=== PATIENT | male | born 1950 | race Caucasian/White ===

== ENCOUNTER → 2018-01-06 08:44 | Outpatient (CLI) | payer OTHER, SELFPAY ==
--- NOTE | 2018-01-10 07:43 | PM.PFT.1 ---
Pulmonary Function Test Referral & Results Date Patient Seen: 01/06/18 Requesting provider: Ally Grossman Indication: COPD Results: The spirometry demonstrates an FVC of 3.77 L which is 83% of predicted. The FEV1 was measured at 2.34 L which is 69% of predicted. The FEV1/FVC ratio was 62 which is 83% of predicted. Following the administration of bronchodilator there was no appreciable change. Lung volumes show an SVC of 3.99 L which is 86% of predicted. The diffusing capacity was measured at 14.39 which is 44% of predicted. No hemoglobin value was provided, so no correction for potential anemia could be made, if appropriate. The maximum voluntary ventilation was reduced Interpretation: This study demonstrates moderately severe obstructive lung disease without evidence of benefit following bronchodilator. There is also mild restrictive lung disease present There is much more significant disease at the capillary alveolar level based on significant reduction in diffusing capacity (unless patient is anemic). Clinical correlation suggested.
== END ==
PROVIDERS: PCP Registered Nurse; Visit Provider Registered Nurse
DX: J44.9 Chronic obstructive pulmonary disease, unspecified (principal)
CPT/HCPCS: 94010; 94060; 94726; 94729

== ENCOUNTER → 2018-01-18 08:53 | Outpatient (CLI) | payer OTHER, SELFPAY ==
[2018-01-18 09:58] LABS: Add Manual Diff / Slide Review NO; Basophils Percent Auto 1.8 % (0-2); Eosinophils Percent Auto 5.9 % (2-4); Hematocrit 29.7 % (41-53); Hemoglobin 9.3 g/dL (13.5-17.5); Lymphocytes Percent Auto 30.2 % (25-40); Mean Corpuscular HGB Conc 31.2 % (30-36); Mean Corpuscular Hemoglobin 18.8 PG (26-34); Mean Corpuscular Volume 60.3 fL (80-100); Monocytes Percent Auto 13.8 % (3-14); Neutrophils Absolute Auto 2800 /uL (3000-5900); Neutrophils Percent Auto 48.3 % (50-75); Platelet Count 494 X10^3/uL (150-400); Red Blood Cell Count 4.93 X10^6/uL (4.5-5.9); Red Cell Distribution Width 18.3 % (11.6-14.8); White Blood Cell Count 5.7 X10^3/uL (4.5-11.0)
[2018-01-18 10:00] LABS: Alanine Aminotransferase 30 IU/L (21-72); Albumin 3.4 g/dL (3.5-5.0); Albumin Globulin Ratio 1.2 (1.0-2.8); Alkaline Phosphatase 52 U/L (38-126); Aspartate Aminotransferase 34 IU/L (17-59); BUN Creatinine Ratio 15.6 (6-22); Bilirubin Total 0.3 mg/dL (0.2-1.3); Blood Urea Nitrogen 14 mg/dL (9-20); Calcium 8.6 mg/dL (8.4-10.2); Carbon Dioxide 26 mmol/L (22-32); Chloride 100 mmol/L (98-107); Cholesterol 172 mg/dL (140-199); Estimated Glomerular Filt Rate > 60.0 mL/min (>60); Globulin 2.8 g/dL (1.7-4.1); Glucose 97 mg/dL (80-110); HDL Cholesterol 48 mg/dL (40-60); HEMOLYSIS < 15 (0-50); LDL Cholesterol Calculated 105 mg/dL (<100); Potassium 4.4 mmol/L (3.4-5.1); Sodium 135 mmol/L (137-145); Total Protein 6.2 g/dL (6.3-8.2); Triglycerides 97 mg/dL (35-150)
[2018-01-18 10:29] LABS: Hypochromasia 2+; Microcytosis 1+; Polychromasia 1+
[2018-01-18 10:32] LABS: Thyroid Stimulating Hormone 0.04 uIU/mL (0.47-4.68)
== END ==
PROVIDERS: PCP Registered Nurse; Visit Provider Registered Nurse
DX: E03.2 Hypothyroidism due to medicaments and other exogenous substances (principal); J44.9 Chronic obstructive pulmonary disease, unspecified; K50.90 Crohn's disease, unspecified, without complications; I71.4 Abdominal aortic aneurysm, without rupture; I25.10 Atherosclerotic heart disease of native coronary artery without angina pectoris
CPT/HCPCS: 36415; 80053; 80061; 84443; 85025

== ENCOUNTER → 2018-01-21 08:56 | Outpatient (CLI) | payer OTHER, SELFPAY ==
[2018-01-21 11:23] LABS: HEMOLYSIS < 15 (0-50); Iron 11 ug/dL (49-181)
[2018-01-21 11:35] LABS: Percent Iron Saturation 4 % (20-50); Total Iron Binding Capacity 307 ug/dL (261-462); Transferrin 246 mg/dL (206-381)
== END ==
PROVIDERS: PCP Registered Nurse; Visit Provider Registered Nurse
DX: D64.9 Anemia, unspecified (principal)
CPT/HCPCS: 36415; 83540; 83550

== ENCOUNTER → 2018-01-30 09:10 | Outpatient (CLI) | payer OTHER, SELFPAY ==
--- NOTE | 2018-01-30 09:14 | DI.CT.S_ITS ---
PROCEDURE: CT CHEST WO CON INDICATIONS: Monitoring of pulmonary nodules, AAA TECHNIQUE: Noncontrast 2.0-2.5 mm thick sections acquired from the pulmonary apices to the posterior costophrenic angles. 7 mm thick coronal and sagittal MIP reformats were then acquired. A low radiation dose technique was utilized. COMPARISON: Outside Facility, RG, CT THORAX W/O CONTRAST, 02/20/2017, 8:40. Outside Facility, RG, CT SOFT TISSUE NECK WITH CONTRAST, 03/01/2015, 15:42. Outside Facility, RG, CT THORAX W/O CONTRAST, 03/01/2015, 15:42. FINDINGS: Image quality: Diagnostic, given the low radiation dose technique. Lungs and pleura: Previously identified 5 mm nodule within the right upper lobe on series 2 image 29 is unchanged compared to initial visualization on 03/01/15. A 3 mm left upper lobe nodule is unchanged, compared to initial visualization on 02/20/17. Calcified nodule in the right base is also unchanged compared to 03/01/15 and likely granuloma. Mediastinum: Heart size is normal. No pericardial effusion. No mediastinal adenopathy by size criteria. Scattered mediastinal calcified nodes are present. The ascending thoracic aorta is unchanged measuring approximately 43 mm. Esophagus is normal in caliber. No hiatal hernia. Bones and chest wall: No suspicious bony lesions. No vertebral body compression fractures. No axillary or supraclavicular adenopathy by size criteria. Thyroid gland is not well visualized. Abdomen: Calcifications are present within the spleen and liver. There is an exophytic hyperdense focus along the posterior lateral aspect of the right kidney, unchanged. Otherwise, visualized upper abdomen solid organs and bowel loops appear normal in the absence of contrast. IMPRESSION: 1. Unchanged 5 mm right upper lobe nodule, stable compared to 03/01/15. Recommendations no further followup as it has demonstrated stability over greater than 2 year suggestive of benign etiology. 2. Unchanged 3 mm nodule since initial visualization of 02/20/17. Based on criteria below, no additional followup is recommended. 3. Unchanged aneurysmal dilation of the ascending thoracic aorta. Fleischner Society criteria for SOLID lung nodule followup. Nodule size (mm)Low-risk patientHigh-risk patient<6 (single or multiple)No routine followup.Optional CT at 12 months. 6-8 (single or multiple)CT at 6-12 months, then optional CT at 18-24 mo.CT at 6-12 months, then CT at 18-24 months. >8 (single)CT at 3 months, PET-CT, or biopsy. Same as for low-risk pts. >8 (multiple)CT at 3-6 months, then optional CT at 18-24 mo.CT at 3-6 months, then CT at 18-24 months. Recommendations do not apply to lung cancer screening, patients with immunosuppression, or patients with known primary cancer. Dictated by: Jadyn Ballard M.D. on 01/30/2018 at 12:23 Approved by: Jadyn Ballard M.D. on 01/30/2018 at 13:24
== END ==
PROVIDERS: PCP Registered Nurse; Visit Provider Registered Nurse
DX: I71.4 Abdominal aortic aneurysm, without rupture (principal); R91.8 Other nonspecific abnormal finding of lung field
CPT/HCPCS: 71250; Q9967

== ENCOUNTER 2018-02-26 12:51 | Inpatient (IN) | payer OTHER, SELFPAY ==
[2018-02-26 13:06] VITALS: BP 162/99; PULSE 77; RESP 18; TEMP 36.7; O2SAT 100
[2018-02-26 13:37] LABS: Add Manual Diff / Slide Review NO; Basophils Percent Auto 0.6 % (0-2); Eosinophils Percent Auto 2.2 % (2-4); Hematocrit 41.6 % (41-53); Lymphocytes Percent Auto 10.1 % (25-40); Mean Corpuscular HGB Conc 31.3 % (30-36); Mean Corpuscular Hemoglobin 22.1 PG (26-34); Mean Corpuscular Volume 70.5 fL (80-100); Monocytes Percent Auto 6.9 % (3-14); Neutrophils Absolute Auto 9800 /uL (3000-5900); Neutrophils Percent Auto 80.2 % (50-75); Platelet Count 380 X10^3/uL (150-400); Red Cell Distribution Width 32.3 % (11.6-14.8); White Blood Cell Count 12.2 X10^3/uL (4.5-11.0)
[2018-02-26 13:38] LABS: Alanine Aminotransferase 41 IU/L (21-72); Albumin 3.5 g/dL (3.5-5.0); Albumin Globulin Ratio 1.3 (1.0-2.8); Alkaline Phosphatase 54 U/L (38-126); Aspartate Aminotransferase 32 IU/L (17-59); BUN Creatinine Ratio 18.9 (6-22); Bilirubin Total 0.5 mg/dL (0.2-1.3); Blood Urea Nitrogen 17 mg/dL (9-20); Calcium 8.9 mg/dL (8.4-10.2); Carbon Dioxide 23 mmol/L (22-32); Chloride 103 mmol/L (98-107); Estimated Glomerular Filt Rate > 60.0 mL/min (>60); Globulin 2.6 g/dL (1.7-4.1); Glucose 104 mg/dL (80-110); HEMOLYSIS 28 (0-50); Lipase 10 U/L (23-300); Potassium 4.4 mmol/L (3.4-5.1); Sodium 139 mmol/L (137-145); Total Protein 6.1 g/dL (6.3-8.2)
[2018-02-26] MEDS: KETOROLAC 60 MG/2 ML VIAL 30 MG IV (13:44)
[2018-02-26] MEDS: ONDANSETRON 4 MG/2 ML INJ IV (13:44)
[2018-02-26] MEDS: SODIUM CHLORIDE 0.9% 1,000 ML 150 ML IV ×2 (13:44→20:31)
[2018-02-26 14:00] VITALS: BP 119/66; PULSE 86; O2SAT 96
[2018-02-26 14:02] LABS: Anisocytosis 3+
[2018-02-26 14:03] LABS: Hypochromasia 1+
[2018-02-26 14:04] LABS: Ovalocytes 2+
[2018-02-26 14:05] LABS: Poikilocytosis 1+
--- NOTE | 2018-02-26 14:09 | DI.CT.S_ITS ---
PROCEDURE: CT ABDOMEN PELVIS W CON INDICATIONS: right abd pain. hx of Crohn TECHNIQUE: After the administration of intravenous contrast, 5 mm thick sections acquired from the diaphragm to the symphysis. 5 mm coronal and sagittal reformats were acquired. For radiation dose reduction, the following was used: automated exposure control, adjustment of mA and/or kV according to patient size. COMPARISON: Outside Facility, RG, CT SOFT TISSUE NECK WITH CONTRAST, 03/01/2015, 15:42. Outside Facility, RG, CT THORAX W/O CONTRAST, 02/20/2017, 8:40. Outside Facility, RG, CT THORAX W/O CONTRAST, 03/01/2015, 15:42. [facility], CT, CT CHEST WO CON, 01/30/2018, 9:23. FINDINGS: Image quality: Excellent. ABDOMEN: Lung bases: Chronic last infiltrate are present in the right middle lobe, and lower lobes bilaterally. Heart size is normal. Solid organs: Liver is normal in size and enhancement. Gallbladder is normal. Biliary system is non dilated. Pancreas enhances normally. Spleen is mildly enlarged and demonstrates multiple calcified granulomas. No adrenal nodules. Kidneys demonstrate normal size and enhancement, without hydronephrosis. There is a 1.3 cm cyst in the left kidney. A 1.2 cm exophytic nodule is noted in the mid right kidney. There is a 1.6 cm exophytic hyperdense nodule in the superior pole right kidney, which has slightly increased in size since 02/2015. Peritoneum and bowel: Terminal ileum appears mildly thickened. Proximal to the terminal ileum, small intestine is distended measuring up to 4.5 cm in diameter suggesting small bowel obstruction. There is increased mucosal enhancement in small intestine and cecum and ascending colon, which are filled with fluid. There is mild concentric wall thickening involving the splenic flexure, descending and sigmoid colon. A small amount of free fluid is present. No free air. Nodes and vessels: No retroperitoneal or mesenteric adenopathy by size criteria. Aorta and inferior vena cava are normal in size. There is moderate aortic atherosclerosis. Miscellaneous: No ventral hernias. There is a 1.7 x 5.1 cm lipoma in the anterior left flank. PELVIS: Genitourinary: Bladder wall thickness is normal. Miscellaneous: No inguinal hernias or adenopathy. Bones: No suspicious bony lesions. No vertebral body compression fractures. IMPRESSION: 1. There is concentric thickening in the terminal ileum as well as the left colon consistent with Crohn's disease. 2. Fluid-filled, mildly distended small intestine consistent with small bowel obstruction. The transitional point is in the terminal ileum. 3. A small amount of free fluid is present. No free air. 4. Mild splenomegaly and old calcified splenic granulomas. 5. Right middle lobe and bilateral lower lobe infiltrates suspicious for pneumonia or pneumonitis. 6. Several small nodules are seen in kidneys bilaterally, most likely renal cysts. One nodule in the superior pole the right kidney has slightly enlarged since 2015 and appears hyperdense. Renal ultrasound is suggested for followup to confirm cystic nature. 7. A lipoma in the anterior left flank. Dictated by: Max Couch M.D. on 02/26/2018 at 14:57 Approved by: Max Couch M.D. on 02/26/2018 at 15:24
--- NOTE | 2018-02-26 14:50 | ED.ABDPAIN ---
HPI - Abdominal Pain General Chief Complaint: Abdominal Pain Stated Complaint: states bad stomach pain Time Seen by Provider: 02/26/18 13:20 Source: patient Mode of arrival: ambulatory Limitations: no limitations History of Present Illness HPI narrative: Patient is a 67-year-old male who presents with mid abdominal pain. He says he is having some cramping sensations last evening however he was able to eat dinner. Today it is constant pain nonradiating no migration of pain. He denies nausea or vomiting. He is passing gas. He does have a history of Crohn's disease which he has had since the 1960s. He was recently started on Humira this summer to help manage it. He states very adamantly this is not a Crohn's flare. He notes exactly with does feel like and this does not seem to be 1 of them. Previously his GI doctor is in [place]. Due to [place] as he has been unable to see a GI doctor up in this area he is scheduled see Dr. valdez But has not yet seen him MD complaint: abdominal pain Onset (ago): day(s) Pain Consistency: constant Location: periumbilical Severity: moderate Related Data Home Medications Medication Instructions Recorded Confirmed adalimumab 40 mg/0.8 mL 40 mg SUBCUT Q2W 12/02/17 02/26/18 subcutaneous syringe kit fluticasone 50 mcg/actuation nasal 1 spray NASAL DAILY 12/02/17 02/26/18 spray,suspension levothyroxine 125 mcg capsule 125 mcg PO DAILY 12/02/17 02/26/18 omeprazole 20 mg tablet,delayed 20 mg PO BID tab 12/02/17 02/26/18 release ferrous sulfate 325 mg (65 mg 325 mg PO BID tab 01/31/18 02/26/18 iron) tablet salmeterol [Serevent Diskus] 1 inhalation INHALATION DAILY 02/26/18 02/26/18 Previous Rx's Medication Instructions Recorded beclomethasone diprop 40 2 puff INHALATION BID #10.6 gram 01/09/18 mcg/actuation HFA breath activated aerosol albuterol sulfate HFA 90 1 puff INHALATION Q4-6H PRN #8 gram 01/31/18 mcg/actuation aerosol inhaler Allergies Allergy/AdvReac Type Severity Reaction Status Date / Time No Known Drug Allergies Allergy Unverified 02/25/18 13:48 Review of Systems Review of Systems All systems reviewed & are unremarkable except as noted in HPI and below Constitutional Denies chills, Denies fever(s), Denies lethargy and Denies weakness Cardiovascular Denies chest pain, Denies irregular heart rhythm, Denies lightheadedness, Denies palpitations, Denies dyspnea, Denies dyspnea on exertion and Denies orthopnea Respiratory Denies cough, Denies dyspnea, Denies dyspnea on exertion and Denies wheezing Gastrointestinal Gastrointestinal: Reports as per HPI Genitourinary Denies hematuria, Denies flank pain, Denies urinary incontinence and Denies urinary urgency Musculoskeletal Denies back pain, Denies muscle weakness, Denies numbness and Denies tingling Integumentary/Breasts Denies pruritus, Denies erythema, Denies rash and Denies wounds Neurologic Denies numbness, Denies tingling and Denies weakness Endocrine Denies palpitations Allergic/Immunologic Denies wheezing [facility] Medical History Pulmonary nodules (Chronic) Abdominal aortic aneurysm (AAA) (Chronic) Iatrogenic hypothyroidism (Chronic) COPD (chronic obstructive pulmonary disease) (Chronic) Crohns disease (Chronic ~1968) Surgical History Thyroid cancer (Resolved ~06/2010) Tongue malignant neoplasm (Resolved ~2015) History of mandibular surgery (Resolved ~1987) History of testicular surgery (Resolved ~1956) Family History Father No problems noted. Mother No problems noted. Social History household members: spouse Smoking Status: Former smoker alcohol intake: current substance use type: marijuana (on occasion) Exam Initial Vital Signs Initial Vital Signs: Vital Signs Temperature 98.1 F 02/26/18 13:06 Pulse Rate 77 02/26/18 13:06 Respiratory Rate 18 02/26/18 13:06 Blood Pressure 162/99 H 02/26/18 13:06 Pulse Oximetry 100 02/26/18 13:06 GENERAL: Comfortable well-appearing male no acute distress HEENT: Head atraumatic,EOMI, pupils reactive CARDIOVASCULAR: Regular rate and rhythm without murmurs, rubs or gallops. RESPIRATORY: Breath sounds equal bilaterally, no wheezes rales or rhonchi. ABDOMEN: Soft, mid abdomen is tender, no guarding or rebound : No CVA tenderness EXTREMITIES: Normal range of motion, no clubbing or edema. Neurovascularly intact NEUROLOGICAL: Alert and oriented x4.Normal gait and speech. Cranial nerves II through XII grossly intact. SKIN: Warm, dry, no laceration, no petechiae, no rashes or lesions. Course Orders Ordered: ED Orders 02/26/18 13:20 Complete Blood Count AUTO DIFF Stat Comprehensive Metabolic Panel Stat Lipase Stat 02/26/18 14:09 CT abdomen pelvis w con Stat 02/26/18 16:41 Lactate (Lactic Acid) Stat 02/26/18 17:12 Consult to General Surgery Stat 02/26/18 17:22 Education, smoking cessation ONGOING 02/26/18 17:24 Consult to Discharge Planning Routine Consult to Occupational Therapy Evaluate & Treat Consult to Physical Therapy Evaluate & Treat Bisacodyl (Dulcolax) 10 mg NE DAILY PRN PRN Reason: Constipation Heparin Sodium (Porcine) (Heparin) 5,000 unit SUBCUT BID SUSY Sodium Chloride (Normal Saline 0.9%) 1,000 mls @ 100 mls/hr IV CONT SUSY Last Admin: 02/26/18 13:44 Dose: 150 mls/hr Morphine Sulfate (Morphine) 2 mg IV Q4HR PRN PRN Reason: Pain, Moderate (4-6) Ondansetron HCl (Zofran) 4 mg IV Q8HR PRN PRN Reason: Nausea And Vomiting Discontinued Medications Ketorolac Tromethamine (Toradol) 30 mg IV NOW ONE Stop: 02/26/18 13:29 Last Admin: 02/26/18 13:44 Dose: 30 mg Methylprednisolone (Solu-Medrol 125 Mg Vial) 125 mg IV NOW ONE Stop: 02/26/18 16:23 Ondansetron HCl (Zofran) 4 mg IV NOW ONE Stop: 02/26/18 13:29 Last Admin: 02/26/18 13:44 Dose: 4 mg Vital Signs - 8 hr 02/26/18 13:06 02/26/18 14:00 02/26/18 16:29 Temperature 98.1 F Pulse Rate 77 86 75 Respiratory Rate 18 17 Blood Pressure 162/99 H Blood Pressure [Left Arm] 119/66 126/82 Pulse Oximetry 100 96 98 02/26/18 17:02 Temperature Pulse Rate 73 Respiratory Rate 17 Blood Pressure 121/89 Blood Pressure [Left Arm] Pulse Oximetry 97 MDM - Abdominal Pain Medical Records Attestation: I reviewed the patient's medical records. Lab Data Attestation: I reviewed the patient's lab results. Result diagrams: 02/26/18 13:20 02/26/18 13:20 Lab Results 02/26/18 02/26/18 02/26/18 Range/Units 13:20 13:20 16:41 WBC 12.2 H (4.5-11.0) X10^3/uL RBC 5.90 (4.5-5.9) X10^6/uL Hgb 13.0 L (13.5-17.5) g/dL Hct 41.6 (41-53) % MCV 70.5 L (80-100) fL MCH 22.1 L (26-34) PG MCHC 31.3 (30-36) % RDW 32.3 H (11.6-14.8) % Plt Count 380 (150-400) X10^3/uL Neut % (Auto) 80.2 H (50-75) % Lymph % (Auto) 10.1 L (25-40) % [place] % (Auto) 6.9 (3-14) % Eos % (Auto) 2.2 (2-4) % Baso % (Auto) 0.6 (0-2) % Neut # (Auto) 9800 H (0515-1999) /uL RBC Morphology See below Hypochromasia 1+ H Poikilocytosis 1+ H Anisocytosis 3+ H Ovalocytes 2+ H Sodium 139 (137-145) mmol/L Potassium 4.4 (3.4-5.1) mmol/L Chloride 103 (98-107) mmol/L Carbon Dioxide 23 (22-32) mmol/L BUN 17 (9-20) mg/dL Creatinine 0.90 (0.66-1.25) mg/dL Estimated GFR > 60.0 (>60) mL/min BUN/Creatinine Ratio 18.9 (6-22) Glucose 104 (80-110) mg/dL Lactate 0.6 L (0.7-2.1) mmol/L Calcium 8.9 (8.4-10.2) mg/dL Total Bilirubin 0.5 (0.2-1.3) mg/dL AST 32 (17-59) IU/L ALT 41 (21-72) IU/L Alkaline Phosphatase 54 (38-126) U/L Total Protein 6.1 L (6.3-8.2) g/dL Albumin 3.5 (3.5-5.0) g/dL Globulin 2.6 (1.7-4.1) g/dL Albumin/Globulin Ratio 1.3 (1.0-2.8) Lipase 10 L (23-300) U/L Imaging Data CT scan - abdomen: Radiologist's impression: PROCEDURE: CT ABDOMEN PELVIS W CON INDICATIONS: right abd pain. hx of Crohn TECHNIQUE: After the administration of intravenous contrast, 5 mm thick sections acquired from the diaphragm to the symphysis. 5 mm coronal and sagittal reformats were acquired. For radiation dose reduction, the following was used: automated exposure control, adjustment of mA and/or kV according to patient size. COMPARISON: Outside Facility, RG, CT SOFT TISSUE NECK WITH CONTRAST, 03/01/2015, 15:42. Outside Facility, RG, CT THORAX W/O CONTRAST, 02/20/2017, 8:40. Outside Facility, RG, CT THORAX W/O CONTRAST, 03/01/2015, 15:42. [facility], CT, CT CHEST WO CON, 01/30/2018, 9:23. FINDINGS: Image quality: Excellent. ABDOMEN: Lung bases: Chronic last infiltrate are present in the right middle lobe, and lower lobes bilaterally. Heart size is normal. Solid organs: Liver is normal in size and enhancement. Gallbladder is normal. Biliary system is non dilated. Pancreas enhances normally. Spleen is mildly enlarged and demonstrates multiple calcified granulomas. No adrenal nodules. Kidneys demonstrate normal size and enhancement, without hydronephrosis. There is a 1.3 cm cyst in the left kidney. A 1.2 cm exophytic nodule is noted in the mid right kidney. There is a 1.6 cm exophytic hyperdense nodule in the superior pole right kidney, which has slightly increased in size since 02/2015. Peritoneum and bowel: Terminal ileum appears mildly thickened. Proximal to the terminal ileum, small intestine is distended measuring up to 4.5 cm in diameter suggesting small bowel obstruction. There is increased mucosal enhancement in small intestine and cecum and ascending colon, which are filled with fluid. There is mild concentric wall thickening involving the splenic flexure, descending and sigmoid colon. A small amount of free fluid is present. No free air. Nodes and vessels: No retroperitoneal or mesenteric adenopathy by size criteria. Aorta and inferior vena cava are normal in size. There is moderate aortic atherosclerosis. Miscellaneous: No ventral hernias. There is a 1.7 x 5.1 cm lipoma in the anterior left flank. PELVIS: Genitourinary: Bladder wall thickness is normal. Miscellaneous: No inguinal hernias or adenopathy. Bones: No suspicious bony lesions. No vertebral body compression fractures. IMPRESSION: 1. There is concentric thickening in the terminal ileum as well as the left colon consistent with Crohn's disease. 2. Fluid-filled, mildly distended small intestine consistent with small bowel obstruction. The transitional point is in the terminal ileum. 3. A small amount of free fluid is present. No free air. 4. Mild splenomegaly and old calcified splenic granulomas. 5. Right middle lobe and bilateral lower lobe infiltrates suspicious for pneumonia or pneumonitis. 6. Several small nodules are seen in kidneys bilaterally, most likely renal cysts. One nodule in the superior pole the right kidney has slightly enlarged since 2015 and appears hyperdense. Renal ultrasound is suggested for followup to confirm cystic nature. 7. A lipoma in the anterior left flank. Dictated by: Max Couch M.D. on 02/26/2018 at 14:57 MDM Narrative Medical decision making narrative: I have called Dr. Hurtado who has reviewed his CT recommend strong aggressive medical management surgery as a last resort. Dr. Saez, hospitalist updated patient's symptoms test results. Is comfortable managing Crohn's disease with surgery as strategy consultant Dr. Hurtado agrees to consult Dr. Croft has been notified. According to records patient is air in at [facility] patient. Is comfortable with internal medicine at managing Discharge Plan Departure Patient Disposition: Admitted As Inpatient Clinical Impression: Crohns disease Discharge Date/Time: 02/26/18 17:17 Interventions: ED Discharge Assessment Last Done: 02/26/18 17:02 Admit Date/Time: 02/26/18 17:14 Admit Provider: Maria R Combs
[2018-02-26 16:29] VITALS: BP 126/82; PULSE 75; RESP 17; O2SAT 98
[2018-02-26 17:02] VITALS: BP 121/89; PULSE 73; RESP 17; O2SAT 97
[2018-02-26 17:03] LABS: Lactate (Lactic Acid) 0.6 mmol/L (0.7-2.1)
[2018-02-26 17:18] VITALS: BP 137/95; PULSE 71; RESP 18; TEMP 37.1; O2SAT 96
[2018-02-26 17:28] VITALS: BMI 20.1
[2018-02-26] MEDS: MORPHINE 2 MG/ML INJ IV (17:52)
--- NOTE | 2018-02-26 18:15 | PM.HP.1 ---
History of Present Illness Date Patient Seen: 02/26/18 Time Patient Seen: 18:16 Chief complaint: states bad stomach pain Narrative: - VERY PLEASANT 67 YO MALE WITH PAST MEDICAL HISTORY SIGNIFICANT FOR CHROM S DISEASE; IRON DEF ANEMIA AND ANDERSON - PRESENTED TO THE ED WITH ABD PAIN WHICH HAS BEEN ONGOING FOR LAST FEW DAYS - STARTED ON SATURDAY ; SHARP IN NATURE AND WORSENING LAST NIGHT AND ALL DAY TODAY - HE DOES NOT HAVE A HX OF ABD SURGERY AND HIS IBD IS UNDER CONTROL ON HUMIRA - HE DENIED ANY FEVER OR CHILLS; NO RECENT TRAVEL; NO EXOTIC FOOD PRODUCTS; NO INJURIES - PAIN WAS ON AND OFF AND IMPROVED SINCE IN THE ED IN THE ED, HE WAS FOUND TO HAVE SBO PER CT AND RECOMMENDED FOR INPATIENT ADMISSION Patient History Medical History Pulmonary nodules (Chronic) Abdominal aortic aneurysm (AAA) (Chronic) Iatrogenic hypothyroidism (Chronic) COPD (chronic obstructive pulmonary disease) (Chronic) Crohns disease (Chronic ~1968) Surgical History Thyroid cancer (Resolved ~06/2010) Tongue malignant neoplasm (Resolved ~2015) History of mandibular surgery (Resolved ~1987) History of testicular surgery (Resolved ~1956) Family & Social History Family History: Reviewed 02/26/18 by Maria R Combs DO Social History: household members spouse Prior Living Arrangements House Safety & Behavioral: Feels Safe in Current Yes Environment Been Physically Hurt or No Threatened By a Person Suicidal Ideation Description None Suicide Plan Description No Plan Tobacco & Substance use: Smoking Status Former smoker alcohol intake current alcohol intake frequency a few times a week Substance Use Type marijuana Meds Home Medications Medication Instructions Recorded Confirmed Type adalimumab 40 mg/0.8 mL 40 mg SUBCUT Q2W 12/02/17 02/26/18 History subcutaneous syringe kit fluticasone 50 mcg/actuation nasal 1 spray NASAL DAILY 12/02/17 02/26/18 History spray,suspension levothyroxine 125 mcg capsule 125 mcg PO DAILY 12/02/17 02/26/18 History omeprazole 20 mg tablet,delayed 20 mg PO BID tab 12/02/17 02/26/18 History release beclomethasone diprop 40 2 puff INHALATION BID #10.6 gram 10/18/18 12/05/18 Rx mcg/actuation HFA breath activated aerosol albuterol sulfate HFA 90 1 puff INHALATION Q4-6H PRN #8 gram 01/31/18 02/26/18 Rx mcg/actuation aerosol inhaler ferrous sulfate 325 mg (65 mg 325 mg PO BID tab 01/31/18 02/26/18 History iron) tablet salmeterol [Serevent Diskus] 1 inhalation INHALATION DAILY 02/26/18 02/26/18 History Allergies Allergy/AdvReac Type Severity Reaction Status Date / Time No Known Drug Allergies Allergy Unverified 02/25/18 13:48 Review of Systems Review of Systems All systems reviewed & are unremarkable except as noted in HPI and below Exam Vital Signs (past 8 hours): - 02/26/18 13:06 02/26/18 14:00 02/26/18 16:29 Temperature 98.1 F Pulse Rate 77 86 75 Respiratory Rate 18 17 Blood Pressure 162/99 H Blood Pressure [Left Arm] 119/66 126/82 Pulse Oximetry 100 96 98 02/26/18 17:02 02/26/18 17:18 Temperature 98.8 F Pulse Rate 73 71 Respiratory Rate 17 18 Blood Pressure 121/89 137/95 H Blood Pressure [Left Arm] Pulse Oximetry 97 96 Oxygen Delivery Method Room Air Narrative Exam Narrative: NO ACUTE DISTRESS. PATIENT IS ALERT ORIENTED X3. VITAL SIGNS STABLE HEAD ATRAUMATIC NORMOCEPHALIC NECK : SUPPLE WITHOUT ADENOPATHY NO CAROTID BRUITS EYE: EOMI, PERRLA, NORMAL CONJUNCTIVA; NO JAUNDICE CHEST: REGULAR RATE. NO RUBS. PMI IS NON DISPLACED. NO MURMURS; NORMAL S1-S2 PULMONARY: DECREASED BS OVER THE BASES. MILD BIBASILAR CRACKLES NOTED; NO INCREASED DULLNESS TO PERCUSSION ABDOMEN: SOFT. TENDERNESS TO MILD PALPATION. NONDISTENDED. BOWEL SOUNDS ARE PRESENT IN ALL 4 QUADRANTS BUT HYPOACTIVE NO MASS. EXTREMITIES: NO EDEMA.. NO CYANOSIS CLUBBING NOTED. NEURO: CRANIAL NERVES 2-12 GROSSLY INTACT. NO FOCAL NEUROLOGICAL DEFICIT NOTED. MSK: NORMAL RANGE OF MOTION FOR AGE. NO JOINT EFFUSION. SKIN: NORMAL FOR ETHNICITY; NO ECCHYMOSIS. NO LESION. GOOD TURGOR.; NO RASHES : NORMAL EXTERNAL GENITALIA. PSYCH : APPROPRIATE MOOD AND AFFECT. ALERT AWAKE ORIENTED X3 Objective Labs Result Diagrams: 02/26/18 13:20 02/26/18 13:20 Labs: Laboratory Results - last 24 hr 02/26/18 02/26/18 02/26/18 13:20 13:20 16:41 WBC 12.2 H RBC 5.90 Hgb 13.0 L Hct 41.6 MCV 70.5 L MCH 22.1 L MCHC 31.3 RDW 32.3 H Plt Count 380 Neut % (Auto) 80.2 H Lymph % (Auto) 10.1 L [place] % (Auto) 6.9 Eos % (Auto) 2.2 Baso % (Auto) 0.6 Neut # (Auto) 9800 H RBC Morphology See below Hypochromasia 1+ H Poikilocytosis 1+ H Anisocytosis 3+ H Ovalocytes 2+ H Sodium 139 Potassium 4.4 Chloride 103 Carbon Dioxide 23 BUN 17 Creatinine 0.90 Estimated GFR > 60.0 BUN/Creatinine Ratio 18.9 Glucose 104 Lactate 0.6 L Calcium 8.9 Total Bilirubin 0.5 AST 32 ALT 41 Alkaline Phosphatase 54 Total Protein 6.1 L Albumin 3.5 Globulin 2.6 Albumin/Globulin Ratio 1.3 Lipase 10 L Assessment & Plan Plan: Assessment/Plan Narrative: IMPRESSION AND PLAN ABD PAIN DUE TO SBO; KEEP NPO FOR NOW; NGT INDICATED FOR INTRACTABLE NAUSEA; SURG CONSULT INDICATED; IVF TO PREVENT DEHYDRATION; FOLLOW LACTATE TO RULE OUT ISCHEMIA LEUKOCYTOSIS; POSS CRHON S DISEASE EXACERBATION; WILL CONSIDER STEROID THERAPY; START ON ABX; DAILY CBC; BLOOD CX IRON DEF ANEMIA; GET IRON PANEL DURATION OF STAY: 2-3 DAYS TIME SPENT 50 MINS
[2018-02-26] MEDS: metroNIDAZOLE 500 MG/100 ML PIGGYBACK 100 MG IV (19:10)
[2018-02-26 19:11] VITALS: BP 155/92; PULSE 77; RESP 19; TEMP 36.9; O2SAT 97
[2018-02-26] MEDS: methylPREDNISolone 125 MG/2 ML VIAL IV (19:13)
--- NOTE | 2018-02-26 19:49 | P.HP_ITS ---
History of Present Illness Date Patient Seen: 02/26/18 Time Patient Seen: 19:39 Chief complaint: states bad stomach pain Narrative: 67-year-old male with history of Crohn's disease since 1968 generally controlled with long-term oral steroids recently started on Humira 4 months ago per his cytotechnologist/cytology supervisor in [place] with cessation of steroids in November 2017 who presented the emergency department today with 24 hr history of progressive severe abdominal pain. States that the pain is generalized mostly but slightly more severe in the right lower quadrant region. No fever or chills. Mild nausea earlier this morning but that has resolved. No vomiting at any time. He had a normal bowel movement this morning but none since. He is passing a small amount of flatus. Does have some subjective abdominal distention. Denies any fever or chills. He has not had any similar symptoms in the past. His last Crohn's exacerbation was approximately June 2017 manifesting as diarrhea. He has never required surgery for his Crohn's disease. He responded to high-dose steroids at that time. Of note, he has not seen his cytotechnologist/cytology supervisor's since October 2017 at the time of his medication change. Unfortunately, insurance coverage is no longer allow him to maintain care with that physician. He is currently transitioning to another cytotechnologist/cytology supervisor in [place], [place] with initial consultation scheduled for April 2018. Patient History Medical History Pulmonary nodules (Chronic) Abdominal aortic aneurysm (AAA) (Chronic) Iatrogenic hypothyroidism (Chronic) COPD (chronic obstructive pulmonary disease) (Chronic) Crohns disease (Chronic ~1968) Personal history of colonic polyps (Acute) Surgical History Thyroid cancer (Resolved ~06/2010) Tongue malignant neoplasm (Resolved ~2015) History of colonoscopy (Acute) History of mandibular surgery (Resolved ~1987) History of testicular surgery (Resolved ~1956) Family & Social History Family History: Reviewed 02/26/18 by Frederick Hurtado MD Social History: household members spouse Prior Living Arrangements House Safety & Behavioral: Feels Safe in Current Yes Environment Been Physically Hurt or No Threatened By a Person Suicidal Ideation Description None Suicide Plan Description No Plan Tobacco & Substance use: Smoking Status Former smoker alcohol intake current alcohol intake frequency a few times a week Substance Use Type marijuana Meds Home Medications Medication Instructions Recorded Confirmed Type adalimumab 40 mg/0.8 mL 40 mg SUBCUT Q2W 12/02/17 02/26/18 History subcutaneous syringe kit fluticasone 50 mcg/actuation nasal 1 spray NASAL DAILY 12/02/17 02/26/18 History spray,suspension levothyroxine 125 mcg capsule 125 mcg PO DAILY 12/02/17 02/26/18 History omeprazole 20 mg tablet,delayed 20 mg PO BID tab 12/02/17 02/26/18 History release beclomethasone diprop 40 2 puff INHALATION BID #10.6 gram 01/09/18 02/26/18 Rx mcg/actuation HFA breath activated aerosol albuterol sulfate HFA 90 1 puff INHALATION Q4-6H PRN #8 gram 01/31/18 02/26/18 Rx mcg/actuation aerosol inhaler ferrous sulfate 325 mg (65 mg 325 mg PO BID tab 01/31/18 02/26/18 History iron) tablet salmeterol [Serevent Diskus] 1 inhalation INHALATION DAILY 02/26/18 02/26/18 History Allergies Allergy/AdvReac Type Severity Reaction Status Date / Time No Known Drug Allergies Allergy Unverified 02/25/18 13:48 Review of Systems Review of Systems All systems reviewed & are unremarkable except as noted in HPI and below Exam Vital Signs (past 8 hours): - 02/26/18 13:06 02/26/18 14:00 02/26/18 16:29 Temperature 98.1 F Pulse Rate 77 86 75 Respiratory Rate 18 17 Blood Pressure 162/99 H Blood Pressure [Left Arm] 119/66 126/82 Pulse Oximetry 100 96 98 02/26/18 17:02 02/26/18 17:18 02/26/18 19:11 Temperature 98.8 F 98.4 F Pulse Rate 73 71 77 Respiratory Rate 17 18 19 Blood Pressure 121/89 137/95 H 155/92 H Blood Pressure [Left Arm] Pulse Oximetry 97 96 97 Oxygen Delivery Method Room Air Narrative Exam Narrative: Well-nourished well-developed male sitting comfortably in bed in no acute distress. Alert oriented x3. His family is at the bedside during my entire visit. Temperature 98.1?. Heart rate is normal with no tachycardia. Blood pressure is also normal. Sclera nonicteric Neck is supple although he has postsurgical changes on the right side consistent with neck dissection Chest clear auscultation bilaterally with regular rate and rhythm. No murmurs, gallops, rubs. No crackles or wheezes. Abdomen is soft but distended and tympanitic. He is mildly tender throughout the abdomen but more pronounced in the right lower quadrant. However, he certainly does not have guarding or rebound. No Rovsing sign. I am able palpate loops of small bowel throughout the abdomen due to his thin body habitus. No surgical scars. No obvious hernias. Extremities show no clubbing, cyanosis, or edema Objective Labs Result Diagrams: 02/26/18 13:20 02/26/18 13:20 Labs: Laboratory Results - last 24 hr 02/26/18 02/26/18 02/26/18 13:20 13:20 16:41 WBC 12.2 H RBC 5.90 Hgb 13.0 L Hct 41.6 MCV 70.5 L MCH 22.1 L MCHC 31.3 RDW 32.3 H Plt Count 380 Neut % (Auto) 80.2 H Lymph % (Auto) 10.1 L Jack % (Auto) 6.9 Eos % (Auto) 2.2 Baso % (Auto) 0.6 Neut # (Auto) 9800 H RBC Morphology See below Hypochromasia 1+ H Poikilocytosis 1+ H Anisocytosis 3+ H Ovalocytes 2+ H Sodium 139 Potassium 4.4 Chloride 103 Carbon Dioxide 23 BUN 17 Creatinine 0.90 Estimated GFR > 60.0 BUN/Creatinine Ratio 18.9 Glucose 104 Lactate 0.6 L Calcium 8.9 Total Bilirubin 0.5 AST 32 ALT 41 Alkaline Phosphatase 54 Total Protein 6.1 L Albumin 3.5 Globulin 2.6 Albumin/Globulin Ratio 1.3 Lipase 10 L I have personally reviewed his CT scan of the abdomen and pelvis done this evening in the emergency department. He has multiple dilated loops of small bowel with air-fluid levels and minimal thickening of the bowel wall although the obvious transition point appears to be an area of thickening in the terminal ileum. This would be most consistent with Crohn's disease. No free air. No significant free fluid. He does have atherosclerosis of the aortoiliac system but no aneurysm. Assessment & Plan Plan: Assessment/Plan Narrative: 67-year-old male with longstanding history of Crohn's disease recently transition from steroids to monoclonal antibody therapy now presenting with partial small-bowel obstruction most consistent with Crohn's exacerbation in the terminal ileum. Small possibility of chronic stricture although he has had no issues with such in the past. I discussed my impression findings with the patient and his family at length. At this point I am hopeful that he will respond to aggressive medical management of his Crohn's disease with resolution of the inflammation and potential resolution of the small-bowel obstruction. He understands, however, that this may not occur and he would need surgery. I explained that surgery would be a last resort in the event he does not respond to medical management. I explained the reasoning behind avoiding surgery and patients with Crohn's disease if at all possible, especially if he would require resection of his ileocecal valve. Unfortunately we do not have gastroenterology services available for acute inpatient consultations, but I did explain to the emergency room physicians that I believe that would be in the patient's best interest. He has been admitted per Internal Medicine service with medical management including intravenous steroids at this time. Again, I anticipate that he will respond to medical management and hopefully resolve the acute issue. At this point surgery service will simply follow the patient for any acute clinical changes or clear size that he is not responding to medical management. All questions were answered to his satisfaction, and he voiced understanding. He was agreeable to the plan.
[2018-02-26] MEDS: CIPROFLOXACIN 400 MG/200 ML PIGGYBACK 200 MG IV (20:22)
[2018-02-26] MEDS: HYDROMORPHONE 1 MG INJ IV (20:39)
[2018-02-26 21:18] LABS: Lactate (Lactic Acid) 0.6 mmol/L (0.7-2.1)
--- NOTE | 2018-02-26 22:55 | PC.NURSE ---
171-Patient arrived on the floor via stretcher and accompanied by . Patient a&Ox4, ROGERS, denies numbness/tingling. Patient on room air clear lung sounds, hypoactive BTs w/ some distention and tender to touch in all 4 quadrants, denies nausea. 1751-PRN Morphine 2mg for 6/10 abd pain. 2029-Patient c/o pain 7/10 w/grimacing; PRN 1mg dilaudid administered. 2099-good pain relief; patient resting. 2300-VSS, afebrile, no nausea. no falls or injuries as of this note. pending UA; missed void earlier, waiting for patient to void; will pass on to next shift.
[2018-02-27] VITALS (8 sets, daily range): BP systolic 128–145; BP diastolic 73–91; PULSE 58–73; RESP 16–20; TEMP 36.4–37.1; O2SAT 95–99
[2018-02-27] MEDS: HEPARIN 5,000 UNIT/ML VIAL 5000 UNIT SUBCUT ×3 (00:05→21:09)
[2018-02-27] MEDS: HYDROMORPHONE 1 MG INJ IV ×4 (00:48→14:12)
[2018-02-27] MEDS: metroNIDAZOLE 500 MG/100 ML PIGGYBACK 100 MG IV ×2 (02:28→10:37)
[2018-02-27 03:35] LABS: Bacteria Urine None Seen; WBC Urine None Seen (0-5/HPF)
[2018-02-27 03:36] LABS: Appearance Urine UA CLEAR; Bilirubin Urine UA 1+ (NEGATIVE); Glucose Urine UA NEGATIVE (Normal); Ketones Urine UA 1+ (NEGATIVE); Leukocyte Esterase Urine UA NEGATIVE (NEGATIVE); Nitrite Urine UA NEGATIVE (Negative); Occult Blood Urine UA NEGATIVE (Negative); Protein Urine UA TRACE (Negative); Specific Gravity Urine UA 1.025 (1.000-1.035); Urobilinogen Urine UA 0.2 E.U./dL (0.2)
[2018-02-27 03:37] LABS: Color Urine UA Dark Yellow
[2018-02-27 03:38] LABS: Ictotest Urine Negative (Negative)
[2018-02-27 03:39] LABS: RBC Urine 0-1/HPF (0-5/HPF)
[2018-02-27 03:40] LABS: Mucus Urine 1+ (Negative)
[2018-02-27 03:41] LABS: Culture Indicated Urine Cult Not Indicated
[2018-02-27] MEDS: SODIUM CHLORIDE 0.9% 1,000 ML 150 ML IV ×3 (05:11→21:29)
[2018-02-27 05:56] LABS: Add Manual Diff / Slide Review NO; Basophils Percent Auto 0.2 % (0-2); Hematocrit 36.6 % (41-53); Hemoglobin 11.5 g/dL (13.5-17.5); Lymphocytes Percent Auto 11.6 % (25-40); Mean Corpuscular HGB Conc 31.3 % (30-36); Mean Corpuscular Volume 70.3 fL (80-100); Monocytes Percent Auto 1.4 % (3-14); Neutrophils Absolute Auto 6100 /uL (3000-5900); Neutrophils Percent Auto 86.8 % (50-75); Platelet Count 347 X10^3/uL (150-400)
[2018-02-27 06:05] LABS: Lactate (Lactic Acid) 0.9 mmol/L (0.7-2.1)
[2018-02-27 06:08] LABS: Alanine Aminotransferase 36 IU/L (21-72); Albumin 2.8 g/dL (3.5-5.0); Albumin Globulin Ratio 1.1 (1.0-2.8); Alkaline Phosphatase 56 U/L (38-126); Aspartate Aminotransferase 25 IU/L (17-59); Bilirubin Total 0.2 mg/dL (0.2-1.3); Blood Urea Nitrogen 20 mg/dL (9-20); Calcium 7.8 mg/dL (8.4-10.2); Carbon Dioxide 24 mmol/L (22-32); Chloride 106 mmol/L (98-107); Estimated Glomerular Filt Rate > 60.0 mL/min (>60); Globulin 2.5 g/dL (1.7-4.1); Glucose 137 mg/dL (80-110); HEMOLYSIS < 15 (0-50); Magnesium 1.9 mg/dL (1.6-2.3); Phosphorous 4.5 mg/dL (2.3-3.7); Potassium 4.6 mmol/L (3.4-5.1); Sodium 139 mmol/L (137-145); Total Protein 5.3 g/dL (6.3-8.2)
[2018-02-27 06:09] LABS: HEMOLYSIS < 15 (0-50); Iron 23 ug/dL (49-181)
[2018-02-27 06:14] LABS: Polychromasia 1+
[2018-02-27 06:16] LABS: Anisocytosis 2+; Hypochromasia 1+
[2018-02-27 06:17] LABS: Ovalocytes 1+; Poikilocytosis 1+
[2018-02-27 06:19] LABS: Percent Iron Saturation 9 % (20-50); Total Iron Binding Capacity 258 ug/dL (261-462); Transferrin 188 mg/dL (206-381)
--- NOTE | 2018-02-27 07:00 | DI.RAD.S_ITS ---
PROCEDURE: XR ABDOMEN MIN 2V INDICATIONS: small bowel obstruction TECHNIQUE: 2 views of the abdomen were acquired. COMPARISON: [facility], CT, CT ABDOMEN PELVIS W CON, 02/26/2018, 14:08. FINDINGS: Surgical changes and devices: None. Bowel: No pneumoperitoneum. Dilated small bowel loops are seen in upper and mid abdomen measuring up to 3.6 cm in diameter. There is paucity of distal small bowel gas and colonic gas, consistent with small bowel obstruction. Soft tissues: No masses; visualized solid organ contours appear normal in size. No suspicious abdominal calcifications. Bones: No suspicious bony abnormalities. IMPRESSION: Small bowel obstruction pattern. Dictated by: Max Couch M.D. on 02/27/2018 at 8:14 Approved by: Max Couch M.D. on 02/27/2018 at 8:16
[2018-02-27] MEDS: CIPROFLOXACIN 400 MG/200 ML PIGGYBACK 200 MG IV (07:38)
--- NOTE | 2018-02-27 07:48 | PC.NURSE ---
pt A&Ox3. passing some gas. btx4 hypoactive. no n/v. pain controlled with IV dilaudid 1mg. rates his pain 5/10. pt ambulated in hallways x 2 this phlebotomist prn. pt independent in room. call light in reach.
--- NOTE | 2018-02-27 10:01 | PM.PN.1 ---
Subjective Date Patient Seen: 02/27/18 Time Patient Seen: 10:01 Interval history: Patient denies nausea vomiting. Past a small amount of flatus this morning. Feeling better overall. Pain has markedly diminished. No bowel movement as yet. Exam Vital Signs (past 8 hours): - 02/27/18 05:00 02/27/18 07:52 Temperature 97.5 F L Pulse Rate 69 Respiratory Rate 16 Blood Pressure 145/73 H Pulse Oximetry 96 95 Oxygen Delivery Method Room Air Oxygen Flow Rate 0 Narrative Exam Narrative: Well-nourished well-developed male in no acute distress sitting comfortably in bed. Alert oriented x3. is at bedside for my entire visit. No fevers or tachycardia Chest clear to auscultation bilaterally with regular rate rhythm Abdomen soft, nondistended, no masses. Remains tender in the right lower quadrant mostly but no guarding or rebound. Extremities show no clubbing, cyanosis, or edema Objective Labs Result Diagrams: 02/27/18 05:15 02/27/18 05:15 Labs: Laboratory Results - last 24 hr 02/26/18 02/26/18 02/26/18 13:20 13:20 16:41 WBC 12.2 H RBC 5.90 Hgb 13.0 L Hct 41.6 MCV 70.5 L MCH 22.1 L MCHC 31.3 RDW 32.3 H Plt Count 380 Neut % (Auto) 80.2 H Lymph % (Auto) 10.1 L [place]ukes % (Auto) 6.9 Eos % (Auto) 2.2 Baso % (Auto) 0.6 Neut # (Auto) 9800 H RBC Morphology See below Polychromasia Hypochromasia 1+ H Poikilocytosis 1+ H Anisocytosis 3+ H Ovalocytes 2+ H Sodium 139 Potassium 4.4 Chloride 103 Carbon Dioxide 23 BUN 17 Creatinine 0.90 Estimated GFR > 60.0 BUN/Creatinine Ratio 18.9 Glucose 104 Lactate 0.6 L Calcium 8.9 Phosphorus Magnesium Iron TIBC % Saturation Transferrin Total Bilirubin 0.5 AST 32 ALT 41 Alkaline Phosphatase 54 Total Protein 6.1 L Albumin 3.5 Globulin 2.6 Albumin/Globulin Ratio 1.3 Lipase 10 L Urine Color Urine Appearance Urine pH Ur Specific [place] Urine Protein Urine Glucose (UA) Urine Ketones Urine Occult Blood Urine Nitrate Urine Bilirubin Urine Ictotest Urine Urobilinogen Ur Leukocyte Esterase Urine RBC Urine WBC Urine Bacteria Urine Mucus Ur Culture Indicated? Micro UA Comment 02/26/18 02/27/18 02/27/18 20:56 00:30 05:15 WBC RBC Hgb Hct MCV MCH MCHC RDW Plt Count Neut % (Auto) Lymph % (Auto) Dukes % (Auto) Eos % (Auto) Baso % (Auto) Neut # (Auto) RBC Morphology Polychromasia Hypochromasia Poikilocytosis Anisocytosis Ovalocytes Sodium Potassium Chloride Carbon Dioxide BUN Creatinine Estimated GFR BUN/Creatinine Ratio Glucose Lactate 0.6 L 0.9 Calcium Phosphorus Magnesium Iron TIBC % Saturation Transferrin Total Bilirubin AST ALT Alkaline Phosphatase Total Protein Albumin Globulin Albumin/Globulin Ratio Lipase Urine Color Dark yellow Urine Appearance Clear Urine pH 5.0 Ur Specific [place] 1.025 Urine Protein Trace H Urine Glucose (UA) Negative Urine Ketones 1+ H Urine Occult Blood Negative Urine Nitrate Negative Urine Bilirubin 1+ H Urine Ictotest Negative Urine Urobilinogen 0.2 Ur Leukocyte Esterase Negative Urine RBC 0-1/hpf Urine WBC None seen Urine Bacteria None seen Urine Mucus 1+ H Ur Culture Indicated? Cult not indicated Micro UA Comment Not Reportable 02/27/18 02/27/18 02/27/18 05:15 05:15 05:15 WBC 7.0 RBC 5.20 Hgb 11.5 L Hct 36.6 L MCV 70.3 L MCH 22.0 L MCHC 31.3 RDW 32.0 H Plt Count 347 Neut % (Auto) 86.8 H Lymph % (Auto) 11.6 L Dukes % (Auto) 1.4 L Eos % (Auto) 0.0 L Baso % (Auto) 0.2 Neut # (Auto) 6100 H RBC Morphology See below Polychromasia 1+ H Hypochromasia 1+ H Poikilocytosis 1+ H Anisocytosis 2+ H Ovalocytes 1+ H Sodium 139 Potassium 4.6 Chloride 106 Carbon Dioxide 24 BUN 20 Creatinine 0.80 Estimated GFR > 60.0 BUN/Creatinine Ratio 25.0 H Glucose 137 H Lactate Calcium 7.8 L Phosphorus 4.5 H Magnesium 1.9 Iron 23 L TIBC 258 L % Saturation 9 L Transferrin 188 L Total Bilirubin 0.2 AST 25 ALT 36 Alkaline Phosphatase 56 Total Protein 5.3 L Albumin 2.8 L Globulin 2.5 Albumin/Globulin Ratio 1.1 Lipase Urine Color Urine Appearance Urine pH Ur Specific [place] Urine Protein Urine Glucose (UA) Urine Ketones Urine Occult Blood Urine Nitrate Urine Bilirubin Urine Ictotest Urine Urobilinogen Ur Leukocyte Esterase Urine RBC Urine WBC Urine Bacteria Urine Mucus Ur Culture Indicated? Micro UA Comment Assessment & Plan Plan: Assessment/Plan Narrative: 67-year-old male with active Crohn's disease causing distal small-bowel obstruction at the terminal ileum. He is improved today. Continue current medical management of his Crohn's disease including steroids. I suspect he will need to be discharged on prednisone. No indications for surgical intervention at this time. He may have clear liquid diet from my perspective which has been ordered. We will continue to follow him clinically for any significant changes. All the above discussed with the patient and his in detail. Questions were answered to their satisfaction, and the patient voiced understanding.
--- NOTE | 2018-02-27 10:10 | OT.IP.TRT ---
Occupational Therapy Treatment Note M3 OT- IP Subjective and Pain Start: 02/27/18 11:32 Freq: Status: Active Protocol: Document 02/27/18 10:10 LIDIA (Rec: 02/27/18 11:41 PJM [id number]) OT- Subjective Occupational Therapy Visit Type Type Administrative Note Visit Start Time 10:10 Notes OT referral received on this 67 yr old male admitted with partial small bowel obstruction with hx of Crohn's disease and possible small bowel obstruction. Pt independent with mobility and self care tasks in room and P.T. has cleared him for independent gait. No OT goals identified for this admission. No charge.
--- NOTE | 2018-02-27 13:12 | P.PN_ITS ---
Subjective Date Patient Seen: 02/27/18 Time Patient Seen: 10:40 Interval history: BRAD FOOD WELL HAVING SOME FLATUS NO BM OF YET NO OTHER ISSUES OVERNIGHT Exam Vital Signs (past 8 hours): - 02/27/18 07:52 02/27/18 11:50 Temperature 98.4 F Pulse Rate 64 Respiratory Rate 17 Blood Pressure 129/91 H Pulse Oximetry 95 96 Oxygen Delivery Method Room Air Oxygen Flow Rate 0 Narrative Exam Narrative: NO ACUTE DISTRESS. PATIENT IS ALERT ORIENTED X3. VITAL SIGNS STABLE HEAD ATRAUMATIC NORMOCEPHALIC NECK : SUPPLE WITHOUT ADENOPATHY EYE: EOMI, PERRLA, NORMAL CONJUNCTIVA CHEST: REGULAR RATE.. NO RUBS. PMI IS NON DISPLACED. NO MURMURS PULMONARY: DECREASED BS OVER THE BASES. MILD BIBASILAR CRACKLES NOTED; NO INCREASED DULLNESS TO PERCUSSION ABDOMEN: SOFT; NON TENDER; BS + IN ALL 4 QUAD EXTREMITIES:NO EDEMA.. NO CYANOSIS OR CLUBBING NOTED. NEURO: CRANIAL NERVES 2-12 GROSSLY INTACT. NO FOCAL NEUROLOGICAL DEFICIT NOTED. MSK: NORMAL RANGE OF MOTION FOR AGE. NO JOINT EFFUSION. SKIN: NORMAL FOR ETHNICITY; NO ECCHYMOSIS. NO LESION. GOOD TURGOR.; NORASHES : NORMAL EXTERNAL GENITALIA. PSYCH : APPROPRIATE MOOD AND AFFECT. ALERT AWAKE ORIENTED X3 Objective Labs Result Diagrams: 02/27/18 05:15 02/27/18 05:15 Labs: Laboratory Results - last 24 hr 02/26/18 02/26/18 02/26/18 13:20 13:20 16:41 WBC 12.2 H RBC 5.90 Hgb 13.0 L Hct 41.6 MCV 70.5 L MCH 22.1 L MCHC 31.3 RDW 32.3 H Plt Count 380 Neut % (Auto) 80.2 H Lymph % (Auto) 10.1 L [place] % (Auto) 6.9 Eos % (Auto) 2.2 Baso % (Auto) 0.6 Neut # (Auto) 9800 H RBC Morphology See below Polychromasia Hypochromasia 1+ H Poikilocytosis 1+ H Anisocytosis 3+ H Ovalocytes 2+ H Sodium 139 Potassium 4.4 Chloride 103 Carbon Dioxide 23 BUN 17 Creatinine 0.90 Estimated GFR > 60.0 BUN/Creatinine Ratio 18.9 Glucose 104 Lactate 0.6 L Calcium 8.9 Phosphorus Magnesium Iron TIBC % Saturation Transferrin Total Bilirubin 0.5 AST 32 ALT 41 Alkaline Phosphatase 54 Total Protein 6.1 L Albumin 3.5 Globulin 2.6 Albumin/Globulin Ratio 1.3 Lipase 10 L Urine Color Urine Appearance Urine pH Ur Specific [place] Urine Protein Urine Glucose (UA) Urine Ketones Urine Occult Blood Urine Nitrate Urine Bilirubin Urine Ictotest Urine Urobilinogen Ur Leukocyte Esterase Urine RBC Urine WBC Urine Bacteria Urine Mucus Ur Culture Indicated? Micro UA Comment 02/26/18 02/27/18 02/27/18 20:56 00:30 05:15 WBC RBC Hgb Hct MCV MCH MCHC RDW Plt Count Neut % (Auto) Lymph % (Auto) [place] % (Auto) Eos % (Auto) Baso % (Auto) Neut # (Auto) RBC Morphology Polychromasia Hypochromasia Poikilocytosis Anisocytosis Ovalocytes Sodium Potassium Chloride Carbon Dioxide BUN Creatinine Estimated GFR BUN/Creatinine Ratio Glucose Lactate 0.6 L 0.9 Calcium Phosphorus Magnesium Iron TIBC % Saturation Transferrin Total Bilirubin AST ALT Alkaline Phosphatase Total Protein Albumin Globulin Albumin/Globulin Ratio Lipase Urine Color Dark yellow Urine Appearance Clear Urine pH 5.0 Ur Specific [place] 1.025 Urine Protein Trace H Urine Glucose (UA) Negative Urine Ketones 1+ H Urine Occult Blood Negative Urine Nitrate Negative Urine Bilirubin 1+ H Urine Ictotest Negative Urine Urobilinogen 0.2 Ur Leukocyte Esterase Negative Urine RBC 0-1/hpf Urine WBC None seen Urine Bacteria None seen Urine Mucus 1+ H Ur Culture Indicated? Cult not indicated Micro UA Comment Not Reportable 02/27/18 02/27/18 02/27/18 05:15 05:15 05:15 WBC 7.0 RBC 5.20 Hgb 11.5 L Hct 36.6 L MCV 70.3 L MCH 22.0 L MCHC 31.3 RDW 32.0 H Plt Count 347 Neut % (Auto) 86.8 H Lymph % (Auto) 11.6 L [place] % (Auto) 1.4 L Eos % (Auto) 0.0 L Baso % (Auto) 0.2 Neut # (Auto) 6100 H RBC Morphology See below Polychromasia 1+ H Hypochromasia 1+ H Poikilocytosis 1+ H Anisocytosis 2+ H Ovalocytes 1+ H Sodium 139 Potassium 4.6 Chloride 106 Carbon Dioxide 24 BUN 20 Creatinine 0.80 Estimated GFR > 60.0 BUN/Creatinine Ratio 25.0 H Glucose 137 H Lactate Calcium 7.8 L Phosphorus 4.5 H Magnesium 1.9 Iron 23 L TIBC 258 L % Saturation 9 L Transferrin 188 L Total Bilirubin 0.2 AST 25 ALT 36 Alkaline Phosphatase 56 Total Protein 5.3 L Albumin 2.8 L Globulin 2.5 Albumin/Globulin Ratio 1.1 Lipase Urine Color Urine Appearance Urine pH Ur Specific [place] Urine Protein Urine Glucose (UA) Urine Ketones Urine Occult Blood Urine Nitrate Urine Bilirubin Urine Ictotest Urine Urobilinogen Ur Leukocyte Esterase Urine RBC Urine WBC Urine Bacteria Urine Mucus Ur Culture Indicated? Micro UA Comment Assessment & Plan Plan: Assessment/Plan Narrative: IMPRESSION AND PLAN SBO; RE-STARTED ON ORAL INTAKE TODAY; CLEARS THIS AM AND ADVANCED BRAD; CONT TO CONSIDER NGT INDICATED FOR INTRACTABLE NAUSEA; SURG CONSULTED AND ASSISTANCE NOTED AND APPRECIATED; ; CONT WITH IVF TO DEC RISK OF DEHYDRATION ; COLONIC ISCHEMIA UNLIKELY LEUKOCYTOSIS; POSS CRHON S DISEASE EXACERBATION; RESOLVED; CONT WITH STEROID THERAPY; CONT ON ABX; DAILY CBC; BLOOD CX IRON DEF ANEMIA; STILL WITH LIOW IRON SATURATION; WITH GIVE IV IRON TODAY AND AM ; THEN RESTART ON ORAL HYPOTHYROIDISM; RESTART ON HOME MEDS IN AM POSS COPD/ASTHMA; NO ACUTE EXACERBATION; RESTART ON HOME MEDS DC IN NEXT 24-48 HRS IF STABLE CLINICALLY
--- NOTE | 2018-02-27 13:34 | PT.IIE ---
Current Diagnoses Crohn's disease of small intestine with intestinal obstruction (02/26/18) Surgical History (Last Reviewed 02/26/18 @ 19:42 by Frederick Hurtado MD) Thyroid cancer (Resolved ~06/2010) Tongue malignant neoplasm (Resolved ~2015) History of colonoscopy (Acute) History of mandibular surgery (Resolved ~1987) History of testicular surgery (Resolved ~1956) Medical History (Last Updated 02/26/18 @ 19:42 by Frederick Hurtado MD) Pulmonary nodules (Chronic) Abdominal aortic aneurysm (AAA) (Chronic) Iatrogenic hypothyroidism (Chronic) COPD (chronic obstructive pulmonary disease) (Chronic) Crohns disease (Chronic ~1968) Personal history of colonic polyps (Acute) Physical Therapy Inpatient Evaluation/Re-Eval M1 PT/OT-IP Prior Functional Status Start: 02/27/18 09:28 Freq: NEEDED Status: Active Protocol: Document 02/27/18 09:28 EA (Rec: 02/27/18 09:47 JAMIE [id number]) Medical Review Prior Functional Status Medical History Reviewed Yes Diet/Fluid Consistency Regular Communication normal Mobility and Gait Indep with no limitation Activities of Daily Living and IADL's Indep in ADL's including landscaping, once a week of golfing. No fall in the past 6 months Social History Household Members spouse Living Arrangements House Employment Status Retired M2 PT-IP Current Condition Start: 02/27/18 09:28 Freq: NEEDED Status: Active Protocol: Document 02/27/18 09:28 EA (Rec: 02/27/18 09:47 JAMIE [id number]) Physical Therapy Current Condition Current Condition Evaluation Date 02/27/18 Treatment Diagnosis Decreased mobility Onset Date 02/26/18 Weight Bearing Status Weight Bearing Status Full Weight Bearing M3 PT-IP Subjective Start: 02/27/18 09:28 Freq: NEEDED Status: Active Protocol: Document 02/27/18 09:28 EA (Rec: 02/27/18 09:47 JAMIE [id number]) Subjective Physical Therapy Visit Type Type Initial Evaluation Visit Start Time 09:05 Visit Stop Time 09:20 Total Visit Minutes 15 Physical Therapy Visit Comments Patient Comments Patient reports that he has been up in the morning and walking in the hallway with no limitation; states IV medication sometimes made him slightly dizzy with headache. Patient Goals Independent in all functional transfers and mobility M4 PT-IP Mobility and Gait Start: 02/27/18 09:28 Freq: NEEDED Status: Active Protocol: Document 02/27/18 09:28 EA (Rec: 02/27/18 09:47 EA [id number]) PT-Bed Mobility Assessment Supine to Sit Supine to Sit Independent Sit to Supine Sit to Supine Independent Scooting Scooting to Edge of Bed Independent PT-Transfer Assessment Sit to and From Stand Sit to and from Stand Independent Equipment Transfer Assistive Device None Transfers Transfer Destination Bed Chair Toilet Bedside Commode Transfer Technique stepping Transfer Ability Level of Assist Independent Comments Mobility Comments No deficits noted Gait Assessment Gait Gait Assistance Required: Independent Distance (Feet) 15 Able to Maintain Weight Bearing Status Yes During Gait Assistive Devices Assistive Device None Gait Deviations General Gait Pattern Within Normal Limits Comments Gait Comments No limitation Stair Climbing Assessment Evaluation Level of Assist On Stairs Independent PT-Balance Assessment Sitting Balance and Reactions Static Sitting Balance Ability Normal Dynamic Sitting Balance Ability Normal Standing Balance and Reactions Static Standing Balance Ability Normal Dynamic Standing Balance Ability Normal M5 PT-IP Objective Assessments Start: 02/27/18 09:28 Freq: NEEDED Status: Active Protocol: Document 02/27/18 09:28 EA (Rec: 02/27/18 09:47 EA [id number]) Orientation Orientation/Cognition Level of Alertness Alert Orientation Name Month Date Year Day of Week Place Situation Language Function Ability No Deficits Noted Safety Awareness Understands Safety Issues Gross Range of Motion Upper Extremity ROM Assessment Within Functional Limits Lower Extremity ROM Assessment Within Functional Limits Strength Upper Extremity Strength Assessment Within Functional Limits Lower Extremity Strength Assessment Within Functional Limits Coordination Assessment Assessment Finger to Nose Test Normal Performance Pronation/Supination Test Normal Performance Foot Tapping Test Normal Performance Heel on Hutchins Test Normal Performance Sensation Assessment Sensation Gross Sensation WNL Light Touch Intact Muscle Tone Muscle Tone WNL Yes M6 PT-IP Treatment Start: 02/27/18 09:28 Freq: NEEDED Status: Active Protocol: Document 02/27/18 09:28 EA (Rec: 02/27/18 09:47 EA [id number]) Physical Therapy Treatment Education Education Provided Precautions Safety M7 PT-IP Assessment and Plan Start: 02/27/18 09:28 Freq: NEEDED Status: Active Protocol: Document 02/27/18 09:28 EA (Rec: 02/27/18 09:47 EA [id number]) PT Summary Assessment and Plan Potential Rehabilitation Potential Excellent Status of Condition at Evaluation Stable Summary Progress Towards Goals Progressing Toward Goals Assessment Summary Patient exhibits no limitation in all functional transfer and mobility; distance ambulation was not performed due to the effect of medication ( headache) which was just given prior to PT evaluation. In my opinion, patient is not a good candidate for skilled PT at this time. Patient is fully able. Frequency of Treatment Frequency Of Treatment Discharge Recommendations To Nursing Amount of Assist Needed Independent Standby Assistance Discharge Recommendations PT Discharge Recommendations Home
[2018-02-27] MEDS: metroNIDAZOLE 500 MG TABLET PO ×2 (14:16→21:07)
--- NOTE | 2018-02-27 16:01 | PC.NURSE ---
Day Shift- Pt appropriate, able to make needs known, ambulating in room and halls indep. Reports 3-6/10 pain across upper abd in AM and lessened to mid upper abd towards afternoon. Dilaudid IV prn given X2, plan for po prn pain meds now. No BM today. Pt tolerated clear liquid diet of water, cranberry juice, and coffee. Pt then had a slight increase in abd cramping after eating cream of wheat, no nausea. Pt states he is next due to take his Humira this coming thursday 03/01, which he takes every 2 weeks.
[2018-02-27] MEDS: IRON SUCROSE 200 MG in SODIUM CHLORIDE 0.9% 100 ML 220 ML IV (16:18)
--- NOTE | 2018-02-27 16:33 | CM.DANOTE ---
Addendum entered by Donna Cavazos LPN 02/28/18 11:43: Case discussed today in Team Rounds. A d/c order was noted, Rn reported pt wished to leave this morning. Checked in now, pt had already left for home. Clinic followup. No concerns noted re the d/c today Original Note: Discharge Planning/Care Management DCP: assessment: case received and discussed in Team Rounds. EMR reviewed. Pt is a 67 year old male who admitted yesterday evening to care of the hospitalist team. Payer: [employer]. INPT admission status: confirmed by UR ADRIA Schroeder. Consulting: surgeon: Dr. Hurtado. Pt is being treated for a small bowel obstruction: medical management at this time: in setting of chronic Chrohn's disease. P: follow prn for d/c issues and options as these unfold. Anticipate at this time that pt will d/c to home and clinic followup if continue to improve with medical management. CM Discharge Assessment Start: 02/27/18 16:32 Freq: Status: Active Protocol: Document 02/27/18 16:32 ITV (Rec: 02/27/18 16:33 ITV [id number]) Discharge Planning Assessment Advance Directives? No History Provided By Medical Record Prior Living Arrangements House Household Members spouse Comment pending Review Status In Process Next Review Type Continued Stay Review
[2018-02-27] MEDS: TRAMADOL 50 MG TABLET PO (19:05)
[2018-02-27] MEDS: PANTOPRAZOLE 20 MG TABLET PO (21:06)
[2018-02-27] MEDS: BISACODYL 10 MG SUPP PR (21:06)
[2018-02-27] MEDS: CIPROFLOXACIN 250 MG TABLET PO (22:53)
[2018-02-28 00:08] VITALS: BP 144/82; PULSE 61; RESP 18; TEMP 36.6; O2SAT 96
[2018-02-28 00:40] VITALS: O2SAT 97
[2018-02-28] MEDS: HYDROCODONE/ACET 5/325 TABLET 1 TAB PO (00:45)
[2018-02-28 04:58] VITALS: BP 130/92; PULSE 56; RESP 16; TEMP 36.7; O2SAT 98
[2018-02-28] MEDS: LEVOTHYROXINE 125 MCG TABLET PO (06:39)
[2018-02-28] MEDS: SODIUM CHLORIDE 0.9% 1,000 ML 150 ML IV (06:42)
[2018-02-28] MEDS: TRAMADOL 50 MG TABLET PO (06:43)
--- NOTE | 2018-02-28 07:29 | PC.NURSE ---
Instructed pt. not to turned off his IV pump. He stated I don't want to bother anyone, it keeps on beeping. Tried to flushed his line it was occluded. Restarted a new line in the Right hand. Reported to day RN.
[2018-02-28] MEDS: metroNIDAZOLE 500 MG TABLET PO (08:59)
[2018-02-28] MEDS: HEPARIN 5,000 UNIT/ML VIAL 5000 UNIT SUBCUT (08:59)
[2018-02-28] MEDS: CIPROFLOXACIN 250 MG TABLET PO (09:00)
[2018-02-28] MEDS: PANTOPRAZOLE 20 MG TABLET PO (09:00)
[2018-02-28] MEDS: SALMETEROL 50 MCG DISKUS 50 PUFF INH (09:01)
[2018-02-28] MEDS: FLUTICASONE 120 SPRAY/16 GM SPRAY.SUSP NASAL (09:01)
[2018-02-28 10:03] VITALS: O2SAT 99
--- NOTE | 2018-02-28 16:02 | PM.DS.1 ---
History of Present Illness Chief complaint: states bad stomach pain Narrative: - VERY PLEASANT 67 YO MALE WITH PAST MEDICAL HISTORY SIGNIFICANT FOR CHROM S DISEASE; IRON DEF ANEMIA AND ANDERSON - PRESENTED TO THE ED WITH ABD PAIN WHICH HAS BEEN ONGOING FOR LAST FEW DAYS - STARTED ON SATURDAY ; SHARP IN NATURE AND WORSENING LAST NIGHT AND ALL DAY TODAY - HE DOES NOT HAVE A HX OF ABD SURGERY AND HIS IBD IS UNDER CONTROL ON HUMIRA - HE DENIED ANY FEVER OR CHILLS; NO RECENT TRAVEL; NO EXOTIC FOOD PRODUCTS; NO INJURIES - PAIN WAS ON AND OFF AND IMPROVED SINCE IN THE ED IN THE ED, HE WAS FOUND TO HAVE SBO PER CT AND RECOMMENDED FOR INPATIENT ADMISSION Discharge Providers Date of admission: 02/26/18 17:14 Primary care physician: MARLENY Baez Consults: 02/26/18 17:12 Consult to General Surgery Stat Comment: Consulting Provider: Frederick Hurtado Reason for consultation: small bowel obstruction, crohns Has provider been notified: Yes 02/26/18 17:24 Consult to Discharge Planning Routine Comment: Consult to Occupational Therapy Evaluate & Treat Comment: Physician Instructions: Evaluate and treat Consult to Physical Therapy Evaluate & Treat Comment: Physician Instructions: Evaluate and Treat Discharge provider: Maria R Combs DO Discharge Date: 02/28/18 Summary Discharge Diagnosis: SBO; RESOLVED CROHN S DISEASE ; DC ON STEROIDS; OUTPATIENT MANAGEMENT IRON DEF ANEMIA Hospital Course: - PATIENT ADMITTED TO THE ED WITH ABD PAIN AND WAS CONFIRMED WITH A SMALL BOWEL OBSTRUCTION - HE WAS TREATED CONSERVATIVELY PER SURGERY ATTENDING RECOMMENDATION - HE DID NOT SHOW ANY S/S OF ISCHMIC BOWEL OR ACUTE ABD - HE WAS TREATED AND DC ON LARGE DOSE OF STEROID WITH TAPER FOR HIS IBD - HIS ABLE TO BRAD PO WELL AT THIS TIME HIS WBC WHICH WAS HIGH ON ADM IS WU TO WNL HE WAS DC ON CIPRO AND FLAGYL X 7 DAYS WELL Status at Discharge Cognitive/behavioral status at discharge: STABLE TO HOME Functional status at discharge: independent ambulation Overall status at discharge: patient is back to baseline Time Spent with Patient Greater than 30 minutes Exam Vital Signs (past 8 hours): - 02/28/18 10:03 Pulse Oximetry 99 Fraction of Inspired Oxygen 21 Oxygen Delivery Method Room Air Oxygen Flow Rate 0 Narrative Exam Narrative: NO ACUTE DISTRESS. PATIENT IS ALERT ORIENTED X3. VITAL SIGNS STABLE HEAD ATRAUMATIC NORMOCEPHALIC NECK : SUPPLE WITHOUT ADENOPATHY EYE: EOMI, PERRLA, NORMAL CONJUNCTIVA CHEST: REGULAR RATE.. NO RUBS. PMI IS NON DISPLACED. NO MURMURS PULMONARY: DECREASED BS OVER THE BASES. MILD BIBASILAR CRACKLES NOTED; NO INCREASED DULLNESS TO PERCUSSION ABDOMEN: SOFT; NON TENDER; BS + IN ALL 4 QUAD EXTREMITIES:NO EDEMA.. NO CYANOSIS OR CLUBBING NOTED. NEURO: CRANIAL NERVES 2-12 GROSSLY INTACT. NO FOCAL NEUROLOGICAL DEFICIT NOTED. MSK: NORMAL RANGE OF MOTION FOR AGE. NO JOINT EFFUSION. SKIN: NORMAL FOR ETHNICITY; NO ECCHYMOSIS. NO LESION. GOOD TURGOR.; NORASHES : NORMAL EXTERNAL GENITALIA. PSYCH : APPROPRIATE MOOD AND AFFECT. ALERT AWAKE ORIENTED X3 Objective Labs Result Diagrams: 02/27/18 05:15 02/27/18 05:15 Discharge Plan Discharge Plan Patient Disposition: Home Discharge Med Rec/Prescriptions Prescriptions: New metronidazole 500 mg Tablet 500 mg PO TID 6 Days Qty: 18 RF: 0 ciprofloxacin HCl 250 mg Tablet 250 mg PO BID 6 Days Qty: 12 RF: 0 tramadol 50 mg Tablet 50 mg PO QID PRN (Reason: Pain, Moderate (4-6)) Qty: 20 RF: 0 prednisone 10 mg tablet 10 mg PO DIRECTED Qty: 100 RF: 1 Continue beclomethasone dipropionate [Qvar RediHaler] 40 mcg/actuation HFA aerosol breath activated 2 puff INHALATION BID Qty: 10.6 RF: 3 albuterol sulfate [Ventolin HFA] 90 mcg/actuation HFA aerosol inhaler 1 puff INHALATION Q4-6H PRN (Reason: shortness of breath or wheezing) Qty: 8 RF: 1 ferrous sulfate 325 mg (65 mg iron) tablet 325 mg PO BID RF: 0 levothyroxine 125 mcg capsule 125 mcg PO DAILY RF: 0 fluticasone 50 mcg/actuation spray,suspension 1 spray NASAL DAILY RF: 0 adalimumab [Humira] 40 mg/0.8 mL syringe kit 40 mg SUBCUT Q2W RF: 0 omeprazole 20 mg tablet,delayed release (DR/EC) 20 mg PO BID RF: 0 salmeterol [Serevent Diskus] 50 mcg/dose blister with device 1 inhalation INHALATION DAILY RF: 0 Follow up/Referrals: Chauncey,Ally, [employer] [Primary Care Provider] - Visit Report/Discharge Packet Instructions: Prednisone, Ciprofloxacin, Metronidazole Oral, Tramadol Visit Report Forms: Stroke Signs & Symptoms Discharge Data Primary Care Provider: Ally Grossman Attending Provider: Maria R Combs Admit Date/Time: 02/26/18 17:14 Discharges patient from system. Discharge Date/Time: 02/28/18 10:26
== END 2018-02-28 10:26 | disposition home or self-care (01) | DRG 387 ==
LOC: ED 17:12 → AC 17:14
PROVIDERS: Admitting Provider Hospitalist; Emergency Provider Emergency Medicine; PCP Registered Nurse; Visit Provider Hospitalist
DX: K50.012 Crohn's disease of small intestine with intestinal obstruction (principal); E03.2 Hypothyroidism due to medicaments and other exogenous substances; I71.4 Abdominal aortic aneurysm, without rupture; J44.9 Chronic obstructive pulmonary disease, unspecified; Z87.891 Personal history of nicotine dependence; D50.9 Iron deficiency anemia, unspecified
CPT/HCPCS: 36415; 36591; 74019; 74177; 80053; 81001; 83540; 83550; 83605; 83690; 83735; 84100; 85025; 87040; 94760; 96361; 96374; 96375; 97161; 99222; 99232; 99282; 99285; J0744; J1170; J1644; J1756; J1885; J2270; J2405; J2920; J2930; Q9967

== ENCOUNTER → 2018-11-13 08:38 | Outpatient (CLI) | payer OTHER, SELFPAY ==
[2018-11-13 10:43] LABS: TSH w/ Reflex to FT4 0.54 uIU/mL (0.47-4.68)
== END ==
PROVIDERS: PCP Registered Nurse; Visit Provider Registered Nurse
DX: E03.2 Hypothyroidism due to medicaments and other exogenous substances (principal)
CPT/HCPCS: 36415; 84443

== ENCOUNTER → 2019-02-02 11:58 | Outpatient (CLI) | payer OTHER, SELFPAY ==
--- NOTE | 2019-02-02 12:00 | DI.RAD.S_ITS ---
PROCEDURE: XR CHEST 2V INDICATIONS: rule out pneumonia TECHNIQUE: 2 views of the chest were acquired. COMPARISON: None. FINDINGS: Surgical changes and devices: None. Lungs and pleura: Lungs are clear. No pleural effusions or pneumothorax. Mediastinum: Mediastinal contours are normal. Heart size is normal. Bones and chest wall: No suspicious bony abnormalities. Soft tissues appear unremarkable. IMPRESSION: No acute disease. Dictated by: Gabo Huynh M.D. on 02/02/2019 at 13:20 Approved by: Gabo Huynh M.D. on 02/02/2019 at 13:21
== END ==
PROVIDERS: Family Provider Registered Nurse; PCP Registered Nurse; Visit Provider Nurse Practitioner
DX: R05 Cough (principal)
CPT/HCPCS: 71046

== ENCOUNTER → 2019-03-20 08:11 | Outpatient (CLI) | payer OTHER, SELFPAY ==
--- NOTE | 2019-03-20 08:12 | DI.MRI.S_ITS ---
PROCEDURE: MR CERVICAL SPINE WO CON INDICATIONS: Pain radiating for approx C7-T1 into lateral R arm TECHNIQUE: Noncontrast sagittal T1 spin echo and T2 fast spin echo, sagittal STIR, foraminal oblique sagittal T2 fast spin echo, and axial gradient echo or T2 fast spin echo through the cervical spine. COMPARISON: None. FINDINGS: Image quality: Severely degraded by patient motion artifact. Alignment and Curvature: There is normal bony alignment. Bone Marrow: Marrow demonstrates normal overall signal. Spinal Cord: Visualized spinal cord has normal size and signal. No cerebellar tonsillar herniation. Paraspinous Soft Tissues: No paravertebral masses. Prevertebral soft tissues are normal in thickness. No definite significant central canal narrowing. Neural foramina are poorly visualized due to motion artifact and cannot be evaluated. IMPRESSION: 1. Image quality severely degraded by patient motion artifact. 2. No definite significant central stenosis. 3. Neural foramina are poorly visualized due to motion artifact and cannot be evaluated. Dictated by: Jane Licea MD, PhD on 03/20/2019 at 15:47 Approved by: Jane Licea MD, PhD on 03/20/2019 at 15:56
== END ==
PROVIDERS: Family Provider Registered Nurse; PCP Registered Nurse; Visit Provider Physician Assistant
DX: M54.12 Radiculopathy, cervical region (principal); M54.2 Cervicalgia
CPT/HCPCS: 72141

== ENCOUNTER → 2019-05-21 12:08 | Outpatient (CLI) | payer OTHER, SELFPAY | PROVIDERS: Family Provider Registered Nurse; PCP Registered Nurse; Visit Provider Registered Nurse | DX: T14.8XXA Other injury of unspecified body region, initial encounter (principal) | CPT/HCPCS: 87070; 87075; 87077; 87147; 87186; 87205 ==

== ENCOUNTER → 2019-05-27 09:31 | Outpatient (CLI) | payer OTHER, SELFPAY ==
[2019-05-27 10:43] LABS: BUN Creatinine Ratio 8.9 (6-22); Blood Urea Nitrogen 8 mg/dL (9-20); Calcium 9.2 mg/dL (8.4-10.2); Carbon Dioxide 25 mmol/L (22-32); Chloride 99 mmol/L (98-107); Cholesterol 169 mg/dL (140-199); Estimated Glomerular Filt Rate > 60.0 mL/min (>60); Glucose 93 mg/dL (80-110); HDL Cholesterol 62 mg/dL (40-60); HEMOLYSIS < 15 (0-50); LDL Cholesterol Calculated 83 mg/dL (<100); Sodium 134 mmol/L (137-145); Triglycerides 119 mg/dL (35-150)
[2019-05-27 10:49] LABS: Creatinine Urine Random 213.3 mg/dL
[2019-05-27 11:22] LABS: Microalbumi Creatinin Ratio Ur 2.8 ug/mg CR (<30); Microalbumin Urine Random < 0.6 mg/dL (0-1.6)
== END ==
PROVIDERS: Family Provider Registered Nurse; PCP Registered Nurse; Referring Provider Registered Nurse; Visit Provider Registered Nurse
DX: I10 Essential (primary) hypertension (principal)
CPT/HCPCS: 36415; 80048; 80061; 82043; 82570

== ENCOUNTER → 2020-02-04 09:33 | Outpatient (CLI) | payer OTHER, SELFPAY ==
[2020-02-04 10:03] LABS: Hematocrit 31.1 % (41-53); Hemoglobin 10.2 g/dL (13.5-17.5); Mean Corpuscular HGB Conc 32.8 % (30-36); Mean Corpuscular Volume 70.4 fL (80-100); Platelet Count 411 X10^3/uL (150-400); Red Blood Cell Count 4.42 X10^6/uL (4.5-5.9); White Blood Cell Count 6.3 X10^3/uL (4.5-11.0)
[2020-02-04 10:15] LABS: Alanine Aminotransferase 18 IU/L (<50); Albumin Globulin Ratio 1.4 (1.0-2.8); Alkaline Phosphatase 53 U/L (38-126); Aspartate Aminotransferase 26 IU/L (17-59); BUN Creatinine Ratio 9.3 (6-22); Bilirubin Total 0.4 mg/dL (0.2-1.3); Blood Urea Nitrogen 7 mg/dL (9-20); Calcium 9.2 mg/dL (8.4-10.2); Carbon Dioxide 28 mmol/L (22-32); Chloride 98 mmol/L (98-107); Estimated Glomerular Filt Rate > 60.0 mL/min (>60); Globulin 2.8 g/dL (1.7-4.1); Glucose 97 mg/dL (80-110); HEMOLYSIS < 15 (0-50); Potassium 4.5 mmol/L (3.4-5.1); Sodium 129 mmol/L (137-145); Total Protein 6.8 g/dL (6.3-8.2)
[2020-02-04 10:46] LABS: Prostate Specific Antigen Scrn 3.23 ng/mL (0.1-4.0)
[2020-02-04 11:19] LABS: Thyroid Stimulating Hormone 0.172 uIU/mL (0.47-4.68)
== END ==
PROVIDERS: PCP Nurse Practitioner Family; Referring Provider Nurse Practitioner Family; Visit Provider Nurse Practitioner Family
DX: Z00.00 Encounter for general adult medical examination without abnormal findings (principal); Z12.5 Encounter for screening for malignant neoplasm of prostate; E03.2 Hypothyroidism due to medicaments and other exogenous substances; I10 Essential (primary) hypertension
CPT/HCPCS: 36415; 80053; 84443; 85027; G0103

== ENCOUNTER → 2020-02-11 08:06 | Outpatient (CLI) | payer OTHER, SELFPAY ==
--- NOTE | 2020-02-11 08:06 | DI.US.S_ITS ---
PROCEDURE: US ABD AORTA ANEURYSM SCREEN INDICATIONS: AAA follow up TECHNIQUE: Real time scanning was performed of the aorta and iliac arteries, with image documentation. COMPARISON: None. FINDINGS: Aorta: Proximal aortic diameter measures 2.7 cm. Mid-aorta measures 2.9 cm. Distal aortic diameter is 2.3 cm. Iliac arteries: Right common iliac artery measures 1.5 cm. Left common iliac artery measures 1.6 cm. IMPRESSION: 1. Abdominal aortic ectasia. 5 year sonographic surveillance recommended. Dictated by: Jovana Gomez M.D. on 02/11/2020 at 8:56 Approved by: Jovana Gomez M.D. on 02/11/2020 at 8:57
== END ==
PROVIDERS: PCP Nurse Practitioner Family; Referring Provider Nurse Practitioner Family; Visit Provider Nurse Practitioner Family
DX: I71.4 Abdominal aortic aneurysm, without rupture (principal)
CPT/HCPCS: 76706

== ENCOUNTER → 2020-03-16 09:15 | Outpatient (CLI) | payer OTHER, SELFPAY ==
[2020-03-16 10:39] LABS: Hematocrit 35.1 % (41-53); Hemoglobin 11.4 g/dL (13.5-17.5); Mean Corpuscular HGB Conc 32.6 % (30-36); Mean Corpuscular Hemoglobin 24.5 PG (26-34); Mean Corpuscular Volume 75.1 fL (80-100); Platelet Count 407 X10^3/uL (150-400); Red Blood Cell Count 4.67 X10^6/uL (4.5-5.9); Red Cell Distribution Width 21.7 % (11.6-14.8); White Blood Cell Count 7.3 X10^3/uL (4.5-11.0)
[2020-03-16 11:04] LABS: BUN Creatinine Ratio 13.6 (6-22); Blood Urea Nitrogen 12 mg/dL (9-20); Calcium 8.9 mg/dL (8.4-10.2); Carbon Dioxide 29 mmol/L (22-32); Chloride 99 mmol/L (98-107); Estimated Glomerular Filt Rate > 60.0 mL/min (>60); Glucose 106 mg/dL (80-110); HEMOLYSIS 15 (0-50); Potassium 4.7 mmol/L (3.4-5.1); Sodium 131 mmol/L (137-145)
[2020-03-16 11:27] LABS: Thyroid Stimulating Hormone 2.09 uIU/mL (0.47-4.68)
== END ==
PROVIDERS: PCP Nurse Practitioner Family; Referring Provider Nurse Practitioner Family; Visit Provider Nurse Practitioner Family
DX: D50.9 Iron deficiency anemia, unspecified (principal); E03.2 Hypothyroidism due to medicaments and other exogenous substances; E87.1 Hypo-osmolality and hyponatremia
CPT/HCPCS: 36415; 80048; 84443; 85027

== ENCOUNTER → 2020-04-15 11:13 | Outpatient (CLI) | payer MEDICARE, SELFPAY ==
[2020-04-15] MEDS: COVID-19 VACC #1, MRNA(MOD) 100 MCG/0.5 ML VIAL IM (11:22)
== END ==
PROVIDERS: PCP Nurse Practitioner Family; Visit Provider Internal Medicine
DX: Z23 Encounter for immunization (principal)
CPT/HCPCS: 0011A; 91301

== ENCOUNTER → 2020-05-13 12:08 | Outpatient (CLI) | payer MEDICARE, SELFPAY ==
[2020-05-13] MEDS: COVID-19 VACC #2, MRNA(MOD) 100 MCG/0.5 ML VIAL IM (12:25)
== END ==
PROVIDERS: PCP Nurse Practitioner Family; Visit Provider Internal Medicine
DX: Z23 Encounter for immunization (principal)
CPT/HCPCS: 0012A; 91301

== ENCOUNTER → 2020-08-09 09:59 | Outpatient (CLI) | payer OTHER, SELFPAY ==
[2020-08-09 11:32] LABS: Hematocrit 39.1 % (41-53); Mean Corpuscular HGB Conc 33.1 % (30-36); Mean Corpuscular Hemoglobin 28.7 PG (26-34); Mean Corpuscular Volume 86.7 fL (80-100); Platelet Count 300 X10^3/uL (150-400); Red Blood Cell Count 4.51 X10^6/uL (4.5-5.9); Red Cell Distribution Width 16.4 % (11.6-14.8); White Blood Cell Count 7.4 X10^3/uL (4.5-11.0)
[2020-08-09 11:39] LABS: Alanine Aminotransferase 23 IU/L (<50); Albumin 3.7 g/dL (3.5-5.0); Albumin Globulin Ratio 1.4 (1.0-2.8); Alkaline Phosphatase 60 U/L (38-126); Aspartate Aminotransferase 34 IU/L (17-59); BUN Creatinine Ratio 10.3 (6-22); Bilirubin Total 0.3 mg/dL (0.2-1.3); Blood Urea Nitrogen 8 mg/dL (9-20); Carbon Dioxide 26 mmol/L (22-32); Chloride 93 mmol/L (98-107); Estimated Glomerular Filt Rate > 60.0 mL/min (>60); Globulin 2.6 g/dL (1.7-4.1); Glucose 98 mg/dL (80-110); HEMOLYSIS < 15 (0-50); Potassium 4.5 mmol/L (3.4-5.1); Sodium 124 mmol/L (137-145); Total Protein 6.3 g/dL (6.3-8.2)
[2020-08-09 12:15] LABS: Free T4, Direct Thyroxine 1.38 ng/dL (0.78-2.19)
[2020-08-09 12:29] LABS: Thyroid Stimulating Hormone 2.19 uIU/mL (0.47-4.68)
== END ==
PROVIDERS: PCP Nurse Practitioner Family; Referring Provider Nurse Practitioner Family; Visit Provider Nurse Practitioner Family
DX: I10 Essential (primary) hypertension (principal); C73 Malignant neoplasm of thyroid gland; E03.2 Hypothyroidism due to medicaments and other exogenous substances
CPT/HCPCS: 36415; 80053; 84439; 84443; 85027

== ENCOUNTER → 2020-08-10 08:12 | Outpatient (CLI) | payer OTHER, SELFPAY ==
[2020-08-10 08:56] LABS: Appearance Urine UA CLEAR; Bilirubin Urine UA NEGATIVE (NEGATIVE); Color Urine UA YELLOW; Glucose Urine UA NEGATIVE (Negative); Ketones Urine UA NEGATIVE (NEGATIVE); Leukocyte Esterase Urine UA NEGATIVE (NEGATIVE); Nitrite Urine UA NEGATIVE (Negative); Occult Blood Urine UA NEGATIVE (Negative); Protein Urine UA NEGATIVE (Negative); Urobilinogen Urine UA 0.2 E.U./dL (0.2); pH Urine UA 6.5 (4.5-8.0)
[2020-08-10 09:14] LABS: Bacteria Urine Occasional (0-1); RBC Urine 0-1/HPF (0-5/HPF); WBC Urine 0-1/HPF (0-5/HPF)
[2020-08-10 09:46] LABS: Sodium 125 mmol/L (137-145)
[2020-08-11 13:36] LABS: Osmolality, Serum 268 mOsmol/kg (280-301)
== END ==
PROVIDERS: PCP Nurse Practitioner Family; Referring Provider Nurse Practitioner Family; Visit Provider Nurse Practitioner Family
DX: E87.1 Hypo-osmolality and hyponatremia (principal)
CPT/HCPCS: 36415; 81001; 83930; 84295

== ENCOUNTER → 2020-08-19 08:12 | Outpatient (CLI) | payer OTHER, SELFPAY ==
[2020-08-19 09:05] LABS: Cholesterol 204 mg/dL (140-199); HDL Cholesterol 108 mg/dL (40-60); LDL Cholesterol Calculated 78 mg/dL (<100); Sodium 126 mmol/L (137-145); Triglycerides 91 mg/dL (35-150)
[2020-08-19 09:33] LABS: Cortisol AM (Before 10AM) 4.43 ug/dL (4.46-22.7)
[2020-08-20 05:42] LABS: Adrenocorticotropic Hormone 15.6 pg/mL (7.2-63.3)
[2020-08-22 16:07] LABS: Osmolality Urine 415 mOsmol/kg (.); Osmolality, Serum 265 mOsmol/kg (280-301)
== END ==
PROVIDERS: PCP Nurse Practitioner Family; Referring Provider Nurse Practitioner Family; Visit Provider Nurse Practitioner Family
DX: E87.1 Hypo-osmolality and hyponatremia (principal)
CPT/HCPCS: 36415; 80061; 82024; 82533; 83930; 83935; 84295

== ENCOUNTER → 2020-08-30 07:21 | Outpatient (CLI) | payer OTHER, SELFPAY ==
[2020-08-30 08:58] LABS: Alanine Aminotransferase 19 IU/L (<50); Albumin 3.3 g/dL (3.5-5.0); Albumin Globulin Ratio 1.3 (1.0-2.8); Alkaline Phosphatase 60 U/L (38-126); Aspartate Aminotransferase 28 IU/L (17-59); BUN Creatinine Ratio 10.6 (6-22); Bilirubin Total 0.2 mg/dL (0.2-1.3); Blood Urea Nitrogen 10 mg/dL (9-20); Calcium 8.9 mg/dL (8.4-10.2); Carbon Dioxide 27 mmol/L (22-32); Chloride 97 mmol/L (98-107); Estimated Glomerular Filt Rate > 60.0 mL/min (>60); Globulin 2.6 g/dL (1.7-4.1); Glucose 108 mg/dL (80-110); HEMOLYSIS < 15 (0-50); Potassium 4.8 mmol/L (3.4-5.1); Sodium 130 mmol/L (137-145); Total Protein 5.9 g/dL (6.3-8.2)
[2020-08-31 10:44] LABS: Osmolality Urine 415 mOsmol/kg (.)
[2020-08-31 10:44] LABS: Osmolality, Serum 276 mOsmol/kg (280-301)
== END ==
PROVIDERS: PCP Nurse Practitioner Family; Referring Provider Nurse Practitioner Family; Visit Provider Nurse Practitioner Family
DX: E87.1 Hypo-osmolality and hyponatremia (principal)
CPT/HCPCS: 36415; 80053; 83930; 83935

== ENCOUNTER → 2020-09-09 08:05 | Outpatient (CLI) | payer OTHER, SELFPAY ==
[2020-09-09 09:21] LABS: Sodium 126 mmol/L (137-145)
== END ==
PROVIDERS: PCP Nurse Practitioner Family; Referring Provider Nurse Practitioner Family; Visit Provider Nurse Practitioner Family
DX: E87.1 Hypo-osmolality and hyponatremia (principal)
CPT/HCPCS: 36415; 84295

== ENCOUNTER → 2020-10-06 07:52 | Outpatient (CLI) | payer OTHER, SELFPAY ==
[2020-10-06 09:18] LABS: Alanine Aminotransferase 18 IU/L (<50); Albumin 3.3 g/dL (3.5-5.0); Albumin Globulin Ratio 1.3 (1.0-2.8); Alkaline Phosphatase 56 U/L (38-126); Aspartate Aminotransferase 27 IU/L (17-59); BUN Creatinine Ratio 9.5 (6-22); Bilirubin Total 0.3 mg/dL (0.2-1.3); Blood Urea Nitrogen 7 mg/dL (9-20); Calcium 8.5 mg/dL (8.4-10.2); Carbon Dioxide 27 mmol/L (22-32); Chloride 96 mmol/L (98-107); Estimated Glomerular Filt Rate > 60.0 mL/min (>60); Globulin 2.6 g/dL (1.7-4.1); Glucose 87 mg/dL (80-110); HEMOLYSIS < 15 (0-50); Potassium 4.2 mmol/L (3.4-5.1); Sodium 126 mmol/L (137-145); Total Protein 5.9 g/dL (6.3-8.2)
== END ==
PROVIDERS: PCP Nurse Practitioner Family; Referring Provider Internal Medicine Gastroenterology; Visit Provider Internal Medicine Gastroenterology
DX: K50.919 Crohn's disease, unspecified, with unspecified complications (principal)
CPT/HCPCS: 36415; 80053

== ENCOUNTER → 2021-09-13 09:11 | Outpatient (CLI) | payer OTHER, SELFPAY ==
--- NOTE | 2021-09-13 09:13 | DI.CT.S_ITS ---
PROCEDURE: CT SINUS SCREEN WO CON INDICATIONS: Chronic pansinusitis TECHNIQUE: Noncontrast 3.0 mm axial images acquired from the frontal sinuses to the mid-sella, with coronal and sagittal reformats. For radiation dose reduction, the following was used: automated exposure control, adjustment of mA and/or kV according to patient size. COMPARISON: Outside Facility, RG, CT SOFT TISSUE NECK WITH CONTRAST, 03/01/2015, 15:42. FINDINGS: Image quality: Excellent. Maxillary Sinuses: No bony remodeling or destruction. Mild mucosal thickening is seen within the inferior left maxillary sinus. Ethmoid Air Cells: No bony remodeling or destruction. Mild mucosal thickening is seen involving the posterior left ethmoid air cells. Sphenoid Sinuses: No bony remodeling or destruction. Sinuses are clear. Frontal Sinuses: No bony remodeling or destruction. Sinuses are clear. Ostiomeatal Complexes: The right ostiomeatal complex is constitutionally narrowed, with prominent right-sided Sharath cells. Left-sided Sharath cells are also seen, although the left ostiomeatal complex is widely patent. Miscellaneous: Visualized intra-orbital contents are normal. There are small bilateral sanna bullosa. There is a mild to moderate degree of rightward nasal septal deviation. Focal degenerative change is seen involving the C1-C2 interface anteriorly. IMPRESSION: Scattered mild paranasal sinus disease. [id number] rightward nasal septal deviation. Dictated by: Julián Davis M.D. on 09/13/2021 at 8:54 Approved by: Julián Davis M.D. on 09/13/2021 at 8:56
[2021-09-13 09:40] LABS: Hematocrit 34.9 % (41-53); Hemoglobin 11.9 g/dL (13.5-17.5); Mean Corpuscular HGB Conc 34.2 % (30-36); Mean Corpuscular Hemoglobin 30.6 PG (26-34); Mean Corpuscular Volume 89.4 fL (80-100); Platelet Count 379 X10^3/uL (150-400); Red Cell Distribution Width 14.3 % (11.6-14.8); White Blood Cell Count 8.8 X10^3/uL (4.5-11.0)
[2021-09-13 10:15] LABS: Alanine Aminotransferase 19 IU/L (<50); Albumin 3.2 g/dL (3.5-5.0); Albumin Globulin Ratio 1.3 (1.0-2.8); Alkaline Phosphatase 60 U/L (38-126); Aspartate Aminotransferase 25 IU/L (17-59); BUN Creatinine Ratio 13.1 (6-22); Bilirubin Total 0.3 mg/dL (0.2-1.3); Blood Urea Nitrogen 14 mg/dL (9-20); Calcium 8.4 mg/dL (8.4-10.2); Carbon Dioxide 28 mmol/L (22-32); Chloride 96 mmol/L (98-107); Estimated Glomerular Filt Rate > 60 mL/min (>60); Globulin 2.5 g/dL (1.7-4.1); Glucose 106 mg/dL (80-110); HEMOLYSIS < 15 (0-50); Potassium 4.6 mmol/L (3.4-5.1); Sodium 128 mmol/L (137-145); Total Protein 5.7 g/dL (6.3-8.2)
== END ==
PROVIDERS: PCP Nurse Practitioner; Referring Provider Otolaryngology; Visit Provider Otolaryngology
DX: J32.4 Chronic pansinusitis (principal); E87.1 Hypo-osmolality and hyponatremia; J34.89 Other specified disorders of nose and nasal sinuses; I10 Essential (primary) hypertension; Z79.899 Other long term (current) drug therapy; J44.9 Chronic obstructive pulmonary disease, unspecified; Z00.00 Encounter for general adult medical examination without abnormal findings; J34.2 Deviated nasal septum
CPT/HCPCS: 36415; 70486; 80053; 83735; 85027

== ENCOUNTER 2021-09-28 22:04 | Observation (INO) | payer OTHER, SELFPAY ==
--- NOTE | 2021-09-28 22:41 | DI.CT.S_ITS ---
PROCEDURE: CT CERVICAL SPINE WO CON INDICATIONS: fall TECHNIQUE: Noncontrast 3 mm thick sections acquired from the skull base to the T4 level. Sagittal and coronal reformats were then constructed. For radiation dose reduction, the following was used: automated exposure control, adjustment of mA and/or kV according to patient size. COMPARISON: Outside Facility, RG, CT SOFT TISSUE NECK WITH CONTRAST, 03/01/2015, 15:42. FINDINGS: Image quality: Excellent. Bones: No fractures or subluxation. There is minimal retrolisthesis at C5-C6. Multilevel degenerative disc disease present including moderate to severe degeneration at C5-C6. Mild multilevel facet arthropathy also demonstrated throughout the cervical spine. Visualized superior ribs are intact. Soft tissues: Prevertebral soft tissues are normal in thickness. No paravertebral hematomas. No apical pneumothoraces. IMPRESSION: 1. No acute fracture or subluxation. 2. Multilevel degenerative changes of the cervical spine most prominent at C5-C6. Dictated by: Jacques Mack M.D. on 09/28/2021 at 23:23 Approved by: Jacques Mack M.D. on 09/28/2021 at 23:25
[2021-09-28 22:42] VITALS: BP 113/82; PULSE 69; RESP 18; TEMP 36.6; O2SAT 99; BMI 20.5
--- NOTE | 2021-09-28 22:42 | DI.RAD.S_ITS ---
PROCEDURE: XR CHEST 1V INDICATIONS: fall out of bed TECHNIQUE: One view of the chest was acquired. COMPARISON: Located Within [facility], , XR CHEST 2V, 02/02/2019, 12:02. FINDINGS: Surgical changes and devices: None. Lungs and pleura: Lungs are clear. There is hyperinflation of the lungs with flattening of the hemidiaphragms compatible with COPD. No pleural effusions or pneumothorax. Mediastinum: Mediastinal contours appear normal. Heart size is normal. Bones and chest wall: No displaced fractures identified. No suspicious bony lesions. Overlying soft tissues appear unremarkable. IMPRESSION: 1. Findings compatible with COPD redemonstrated without definite acute cardiopulmonary disease. Dictated by: Jacques Mack M.D. on 09/29/2021 at 0:14 Approved by: Jacques Mack M.D. on 09/29/2021 at 0:14
--- NOTE | 2021-09-28 22:42 | DI.CT.S_ITS ---
PROCEDURE: CT HEAD/BRAIN WO CON INDICATIONS: fell and hit head TECHNIQUE: Noncontrast 5 mm thick angled axial sections acquired from the foramen magnum to the vertex, with coronal and sagittal reformats. For radiation dose reduction, the following was used: automated exposure control, adjustment of mA and/or kV according to patient size. COMPARISON: None. FINDINGS: Image quality: Excellent. CSF spaces: Basal cisterns are patent. No extra-axial fluid collections. There is mild cerebral volume loss, with resultant ventricular and sulcal prominence. Brain: No intracranial hemorrhage, mass, or mass effect. There are subcortical, periventricular and deep white matter hypodensities consistent with moderate chronic small vessel ischemic changes. The pedro-white matter junction appears preserved. There is intracranial internal carotid artery atherosclerosis. Skull and face: Calvarium and visualized facial bones appear intact, without suspicious lesions. Sinuses: Visualized sinuses and mastoids are clear. IMPRESSION: 1. No acute intracranial abnormality. 2. Moderate chronic white matter small vessel ischemic changes and mild cerebral volume loss. Dictated by: Jacques Makc M.D. on 09/28/2021 at 23:22 Approved by: Jacques Mack M.D. on 09/28/2021 at 23:23
[2021-09-28 22:50] LABS: Add Manual Diff / Slide Review NO; Basophils Absolute Auto 100 /uL (0-100); Basophils Percent Auto 0.5 % (0-2); Eosinophils Absolute Auto 100 /uL (0-450); Eosinophils Percent Auto 0.5 % (2-4); Hematocrit 36.7 % (41-53); Hemoglobin 12.4 g/dL (13.5-17.5); Lymphocytes Absolute Auto 3500 /uL (1100-4500); Lymphocytes Percent Auto 28.6 % (25-40); Mean Corpuscular HGB Conc 33.8 % (30-36); Mean Corpuscular Hemoglobin 30.1 PG (26-34); Monocytes Absolute Auto 900 /uL (0-900); Monocytes Percent Auto 7.4 % (3-14); Neutrophils Absolute Auto 7700 /uL (1500-7000); Platelet Count 300 X10^3/uL (150-400); Red Blood Cell Count 4.12 X10^6/uL (4.5-5.9); Red Cell Distribution Width 14.7 % (11.6-14.8); White Blood Cell Count 12.2 X10^3/uL (4.5-11.0)
[2021-09-28 22:55] LABS: Alanine Aminotransferase 22 IU/L (<50); Albumin 3.7 g/dL (3.5-5.0); Albumin Globulin Ratio 1.3 (1.0-2.8); Alkaline Phosphatase 69 U/L (38-126); Aspartate Aminotransferase 33 IU/L (17-59); BUN Creatinine Ratio 15.4 (6-22); Bilirubin Total 0.5 mg/dL (0.2-1.3); Blood Urea Nitrogen 12 mg/dL (9-20); Calcium 8.5 mg/dL (8.4-10.2); Carbon Dioxide 20 mmol/L (22-32); Chloride 94 mmol/L (98-107); Estimated Glomerular Filt Rate > 60 mL/min (>60); Ethanol (ETOH) 126 mg/dL; Globulin 2.8 g/dL (1.7-4.1); Glucose 86 mg/dL (80-110); Lactate (Lactic Acid) 3.4 mmol/L (0.7-2.1); Lipase 65 U/L (23-300); Magnesium 2.3 mg/dL (1.6-2.3); Potassium 4.5 mmol/L (3.4-5.1); Sodium 127 mmol/L (137-145); Total Protein 6.5 g/dL (6.3-8.2)
[2021-09-28 23:39] VITALS: PULSE 67; RESP 23; O2SAT 96
[2021-09-28 23:40] VITALS: BP 115/73; PULSE 66; RESP 21; O2SAT 95
[2021-09-28] MEDS: SODIUM CHLORIDE 0.9% 1,000 ML 1000 ML IV (23:40)
[2021-09-28 23:41] LABS: Troponin I < 0.012 ng/mL (0.01-0.034)
[2021-09-28 23:52] LABS: COVID19 -Nasal RAPID Negative (Negative)
[2021-09-29] VITALS: BP 108/70; PULSE 66; RESP 20; O2SAT 95
[2021-09-29 00:20] LABS: HEMOLYSIS 29 (0-50); Procalcitonin 0.05 ng/mL (<0.5)
[2021-09-29 00:45] LABS: Reflexed Lactate in 2 Hours Y
--- NOTE | 2021-09-29 01:34 | PC.NURSE ---
Attempt was made to stand pt with assist of 1 to use urinal. This was unsuccessful and pt largely unsteady and nearly fell multiple times. Pt assisted back to bed. Pt unable to void while standing, sitting, or lying on his side. Provider notified and verbal order was given to place stearns catheter. Stearns catheter placed.
--- NOTE | 2021-09-29 01:44 | ED.FALL ---
HPI - Fall General Chief Complaint: Fall Stated Complaint: Syncope, SOB Time Seen by Provider: 09/28/21 22:41 Source: patient, family and EMS Mode of arrival: EMS History of Present Illness HPI Narrative: History of 70-year-old gentleman with alcohol use disorder, hypertension, asthma, reflux, Crohn's disease for which he takes Humira, asymptomatic hyponatremia with decreased serum osmolality presents after falling out of bed this evening. He states that he was trying to get up and he was found lying on the floor by the bed somewhat confused complaining of tingling in both of his feet. Quite weak overall with no signs of dramatic trauma. He complains that his back hurts yet can not point to any specific spot. He does not complain of headache or neck pain, no abdominal pain. Does not report that he has had fevers. He is so weak that he is not able to stand up to void with a 2 person assist. Related Data Home Medications Medication Instructions Recorded Confirmed adalimumab 40 mg/0.8 mL 40 mg SUBCUT Q2W 12/02/17 07/25/21 subcutaneous syringe kit (Humira) ferrous sulfate 325 mg (65 mg 325 mg PO BID 01/31/18 07/25/21 iron) tablet budesonide 9 mg tablet,delayed and 9 mg PO DAILY 09/01/20 07/25/21 extended release omeprazole 40 mg capsule,delayed 40 mg PO DAILY 09/01/20 07/25/21 release Previous Rx's Medication Instructions Recorded fluticasone propionate 50 1 spray intranasal BID #15.8 mL 02/02/19 mcg/actuation nasal spray,suspension azelastine 137 mcg (0.1 %) nasal 1 spray intranasal BID #30 mL 07/25/21 spray aerosol levothyroxine 112 mcg tablet See Rx Instructions .Route 07/26/21 .COMPLEX #90 tabs montelukast 10 mg tablet See Rx Instructions .Route 08/10/21 .COMPLEX #90 tabs albuterol sulfate 90 mcg/actuation 1 puff inhalation Q4-6H PRN 08/28/21 aerosol inhaler shortness of breath or wheezing #8.5 grams lisinopril 10 mg tablet See Rx Instructions .Route 09/12/21 .COMPLEX #30 tabs Allergies Allergy/AdvReac Type Severity Reaction Status Date / Time No Known Drug Allergies Allergy Verified 09/28/21 22:42 Review of Systems Review of Systems Narrative: Remainder of complete review of systems is otherwise unremarkable except for that included in the HPI. Patient History Medical History Abdominal aortic aneurysm (AAA) Abdominal aortic ectasia (01/2020) COPD (chronic obstructive pulmonary disease) Crohns disease (~1969) Decreased cortisol level (07/2020) Hypertension Hyponatremia Hyponatremia with decreased serum osmolality Iatrogenic hypothyroidism Iron deficiency anemia Long-term current use of steroids Long-term use of immunosuppressant medication Personal history of colonic polyps Pulmonary nodules Surgical History History of colonoscopy History of mandibular surgery (~1987) History of testicular surgery (~1956) Thyroid cancer (~06/2010) Tongue malignant neoplasm (~2015) Family History Father No problems noted. Mother No problems noted. Social History household members: spouse Smoking Status: Former smoker alcohol intake: current substance use type: marijuana (on occasion) Smoking Status: Former smoker alcohol intake frequency: a few times a week Substance Use Type: marijuana Exam Initial Vital Signs Initial Vital Signs: Vital Signs Temperature 98 F 09/28/21 22:42 Pulse Rate 69 09/28/21 22:42 Respiratory Rate 18 09/28/21 22:42 Blood Pressure 113/82 09/28/21 22:42 Pulse Oximetry 99 09/28/21 22:42 Oxygen Delivery Method 09/28/21 22:42 General: Healthy appearing, confused, non focused in no obvious distress but dramatically week HEENT: Moist mucous membranes, normal sclera with reactive pupils, Neck: No JVD, supple Respiratory: Lungs are clear to auscultation, no wheezing no rales no rhonchi. Full and symmetrical air movement Cardiac: Regular rate and rhythm no murmurs no bruits Abdomen: Soft, nontender, good bowel tones, no flank pain. No pain along posterior thorax or thoracic or lumbar vertebra to palpation, no bruises no contusions. Skin: Warm and dry, no rashes, no abrasions or contusions Neurologic: Globally weak to the point he is unable to stand with 2 person assist but moving all extremities Extremities: No trauma, well perfused Psych: Able to speak in full sentences but confused, not slurring but not able to fully follow directions Course Orders Ordered: ED Orders 09/28/21 22:12 EKG-12 Lead Stat 09/28/21 22:24 Complete Blood Count AUTO DIFF Stat Comprehensive Metabolic Panel Stat Ethanol (ETOH) Stat Lactate (Lactic Acid) Stat Lipase Stat Magnesium Stat Procalcitonin Stat Troponin I Stat 09/28/21 22:41 CT cervical spine wo con Stat 09/28/21 22:42 CT head/brain wo con Stat XR chest 1V Stat 09/28/21 23:06 COVID19 -Nasal RAPID/Pre-Proc Stat 09/28/21 23:10 Blood Culture Stat 09/29/21 01:46 Urinalysis and Microscopic Stat Urine Drug Screen, Rapid Stat 09/29/21 04:10 Respiratory Panel (Film Array) Stat 09/29/21 04:25 Ammonia (NH3) Stat Discontinued Medications Diazepam (Diazepam 10 Mg/2 Ml Syringe) 5 mg IV NOW ONE Stop: 09/29/21 05:34 Haloperidol (Haloperidol 5 Mg/Ml Vial) 2 mg IV NOW ONE Stop: 09/29/21 04:43 Last Admin: 09/29/21 05:02 Dose: 2 mg Documented By: CHRISTINE Sodium Chloride (Normal Saline 0.9%) 1,000 mls @ 1,000 mls/hr IV BOLUS ONE Stop: 09/29/21 00:35 Last Infusion: 09/29/21 01:21 Dose: 0 mls/hr Documented By: Admin: 09/28/21 23:40 Dose: 1,000 mls/hr Documented By: XU Ceftriaxone Sodium 2,000 mg/ (Sodium Chloride) 100 mls @ 200 mls/hr IV NOW ONE Stop: 09/29/21 02:14 Last Infusion: 09/29/21 04:35 Dose: 0 mls/hr Documented By: Admin: 09/29/21 04:05 Dose: 200 mls/hr Documented By: CHIRSTINE Vital Signs Vital signs: Vital Signs - 8 hr 09/28/21 22:42 09/28/21 23:39 09/28/21 23:40 Temperature 98 F Pulse Rate 69 67 66 Respiratory Rate 18 23 21 Blood Pressure 113/82 Pulse Oximetry 99 96 95 Oxygen Delivery Method Room Air 09/28/21 23:40 09/29/21 00:00 09/29/21 00:00 Temperature Pulse Rate 66 Respiratory Rate 20 Blood Pressure 115/73 108/70 Pulse Oximetry 95 Oxygen Delivery Method fall Lab Data Result diagrams: 09/28/21 22:24 09/28/21 22:24 Labs: Lab Results 09/28/21 09/28/21 09/28/21 Range/Units 22:24 22:24 22:24 WBC 12.2 H (4.5-11.0) X10^3/uL RBC 4.12 L (4.5-5.9) X10^6/uL Hgb 12.4 L (13.5-17.5) g/dL Hct 36.7 L (41-53) % MCV 89.0 (80-100) fL MCH 30.1 (26-34) PG MCHC 33.8 (30-36) % RDW 14.7 (11.6-14.8) % Plt Count 300 (150-400) X10^3/uL Neut % (Auto) 63.0 (50-75) % Lymph % (Auto) 28.6 (25-40) % [place] % (Auto) 7.4 (3-14) % Eos % (Auto) 0.5 L (2-4) % Baso % (Auto) 0.5 (0-2) % Neut # (Auto) 7700 H (5099-4159) /uL Lymph # (Auto) 3500 (6674-5267) /uL [place] # (Auto) 900 (0-900) /uL Eos # (Auto) 100 (0-450) /uL Baso # (Auto) 100 (0-100) /uL Sodium 127 L (137-145) mmol/L Potassium 4.5 (3.4-5.1) mmol/L Chloride 94 L (98-107) mmol/L Carbon Dioxide 20 L (22-32) mmol/L BUN 12 (9-20) mg/dL Creatinine 0.78 (0.66-1.25) mg/dL Estimated GFR > 60 (>60) mL/min BUN/Creatinine Ratio 15.4 (6-22) Glucose 86 (80-110) mg/dL Lactate 3.4 H (0.7-2.1) mmol/L Calcium 8.5 (8.4-10.2) mg/dL Magnesium 2.3 (1.6-2.3) mg/dL Total Bilirubin 0.5 (0.2-1.3) mg/dL AST 33 (17-59) IU/L ALT 22 (<50) IU/L Alkaline Phosphatase 69 (38-126) U/L Ammonia (9-30) umol/L Troponin I < 0.012 (0.01-0.034) ng/mL Total Protein 6.5 (6.3-8.2) g/dL Albumin 3.7 (3.5-5.0) g/dL Globulin 2.8 (1.7-4.1) g/dL Albumin/Globulin Ratio 1.3 (1.0-2.8) Lipase 65 (23-300) U/L Procalcitonin 0.05 (<0.5) ng/mL Urine Color Urine Appearance Urine pH (4.5-8.0) Ur Specific [place] (1.000-1.035) Urine Protein (Negative) Urine Glucose (UA) (Negative) g/dL Urine Ketones (NEGATIVE) Urine Occult Blood (Negative) Urine Nitrate (Negative) Urine Bilirubin (NEGATIVE) Urine Urobilinogen (0.2) E.U./dL Ur Leukocyte Esterase (NEGATIVE) Urine RBC (0-5/HPF) Urine WBC (0-5/HPF) Urine Bacteria (None) Ur Culture Indicated? Micro UA Comment U Opiates 300ng/mL cut (Negative) Ur Oxycodone Screen (Negative) Urine Methadone Screen (Negative) Ur Barbiturates Screen (Negative) U Tricyclic Antidepress (Negative) Ur Phencyclidine Scrn (Negative) Ur Amphetamines Screen (Negative) U Methamphetamines Scrn (Negative) Ur MDMA Scrn (Ecstasy) (Negative) U Benzodiazepines Scrn (Negative) Urine Cocaine Screen (Negative) U Marijuana (THC) Screen (Negative) Ethyl Alcohol 126 H ( - 10) mg/dL Chlamy pneumoniae PCR (Not Detect) Adenovirus (PCR) (Not Detect) B. pertussis DNA (PCR) (Not Detecte) B.parapertussis DNA PCR (Not Detecte) Coronavirus OC43 (PCR) (Not Detect) Coronavirus HKU1 (PCR) (Not Detect) Coronavirus 229E (PCR) (Not Detect) SARS-CoV-2 (PCR) (Negative) Coronavirus NL63 (PCR) (Not Detect) Human Metapneumovir PCR (Not Detect) Influenza Type A (PCR) (Not Detect) Influenza Type B (PCR) (Not Detect) M. pneumoniae (PCR) (Not Detect) Parainfluenza 1 (PCR) (Not Detect) Parainfluenza 2 (PCR) (Not Detect) Parainfluenza 3 (PCR) (Not Detect) Parainfluenza 4 (PCR) (Not Detect) RSV (PCR) (Not Detect) Entero/Rhino (PCR) (Not Detect) 09/28/21 09/29/21 09/29/21 Range/Units 23:06 01:45 01:46 WBC (4.5-11.0) X10^3/uL RBC (4.5-5.9) X10^6/uL Hgb (13.5-17.5) g/dL Hct (41-53) % MCV (80-100) fL MCH (26-34) PG MCHC (30-36) % RDW (11.6-14.8) % Plt Count (150-400) X10^3/uL Neut % (Auto) (50-75) % Lymph % (Auto) (25-40) % [place] % (Auto) (3-14) % Eos % (Auto) (2-4) % Baso % (Auto) (0-2) % Neut # (Auto) (5353-6555) /uL Lymph # (Auto) (7896-6757) /uL [place] # (Auto) (0-900) /uL Eos # (Auto) (0-450) /uL Baso # (Auto) (0-100) /uL Sodium (137-145) mmol/L Potassium (3.4-5.1) mmol/L Chloride (98-107) mmol/L Carbon Dioxide (22-32) mmol/L BUN (9-20) mg/dL Creatinine (0.66-1.25) mg/dL Estimated GFR (>60) mL/min BUN/Creatinine Ratio (6-22) Glucose (80-110) mg/dL Lactate 1.9 (0.7-2.1) mmol/L Calcium (8.4-10.2) mg/dL Magnesium (1.6-2.3) mg/dL Total Bilirubin (0.2-1.3) mg/dL AST (17-59) IU/L ALT (<50) IU/L Alkaline Phosphatase (38-126) U/L Ammonia (9-30) umol/L Troponin I (0.01-0.034) ng/mL Total Protein (6.3-8.2) g/dL Albumin (3.5-5.0) g/dL Globulin (1.7-4.1) g/dL Albumin/Globulin Ratio (1.0-2.8) Lipase (23-300) U/L Procalcitonin (<0.5) ng/mL Urine Color Yellow Urine Appearance Clear Urine pH 5.5 (4.5-8.0) Ur Specific [place] <=1.005 (1.000-1.035) Urine Protein Negative (Negative) Urine Glucose (UA) Negative (Negative) g/dL Urine Ketones Negative (NEGATIVE) Urine Occult Blood Negative (Negative) Urine Nitrate Negative (Negative) Urine Bilirubin Negative (NEGATIVE) Urine Urobilinogen 0.2 (0.2) E.U./dL Ur Leukocyte Esterase Negative (NEGATIVE) Urine RBC None seen (0-5/HPF) Urine WBC None seen (0-5/HPF) Urine Bacteria None seen (None) Ur Culture Indicated? Cult not indicated Micro UA Comment Microscopic normal U Opiates 300ng/mL cut (Negative) Ur Oxycodone Screen (Negative) Urine Methadone Screen (Negative) Ur Barbiturates Screen (Negative) U Tricyclic Antidepress (Negative) Ur Phencyclidine Scrn (Negative) Ur Amphetamines Screen (Negative) U Methamphetamines Scrn (Negative) Ur MDMA Scrn (Ecstasy) (Negative) U Benzodiazepines Scrn (Negative) Urine Cocaine Screen (Negative) U Marijuana (THC) Screen (Negative) Ethyl Alcohol ( - 10) mg/dL Chlamy pneumoniae PCR (Not Detect) Adenovirus (PCR) (Not Detect) B. pertussis DNA (PCR) (Not Detecte) B.parapertussis DNA PCR (Not Detecte) Coronavirus OC43 (PCR) (Not Detect) Coronavirus HKU1 (PCR) (Not Detect) Coronavirus 229E (PCR) (Not Detect) SARS-CoV-2 (PCR) Negative (Negative) Coronavirus NL63 (PCR) (Not Detect) Human Metapneumovir PCR (Not Detect) Influenza Type A (PCR) (Not Detect) Influenza Type B (PCR) (Not Detect) M. pneumoniae (PCR) (Not Detect) Parainfluenza 1 (PCR) (Not Detect) Parainfluenza 2 (PCR) (Not Detect) Parainfluenza 3 (PCR) (Not Detect) Parainfluenza 4 (PCR) (Not Detect) RSV (PCR) (Not Detect) Entero/Rhino (PCR) (Not Detect) 09/29/21 09/29/21 09/29/21 Range/Units 01:46 04:10 04:25 WBC (4.5-11.0) X10^3/uL RBC (4.5-5.9) X10^6/uL Hgb (13.5-17.5) g/dL Hct (41-53) % MCV (80-100) fL MCH (26-34) PG MCHC (30-36) % RDW (11.6-14.8) % Plt Count (150-400) X10^3/uL Neut % (Auto) (50-75) % Lymph % (Auto) (25-40) % [place] % (Auto) (3-14) % Eos % (Auto) (2-4) % Baso % (Auto) (0-2) % Neut # (Auto) (5619-9949) /uL Lymph # (Auto) (0850-6993) /uL [place] # (Auto) (0-900) /uL Eos # (Auto) (0-450) /uL Baso # (Auto) (0-100) /uL Sodium (137-145) mmol/L Potassium (3.4-5.1) mmol/L Chloride (98-107) mmol/L Carbon Dioxide (22-32) mmol/L BUN (9-20) mg/dL Creatinine (0.66-1.25) mg/dL Estimated GFR (>60) mL/min BUN/Creatinine Ratio (6-22) Glucose (80-110) mg/dL Lactate (0.7-2.1) mmol/L Calcium (8.4-10.2) mg/dL Magnesium (1.6-2.3) mg/dL Total Bilirubin (0.2-1.3) mg/dL AST (17-59) IU/L ALT (<50) IU/L Alkaline Phosphatase (38-126) U/L Ammonia < 9 L (9-30) umol/L Troponin I (0.01-0.034) ng/mL Total Protein (6.3-8.2) g/dL Albumin (3.5-5.0) g/dL Globulin (1.7-4.1) g/dL Albumin/Globulin Ratio (1.0-2.8) Lipase (23-300) U/L Procalcitonin (<0.5) ng/mL Urine Color Urine Appearance Urine pH (4.5-8.0) Ur Specific [place] (1.000-1.035) Urine Protein (Negative) Urine Glucose (UA) (Negative) g/dL Urine Ketones (NEGATIVE) Urine Occult Blood (Negative) Urine Nitrate (Negative) Urine Bilirubin (NEGATIVE) Urine Urobilinogen (0.2) E.U./dL Ur Leukocyte Esterase (NEGATIVE) Urine RBC (0-5/HPF) Urine WBC (0-5/HPF) Urine Bacteria (None) Ur Culture Indicated? Micro UA Comment U Opiates 300ng/mL cut Negative (Negative) Ur Oxycodone Screen Negative (Negative) Urine Methadone Screen Negative (Negative) Ur Barbiturates Screen Negative (Negative) U Tricyclic Antidepress Negative (Negative) Ur Phencyclidine Scrn Negative (Negative) Ur Amphetamines Screen Negative (Negative) U Methamphetamines Scrn Negative (Negative) Ur MDMA Scrn (Ecstasy) Negative (Negative) U Benzodiazepines Scrn Negative (Negative) Urine Cocaine Screen Negative (Negative) U Marijuana (THC) Screen Negative (Negative) Ethyl Alcohol ( - 10) mg/dL Chlamy pneumoniae PCR Not detected (Not Detect) Adenovirus (PCR) Not detected (Not Detect) B. pertussis DNA (PCR) Not detected (Not Detecte) B.parapertussis DNA PCR Not detected (Not Detecte) Coronavirus OC43 (PCR) Not detected (Not Detect) Coronavirus HKU1 (PCR) Not detected (Not Detect) Coronavirus 229E (PCR) Not detected (Not Detect) SARS-CoV-2 (PCR) Not detected (Negative) Coronavirus NL63 (PCR) Not detected (Not Detect) Human Metapneumovir PCR Not detected (Not Detect) Influenza Type A (PCR) Not detected (Not Detect) Influenza Type B (PCR) Not detected (Not Detect) M. pneumoniae (PCR) Not detected (Not Detect) Parainfluenza 1 (PCR) Not detected (Not Detect) Parainfluenza 2 (PCR) Not detected (Not Detect) Parainfluenza 3 (PCR) Not detected (Not Detect) Parainfluenza 4 (PCR) Not detected (Not Detect) RSV (PCR) Not detected (Not Detect) Entero/Rhino (PCR) Not detected (Not Detect) Imaging Data CT scan - head: Radiologist's Impression: FINDINGS:? Image quality:? Excellent.? ? CSF spaces:? Basal cisterns are patent.? No extra-axial fluid collections.? There is mild cerebral volume loss, with resultant ventricular and sulcal prominence.? ? Brain:? No intracranial hemorrhage, mass, or mass effect.? There are subcortical, periventricular and deep white matter hypodensities consistent with moderate chronic small vessel ischemic changes.? The pedro-white matter junction appears preserved.? There is intracranial internal carotid artery atherosclerosis.? ? Skull and face:? Calvarium and visualized facial bones appear intact, without suspicious lesions.? ? Sinuses:? Visualized sinuses and mastoids are clear.? ? IMPRESSION:? ? 1. No acute intracranial abnormality. ? 2. Moderate chronic white matter small vessel ischemic changes and mild cerebral volume loss.? ? ? Dictated by: Jacques Mack M.D. on 09/28/2021 at 23:22 ? ? Chest x-ray: Radiologist's Impression: FINDINGS:? ? Surgical changes and devices:? None.? ? Lungs and pleura:? Lungs are clear. There is hyperinflation of the lungs with flattening of the hemidiaphragms compatible with COPD. ? No pleural effusions or pneumothorax.? ? Mediastinum:? Mediastinal contours appear normal.? Heart size is normal.? ? Bones and chest wall:? No displaced fractures identified.? No suspicious bony lesions.? Overlying soft tissues appear unremarkable.? ? IMPRESSION:? ? 1. Findings compatible with COPD redemonstrated without definite acute cardiopulmonary disease.? ? ? Dictated by: Jacques Mack M.D. on 09/29/2021 at 0:14 ? ? CT - cervical spine: Radiologist's Impression: FINDINGS:? Image quality:? Excellent.? ? Bones:? No fractures or subluxation.? There is minimal retrolisthesis at C5-C6.? Multilevel degenerative disc disease present including moderate to severe degeneration at C5-C6.? Mild multilevel facet arthropathy also demonstrated throughout the cervical spine.? Visualized superior ribs are intact.? ? Soft tissues:? Prevertebral soft tissues are normal in thickness.? No paravertebral hematomas.? No apical pneumothoraces.? ? ? IMPRESSION:? ? 1. No acute fracture or subluxation. ? 2. Multilevel degenerative changes of the cervical spine most prominent at C5-C6. ? Dictated by: Jacques Mack M.D. on 09/28/2021 at 23:23 ? ? ECG Data Interpretation: Sinus rhythm at a rate of 95 Prolonged QT at 502 ms No acute ischemic changes MDM Narrative Medical decision making narrative: 70-year-old gentleman presents confused, globally weak after rolling out of bed. -He is slightly intoxicated with an alcohol level of 126 however he reportedly drinks regularly. He is not showing signs of alcohol withdrawal. -Complains of back pain but has no findings on palpation and has no complaints of abdominal pain. He has a history of an abdominal aneurysm most recent ultrasound was in January of 2020 describing abdominal aortic ectasia and recommending 5 your sonographic surveillance. He is not significantly hypotensive or tachycardic and has no abdominal pain on palpation I do not suspect a rupturing AAA at this time There is no evidence of acute coronary syndrome -He is on Humira so possibility of infection is certainly high, he has a white blood cell count at 12.2 but no significant left shift. He has no localizing signs of infection including pneumonia, cellulitis, acute abdominal pain, urinary tract infection, flank pain and despite that confusion he is not complaining of headache and shows no meningismus symptoms. -CT scan of the head and cervical spine are unremarkable with no evidence of intracranial bleeding secondary to trauma. -will check a complete respiratory panel, add an ammonia level and allow him to sober a bit longer and then re-evaluate. At this point I do not have an explanation for his global weakness but he is unable to sit up in bed in certainly not appropriate for home discharge at this time. 445 patient remains restless and somewhat agitated, minimally redirectable without any focal abnormalities. normal blood pressure heart rate and no tremor suggests absence of alcohol withdrawal. Will give him 2 mg of IV Haldol for his overall restlessness. 515 ammonia level comes back at less than 9. Patient is still quite agitated. Will talk with hospitalist service about observation admission for acute altered mental status of uncertain etiology without evidence of stroke, seizure, meningitis, acute withdrawal symptoms. Alcohol level at 11:00 p.m. was 126 so now 6 hours later should be close to 0. Discharge Plan Departure Patient Disposition: Admitted as Observation Clinical Impression: Fall, Weakness, Altered mental status Admit Date/Time: 09/29/21 05:29 Admit Provider: Shalini Huynh
--- NOTE | 2021-09-29 01:50 | PC.NURSE ---
900mL urine output initial output from stearns catheter.Pt appears more comfortable.
[2021-09-29 01:53] LABS: Appearance Urine UA CLEAR; Bilirubin Urine UA NEGATIVE (NEGATIVE); Color Urine UA YELLOW; Glucose Urine UA NEGATIVE (Negative); Ketones Urine UA NEGATIVE (NEGATIVE); Leukocyte Esterase Urine UA NEGATIVE (NEGATIVE); Nitrite Urine UA NEGATIVE (Negative); Occult Blood Urine UA NEGATIVE (Negative); Protein Urine UA NEGATIVE (Negative); Specific Gravity Urine UA <=1.005 (1.000-1.035); Urobilinogen Urine UA 0.2 E.U./dL (0.2); pH Urine UA 5.5 (4.5-8.0)
[2021-09-29 02:00] LABS: Bacteria Urine None Seen; Culture Indicated Urine Cult Not Indicated; RBC Urine None Seen (0-5/HPF); Urine Comments Microscopic Normal; WBC Urine None Seen (0-5/HPF)
[2021-09-29 02:03] LABS: Lactate 2HR (Lactic Acid Rflx) 1.9 mmol/L (0.7-2.1)
[2021-09-29 02:03] LABS: UR Morphine/Opiate cutoff 300 Negative (Negative); Ur Creatinine Normal (Normal); Ur Specific Gravity Normal (Normal); Urine Amphetamines Negative (Negative); Urine Barbiturates Negative (Negative); Urine Benzodiazepines Negative (Negative); Urine Cocaine Negative (Negative); Urine MDMA Negative (Negative); Urine Methadone Negative (Negative); Urine Methamphetamines Negative (Negative); Urine Oxycodone Negative (Negative); Urine Phencyclidine Negative (Negative); Urine Tetrahydrocannabinol Negative (Negative); Urine Tricyclic Antidepressant Negative (Negative); Urine pH Normal (Normal)
[2021-09-29] MEDS: cefTRIAXone 2,000 MG in SODIUM CHLORIDE 0.9% 100 ML 200 MG IV (04:05)
[2021-09-29 04:44] LABS: Ammonia (NH3) < 9 umol/L (9-30)
[2021-09-29] MEDS: HALOPERIDOL 5 MG/ML VIAL 2 MG IV (05:02)
[2021-09-29 05:13] LABS: Adenovirus Not Detected (Not Detect); B. parapertussis Not Detected (Not Detecte); Bordetella pertussis Not Detected (Not Detecte); Chlamydophila pneumoniae Not Detected (Not Detect); Coronavirus 229E Not Detected (Not Detect); Coronavirus HKU1 Not Detected (Not Detect); Coronavirus NL 63 Not Detected (Not Detect); Coronavirus OC43 Not Detected (Not Detect); Human Metapneumovirus Not Detected (Not Detect); Human Rhinovirus/Enterovirus Not Detected (Not Detect); Influenza A Not Detected (Not Detect); Influenza B Not Detected (Not Detect); Mycoplasma pneumoniae Not Detected (Not Detect); Parainfluenza Virus 1 Not Detected (Not Detect); Parainfluenza Virus 2 Not Detected (Not Detect); Parainfluenza Virus 3 Not Detected (Not Detect); Parainfluenza Virus 4 Not Detected (Not Detect); Respiratory Syncytial Virus Not Detected (Not Detect); SARS- CoV-2 Not Detected (Not Detecte)
--- NOTE | 2021-09-29 05:18 | PC.NURSE ---
Over the last hour or so since this RN took over, pt has become increasingly more restless and agitated and unable to follow the most simple commands, such as laying on his back, moving from his side, or raising his arm in the air. Pt is, however, able to answer orientation questions appropriately without much delay. Pt constantly shifting in bed and scooting himself up in bed, enough to bang his head against the wall because he continues to scoot up in bed. Pt grabbing the side rails and top of the bed for levarage to move around. Pt reminded he has a stearns catheter in place. Pt verbalizes understanding of simple commands then does not follow through with the action. Pt also complaining of a headache still. Attempt made to assist pt with using a bedpan to have a bowel movement, but pt keeps saying oh shoot, what am I gonna do, what am I gonna do despite repeated reminders from staff to simply lay back and release his bowels. Provider aware of this.
--- NOTE | 2021-09-29 05:24 | PC.NURSE ---
Pt not tolerating the vital signs monitoring equipment and has multiple skin tears/abrasions now from rolling in bed and wacking his body against the side rails despite having bed rails padded. Pt takes the blankets of the siderails in his shuffling in bed.
[2021-09-29 05:42] VITALS: BP 133/76; PULSE 78; RESP 20; O2SAT 97
[2021-09-29] MEDS: diazePAM 10 MG/2 ML SYRINGE 5 MG IV ×4 (05:51→20:59)
--- NOTE | 2021-09-29 05:56 | PC.NURSE ---
inpatient accepting RN OK with pt receiving ER emdication Valium for pt restlessness prior to him being transferred.
--- NOTE | 2021-09-29 06:26 | P.HP_ITS ---
History of Present Illness History of Present Illness Date Patient Seen: 09/29/21 Time Patient Seen: 06:26 Chief complaint: Syncope, SOB Narrative: Jovany Blakely is 70-year-old male with alcohol use disorder, hypertension, asthma, reflux, Crohn's disease for which he takes Humira, asymptomatic hyponatremia with decreased serum osmolality presents after falling out of bed this evening and is profoundly weak.? in the room provides most of the history. He sta drew that he was trying to get up and he was found lying on the floor by the bed somewhat confused complaining of tingling in both of his feet.? She said she heard a thud and found him on the floor, she did endorse that he had a urine incontinence episode. He complains of being very uncomfortable, states he has lots of complaints but is unable to tell me what is bothering him. He appears to be in pain when he moves around or is repositioned by others. states he has very thin skin, is prone to easy bruising and bleeding because he has taken lifelong prednisone. She stated he underwent a colonoscopy recently and they found he had a lot of inflammation, and he is taking prednisone again. C-spine CT, chest x-ray, and head CT were all negative for any acute injuries or pathology. He is afebrile, blood pressure 108/70, heart rate 66, respiratory rate 20, oxygen saturation of 95% on room air he weighs 65.7 kg with a BMI of 20.1. His WBC is mildly elevated at 12.2 but he has known left shift, sodium 127 however this is close to his baseline, chloride 94 bicarb 20 Jose R your level is less than 9 lipase 65 procalcitonin was negative UA is negative for UTI urine toxicology is negative for any illicits alcohol level was 126 viral and COVID-19 PCR panel is negative. Patient History Medical History Abdominal aortic aneurysm (AAA) Abdominal aortic ectasia (01/2020) COPD (chronic obstructive pulmonary disease) Crohns disease (~1969) Decreased cortisol level (07/2020) Hypertension Hyponatremia Hyponatremia with decreased serum osmolality Iatrogenic hypothyroidism Iron deficiency anemia Long-term current use of steroids Long-term use of immunosuppressant medication Personal history of colonic polyps Pulmonary nodules Surgical History History of colonoscopy History of mandibular surgery (~1987) History of testicular surgery (~1956) Thyroid cancer (~06/2010) Tongue malignant neoplasm (~2015) Family & Social History Family History Father No problems noted. Mother COPD (chronic obstructive pulmonary disease) Brother COPD (chronic obstructive pulmonary disease) Social History: household members spouse Safety & Behavioral: Feels Safe in Current Yes Environment Been Physically Hurt or No Threatened By a Person Tobacco & Substance use: Smoking Status Current smoker 1/2-1 ppd alcohol intake current alcohol intake frequency a few times a week Substance Use Type marijuana Meds Home Medications and Allergies Home Medications Medication Instructions Recorded Confirmed Type adalimumab 40 mg/0.8 mL 40 mg SUBCUT Q2W 12/02/17 09/29/21 History subcutaneous syringe kit (Humira) ferrous sulfate 325 mg (65 mg 325 mg PO Q OTHER DAY anemia 01/31/18 09/29/21 History iron) tablet fluticasone propionate 50 1 spray intranasal BID #15.8 mL 02/02/19 09/29/21 Rx mcg/actuation nasal spray,suspension omeprazole 40 mg capsule,delayed 40 mg PO DAILY 09/01/20 09/29/21 History release azelastine 137 mcg (0.1 %) nasal 1 spray intranasal BID #30 mL 07/25/21 09/29/21 Rx spray aerosol levothyroxine 112 mcg tablet See Rx Instructions .Route 07/26/21 09/29/21 Rx .COMPLEX #90 tabs montelukast 10 mg tablet See Rx Instructions .Route 08/10/21 09/29/21 Rx .COMPLEX #90 tabs albuterol sulfate 90 mcg/actuation 1 puff inhalation Q4-6H PRN 08/28/21 09/29/21 Rx aerosol inhaler shortness of breath or wheezing #8.5 grams lisinopril 10 mg tablet See Rx Instructions .Route 09/12/21 09/29/21 Rx .COMPLEX #30 tabs prednisone 5 mg tablet 30 tab PO DAILY inflammation 09/29/21 09/29/21 History rabeprazole 20 mg tablet,delayed 20 tab PO DAILY 09/29/21 09/29/21 History release Allergies Allergy/AdvReac Type Severity Reaction Status Date / Time No Known Drug Allergies Allergy Verified 09/28/21 22:42 Review of Systems Review of Systems ROS: Yes unobtainable due to mental status Exam Vital Signs (past 8 hours): - 09/28/21 22:42 09/28/21 23:39 09/28/21 23:40 Temperature 98 F Pulse Rate 69 67 66 Respiratory Rate 18 23 21 Blood Pressure 113/82 Pulse Oximetry 99 96 95 Oxygen Delivery Method Room Air 09/28/21 23:40 09/29/21 00:00 09/29/21 00:00 Temperature Pulse Rate 66 Respiratory Rate 20 Blood Pressure 115/73 108/70 Pulse Oximetry 95 Oxygen Delivery Method Oxygen Delivery Method Room Air Narrative Exam Narrative: Gen: Alert, oriented, nikolay complected 70 y.o. male, appears uncomfortable HEENT: normocephalic, atraumatic, conjunctiva clear, sclera non-icteric, oral mucosa pink and moist Neck: supple, scar along right lower neck, full ROM, no JVD, trachea is midline Resp: Lungs CTA, non-labored breathing CV: RRR, no murmur or rubs Abd: soft, non-tender, normoactive BTs Skin: multiple eccymotic lesions, scars and superficial lacerations on extremities, thin and friable Neuro: Alert and oriented X 4 w/no focal deficits. Very lethargic, Speech soft and difficult to understand, but coherant. Extremities: moves all 4 extremities, is ambulatory, negative Joel?s sign Psyche: normal mood and affect. Objective Labs Result Diagrams: 09/28/21 22:24 09/28/21 22:24 Labs: Laboratory Results - last 24 hr 09/28/21 09/28/21 09/28/21 22:24 22:24 22:24 WBC 12.2 H RBC 4.12 L Hgb 12.4 L Hct 36.7 L MCV 89.0 MCH 30.1 MCHC 33.8 RDW 14.7 Plt Count 300 Neut % (Auto) 63.0 Lymph % (Auto) 28.6 [place] % (Auto) 7.4 Eos % (Auto) 0.5 L Baso % (Auto) 0.5 Neut # (Auto) 7700 H Lymph # (Auto) 3500 [place] # (Auto) 900 Eos # (Auto) 100 Baso # (Auto) 100 Sodium 127 L Potassium 4.5 Chloride 94 L Carbon Dioxide 20 L BUN 12 Creatinine 0.78 Estimated GFR > 60 BUN/Creatinine Ratio 15.4 Glucose 86 Lactate 3.4 H Calcium 8.5 Magnesium 2.3 Total Bilirubin 0.5 AST 33 ALT 22 Alkaline Phosphatase 69 Ammonia Troponin I < 0.012 Total Protein 6.5 Albumin 3.7 Globulin 2.8 Albumin/Globulin Ratio 1.3 Lipase 65 Procalcitonin 0.05 Urine Color Urine Appearance Urine pH Ur Specific [place] Urine Protein Urine Glucose (UA) Urine Ketones Urine Occult Blood Urine Nitrate Urine Bilirubin Urine Urobilinogen Ur Leukocyte Esterase Urine RBC Urine WBC Urine Bacteria Ur Culture Indicated? Micro UA Comment U Opiates 300ng/mL cut Ur Oxycodone Screen Urine Methadone Screen Ur Barbiturates Screen U Tricyclic Antidepress Ur Phencyclidine Scrn Ur Amphetamines Screen U Methamphetamines Scrn Ur MDMA Scrn (Ecstasy) U Benzodiazepines Scrn Urine Cocaine Screen U Marijuana (THC) Screen Ethyl Alcohol 126 H Chlamy pneumoniae PCR Adenovirus (PCR) B. pertussis DNA (PCR) B.parapertussis DNA PCR Coronavirus OC43 (PCR) Coronavirus HKU1 (PCR) Coronavirus 229E (PCR) SARS-CoV-2 (PCR) Coronavirus NL63 (PCR) Human Metapneumovir PCR Influenza Type A (PCR) Influenza Type B (PCR) M. pneumoniae (PCR) Parainfluenza 1 (PCR) Parainfluenza 2 (PCR) Parainfluenza 3 (PCR) Parainfluenza 4 (PCR) RSV (PCR) Entero/Rhino (PCR) 09/28/21 09/29/21 09/29/21 23:06 01:45 01:46 WBC RBC Hgb Hct MCV MCH MCHC RDW Plt Count Neut % (Auto) Lymph % (Auto) [place] % (Auto) Eos % (Auto) Baso % (Auto) Neut # (Auto) Lymph # (Auto) [place] # (Auto) Eos # (Auto) Baso # (Auto) Sodium Potassium Chloride Carbon Dioxide BUN Creatinine Estimated GFR BUN/Creatinine Ratio Glucose Lactate 1.9 Calcium Magnesium Total Bilirubin AST ALT Alkaline Phosphatase Ammonia Troponin I Total Protein Albumin Globulin Albumin/Globulin Ratio Lipase Procalcitonin Urine Color Yellow Urine Appearance Clear Urine pH 5.5 Ur Specific [place] <=1.005 Urine Protein Negative Urine Glucose (UA) Negative Urine Ketones Negative Urine Occult Blood Negative Urine Nitrate Negative Urine Bilirubin Negative Urine Urobilinogen 0.2 Ur Leukocyte Esterase Negative Urine RBC None seen Urine WBC None seen Urine Bacteria None seen Ur Culture Indicated? Cult not indicated Micro UA Comment Microscopic normal U Opiates 300ng/mL cut Ur Oxycodone Screen Urine Methadone Screen Ur Barbiturates Screen U Tricyclic Antidepress Ur Phencyclidine Scrn Ur Amphetamines Screen U Methamphetamines Scrn Ur MDMA Scrn (Ecstasy) U Benzodiazepines Scrn Urine Cocaine Screen U Marijuana (THC) Screen Ethyl Alcohol Chlamy pneumoniae PCR Adenovirus (PCR) B. pertussis DNA (PCR) B.parapertussis DNA PCR Coronavirus OC43 (PCR) Coronavirus HKU1 (PCR) Coronavirus 229E (PCR) SARS-CoV-2 (PCR) Negative Coronavirus NL63 (PCR) Human Metapneumovir PCR Influenza Type A (PCR) Influenza Type B (PCR) M. pneumoniae (PCR) Parainfluenza 1 (PCR) Parainfluenza 2 (PCR) Parainfluenza 3 (PCR) Parainfluenza 4 (PCR) RSV (PCR) Entero/Rhino (PCR) 09/29/21 09/29/21 09/29/21 01:46 04:10 04:25 WBC RBC Hgb Hct MCV MCH MCHC RDW Plt Count Neut % (Auto) Lymph % (Auto) [place] % (Auto) Eos % (Auto) Baso % (Auto) Neut # (Auto) Lymph # (Auto) [place] # (Auto) Eos # (Auto) Baso # (Auto) Sodium Potassium Chloride Carbon Dioxide BUN Creatinine Estimated GFR BUN/Creatinine Ratio Glucose Lactate Calcium Magnesium Total Bilirubin AST ALT Alkaline Phosphatase Ammonia < 9 L Troponin I Total Protein Albumin Globulin Albumin/Globulin Ratio Lipase Procalcitonin Urine Color Urine Appearance Urine pH Ur Specific [place] Urine Protein Urine Glucose (UA) Urine Ketones Urine Occult Blood Urine Nitrate Urine Bilirubin Urine Urobilinogen Ur Leukocyte Esterase Urine RBC Urine WBC Urine Bacteria Ur Culture Indicated? Micro UA Comment U Opiates 300ng/mL cut Negative Ur Oxycodone Screen Negative Urine Methadone Screen Negative Ur Barbiturates Screen Negative U Tricyclic Antidepress Negative Ur Phencyclidine Scrn Negative Ur Amphetamines Screen Negative U Methamphetamines Scrn Negative Ur MDMA Scrn (Ecstasy) Negative U Benzodiazepines Scrn Negative Urine Cocaine Screen Negative U Marijuana (THC) Screen Negative Ethyl Alcohol Chlamy pneumoniae PCR Not detected Adenovirus (PCR) Not detected B. pertussis DNA (PCR) Not detected B.parapertussis DNA PCR Not detected Coronavirus OC43 (PCR) Not detected Coronavirus HKU1 (PCR) Not detected Coronavirus 229E (PCR) Not detected SARS-CoV-2 (PCR) Not detected Coronavirus NL63 (PCR) Not detected Human Metapneumovir PCR Not detected Influenza Type A (PCR) Not detected Influenza Type B (PCR) Not detected M. pneumoniae (PCR) Not detected Parainfluenza 1 (PCR) Not detected Parainfluenza 2 (PCR) Not detected Parainfluenza 3 (PCR) Not detected Parainfluenza 4 (PCR) Not detected RSV (PCR) Not detected Entero/Rhino (PCR) Not detected Assessment & Plan Assessment & Plan narrative: Jovany Blakely sustained a fall and was found to have an elevated alcohol level. He appears to be in withdrawal, but is also profoundly weak. He is observed today, possibly overnight to provide fluid hydration and to manage any withdrawal symptoms if they occur. Toxic metabolic encephalopathy, likely secondary to ETOH * [facility] protocol * Multi-vitamin, thiamine and folic acid supplementation Profound weakness, acute, and present on admission * have ordered CK MB and lactic acid to rule out rhabdomylosis Iatrogenic hypothyroidism, chronic * Continue home dose of levothyroxine Essential hypertension, chronic * Continue home dose of lisinopril VTE Prophylaxis: Wells risk score 0 Enoxaparin 40 mg subQ once daily, SCDs contraindicated due to mutiple skin tears on both legs Patient is placed into observation as his stay is not expected to exceed 2 midnights. FEN: IV fluids: NS at 100 ml/hr, diet: heart healthy, labs: CBC, C/BMP, liver enzymes, Mag, PT/INR Consultants None Dispo: home Code status: DNR/DNI as discussed with the patient who identifies his , Leticia i as his surrogate and POA. [X] I have utilized all available immediate resources to obtain, update, or review of the patient's current medications COVID-19 COVID-19 status: Negative Result date/Date tested (Pos, Neg/Pending): 09/29/21 Time Spent With Patient Critical Care time: I spent a total of [] minutes of critical care time on this patient's care today; this time is exclusive of procedural time. Scores Wells' Criteria for PE Clinical signs and symptoms of DVT: No PE is #1 Dx or equally likely: No Heart rate > 100: No Immobilization at least 3 days or surg in previous 4 weeks: No History of PE or DVT: No Hemoptysis: No Malignancy w/Treatment within 6 months or palliative: No Wells' PE Score total: 0 Quality VTE Deep Vein Thrombosis/Pulmonary Embolism Present on Admission: No MIPS - Admit I confirm the patient?s Advance Care Plan is present, Code status is documented, Surrogate decision maker is in patient?s record [If Yes, STOP here]: Yes MIPS - DC The patient has current or prior documentation of left ventricular ejection fraction (LVEF) less than 40%, or moderate or severely depressed left ventricular systolic function.: No
[2021-09-29 06:32] VITALS: BMI 20.5
[2021-09-29 07:16] LABS: Add Manual Diff / Slide Review NO; Basophils Absolute Auto 100 /uL (0-100); Eosinophils Absolute Auto 100 /uL (0-450); Eosinophils Percent Auto 0.9 % (2-4); Hematocrit 34.7 % (41-53); Hemoglobin 11.9 g/dL (13.5-17.5); Lymphocytes Absolute Auto 1300 /uL (1100-4500); Lymphocytes Percent Auto 16.5 % (25-40); Mean Corpuscular HGB Conc 34.2 % (30-36); Mean Corpuscular Hemoglobin 30.2 PG (26-34); Mean Corpuscular Volume 88.3 fL (80-100); Monocytes Absolute Auto 600 /uL (0-900); Monocytes Percent Auto 7.9 % (3-14); Neutrophils Absolute Auto 5900 /uL (1500-7000); Neutrophils Percent Auto 73.7 % (50-75); Platelet Count 315 X10^3/uL (150-400); Red Blood Cell Count 3.93 X10^6/uL (4.5-5.9); Red Cell Distribution Width 14.3 % (11.6-14.8)
[2021-09-29 07:27] LABS: Creatine Kinase 72 U/L (55-170); Lactate (Lactic Acid) 0.6 mmol/L (0.7-2.1)
[2021-09-29 07:29] LABS: Alanine Aminotransferase 19 IU/L (<50); Albumin 3.3 g/dL (3.5-5.0); Albumin Globulin Ratio 1.2 (1.0-2.8); Alkaline Phosphatase 68 U/L (38-126); Aspartate Aminotransferase 27 IU/L (17-59); BUN Creatinine Ratio 14.9 (6-22); Bilirubin Total 0.4 mg/dL (0.2-1.3); Bilirubin Unconjugated 0.2 mg/dL (0.0-1.1); Blood Urea Nitrogen 11 mg/dL (9-20); Calcium 8.1 mg/dL (8.4-10.2); Carbon Dioxide 24 mmol/L (22-32); Chloride 100 mmol/L (98-107); Estimated Glomerular Filt Rate > 60 mL/min (>60); Globulin 2.7 g/dL (1.7-4.1); Glucose 111 mg/dL (80-110); HEMOLYSIS < 15 (0-50); Magnesium 1.9 mg/dL (1.6-2.3); Sodium 127 mmol/L (137-145)
--- NOTE | 2021-09-29 09:09 | PC.NURSE ---
Assess- Patient is confused, he has some slight tremors. Given valium and haldol prior to coming up to the floor. Ciwa score is a 5/6. Patient is not leaving his tele on. Just reattached and patient was incontinent of bowel movement. into see patient earlier and is now going home to get some rest. Patient is still figity, but denies pain.
--- NOTE | 2021-09-29 09:23 | CM.DANOTE ---
Initial DCP Assessment Note Pt is a 70 yo male, resident [facility], presents via EMS after witnessed fall out of bed, by . PMH includes alcohol use disorder, hypertension, asthma, reflux, Crohn's disease PCP: Tete Zhang Payer: Kodi CHANG Reviewed chart, CIWA 8 this morning. attempted bedside assessment and patient cannot participate or track conversation RN Francisca states spouse has been in to visit and has headed home, son in town visiting. RN suspects alcohol use may be under reported by patient and family. Patient states I drink a few beers daily' CM team will follow closely as medical plan of care unfolds; will plan to complete full assessment of need and [employer]ELOPER consult w/spouse or when patient more alert JD Marquez Discharge Planning/Care Management CM Discharge Assessment Start: 09/29/21 09:18 Freq: Status: Active Protocol: Document 09/29/21 09:18 VAL (Rec: 09/29/21 09:22 VAL [id number]) Discharge Planning Assessment Assigned Breast Surgeon JD Cruz DPOA/Assigned Designee Name Dorothy Blakely, spouse Contact Information [phone] Advance Directives? No Advance Directives on File No History Provided By Patient,Medical Record Has Patient been admitted in last 30 No days? Prior Living Arrangements House Household Members spouse Independent with ADL's Yes Is patient alert and oriented? Yes Barriers to Discharge No Comment Anticipate that this patient will return home w/family upon DC, once medically stable Discharge Plan Home Transportation Arrangement Family Referrals Initiated None needed Additional Comment No referrals needed at this time, will follow closely
[2021-09-29] MEDS: MONTELUKAST 10 MG TABLET PO (09:31)
[2021-09-29] MEDS: MULTIVITAMIN 1 TABLET 1 TAB PO (09:31)
[2021-09-29] MEDS: THIAMINE 100 MG TABLET PO (09:32)
[2021-09-29] MEDS: lisinopriL 10 MG TABLET PO (09:32)
[2021-09-29] MEDS: SODIUM CHLORIDE 0.9% 1,000 ML 100 ML IV ×2 (09:33→20:02)
[2021-09-29] MEDS: ENOXAPARIN 40 MG/0.4 ML SYRINGE SUBCUT (09:34)
[2021-09-29] MEDS: FOLIC ACID 1 MG TABLET PO (09:35)
[2021-09-29 09:42] VITALS: BP 126/72; PULSE 83; RESP 17; TEMP 36.9; O2SAT 96
--- NOTE | 2021-09-29 11:34 | DIET.CONS ---
Dietary Consultation Note Admission Date: 09/29/2021 05:29 Assessment: 70y M admitted for syncope and SOB referred to nutrition for Crohns and low body weight. Pt diagnosed c Crohns in his late teens, was on chronic steroids, recently switched to Maryr. Chart review shows pt has had low body weight x5y c current BMI 20.5 (severe for age). Pt reports 2-3 beer per day intake, however, pt fell out of bed and had blood alcohol content of 126 when admitted, on CIWA protocol, this morning 8. Pt unable to hold conversation c this RD and declines breakfast and lunch. Ht: 179.07 cm Wt: 65.771 kg BMI: 20.5 Last BM: 09/29/21 (09/29/21 11:20) MNA: 10 Joe Score: 23 Diet: 09/29/21 Breakfast Heart Healthy Diet Diet Modifications: Nutrition Percent Meal Consumed 10% 09/29/21 11:20 Labs: RBC 3.93 X10^6/uL (4.5-5.9) L 09/29/21 07:06 Hgb 11.9 g/dL (13.5-17.5) L 09/29/21 07:06 Hct 34.7 % (41-53) L 09/29/21 07:06 Creatinine 0.74 mg/dL (0.66-1.25) 09/29/21 07:06 Lactate 0.6 mmol/L (0.7-2.1) L 09/29/21 07:06 Nutrition Diagnosis: Chronic Moderate Malnutrition r/t malabsorption and excessive etoh use aeb pt with baseline BMI 20 (severe for age), pt c Crohn's since 1960s on penitentiary steroids, pt with etoh use disorder, frequent falls, chronic hyponatremia, CIWA of 8. Interventions: 1. Recc pt abstain from etoh as is a gut irritant, chronic use further worsening malabsorption. 2. Sending ONS Ensure Enlive for lunch to support nutrition status. Electronically Signed by: Rose Noe 09/29/21 11:34 Clinical Dietitian [address] [address]
--- NOTE | 2021-09-29 11:37 | PC.NURSE ---
Tele Unable to monitor tele as Pt is confused and removing. ADRIA Espinosa aware, and will speak to provider to possible DC
[2021-09-29 19:26] VITALS: BP 111/73; PULSE 77; RESP 17; TEMP 36.9; O2SAT 97
[2021-09-29 20:00] VITALS: BP 116/67; PULSE 86; RESP 16; TEMP 37.2; O2SAT 96
[2021-09-30 00:49] VITALS: BP 108/58; PULSE 71; RESP 16; TEMP 36.7; O2SAT 97
--- NOTE | 2021-09-30 03:27 | PC.NURSE ---
Pt has been fairly restless through the night, pulling at his covers and constant repositioning. Pt agreed to sit next to the bed in a chair while his bedding was all changed and agreed to wear his boxers. Pt up to the bathroom to have a bm with a 1 person assist. Pt able to have a bowel movement and was much more alert and interactive. Pt back to bed, mouth care provided, applied Allevyn Gentle Border dressing to left avila skin tears, and Pt is now resting with warm blankets on and states he is very comfortable. Seizure pads in place, bed alarm on for safety.
[2021-09-30] MEDS: SODIUM CHLORIDE 0.9% 1,000 ML 100 ML IV (06:14)
[2021-09-30] MEDS: LEVOTHYROXINE 112 MCG TABLET PO (06:14)
[2021-09-30 06:52] LABS: Add Manual Diff / Slide Review NO; Basophils Absolute Auto 100 /uL (0-100); Basophils Percent Auto 1.5 % (0-2); Eosinophils Absolute Auto 100 /uL (0-450); Eosinophils Percent Auto 1.9 % (2-4); Hematocrit 34.2 % (41-53); Hemoglobin 11.4 g/dL (13.5-17.5); Lymphocytes Absolute Auto 1100 /uL (1100-4500); Lymphocytes Percent Auto 20.7 % (25-40); Mean Corpuscular HGB Conc 33.2 % (30-36); Mean Corpuscular Hemoglobin 29.7 PG (26-34); Mean Corpuscular Volume 89.4 fL (80-100); Monocytes Absolute Auto 600 /uL (0-900); Monocytes Percent Auto 10.5 % (3-14); Neutrophils Absolute Auto 3500 /uL (1500-7000); Neutrophils Percent Auto 65.4 % (50-75); Platelet Count 246 X10^3/uL (150-400); Red Blood Cell Count 3.83 X10^6/uL (4.5-5.9); Red Cell Distribution Width 14.2 % (11.6-14.8); White Blood Cell Count 5.3 X10^3/uL (4.5-11.0)
[2021-09-30 07:02] LABS: Alanine Aminotransferase 17 IU/L (<50); Albumin 2.8 g/dL (3.5-5.0); Albumin Globulin Ratio 1.1 (1.0-2.8); Alkaline Phosphatase 61 U/L (38-126); Aspartate Aminotransferase 25 IU/L (17-59); BUN Creatinine Ratio 12.2 (6-22); Bilirubin Total 0.5 mg/dL (0.2-1.3); Bilirubin Unconjugated 0.4 mg/dL (0.0-1.1); Blood Urea Nitrogen 9 mg/dL (9-20); Calcium 7.7 mg/dL (8.4-10.2); Carbon Dioxide 27 mmol/L (22-32); Chloride 97 mmol/L (98-107); Estimated Glomerular Filt Rate > 60 mL/min (>60); Globulin 2.5 g/dL (1.7-4.1); Glucose 80 mg/dL (80-110); HEMOLYSIS < 15 (0-50); Potassium 3.5 mmol/L (3.4-5.1); Sodium 127 mmol/L (137-145); Total Protein 5.3 g/dL (6.3-8.2)
[2021-09-30 08:00] VITALS: BP 104/67; PULSE 70; RESP 17; TEMP 36.1; O2SAT 99
--- NOTE | 2021-09-30 08:12 | PM.PN.1 ---
Exam Vital Signs (past 8 hours): - 09/30/21 00:49 Temperature 98.1 F Pulse Rate 71 Respiratory Rate 16 Blood Pressure 108/58 L Pulse Oximetry 97 Oxygen Flow Rate 0 Oxygen Delivery Method Room Air Oxygen Flow Rate 0 Narrative Exam Narrative: Gen: Alert, oriented, nikolay complected 70 y.o. male, appears uncomfortable HEENT: normocephalic, atraumatic, conjunctiva clear, sclera non-icteric, oral mucosa pink and moist Neck: supple, scar along right lower neck, full ROM, no JVD, trachea is midline Resp: Lungs CTA, non-labored breathing CV: RRR, no murmur or rubs Abd: soft, non-tender, normoactive BTs Skin: multiple eccymotic lesions, scars and superficial lacerations on extremities, thin and friable Neuro: Alert and oriented X 4 w/no focal deficits. Very lethargic, Speech soft and difficult to understand, but coherant. Extremities: moves all 4 extremities, is ambulatory, negative Joel?s sign Psyche: normal mood and affect. Objective Labs Result Diagrams: 09/30/21 06:36 09/30/21 06:36 Labs: Laboratory Results - last 24 hr 09/30/21 09/30/21 06:36 06:36 WBC 5.3 RBC 3.83 L Hgb 11.4 L Hct 34.2 L MCV 89.4 MCH 29.7 MCHC 33.2 RDW 14.2 Plt Count 246 Neut % (Auto) 65.4 Lymph % (Auto) 20.7 L [place] % (Auto) 10.5 Eos % (Auto) 1.9 L Baso % (Auto) 1.5 Neut # (Auto) 3500 Lymph # (Auto) 1100 [place] # (Auto) 600 Eos # (Auto) 100 Baso # (Auto) 100 Sodium 127 L Potassium 3.5 Chloride 97 L Carbon Dioxide 27 BUN 9 Creatinine 0.74 Estimated GFR > 60 BUN/Creatinine Ratio 12.2 Glucose 80 Calcium 7.7 L Magnesium 2.0 Total Bilirubin 0.5 Conjugated Bilirubin 0.0 Unconjugated Bilirubin 0.4 AST 25 ALT 17 Alkaline Phosphatase 61 Total Protein 5.3 L Albumin 2.8 L Globulin 2.5 Albumin/Globulin Ratio 1.1 [facility] Medical History Abdominal aortic aneurysm (AAA) Abdominal aortic ectasia (01/2020) COPD (chronic obstructive pulmonary disease) Crohns disease (~1969) Decreased cortisol level (07/2020) Hypertension Hyponatremia Hyponatremia with decreased serum osmolality Iatrogenic hypothyroidism Iron deficiency anemia Long-term current use of steroids Long-term use of immunosuppressant medication Personal history of colonic polyps Pulmonary nodules Surgical History History of colonoscopy History of mandibular surgery (~1987) History of testicular surgery (~1956) Thyroid cancer (~06/2010) Tongue malignant neoplasm (~2015) Family History Father No problems noted. Mother COPD (chronic obstructive pulmonary disease) Brother COPD (chronic obstructive pulmonary disease) Social History household members: spouse Smoking Status: Current every day smoker alcohol intake: current substance use type: marijuana (on occasion) Assessment & Plan Assessment & Plan narrative: Jovany Blakely sustained a fall and was found to have an elevated alcohol level. He appears to be in withdrawal, but is also profoundly weak. He is observed today, possibly overnight to provide fluid hydration and to manage any withdrawal symptoms if they occur. Toxic metabolic encephalopathy, likely secondary to ETOH [facility] protocol Multi-vitamin, thiamine and folic acid supplementation Profound weakness, acute, and present on admission have ordered CK MB and lactic acid to rule out rhabdomylosis Iatrogenic hypothyroidism, chronic Continue home dose of levothyroxine Essential hypertension, chronic Continue home dose of lisinopril VTE Prophylaxis: Wells risk score 0 Enoxaparin 40 mg subQ once daily, SCDs contraindicated due to mutiple skin tears on both legs Patient is placed into observation as his stay is not expected to exceed 2 midnights. FEN: IV fluids: NS at 100 ml/hr, diet: heart healthy, labs: CBC, C/BMP, liver enzymes, Mag, PT/INR Consultants None Dispo: home Code status: DNR/DNI as discussed with the patient who identifies his , Patii as his surrogate and POA. [X] I have utilized all available immediate resources to obtain, update, or review of the patient's current medications COVID-19 COVID-19 status: Negative Result date/Date tested (Pos, Neg/Pending): 09/29/21 Time Spent With Patient Critical Care time: I spent a total of [] minutes of critical care time on this patient's care today; this time is exclusive of procedural time. Quality VTE Deep Vein Thrombosis/Pulmonary Embolism Present on Admission: No
--- NOTE | 2021-09-30 09:35 | PT.IIE ---
Current Diagnoses Laceration without foreign body, left lower leg, initial encounter (09/29/21) Surgical History (Last Reviewed 09/29/21 @ 06:29 by MARLENY Villarreal) History of colonoscopy History of mandibular surgery (~1987) History of testicular surgery (~1956) Thyroid cancer (~06/2010) Tongue malignant neoplasm (~2015) Medical History (Last Reviewed 09/29/21 @ 06:29 by MARLENY Villarreal) Abdominal aortic aneurysm (AAA) Abdominal aortic ectasia (01/2020) COPD (chronic obstructive pulmonary disease) Crohns disease (~1968) Decreased cortisol level (07/2020) Hypertension Hyponatremia Hyponatremia with decreased serum osmolality Iatrogenic hypothyroidism Iron deficiency anemia Long-term current use of steroids Long-term use of immunosuppressant medication Personal history of colonic polyps Pulmonary nodules Physical Therapy Inpatient Evaluation/Re-Eval M1 PT/OT-IP Prior Functional Status Start: 09/30/21 12:33 Freq: NEEDED Status: Active Protocol: Document 09/30/21 09:35 AB (Rec: 09/30/21 12:41 [facility] [place] Medical Review Prior Functional Status Medical History Reviewed Yes Communication able to make needs known Mobility and Gait pt stated that he is independent with all mobilities and ambulation without AD Social History Household Members spouse Living Arrangements House Number of Floors (Floors) One Floor Number of Stairs To Enter/Railing? 1 step to enter Home Environment High Toilet,Walk in Shower M2 PT-IP Current Condition Start: 09/30/21 12:33 Freq: NEEDED Status: Active Protocol: Document 09/30/21 09:35 AB (Rec: 09/30/21 12:41 AB [email or web address]) Physical Therapy Current Condition Current Condition Evaluation Date 09/30/21 Treatment Diagnosis fall; weakness; toxic metabolic encephalopathy; difficulty in walking Onset Date 09/29/21 M3 PT-IP Subjective Start: 09/30/21 12:33 Freq: NEEDED Status: Active Protocol: Document 09/30/21 09:35 AB (Rec: 09/30/21 12:41 AB [id number]) Subjective Physical Therapy Visit Type Type Initial Evaluation Visit Start Time 09:35 Visit Stop Time 09:55 Total Visit Minutes 20 Number of STEEL ENGRAVER Visits 0 Physical Therapy Visit Comments Patient Comments agreeable to do PT Therapy Pain Assessment Pain Present Pain Present Denied Pain M4 PT-IP Mobility and Gait Start: 09/30/21 12:33 Freq: NEEDED Status: Active Protocol: Document 09/30/21 09:35 AB (Rec: 09/30/21 12:41 AB [id number]) PT-Bed Mobility Assessment Supine to Sit Supine to Sit Independent Sit to Supine Sit to Supine Independent PT-Transfer Assessment Sit to and From Stand Sit to and from Stand Independent Equipment Transfer Assistive Device None Orthotic/Prosthetic Devices or Brace: No Transfers Transfer Destination Bed,Chair Transfer Technique Stand Step Pivot Transfer Ability Level of Assist Independent Comments Mobility Comments pt seated on chair. spouse in room. pt completed sit to stand mod I and step transfer to bed without AD I. completed bed mobiltiy sit<>supine I. agreed to ambulate in the hallway. completed ~ 150 ft without AD mod I. present with ataxic gait but without LOB. completed up/down platform step without AD SBA. repeated x 2. ambulated back to his room. informed pt that he does not need further PT and pt agreed. Left pt with spouse. informed nurse. Gait Assessment Gait Gait Assistance Required: Independent Distance (Feet) 150 Able to Maintain Weight Bearing Status Yes During Gait Assistive Devices Assistive Device None Orthotic/Prosthetic Devices or Brace: No Gait Deviations General Gait Pattern Ataxic Stair Climbing Assessment Evaluation Level of Assist On Stairs Standby Assistance Devices Stair Climbing Assistive Devices None Technique/Endurance Stair Climbing Direction Ascend and Descend Stair Climbing Technique Step to Step Number of Steps Climbed 1 Query Text: Stair Climbing Set # Repetitions (reps) 2 PT-Balance Assessment Sitting Balance and Reactions Static Sitting Balance Ability Normal Dynamic Sitting Balance Ability Normal Standing Balance and Reactions Static Standing Balance Ability Good Dynamic Standing Balance Ability Good Device Used without AD M5 PT-IP Objective Assessments Start: 09/30/21 12:33 Freq: NEEDED Status: Active Protocol: Document 09/30/21 09:35 AB (Rec: 09/30/21 12:41 AB [id number]) Orientation Orientation/Cognition Level of Alertness Alert Orientation Name,Age,Birthday,Place, Situation Language Function Ability No Deficits Noted Safety Awareness Understands Safety Issues Memory Description No Deficits Noted Gross Range of Motion Lower Extremity ROM Assessment Within Functional Limits Strength Lower Extremity Strength Assessment Within Functional Limits Sensation Assessment Sensation Gross Sensation WNL Muscle Tone Muscle Tone WNL Yes M6 PT-IP Treatment Start: 09/30/21 12:33 Freq: NEEDED Status: Active Protocol: Document 09/30/21 09:35 AB (Rec: 09/30/21 12:41 AB [email or web address]) Physical Therapy Treatment Education Education Provided Safety M7 PT-IP Assessment and Plan Start: 09/30/21 12:33 Freq: NEEDED Status: Active Protocol: Document 09/30/21 09:35 AB (Rec: 09/30/21 12:41 AB [email or web address]) PT Summary Assessment and Plan Potential Rehabilitation Potential Good Status of Condition at Evaluation Stable Summary Assessment Summary PT eval completed. pt is mod I with mobility without AD and plans to go home and his spouse can assist if needed. No further PT intervention indicated at this time. pt may go home when medically stable . Frequency of Treatment Frequency Of Treatment Discharge Discharge Recommendations PT Discharge Recommendations Home Transportation Needs at Discharge Private Vehicle
[2021-09-30] MEDS: THIAMINE 100 MG TABLET PO (09:39)
[2021-09-30] MEDS: ENOXAPARIN 40 MG/0.4 ML SYRINGE SUBCUT (09:39)
[2021-09-30] MEDS: FOLIC ACID 1 MG TABLET PO (09:40)
[2021-09-30] MEDS: POTASSIUM CHLORIDE 20 MEQ TAB 40 MEQ PO (09:41)
[2021-09-30] MEDS: lisinopriL 10 MG TABLET PO (09:41)
[2021-09-30] MEDS: MULTIVITAMIN 1 TABLET 1 TAB PO (09:41)
[2021-09-30] MEDS: MONTELUKAST 10 MG TABLET PO (09:41)
--- NOTE | 2021-09-30 10:56 | PC.NURSE ---
Assess- Patient is much more clear today, his CIWA scale is a 0. He worked with physical therapy and is ambulating fine, he has been d/cd from PT. Ed on his feet. Resting comfortably and reading the paper.
[2021-09-30 11:55] LABS: Thyroid Stimulating Hormone 7.01 uIU/mL (0.47-4.68)
--- NOTE | 2021-09-30 11:55 | PM.DS.1 ---
History of Present Illness History of Present Illness Date Patient Seen: 09/30/21 Time Patient Seen: 09:00 Chief complaint: Syncope, SOB Narrative: Jovany Blakely is 70-year-old male with alcohol use disorder, hypertension, asthma, reflux, Crohn's disease for which he takes Humira, asymptomatic hyponatremia with decreased serum osmolality presents after falling out of bed this evening and is profoundly weak.? in the room provides most of the history.? He states that he was trying to get up and he was found lying on the floor by the bed somewhat confused complaining of tingling in both of his feet.? She said she heard a thud and found him on the floor, she did endorse that he had a urine incontinence episode. He complains of being very uncomfortable, states he has lots of complaints but is unable to tell me what is bothering him. He appears to be in pain when he moves around or is repositioned by others. states he has very thin skin, is prone to easy bruising and bleeding because he has taken lifelong prednisone. She stated he underwent a colonoscopy recently and they found he had a lot of inflammation, and he is taking prednisone again. C-spine CT, chest x-ray, and head CT were all negative for any acute injuries or pathology.? He is afebrile, blood pressure 108/70, heart rate 66, respiratory rate 20, oxygen saturation of 95% on room air he weighs 65.7 kg with a BMI of 20.1.? His WBC is mildly elevated at 12.2 but he has known left shift, sodium 127 however this is close to his baseline, chloride 94 bicarb 20 Jose R your level is less than 9 lipase 65 procalcitonin was negative UA is negative for UTI urine toxicology is negative for any illicits alcohol level was 126 viral and COVID-19 PCR panel is negative. Discharge Providers Provider Date of admission: 09/29/21 05:29 Discharge Date: 09/30/21 Primary care physician: MARLENY Almaraz Consults: 09/29/21 06:53 Consult to Dietitian, Adult Routine Comment: Reason For Exam: recent diagnos. of Crohns, weight loss Consult to Activity Specialist Routine Comment: 09/29/21 06:54 Consult to Respiratory Therapy Routine Comment: Physician Instructions: Evaluate and treat 09/30/21 08:32 Consult to Physical Therapy Evaluate & Treat Comment: Physician Instructions: Evaluate and Treat Discharge provider: Anthony Staley DO Summary Hospital Course Discharge Diagnosis: Toxic metabolic encephalopathy, likely secondary to ETOH Profound weakness, acute, and present on admission Iatrogenic hypothyroidism, chronic Essential hypertension, chronic Hospital Course: Admitted for syncopal episode at home which was unwitnessed. Patient did not have seizure-like activity but was incontinent to urine and had a post-ictal like state with confusion and grogginess for several hours following the event. Patient back to baseline the next day and in discussion that this was most likely a seizure and MRI brain was warranted, patient and elected to have this done as outpatient. Discussed considering anti-seizure prophylaxis with PCP such as topomax which also treats alcohol use disorder. Exam Vital Signs (past 8 hours): - 09/30/21 08:00 Temperature 96.9 F L Pulse Rate 70 Respiratory Rate 17 Blood Pressure 104/67 Pulse Oximetry 99 Oxygen Flow Rate 0 Oxygen Delivery Method Room Air Oxygen Flow Rate 0 Narrative Exam Narrative: Gen: Alert, oriented, 70 y.o. male who is pleasant HEENT: normocephalic, atraumatic, conjunctiva clear, sclera non-icteric, oral mucosa pink and moist Neck: supple, scar along right lower neck, full ROM, no JVD, trachea is midline Resp: Lungs CTA, non-labored breathing CV: RRR, no murmur or rubs Abd: soft, non-tender, normoactive BTs Skin: multiple eccymotic lesions, scars and superficial lacerations on extremities, thin and friable Neuro: Alert and oriented X 4 w/no focal deficits. Extremities: moves all 4 extremities, is ambulatory, negative Joel?s sign Psyche: normal mood and affect. Objective Labs Result Diagrams: 09/30/21 06:36 09/30/21 06:36 Labs: Laboratory Results - last 24 hr 09/30/21 09/30/21 06:36 06:36 WBC 5.3 RBC 3.83 L Hgb 11.4 L Hct 34.2 L MCV 89.4 MCH 29.7 MCHC 33.2 RDW 14.2 Plt Count 246 Neut % (Auto) 65.4 Lymph % (Auto) 20.7 L [place] % (Auto) 10.5 Eos % (Auto) 1.9 L Baso % (Auto) 1.5 Neut # (Auto) 3500 Lymph # (Auto) 1100 [place] # (Auto) 600 Eos # (Auto) 100 Baso # (Auto) 100 Sodium 127 L Potassium 3.5 Chloride 97 L Carbon Dioxide 27 BUN 9 Creatinine 0.74 Estimated GFR > 60 BUN/Creatinine Ratio 12.2 Glucose 80 Calcium 7.7 L Magnesium 2.0 Total Bilirubin 0.5 Conjugated Bilirubin 0.0 Unconjugated Bilirubin 0.4 AST 25 ALT 17 Alkaline Phosphatase 61 Total Protein 5.3 L Albumin 2.8 L Globulin 2.5 Albumin/Globulin Ratio 1.1 [facility] Medical History Abdominal aortic aneurysm (AAA) Abdominal aortic ectasia (01/2020) COPD (chronic obstructive pulmonary disease) Crohns disease (~1968) Decreased cortisol level (07/2020) Hypertension Hyponatremia Hyponatremia with decreased serum osmolality Iatrogenic hypothyroidism Iron deficiency anemia Long-term current use of steroids Long-term use of immunosuppressant medication Personal history of colonic polyps Pulmonary nodules Surgical History History of colonoscopy History of mandibular surgery (~1987) History of testicular surgery (~1956) Thyroid cancer (~06/2010) Tongue malignant neoplasm (~2015) Family History Father No problems noted. Mother COPD (chronic obstructive pulmonary disease) Brother COPD (chronic obstructive pulmonary disease) Social History household members: spouse Smoking Status: Current every day smoker alcohol intake: current substance use type: marijuana (on occasion) Discharge Plan Discharge Plan Patient Disposition: Home Provider Discharge Comment: It isn't fully clear what caused you to fall and be so groggy and confused for an entire day after but what it most likely fits is a seizure. We discussed an MRI of your brain, which you should have done as an outpatient with your PCP ordering it. They can also discuss starting possible seizure prophylaxis with a drug called topomax. You should also limit the amount of alcohol you drink in case this was an alcohol related seizure. Discharge orders & Medications Prescriptions: Continued azelastine 137 mcg (0.1 %) aerosol,spray 1 spray intranasal BID Qty: 30 0RF Rx Instructions: administer into each nostril levothyroxine 112 mcg tablet See Rx Instructions .ROUTE .COMPLEX Qty: 90 3RF Dose Instruction: TAKE 1 TABLET BY MOUTH DAILY Rx Instructions: TAKE 1 TABLET BY MOUTH DAILY montelukast 10 mg tablet See Rx Instructions .ROUTE .COMPLEX Qty: 90 0RF Dose Instruction: TAKE 1 TABLET BY MOUTH DAILY Rx Instructions: TAKE 1 TABLET BY MOUTH DAILY albuterol sulfate 90 mcg/actuation HFA aerosol inhaler 1 puff inhalation Q4-6H PRN (Reason: shortness of breath or wheezing) Qty: 8.5 2RF lisinopril 10 mg tablet See Rx Instructions .ROUTE .COMPLEX Qty: 30 0RF Dose Instruction: TAKE 1 TABLET BY MOUTH DAILY Rx Instructions: TAKE 1 TABLET BY MOUTH DAILY ferrous sulfate 325 mg (65 mg iron) tablet 325 mg PO Q OTHER DAY omeprazole 40 mg capsule,delayed release(DR/EC) 40 mg PO DAILY Rx Instructions: Directions state take 1 capsule 30-60 minutes before lunch adalimumab [Humira] 40 mg/0.8 mL syringe kit 40 mg SUBCUT Q2W fluticasone propionate 50 mcg/actuation spray,suspension 1 spray NASAL BID Qty: 15.8 2RF Rx Instructions: administer into each nostril twice daily rabeprazole 20 mg tablet,delayed release (DR/EC) 20 tab PO DAILY prednisone 5 mg tablet 30 tab PO DAILY Follow up/Referrals: Tete Zhang ARNP [Primary Care Provider] - Diet/Activity/Treatments Diet: Diet as Tolerated Discharge Data Primary Care Provider: Tete Zhang Attending Provider: Shalini Huynh VTE Deep Vein Thrombosis/Pulmonary Embolism Present on Admission: No
--- NOTE | 2021-09-30 13:34 | CM.DPC ---
DCP Note Cont: Per MD, pt is medically stable for discharge. Pt is to have an MRI done outpatient ordered by his PCP as pt and decided to have this done outpatient. No needs identified from DCP. Pt to discharge home today via spouse POV. Eufemia Davenport RN, DCP
== END 2021-09-30 12:49 | disposition home or self-care (01) ==
LOC: ED 09-29 05:12 → AC 09-29 05:30
PROVIDERS: Student in an Organized Health Care Education/Training Program; Admitting Provider Nurse Practitioner Family; Emergency Provider Emergency Medicine; PCP Nurse Practitioner; Referring Provider Emergency Medicine; Visit Provider Nurse Practitioner Family
DX: G92.8 Other toxic encephalopathy (principal); R53.1 Weakness; W06.XXXA Fall from bed, initial encounter; K50.90 Crohn's disease, unspecified, without complications; J45.909 Unspecified asthma, uncomplicated; F10.120 Alcohol abuse with intoxication, uncomplicated; Y90.6 Blood alcohol level of 120-199 mg/100 ml; F17.210 Nicotine dependence, cigarettes, uncomplicated; I10 Essential (primary) hypertension; E03.9 Hypothyroidism, unspecified; R32 Unspecified urinary incontinence; Z20.822 Contact with and (suspected) exposure to COVID-19
CPT/HCPCS: 36415; 70450; 71045; 72125; 80048; 80053; 80076; 80305; 80320; 81001; 82140; 82550; 83605; 83690; 83735; 84145; 84443; 84484; 85025; 87040; 87633; 87635; 93005; 93010; 96361; 96365; 96372; 96375; 96376; 97161; 99284; C9803; G0378; J0696; J1630; J1650; J3360

== ENCOUNTER → 2021-10-16 07:39 | Outpatient (CLI) | payer OTHER, SELFPAY ==
[2021-09-29 06:32] VITALS: BMI 20.5
--- NOTE | 2021-10-16 07:40 | DI.MRI.S_ITS ---
PROCEDURE: MR HEAD/BRAIN WO/W CON INDICATIONS: ER visit for potential seizure, no loss of consciousness TECHNIQUE: Noncontrast axial T1 spin echo, axial T2 fast spin echo, sagittal and axial FLAIR, coronal T2 fast spin echo, axial gradient echo, axial diffusion and ADC through the brain. After the administration of contrast, axial and coronal and sagittal T1 spin echo with fat saturation through the brain. COMPARISON: None. FINDINGS: Image quality: Excellent. CSF spaces: Basal cisterns are patent. No extra-axial fluid collections. Ventricles are normal in size and shape. Brain: No midline shift. No intracranial bleeds or masses. No abnormal intracranial enhancement. There is cerebral volume loss for age. There is periventricular white matter chronic small vessel ischemic change. The brainstem appears normal. Diffusion-weighted images demonstrate no acute ischemic insults. No chronic ischemic insults. Normal intravascular flow voids are present. Skull and face: Calvarial marrow is normal in signal. Orbits appear normal. Sinuses: Sinuses and mastoids appear clear. IMPRESSION: 1. No acute intracranial abnormality. 2. Cerebral volume loss and small vessel ischemic changes. Dictated by: Sherman Bejarano M.D. on 10/16/2021 at 10:22 Approved by: Sherman Bejarano M.D. on 10/16/2021 at 10:26
== END ==
PROVIDERS: PCP Nurse Practitioner; Referring Provider Nurse Practitioner; Visit Provider Nurse Practitioner
DX: R41.82 Altered mental status, unspecified (principal)
CPT/HCPCS: 70553

== ENCOUNTER → 2021-11-07 08:14 | Outpatient (CLI) | payer OTHER, SELFPAY ==
--- NOTE | 2021-11-07 | DI.CT.S_ITS ---
PROCEDURE: CT CHEST WO CON INDICATIONS: PERSONAL HISTORY OF NICOTENE DEPENDENCE TECHNIQUE: Noncontrast 5 mm thick sections acquired from the pulmonary apices to the posterior costophrenic angles. 1 mm lung window, 5 mm thick coronal and sagittal and 7 mm axial MIP reformats were then acquired. For radiation dose reduction, the following was used: automated exposure control, adjustment of mA and/or kV according to patient size. COMPARISON: [facility], CT, CT CHEST WO CON, 01/30/2018, 9:23. FINDINGS: Image quality: Excellent. Lungs and pleura: No consolidation. No pleural effusions or pneumothorax. Multiple small nodules are present, index nodule in the right upper lobe (3/61) is stable., measuring about 5 mm. There is some questionable new micro nodules that were not seen previously, for example 3/100 in the right. Mediastinum: Stable ectatic ascending aorta measuring about 4.2 cm. There are coronary artery calcifications. Small hiatal hernia. Heart size is overall normal. No lymphadenopathy. Bones and chest wall: Thyroidectomy . No axillary lymphadenopathy. No acute or suspicious osseous abnormality. Abdomen: Similar hyperdense right upper pole renal lesion, probably a hemorrhagic cyst. Splenic small granulomas. IMPRESSION: Stable previously outlined pulmonary nodules. Questionable new micro nodules are present that were not seen previously. One year follow-up chest CT for these lesions is optional if patient is considered high risk. Enrollment in lung cancer screening program could also be considered if patient is eligible. Stable ectatic ascending aorta. Other incidental/stable findings above. Dictated by: Francisco J Mitchell M.D. on 11/07/2021 at 9:07 Approved by: Francisco J Mitchell M.D. on 11/07/2021 at 9:17
== END ==
PROVIDERS: PCP Nurse Practitioner; Referring Provider Nurse Practitioner; Visit Provider Nurse Practitioner
DX: I77.810 Thoracic aortic ectasia (principal); R91.8 Other nonspecific abnormal finding of lung field; I25.10 Atherosclerotic heart disease of native coronary artery without angina pectoris; K44.9 Diaphragmatic hernia without obstruction or gangrene; Z87.891 Personal history of nicotine dependence
CPT/HCPCS: 71250

== ENCOUNTER → 2021-11-16 07:03 | Outpatient (CLI) | payer OTHER, SELFPAY ==
[2021-11-16 09:09] LABS: Add Manual Diff / Slide Review NO; Basophils Absolute Auto 0 /uL (0-100); Basophils Percent Auto 1.1 % (0-2); Eosinophils Absolute Auto 200 /uL (0-450); Eosinophils Percent Auto 4.9 % (2-4); Hematocrit 35.8 % (41-53); Hemoglobin 12.2 g/dL (13.5-17.5); Lymphocytes Absolute Auto 1000 /uL (1100-4500); Lymphocytes Percent Auto 25.7 % (25-40); Mean Corpuscular Hemoglobin 29.3 PG (26-34); Mean Corpuscular Volume 86.4 fL (80-100); Monocytes Absolute Auto 500 /uL (0-900); Monocytes Percent Auto 12.2 % (3-14); Neutrophils Absolute Auto 2200 /uL (1500-7000); Neutrophils Percent Auto 56.1 % (50-75); Platelet Count 302 X10^3/uL (150-400); Red Blood Cell Count 4.14 X10^6/uL (4.5-5.9); Red Cell Distribution Width 14.7 % (11.6-14.8)
[2021-11-16 09:45] LABS: Thyroid Stimulating Hormone 0.493 uIU/mL (0.47-4.68)
[2021-11-16 09:52] LABS: Alanine Aminotransferase 14 IU/L (<50); Albumin 2.9 g/dL (3.5-5.0); Albumin Globulin Ratio 1.1 (1.0-2.8); Alkaline Phosphatase 70 U/L (38-126); Aspartate Aminotransferase 24 IU/L (17-59); Bilirubin Total 0.2 mg/dL (0.2-1.3); Blood Urea Nitrogen 9 mg/dL (9-20); Calcium 8.3 mg/dL (8.4-10.2); Carbon Dioxide 28 mmol/L (22-32); Chloride 98 mmol/L (98-107); Cholesterol 150 mg/dL (140-199); Estimated Glomerular Filt Rate > 60 mL/min (>60); Globulin 2.7 g/dL (1.7-4.1); Glucose 97 mg/dL (80-110); HDL Cholesterol 69 mg/dL (40-60); HEMOLYSIS < 15 (0-50); LDL Cholesterol Calculated 61 mg/dL (<100); Potassium 4.7 mmol/L (3.4-5.1); Sodium 130 mmol/L (137-145); Total Protein 5.6 g/dL (6.3-8.2); Triglycerides 99 mg/dL (35-150)
[2021-11-16 10:21] LABS: Prostate Specific Antigen 5.67 ng/mL (0.10-4.00)
== END ==
PROVIDERS: PCP Nurse Practitioner; Referring Provider Nurse Practitioner; Visit Provider Nurse Practitioner
DX: E03.9 Hypothyroidism, unspecified (principal); E78.2 Mixed hyperlipidemia; C73 Malignant neoplasm of thyroid gland; D50.9 Iron deficiency anemia, unspecified; E87.1 Hypo-osmolality and hyponatremia; I10 Essential (primary) hypertension; Z79.899 Other long term (current) drug therapy; Z12.5 Encounter for screening for malignant neoplasm of prostate
CPT/HCPCS: 36415; 80053; 80061; 84153; 84443; 85025

== ENCOUNTER → 2022-01-25 07:02 | Outpatient (CLI) | payer OTHER, SELFPAY ==
[2022-01-25 09:43] LABS: Add Manual Diff / Slide Review NO; Basophils Absolute Auto 0 /uL (0-100); Eosinophils Absolute Auto 300 /uL (0-450); Eosinophils Percent Auto 7.3 % (2-4); Hematocrit 35.6 % (41-53); Hemoglobin 12.1 g/dL (13.5-17.5); Lymphocytes Absolute Auto 1800 /uL (1100-4500); Lymphocytes Percent Auto 39.6 % (25-40); Mean Corpuscular HGB Conc 33.9 % (30-36); Mean Corpuscular Hemoglobin 29.4 PG (26-34); Mean Corpuscular Volume 86.6 fL (80-100); Monocytes Absolute Auto 600 /uL (0-900); Monocytes Percent Auto 13.2 % (3-14); Neutrophils Absolute Auto 1800 /uL (1500-7000); Neutrophils Percent Auto 38.9 % (50-75); Platelet Count 301 X10^3/uL (150-400); Red Blood Cell Count 4.11 X10^6/uL (4.5-5.9); Red Cell Distribution Width 15.6 % (11.6-14.8); White Blood Cell Count 4.5 X10^3/uL (4.5-11.0)
[2022-01-25 10:41] LABS: Prostate Specific Antigen Scrn 4.76 ng/mL (0.1-4.0)
[2022-01-25 10:44] LABS: Thyroid Stimulating Hormone 2.33 uIU/mL (0.47-4.68)
== END ==
PROVIDERS: PCP Nurse Practitioner; Referring Provider Nurse Practitioner; Visit Provider Nurse Practitioner
DX: E03.9 Hypothyroidism, unspecified (principal); Z12.5 Encounter for screening for malignant neoplasm of prostate; R97.20 Elevated prostate specific antigen [PSA]; Z79.899 Other long term (current) drug therapy; D50.9 Iron deficiency anemia, unspecified
CPT/HCPCS: 36415; 84443; 85025; G0103

== ENCOUNTER → 2022-03-01 06:49 | Outpatient (CLI) | payer OTHER, SELFPAY ==
--- NOTE | 2022-03-01 06:50 | DI.US.S_ITS ---
PROCEDURE: US SOFT TISSUE HEAD AND NECK INDICATIONS: UPPER LATERAL RIGHT NECK LUMP TECHNIQUE: Real-time scanning was performed of the neck region of interest, with image documentation. COMPARISON: [facility], US, US EXTREMITY NONVASC LOWER LT, 03/01/2022, 7:09. FINDINGS: Area of palpable concern in the lateral neck demonstrates a 1.4 x 0.6 by 1.0 cm focus of decreased echogenicity. While the overall appearance has somewhat of a lymph node shape, fatty hilum appears not well preserved. IMPRESSION: Prominent lymph node with loss of fatty hilum. While this is overall nonspecific, short interval imaging follow-up is recommended to document resolution or biopsy to exclude presence of underlying malignancy. Dictated by: Jadyn Ballard M.D. on 03/01/2022 at 15:14 Approved by: Jadyn Ballard M.D. on 03/01/2022 at 15:15
--- NOTE | 2022-03-01 06:50 | DI.US.S_ITS ---
PROCEDURE: US EXTREMITY NONVASC LOWER LT INDICATIONS: LATERAL LEFT LEG LUMP TECHNIQUE: Real-time scanning was performed of the palpable abnormality in the patient's left lower leg, with image documentation. COMPARISON: None. FINDINGS: Ultrasound imaging over the area of clinical concern shows no evidence for focal solid mass lesion or fluid collection. IMPRESSION: Negative ultrasound of the left lower leg in the area of clinical concern. Dictated by: Christopher Martinez M.D. on 03/01/2022 at 10:02 Approved by: Christopher Martinez M.D. on 03/01/2022 at 10:31
== END ==
PROVIDERS: PCP Nurse Practitioner; Referring Provider Nurse Practitioner; Visit Provider Nurse Practitioner
DX: L03.116 Cellulitis of left lower limb (principal); M79.89 Other specified soft tissue disorders; R22.1 Localized swelling, mass and lump, neck
CPT/HCPCS: 76536; 76882

== ENCOUNTER → 2022-04-26 06:48 | Outpatient (CLI) | payer OTHER, SELFPAY ==
--- NOTE | 2022-04-26 06:50 | DI.US.S_ITS ---
PROCEDURE: US SOFT TISSUE HEAD AND NECK INDICATIONS: FOLLOW UP NECK LYMPH NODE TECHNIQUE: Real-time scanning was performed of the neck region of interest, with image documentation. COMPARISON: [facility], US, US SOFT TISSUE HEAD AND NECK, 03/01/2022, 7:04. FINDINGS/IMPRESSION: Stable hypoechoic lymph node with partial hilar effacement and cortical thickening measuring 1.4 x 0.5 x 1.1 cm. Consider continued follow-up versus sampling if there is high concern. Dictated by: Francisco J Mitchell M.D. on 04/26/2022 at 9:28 Approved by: Francisco J Mitchell M.D. on 04/26/2022 at 9:29
== END ==
PROVIDERS: PCP Nurse Practitioner; Referring Provider Nurse Practitioner; Visit Provider Nurse Practitioner
DX: R22.1 Localized swelling, mass and lump, neck (principal)
CPT/HCPCS: 76536

== ENCOUNTER → 2022-05-03 12:04 | Outpatient (CLI) | payer OTHER, SELFPAY ==
[2022-05-03 13:06] LABS: Add Manual Diff / Slide Review NO; Basophils Absolute Auto 100 /uL (0-100); Basophils Percent Auto 0.9 % (0-2); Eosinophils Absolute Auto 400 /uL (0-450); Eosinophils Percent Auto 5.1 % (2-4); Hemoglobin 12.3 g/dL (13.5-17.5); Lymphocytes Absolute Auto 1800 /uL (1100-4500); Lymphocytes Percent Auto 20.7 % (25-40); Mean Corpuscular HGB Conc 33.1 % (30-36); Mean Corpuscular Hemoglobin 28.9 PG (26-34); Mean Corpuscular Volume 87.3 fL (80-100); Monocytes Absolute Auto 700 /uL (0-900); Monocytes Percent Auto 8.4 % (3-14); Neutrophils Absolute Auto 5500 /uL (1500-7000); Neutrophils Percent Auto 64.9 % (50-75); Platelet Count 339 X10^3/uL (150-400); Red Blood Cell Count 4.24 X10^6/uL (4.5-5.9); Red Cell Distribution Width 14.6 % (11.6-14.8); White Blood Cell Count 8.5 X10^3/uL (4.5-11.0)
[2022-05-03 14:11] LABS: Alanine Aminotransferase 18 IU/L (<50); Albumin 3.4 g/dL (3.5-5.0); Albumin Globulin Ratio 1.2 (1.0-2.8); Alkaline Phosphatase 58 U/L (38-126); Aspartate Aminotransferase 26 IU/L (17-59); BUN Creatinine Ratio 15.9 (6-22); Bilirubin Total 0.3 mg/dL (0.2-1.3); Blood Urea Nitrogen 13 mg/dL (9-20); Calcium 8.5 mg/dL (8.4-10.2); Carbon Dioxide 27 mmol/L (22-32); Chloride 96 mmol/L (98-107); Estimated Glomerular Filt Rate > 60 mL/min (>60); Globulin 2.9 g/dL (1.7-4.1); Glucose 96 mg/dL (80-110); HEMOLYSIS 19 (0-50); Potassium 4.7 mmol/L (3.4-5.1); Sodium 129 mmol/L (137-145); Total Protein 6.3 g/dL (6.3-8.2)
[2022-05-03 16:29] LABS: Hep C Virus Ab w/Reflex Quant NEGATIVE s/c (NEGATIVE)
[2022-05-05 08:26] LABS: PSA Free % 22.9 % (.); PSA, Total 6.2 ng/mL (0.0-4.0)
== END ==
PROVIDERS: PCP Nurse Practitioner; Referring Provider Urology; Visit Provider Urology
DX: D64.9 Anemia, unspecified (principal); Z11.59 Encounter for screening for other viral diseases; R97.20 Elevated prostate specific antigen [PSA]
CPT/HCPCS: 36415; 80053; 84153; 84154; 85025; 86803

== ENCOUNTER → 2022-06-27 06:59 | Outpatient (CLI) | payer OTHER, SELFPAY ==
--- NOTE | 2022-06-27 07:01 | DI.US.S_ITS ---
PROCEDURE: US SOFT TISSUE HEAD AND NECK INDICATIONS: F/U Imaging on Neck Lymph Node TECHNIQUE: Real-time scanning was performed of the neck region of interest, with image documentation. COMPARISON: [facility], , US SOFT TISSUE HEAD AND NECK, 04/26/2022, 6:59. FINDINGS: Lymph node in the posterior lateral neck is identified measuring 1.5 x 0.4 x 0.8 cm compared to 1.4 x 0.5 x 1.1 cm. IMPRESSION: Stable versus minimally less prominent appearance of lymph node compared to prior exam. If there is continued concern for potential malignancy, biopsy is recommended. Dictated by: Jadyn Ballard M.D. on 06/27/2022 at 15:37 Approved by: Jadyn Ballard M.D. on 06/27/2022 at 15:38
--- NOTE | 2022-06-27 07:19 | DI.ECHO.S_ITS ---
+ + :Name: SIOMARA RENDON Study Date: 06/27/2022 Height: 70.5 in: :[facility] ReadingLocation: Weight: 150 lb : : Gender: Male BSA: 1.9 m2 : :: 1950 Age: 71 yrs BP: 100/65 mmHg: :Reason For Study: SWELLING, HYPERTENSION : :Ordering Physician: KAMARI, : :BYRON FARMER Performed By: Meliza Elias : :Referring: BYRON BENITES : + + Interpretation Summary The ejection fraction is estimated to be 60-65%. Diastolic parameters suggest probable normal left ventricular diastolic function and normal filling pressures. The right ventricle is normal in size and function. There is mild tricuspid regurgitation. The right ventricular systolic pressure is estimated to be at least 23 mmHg based on an estimated right atrial pressure of 3 mm Hg. The ascending aorta is mild-moderately enlarged, 4.1 cm. Procedure: A two-dimensional transthoracic echocardiogram with color flow and Doppler was performed. The study quality was technically adequate. There is no prior echocardiogram noted for this patient. The patient was in sinus bradycardia with heart rates between 58-65 bpm during the exam. Left Ventricle: The left ventricle is normal in size and wall thickness. The ejection fraction is estimated to be 60-65%. Diastolic parameters suggest probable normal left ventricular diastolic function and normal filling pressures. Right Ventricle: The right ventricle is normal in size and function. Atria: The left atrial size is normal. Right atrial size is normal. There is no Doppler evidence for an interatrial shunt. Mitral Valve: The mitral valve is normal in structure and function. There is trace mitral regurgitation. Aortic Valve: The aortic valve is trileaflet. The aortic valve opens well. There is no aortic valve stenosis. No aortic regurgitation is present. Tricuspid Valve: The tricuspid valve is normal in structure and function. There is mild tricuspid regurgitation. The right ventricular systolic pressure is estimated to be at least 23 mmHg based on an estimated right atrial pressure of 3 mm Hg. Pulmonic Valve: The pulmonic valve leaflets are thin and pliable; valve motion is normal. There is mild pulmonic regurgitation. Great Vessels: The aortic root is normal size. The ascending aorta is mildmoderately enlarged. The IVC is of normal diameter and collapses greater than 50% with a sniff. This suggests a low right atrial pressure of 3 mm Hg. Pericardium/ Pleura There is no pericardial effusion. There is no pleural effusion. MMode/2D Measurements & Calculations LVIDd: 5.0 cm LVOT diam: 2.0 cm LVIDs: 3.1 cm Ao root diam: 3.8 cm FS: 37.6 % asc Aorta Diam: 4.1 cm EPSS: 0.39 cm Ao Arch Diam (Prox Trans): 2.8 cm IVSd: 0.79 cm LVPWd: 0.73 cm LV robin. diameter/BSA (cm/m^2): 2.7 LV sys. diameter/BSA (cm/m^2): 1.7 LA A2 area: 17.0 cm2 RA long axis: 4.8 cm LA A4 area: 12.2 cm2 RA area: 14.2 cm2 LA length (vol): 4.3 cm RA vol: 35.4 ml LA vol: 40.8 ml RA : 19.1 ml/m2 LA vol index: 21.9 ml/m2 IVC diam: 1.5 cm RVD1 (basal): 3.2 cm RVD2 (mid): 2.9 cm TAPSE: 1.9 cm Doppler Measurements & Calculations Ao V2 max: 124.0 cm/sec LVOT Max Dar: 131.2 cm/sec Ao V2 mean: 89.8 cm/sec LV V1 max P.9 mmHg Ao max P.2 mmHg LV V1 VTI: 27.0 cm Ao mean P.5 mmHg TYRELL(I,D): 3.3 cm2 Ao V2 VTI: 26.3 cm TYRELL(V,D): 3.4 cm2 sev ratio: 1.0 TYRELL indexed to BSA (cm^2/m^2): 1.8 MV E max dar: 69.6 cm/sec TR max dar: 222.3 cm/sec MV A max dar: 79.5 cm/sec TR max P.8 mmHg MV E/A: 0.88 PA V2 max: 86.6 cm/sec Med Peak E' Dar: 7.3 cm/sec PA V2 mean: 62.3 cm/sec E/E' med: 9.6 PA mean P.8 mmHg Lat Peak E' Dar: 9.7 cm/sec PA pr(Accel): 25.9 mmHg E/E' lat: 7.2 E/e' average: 8.4 MV dec time: 0.26 sec SV([facility]): 87.3 ml Reading Physician:03:40 PM
[2022-06-28 18:12] LABS: Fecal Immunochemical Test Positive (Negative)
== END ==
PROVIDERS: PCP Nurse Practitioner; Referring Provider Nurse Practitioner; Visit Provider Nurse Practitioner
DX: R22.1 Localized swelling, mass and lump, neck (principal); I07.1 Rheumatic tricuspid insufficiency; I37.1 Nonrheumatic pulmonary valve insufficiency; I77.89 Other specified disorders of arteries and arterioles; I10 Essential (primary) hypertension; Z12.11 Encounter for screening for malignant neoplasm of colon
CPT/HCPCS: 76536; 82274; 93306

== ENCOUNTER → 2022-06-28 07:27 | Outpatient (CLI) | payer OTHER, SELFPAY | PROVIDERS: PCP Nurse Practitioner; Referring Provider Nurse Practitioner; Visit Provider Nurse Practitioner | DX: I10 Essential (primary) hypertension (principal) | CPT/HCPCS: 93005 ==

== ENCOUNTER → 2022-07-10 07:46 | Outpatient (CLI) | payer OTHER, SELFPAY ==
[2022-07-12 09:45] LABS: PSA Free % 15.3 % (.); PSA, Total 3.6 ng/mL (0.0-4.0)
== END ==
PROVIDERS: PCP Nurse Practitioner; Referring Provider Urology; Visit Provider Urology
DX: R97.20 Elevated prostate specific antigen [PSA] (principal)
CPT/HCPCS: 84153; 84154

== ENCOUNTER → 2022-11-06 08:42 | Outpatient (CLI) | payer OTHER, SELFPAY ==
--- NOTE | 2022-11-06 08:43 | DI.CT.S_ITS ---
PROCEDURE: CT CHEST WO CON INDICATIONS: lung cancer screening, continued tobacco use TECHNIQUE: Noncontrast 2.0-2.5 mm thick sections acquired from the pulmonary apices to the posterior costophrenic angles. 7 mm thick axial MIP, and 5 mm coronal and sagittal reformats were then acquired. A low radiation dose technique was utilized. COMPARISON: [facility], MR, MR PELVIS RECTAL PROTOCOL, 11/02/2022, 9:45. [facility], CT, CT ABDOMEN PELVIS W CON, 02/26/2018, 14:08. Outside Facility, RG, CT THORAX W/O CONTRAST, 02/20/2017, 8:40. Outside Facility, RG, CT THORAX W/O CONTRAST, 03/01/2015, 15:42. [facility], CT, CT CHEST WO CON, 01/30/2018, 9:23. [facility], CT, CT CHEST WO CON, 11/07/2021, 8:24. FINDINGS: Image quality: Diagnostic, given the low radiation dose technique. Lungs and pleura: Multiple small lung nodules are present, unchanged. Index nodules are listed in the following: Nodule 1: 5 mm; right upper lobe; series 3, image 56. Nodule 1: 5 mm; left upper lobe; series 3, image 56. Some nodules are calcified, compatible with granulomatous disease. Mediastinum: Heart size is normal. Mild coronary artery calcification. No pericardial effusion. No mediastinal adenopathy by size criteria. Calcified lymph nodes are seen in right jose, compatible with remote granulomatous infection. 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 Central pulmonary arteries are normal in size. Esophagus is normal in caliber. Small hiatal hernia. Bones and chest wall: No suspicious bony lesions. No vertebral body compression fractures. No axillary or supraclavicular adenopathy by size criteria. Thyroid gland is surgically absent. Abdomen: There is a 1.5 cm exophytic nodule in the superior pole of the right kidney demonstrating CT density 55.4 HU. IMPRESSION: 1. Stable pulmonary nodules. LUNG-RADS 2; recommend annual screening lung CT in 12 months. 2. Stable ascending aorta ectasias. 3. Exophytic hyperdense nodule in the superior pole of the right kidney. Nodule appears unchanged since 02/26/2018, suggesting benign etiology. A slow-growing renal cell cancer, however, is not completely excluded. Recommend renal ultrasound for further evaluation. Dictated by: Max Couch M.D. on 11/06/2022 at 9:03 Approved by: Max Couch M.D. on 11/06/2022 at 9:13
== END ==
PROVIDERS: PCP Nurse Practitioner; Referring Provider Nurse Practitioner; Visit Provider Nurse Practitioner
DX: Z12.2 Encounter for screening for malignant neoplasm of respiratory organs (principal); I25.10 Atherosclerotic heart disease of native coronary artery without angina pectoris; R91.8 Other nonspecific abnormal finding of lung field; Z87.891 Personal history of nicotine dependence; I77.819 Aortic ectasia, unspecified site; N28.9 Disorder of kidney and ureter, unspecified
CPT/HCPCS: 71250

== ENCOUNTER → 2022-11-16 08:13 | Outpatient (CLI) | payer OTHER, SELFPAY ==
--- NOTE | 2022-11-16 08:14 | DI.MRI.S_ITS ---
PROCEDURE: MR PELVIC PROSTATE PROTOCOL INDICATIONS: Elevated PSA and abnormal signal noted on GI MRI TECHNIQUE: Coronal HASTE, axial T1 FSE with fat saturation, 3-plane nonbreath-hold T2 FSE. After the administration of contrast, dynamic axial, delayed axial and coronal VIBE or 2-D FLASH with fat saturation through the pelvis. Optional diffusion weighted imaging and ADC may be performed. COMPARISON: [facility], MR, MR PELVIS RECTAL PROTOCOL, 11/02/2022, 9:45. FINDINGS: Image quality: Diffusion weighted and dynamic contrast enhanced images are diagnostic. Prostate: Gland size is 5.5 x 3.2 x 4.1 cm; ellipsoid gland volume is 38 mL. Lesion 1. A wedge-shaped area of T2 hypointensity measuring 8 mm in the posterolateral peripheral zone at the mid gland level demonstrates restricted diffusion, ADC hypointensity, and subtle hyperenhancement. PI-RADS four. Lesion 2. Immediately more caudal in the left peripheral zone, closer to the gland apex, there is a 5 mm round T2 hypointensity with mild ADC hypointensity but no diffusion-weighted signal. There is hyperenhancement. PI-RADS three. Genitourinary system: Bladder wall thickness is normal. Distal ureters are non distended. Bowel and peritoneum: There is circumferential long segment wall thickening involving the distal descending colon and sigmoid. No diverticula present. No associated fluid collections. Other visible loops of large and small bowel are normal. Please see recent rectal protocol MRI for further detail of anorectal region. Nodes and vessels: No pelvic or inguinal adenopathy by size criteria. Iliac vessels are normal in caliber. Soft tissues: Tiny fat containing left inguinal hernia. Bones: Marrow demonstrates normal overall signal, without lesions to suggest metastases. IMPRESSION: 1. 8 mm PI-RADS four lesion in the left peripheral zone of the prostate gland as seen on prior MRI. 2. Adjacent PI-RADS three left peripheral zone lesion 3. No adenopathy. Dictated by: Erica Ceballos M.D. on 11/16/2022 at 15:11 Approved by: Erica Ceballos M.D. on 11/16/2022 at 15:26
== END ==
PROVIDERS: PCP Nurse Practitioner; Referring Provider Urology; Visit Provider Urology
DX: N42.9 Disorder of prostate, unspecified (principal); R97.20 Elevated prostate specific antigen [PSA]; R93.89 Abnormal findings on diagnostic imaging of other specified body structures
CPT/HCPCS: 72197; A9579

== ENCOUNTER → 2022-11-21 07:14 | Outpatient (CLI) | payer OTHER, SELFPAY ==
[2022-11-22 18:31] LABS: Hepatitis B Surface Antigen NEGATIVE s/c (NEGATIVE)
[2022-11-24 15:36] LABS: QuantiFERON Mitogen Value >10.00 IU/mL (.); QuantiFERON Nil Value 0.05 IU/mL (.); QuantiFERON TB Gold Plus Negative (Negative); QuantiFERON TB1 Ag Value 0.09 IU/mL (.); QuantiFERON TB2 Ag Value 0.06 IU/mL (.)
== END ==
PROVIDERS: PCP Nurse Practitioner; Referring Provider Specialist; Visit Provider Specialist
DX: Z79.899 Other long term (current) drug therapy (principal)
CPT/HCPCS: 36415; 86480; 87340

== ENCOUNTER 2023-02-05 07:54 | Day surgery (SDC) | payer OTHER, SELFPAY ==
[2023-01-30 12:36] VITALS: BMI 22.3
[2023-02-05] MEDS: GENTAMICIN 80 MG in SODIUM CHLORIDE 0.9% 100 ML 102 MG IV (08:15)
[2023-02-05 08:30] VITALS: BP 111/76; PULSE 66; RESP 17; TEMP 36.6; O2SAT 100; BMI 22.3
[2023-02-05] MEDS: LACTATED RINGERS 1,000 ML 21 ML IV (08:36)
[2023-02-05 08:57] VITALS: BMI 22.3
--- NOTE | 2023-02-05 10:22 | PM.PREOP ---
Pre-operative Note COVID-19 COVID-19 status: Not tested Interval Note History & Physical reviewed/Exam performed by Physician: Yes Changes to H&P: No
--- NOTE | 2023-02-05 11:59 | PM.OP.1 ---
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 He presents this time for cystoscopy and Transurethral resection of bladder tumor medium it was a 3 cm tumor. Patient also will have mitomycin instillation at the end of the procedure. Surgeon: Haseeb Gonzalez Click Yes if Unassisted: Yes Anesthesia Type: General Operative Notes Findings: Urethral meatus is normal urethra is normal along its length sphincter as well coapted prostatic fossa shows minimal obstructive character with normal mucosa. There were a few submucosal calcifications. Ureteral orifices in normal position with clear efflux. On the bladder floor directly cephalad from the bladder neck was the 3 cm papillary neoplasm. There were no other abnormalities within the bladder there were some small papillary lesions on its periphery and these were taken and destroyed as well as a margin. There were no other abnormalities within the bladder. A 22 [place] 5 cc Culp catheter was left in place with 15 cc in the balloon and mitomycin was instilled at the end of the case. Closure Type: not applicable Specimen(s): other (Papillary bladder tumor bladder floor cephalad) Prosthetic devices, grafts, tissues, transplants, or devices: 22 [place] 5 cc Culp catheter with 15 cc in the balloon. Applied: catheter (Twenty-two [place] [address] Culp catheter with 15 cc in the balloon.) Estimated Blood Loss (mL): 10 Blood products transfused: none Procedure in detail: Procedure in detail: After informed consent was obtained, the patient was identified and brought to the operating room where he was placed in his supine position on the table. Once on the table anesthesia was induced to maintain. Ensuring an adequate level of anesthesia patient was transferred to the lithotomy position where he was prepped, draped, prepared for Transurethral procedure. After prepping, draping, ensuring an adequate level of anesthesia, time-out, ensuring antibiotics were delivered a 22 [place] cystoscope was passed through the urethra prostate and into the bladder where cystoscopy was performed. With the tumor identified the cystoscope was exchanged for the continuous-flow resectoscope and then using the bipolar loop the tumor was sequentially resected. Points of bleeding were controlled with the electrocautery. At the end of the procedure a margin of mucosa and the smaller papillary areas were fulgurated. Till no further obvious tumor or sign of tumor remained. The bladder was then filled drained filled drain hemostasis remained good the bladder was left full the scope was removed and the 22 [place] catheter was passed through the urethra and into the bladder without difficulty. No prior to this the tumor fragments were evacuated through the resectoscope prior to its being removed ensuring that no fragments remained. Once the catheter was in place the chemotherapeutic catheter plug was put in place in the mitomycin instilled by close technique. The catheter was left plugged and at gravity drainage note the mitomycin was instilled after the bladder was completely drained. With the patient having tolerated the procedure well he was awakened transferred to the postanesthesia care unit for recovery. There were no complications. Complications: none Post-operative Condition: stable Disposition: PACU Plan for aftercare: After an hour and a half to 2 hours of mitomycin indwelling it will be drained the patient will go home with his catheter to follow up my office in approximately 2 weeks for voiding trial and to go over pathology.
--- NOTE | 2023-02-05 12:45 | SUR.OPER ---
Lithotomy on padded OR bed, head on pillow, arms secured on padded arm boards at <90 degrees abduction. Legs secured in padded yellow fins stirrups.
[2023-02-05] MEDS: LIDOCAINE 2% INJ MDV 20ML 10 ML INJ (12:51)
[2023-02-05 13:08] VITALS: BP 120/72; PULSE 73; RESP 17; TEMP 36.7; O2SAT 97
--- NOTE | 2023-02-05 13:10 | PM.OP.1 ---
Procedure & Clinicians Procedure: Transrectal ultrasound and needle biopsy of the prostate Same procedure as scheduled: Yes Indications: This 72-year-old male was found to have an elevated PSA and a PI-RADS 4 lesion in the left mid prostate. We attempted to do transrectal ultrasound and needle biopsy of the prostate in the office but because of his Crohn's hemorrhoids rectal procedures the pain was too great and he was not able to tolerate the procedure awake. So he presents this time for anesthesia to do the transrectal ultrasound needle biopsy of the prostate. Surgeon: Haseeb Gonzalez Click Yes if Unassisted: Yes Anesthesia Type: General Operative Notes Findings: The anus has much scar tissue innumerable hemorrhoidal tags narrowing cicatrix. The seminal vesicles and ampulla vas in normal position configuration and echotexture. The bladder is minimally filled so definitive comment can not be made the outlined the prostate did appear to be preserved. There were a few calcifications few cystic areas but no true hypoechoic lesions were noted. Biopsies were taken in the following fashion from the right side there were 2 samples per sextant. On the left there were 2 samples from the base for samples from the mid which is the area of interest and 2 samples from the apex. The prostate was measured in the 40 g range. There were no other abnormalities in the prostate. Closure Type: not applicable Specimen(s): other (Prostate core biopsies) Estimated Blood Loss (mL): 5 Procedure in detail: Procedure in detail: After informed consent was obtained, the patient was brought to the operating room where he was placed in a supine position on the table and anesthesia was induced to maintain. His hearing an adequate level of anesthesia patient was transitioned to the lithotomy position. Prior to this and at the time of informed consent it was confirmed that the patient had received his oral antibiotics bowel prep and gentamicin IV. With the patient in lithotomy position 2% viscous lidocaine was instilled within the rectum. The ultrasound probe was inserted and then a periprostatic lidocaine block was performed. Biopsies were then taken after the patient's prostate was measured. Biopsies were taken as noted above 2 samples per sextant from the right side 2 samples from the left base 4 from the left mid and 2 from the left apex. With the samples in hand the ultrasound probe was removed and the patient was cleaned up awakened taken to the postanesthesia care unit having tolerated the procedure well patient to follow up my office with the biopsy results. He will finish his antibiotics. There were no complications and the patient tolerated well. Complications: none Post-operative Condition: stable Disposition: PACU Plan for aftercare: Patient to follow up in my office with the biopsy results patient is to finish his antibiotics.
[2023-02-05 13:13] VITALS: BP 110/74; PULSE 70; RESP 20; O2SAT 97
[2023-02-05 13:19] VITALS: BP 123/70; PULSE 74; RESP 14; O2SAT 98
[2023-02-05 13:23] VITALS: BP 124/72; PULSE 69; RESP 21; O2SAT 98
[2023-02-05 13:32] VITALS: BP 125/72; PULSE 74; RESP 20; TEMP 36.7; O2SAT 98
== END 2023-02-05 13:42 | disposition home or self-care (01) ==
PROVIDERS: PCP Nurse Practitioner; Referring Provider Urology; Visit Provider Urology
PROC: (CPT 55700; principal; 2023-02-05 09:15)
DX: N42.89 Other specified disorders of prostate (principal); R97.20 Elevated prostate specific antigen [PSA]; R93.89 Abnormal findings on diagnostic imaging of other specified body structures; R39.9 Unspecified symptoms and signs involving the genitourinary system
CPT/HCPCS: 55700; 76942; J1100; J2405; J2704; J3010

== ENCOUNTER 2023-02-15 12:12 | Inpatient (IN) | payer OTHER, SELFPAY ==
[2023-02-15] VITALS (24 sets, daily range): BP systolic 114–169; BP diastolic 58–93; PULSE 71–85; RESP 14–25; TEMP 36.5–36.9; O2SAT 92–99; BMI 22.9; BMI 22.4
[2023-02-15] MEDS: ONDANSETRON 4 MG/2 ML INJ IV (12:39)
--- NOTE | 2023-02-15 12:40 | PC.NURSE ---
in interviewing the patient he states that he had a few sarah. in the middle of the night after midnight yesterday morning for bowel movement which contradicts statements in triage. Provider informed.
[2023-02-15 12:46] LABS: Add Manual Diff / Slide Review NO; Basophils Absolute Auto 100 /uL (0-100); Eosinophils Absolute Auto 300 /uL (0-450); Eosinophils Percent Auto 2.7 % (2-4); Hematocrit 37.8 % (41-53); Lymphocytes Absolute Auto 1800 /uL (1100-4500); Mean Corpuscular HGB Conc 34.5 % (30-36); Mean Corpuscular Hemoglobin 29.3 PG (26-34); Monocytes Absolute Auto 1000 /uL (0-900); Monocytes Percent Auto 9.3 % (3-14); Neutrophils Absolute Auto 7200 /uL (1500-7000); Platelet Count 422 X10^3/uL (150-400); Red Blood Cell Count 4.45 X10^6/uL (4.5-5.9); Red Cell Distribution Width 14.8 % (11.6-14.8); White Blood Cell Count 10.3 X10^3/uL (4.5-11.0)
[2023-02-15 12:51] LABS: Alanine Aminotransferase 17 IU/L (<50); Albumin Globulin Ratio 1.2 (1.0-2.8); Alkaline Phosphatase 90 U/L (38-126); Aspartate Aminotransferase 25 IU/L (17-59); Bilirubin Total 0.8 mg/dL (0.2-1.3); Blood Urea Nitrogen 17 mg/dL (9-20); Calcium 9.2 mg/dL (8.4-10.2); Carbon Dioxide 22 mmol/L (22-32); Chloride 96 mmol/L (98-107); Estimated Glomerular Filt Rate > 60 mL/min (>60); Globulin 3.3 g/dL (1.7-4.1); Glucose 130 mg/dL (80-110); HEMOLYSIS < 15 (0-50); Lipase 29 U/L (23-300); Potassium 4.3 mmol/L (3.4-5.1); Sodium 127 mmol/L (137-145); Total Protein 7.3 g/dL (6.3-8.2)
--- NOTE | 2023-02-15 13:37 | DI.CT.S_ITS ---
PROCEDURE: CT ABDOMEN PELVIS W CON INDICATIONS: abd pain obstruction suspect, history of IBD TECHNIQUE: After the administration of intravenous contrast, axial sections acquired from the lung bases to the pubic symphysis. Coronal and sagittal reformats were performed. For radiation dose reduction, the following was used: automated exposure control, adjustment of mA and/or kV according to patient size. COMPARISON: [facility], CT, CT ABDOMEN PELVIS W CON, 02/26/2018, 14:08. FINDINGS: Image quality: Good Lower chest: Lung bases appear unremarkable. There is mild distal esophageal wall thickening, not well evaluated on CT. Likely small hiatal hernia. Normal heart size. Solid organs: The liver appears unremarkable. Gallbladder is mildly distended. No significant inflammatory changes on CT. No pathologic dilation of the biliary system or pancreatic duct. Small calcifications around the pancreatic tail likely from prior inflammation. Splenic granulomas. No splenomegaly. No adrenal nodules. There are renal cysts. There also indeterminate renal lesions by attenuation, but appearing stable compared to 2018, probably hyper attenuating cysts. No hydronephrosis. Vessels and lymph nodes: The main portal vein appears patent. Atherosclerotic calcifications are seen. No pathologic lymph nodes by size criteria. Bowel and peritoneum: No convincing inflammatory changes of the small bowel. However the distal small bowel is moderately distended, including terminal ileum. There is significant distension and fluid in the proximal and mid large bowel. An area of narrowing and focal possible contained rupture or diverticulum is seen adjacent to the descending colon (2/57) measuring 1.6 x 1.5 cm. Moderate wall thickening of the distal colon, with mild inflammatory changes also seen in the rectum. Body wall: Unremarkable Pelvis: Bladder is unremarkable. Heterogeneous prostate, better evaluated on MRI. Bones: No acute or suspicious osseous finding. There are degenerative changes. IMPRESSION: Moderate inflammatory changes of the distal colon, also involving the rectum, likely related to reported IBD. There is a focal stricture in the mid descending colon with significant upstream large bowel dilation and fluid. There is also distention of the distal small bowel, possibly related to ileocecal reflux. Adjacent to the stricture, there is a small gas and fluid containing collection which may represent a small contained perforation. No ascites or pneumoperitoneum identified. Other incidental and nonacute findings above. Dictated by: Francisco J Mitchell M.D. on 02/15/2023 at 14:18 Approved by: Francisco J Mitchell M.D. on 02/15/2023 at 14:25
[2023-02-15] MEDS: HYDROMORPHONE 0.5 MG INJ IV ×2 (13:43→15:52)
--- NOTE | 2023-02-15 14:09 | ED_ITS ---
HPI - Abdominal Pain General Chief Complaint: Abdominal Pain Stated Complaint: thinks bowel blockage Time Seen by Provider: 02/15/23 13:02 Source: patient Mode of arrival: Ambulatory History of Present Illness HPI narrative: 71-year-old male with a history of previous bowel obstruction and Crohn's disease presenting with periumbilical and left lower quadrant abdominal pain x3 days. Describes it as crampy, it is associated with nausea but has not vomited. He says that this feels like a bowel obstruction he had previously. He reports no previous abdominal surgeries, has a history of Crohn's disease followed by Dr. Fraire at [facility] with a 1st dose of Skyrizi on 01/28. He is not had fevers, he is not noted any urinary symptoms. Says it has been 4 days since he is had a bowel movement he is passed a little bit of gas. Related Data Home Medications Medication Instructions Recorded Confirmed cetirizine 10 mg tablet (Zyrtec) 10 mg PO DAILY PRN ALLERGIES 10/11/21 02/15/23 Vitamin D3 See Rx Instructions .Route .COMPLEX 11/02/21 02/15/23 calcium See Rx Instructions .Route .COMPLEX 01/31/22 02/15/23 ferrous sulfate 325 mg (65 mg 325 mg PO DAILY anemia 01/31/22 02/15/23 iron) tablet vitamin B complex (B 1 tab PO DAILY 05/10/22 02/15/23 Complex-Vitamin B12 tablet) omeprazole 20 mg tablet,delayed 20 mg PO DAILY 11/22/22 02/15/23 release risankizumab-rzaa 180 mg/1.2 mL See Rx Instructions .Route .COMPLEX 02/15/23 02/15/23 (150 mg/mL) subcut wearable injector (Skyrizi) Previous Rx's Medication Instructions Recorded fluticasone propionate 50 1 spray intranasal BID #15.8 mL 02/02/19 mcg/actuation nasal spray,suspension levothyroxine 112 mcg tablet See Rx Instructions .Route 08/06/22 .COMPLEX #90 tabs albuterol sulfate 90 mcg/actuation See Rx Instructions .Route 08/13/22 aerosol inhaler .COMPLEX #8.5 grams lisinopril 10 mg tablet See Rx Instructions .Route 10/25/22 .COMPLEX #90 tabs montelukast 10 mg tablet See Rx Instructions .Route 01/30/23 .COMPLEX #90 tabs levofloxacin 500 mg tablet 500 mg PO DAILY Prostate biopsy 02/05/23 prophylaxis #3 tabs Allergies Allergy/AdvReac Type Severity Reaction Status Date / Time No Known Drug Allergies Allergy Verified 02/15/23 12:15 Patient History Medical History (Updated 02/15/23 @ 19:41 by Ga Willard MD) Hemorrhoids organ imaging abnormality Lower urinary tract symptoms Alcohol use disorder Mixed hyperlipidemia Hypothyroidism History of tobacco use disorder Long-term use of immunosuppressant medication Decreased cortisol level (07/2020) Hyponatremia with decreased serum osmolality Hyponatremia Long-term current use of steroids Abdominal aortic ectasia (01/2020) Iron deficiency anemia Hypertension Personal history of colonic polyps Pulmonary nodules Abdominal aortic aneurysm (AAA) Iatrogenic hypothyroidism COPD (chronic obstructive pulmonary disease) Crohns disease (~1968) Surgical History History of colonoscopy History of testicular surgery (~1956) History of mandibular surgery (~1987) Thyroid cancer (~06/2010) Tongue malignant neoplasm (~2015) Family History Father No problems noted. 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 [employer] Smoking Status: Current every day smoker alcohol intake: current substance use type: marijuana (on occasion) caffeine: Yes Smoking Status: Current every day smoker alcohol intake frequency: 3 or more drinks per day Substance Use Type: marijuana Exam Initial Vital Signs Initial Vital Signs: Vital Signs Temperature 98.4 F 02/15/23 12:13 Pulse Rate 83 02/15/23 12:13 Respiratory Rate 17 02/15/23 12:13 Blood Pressure 153/86 H 02/15/23 12:13 Pulse Oximetry 99 02/15/23 12:13 Oxygen Delivery Method Room Air 02/15/23 12:13 Const General: acute distress HENMT Head: normocephalic and atraumatic Resp Effort & Inspection: normal respiratory effort Auscultation: clear to auscultation bilaterally Cardio Rate: regular rate Heart Sounds: S1 normal, S2 normal and no murmurs GI Inspection: distended Auscultation: absent bowel sounds Other: Diffuse tenderness without guarding or rebound Skin General: no rashes or lesions noted and turgor normal Neuro General: patient awake and patient oriented x3 Course Orders Ordered: ED Orders 02/15/23 12:20 Complete Blood Count AUTO DIFF Stat Comprehensive Metabolic Panel Stat Lipase Stat 02/15/23 12:56 EKG-12 Lead Stat 02/15/23 13:37 CT abdomen pelvis w con Stat 02/15/23 14:29 UA Complete [Urinalysis and Microscopic] Stat Urine Culture Stat Acetaminophen (Acetaminophen 325 Mg Tablet) 650 mg PO Q6H PRN PRN Reason: Fever/Mild Pain (1-3) Heparin Sodium (Porcine) (Heparin 5,000 Unit/Ml Vial) 5,000 unit SUBCUT BID SUSY Hydromorphone HCl (Hydromorphone 1 Mg Inj) 1 mg IV Q3H PRN PRN Reason: Pain, Severe (7-10) Last Admin: 02/15/23 17:14 Dose: 1 mg Documented By: ARGENIS Sodium Chloride (Normal Saline 0.9%) 1,000 mls @ 100 mls/hr IV CONT SUSY Stop: 02/16/23 04:59 Last Admin: 02/15/23 18:00 Dose: 100 mls/hr Documented By: BOAZ Levothyroxine Sodium (Levothyroxine 112 Mcg Tablet) 112 mcg PO DAILY@0600 [facility] Lisinopril (Lisinopril 10 Mg Tablet) 10 mg PO DAILY [facility] Loratadine (Loratadine 10 Mg Tablet) 10 mg PO DAILY PRN PRN Reason: ALLERGIES Melatonin (Melatonin 3 Mg Tablet) 6 mg PO BEDTIME PRN PRN Reason: Insomnia Mesalamine (Mesalamine 400 Mg Cap.Drtab.) 1,200 mg PO BID [facility] Last Admin: 02/15/23 18:00 Dose: Not Given Documented By: BOAZ Methylprednisolone (Methylprednisolone 125 Mg/2 Ml Vial) 125 mg IV Q6H [facility] Last Admin: 02/15/23 15:21 Dose: 125 mg Documented By: HERNANDO Montelukast Sodium (Montelukast 10 Mg Tablet) 10 mg PO DAILY [facility] Naloxone HCl (Naloxone 0.4 Mg/Ml Vial) 0.2 mg IV Q2MIN PRN PRN Reason: Opiate Reversal Ondansetron HCl (Ondansetron 4 Mg/2 Ml Inj) 4 mg IV Q4HR PRN PRN Reason: NV Oxycodone HCl (Oxycodone Ir 10 Mg Tablet) 10 mg PO Q4HR PRN PRN Reason: Pain, Severe (7-10) Oxycodone HCl (Oxycodone Ir 5 Mg Tablet) 5 mg PO Q4HR PRN PRN Reason: Pain, Moderate (4-6) Pantoprazole Sodium (Pantoprazole 40 Mg Vial) 40 mg IV 0700 [facility] Discontinued Medications Hydromorphone HCl (Hydromorphone 0.5 Mg Inj) 0.5 mg IV NOW ONE Stop: 02/15/23 13:38 Last Admin: 02/15/23 13:43 Dose: 0.5 mg Documented By: RB Hydromorphone HCl (Hydromorphone 0.5 Mg Inj) 0.5 mg IV NOW ONE Stop: 02/15/23 15:49 Last Admin: 02/15/23 15:52 Dose: 0.5 mg Documented By: RB Sodium Chloride (Normal Saline 0.9%) 1,000 mls @ 1,000 mls/hr IV BOLUS ONE Stop: 02/15/23 15:07 Last Infusion: 02/15/23 15:20 Dose: Infused Documented By: Admin: 02/15/23 14:21 Dose: 1,000 mls/hr Documented By: RB Ondansetron HCl (Ondansetron 4 Mg/2 Ml Inj) 4 mg IV NOW PRN PRN Reason: Nausea And Vomiting Last Admin: 02/15/23 12:39 Dose: 4 mg Documented By: KENYATTA Consultations Consultation #1: D/W Dr Marie- surgeon, will consult if hospitalist is comfortable admitting. D/W hospitalist, Dr Staley, accepts admit Vital Signs Vital signs: Vital Signs - 8 hr 02/15/23 12:13 02/15/23 12:24 02/15/23 12:25 Temperature 98.4 F Pulse Rate 83 85 Respiratory Rate 17 Blood Pressure 153/86 H 169/93 H Pulse Oximetry 99 97 Oxygen Delivery Method Room Air 02/15/23 12:25 02/15/23 12:30 02/15/23 12:30 Temperature 97.7 F Pulse Rate 75 79 Respiratory Rate Blood Pressure 119/78 Pulse Oximetry 98 98 Oxygen Delivery Method 02/15/23 12:45 02/15/23 12:45 02/15/23 13:00 Temperature Pulse Rate 74 Respiratory Rate Blood Pressure 120/78 128/77 Pulse Oximetry 97 Oxygen Delivery Method 02/15/23 13:00 02/15/23 13:15 02/15/23 13:15 Temperature Pulse Rate 71 73 Respiratory Rate Blood Pressure 128/83 Pulse Oximetry 97 98 Oxygen Delivery Method 02/15/23 13:30 02/15/23 13:30 02/15/23 14:00 Temperature Pulse Rate 74 72 Respiratory Rate 23 Blood Pressure 153/83 H Pulse Oximetry 98 96 Oxygen Delivery Method 02/15/23 14:25 02/15/23 14:25 02/15/23 14:30 Temperature Pulse Rate 79 Respiratory Rate 19 Blood Pressure 115/58 L 130/72 Pulse Oximetry 98 Oxygen Delivery Method 02/15/23 14:30 02/15/23 14:45 02/15/23 14:45 Temperature Pulse Rate 75 76 Respiratory Rate 17 16 Blood Pressure 125/69 Pulse Oximetry 95 97 Oxygen Delivery Method 02/15/23 15:00 02/15/23 15:00 02/15/23 15:15 Temperature Pulse Rate 78 Respiratory Rate 20 Blood Pressure 131/79 145/83 H Pulse Oximetry 96 Oxygen Delivery Method 02/15/23 15:15 02/15/23 15:30 02/15/23 15:30 Temperature Pulse Rate 72 75 Respiratory Rate 20 14 Blood Pressure 137/82 Pulse Oximetry 97 95 Oxygen Delivery Method 02/15/23 15:45 02/15/23 15:45 02/15/23 16:00 Temperature Pulse Rate 79 Respiratory Rate 25 H Blood Pressure 146/83 H 114/65 Pulse Oximetry 96 Oxygen Delivery Method 02/15/23 16:00 02/15/23 16:15 02/15/23 16:15 Temperature Pulse Rate 82 78 Respiratory Rate 15 16 Blood Pressure 114/69 Pulse Oximetry 92 93 Oxygen Delivery Method MDM - Abdominal Pain Lab Data Lab results narrative: CBC with diff shows mild elevation in his platelet count otherwise unremarkable, chemistries unremarkable 02/15/23 12:20 02/15/23 12:20 Labs: Lab Results 02/15/23 02/15/23 02/15/23 Range/Units 11:57 12:20 14:29 WBC 10.3 (4.5-11.0) X10^3/uL RBC 4.45 L (4.5-5.9) X10^6/uL Hgb 13.0 L (13.5-17.5) g/dL Hct 37.8 L (41-53) % MCV 85.0 (80-100) fL MCH 29.3 (26-34) PG MCHC 34.5 (30-36) % RDW 14.8 (11.6-14.8) % Plt Count 422 H (150-400) X10^3/uL Neut % (Auto) 70.0 (50-75) % Lymph % (Auto) 17.0 L (25-40) % [place] % (Auto) 9.3 (3-14) % Eos % (Auto) 2.7 (2-4) % Baso % (Auto) 1.0 (0-2) % Neut # (Auto) 7200 H (3189-9770) /uL Lymph # (Auto) 1800 (1335-0667) /uL [place] # (Auto) 1000 H (0-900) /uL Eos # (Auto) 300 (0-450) /uL Baso # (Auto) 100 (0-100) /uL ESR 37 H (0-15) MM/HR Sodium 127 L (137-145) mmol/L Potassium 4.3 (3.4-5.1) mmol/L Chloride 96 L (98-107) mmol/L Carbon Dioxide 22 (22-32) mmol/L BUN 17 (9-20) mg/dL Creatinine 0.85 (0.66-1.25) mg/dL Estimated GFR > 60 (>60) mL/min BUN/Creatinine Ratio 20.0 (6-22) Glucose 130 H (80-110) mg/dL Calcium 9.2 (8.4-10.2) mg/dL Total Bilirubin 0.8 (0.2-1.3) mg/dL AST 25 (17-59) IU/L ALT 17 (<50) IU/L Alkaline Phosphatase 90 (38-126) U/L C-Reactive Protein 4.3 H (<1.0) mg/dL Total Protein 7.3 (6.3-8.2) g/dL Albumin 4.0 (3.5-5.0) g/dL Globulin 3.3 (1.7-4.1) g/dL Albumin/Globulin Ratio 1.2 (1.0-2.8) Lipase 29 (23-300) U/L Procalcitonin 0.05 (<0.5) ng/mL Urine Color Yellow Urine Appearance Clear Urine pH 5.0 (4.5-8.0) Ur Specific [place] 1.020 (1.000-1.035) Urine Protein Negative (Negative) Urine Glucose (UA) Negative (Negative) g/dL Urine Ketones 1+ H (NEGATIVE) Urine Occult Blood 3+ H (Negative) Urine Nitrate Positive H (Negative) Urine Bilirubin Negative (NEGATIVE) Urine Urobilinogen 1.0 (0.2) E.U./dL Ur Leukocyte Esterase Negative (NEGATIVE) Urine RBC 1-5/hpf (0-5/HPF) Urine WBC 1-5/hpf (0-5/HPF) Ur Squamous Epith Cells 1-5 /hpf (0-5/HPF) Urine Bacteria Occasional (0-1) (None) Ur Culture Indicated? Specimen cultured Imaging Data CT scan - abdomen/pelvis: My Impression: Independently reviewed CT abdomen and pelvis, multiple dilated loops of bowel with air-fluid levels I believe he does have a bowel obstruction Radiologist's Impression: IMPRESSION: Moderate inflammatory changes of the distal colon, also involving the rectum, likely related to reported IBD. There is a focal stricture in the mid descending colon with significant upstream large bowel dilation and fluid. There is also distention of the distal small bowel, possibly related to ileocecal reflux. Adjacent to the stricture, there is a small gas and fluid containing collection which may represent a small contained perforation. No ascites or pneumoperitoneum identified. [facility] Narrative Medical decision making narrative: 72-year-old man with history of Crohn's disease and previous bowel obstruction presenting with abdominal pain and nausea concern for recurrent bowel obstruction. Other possible considerations on the differential would include pancreatitis, cholecystitis, appendicitis pyelonephritis or ureteral stone. Imaging is in fact suggestive of a bowel obstruction. Patient will be admitted to the hospitalist service with surgery consulting. Discharge Plan Departure Patient Disposition: Admitted As Inpatient Clinical Impression: Bowel obstruction Qualifiers: Intestinal obstruction type: unspecified Intestinal obstruction extent: c omplete Qualified Code(s): K56.601 - Complete intestinal obstruction, unspecified as to cause Admit Date/Time: 02/15/23 16:18 Admit Provider: Anthony Staley
[2023-02-15] MEDS: SODIUM CHLORIDE 0.9% 1,000 ML 1000 ML IV (14:21)
[2023-02-15 14:32] LABS: Appearance Urine UA CLEAR; Bilirubin Urine UA NEGATIVE (NEGATIVE); Color Urine UA YELLOW; Glucose Urine UA NEGATIVE (Negative); Ketones Urine UA 1+ (NEGATIVE); Leukocyte Esterase Urine UA NEGATIVE (NEGATIVE); Nitrite Urine UA POSITIVE (Negative); Occult Blood Urine UA 3+ (Negative); Protein Urine UA NEGATIVE (Negative)
[2023-02-15 14:43] LABS: Bacteria Urine Occasional (0-1); Culture Indicated Urine Specimen Cultured; RBC Urine 1-5/HPF (0-5/HPF); Squamous Epithelial Cell Urine 1-5 /HPF (0-5/HPF); WBC Urine 1-5/HPF (0-5/HPF)
[2023-02-15] MEDS: methylPREDNISolone 125 MG/2 ML VIAL IV ×2 (15:21→20:19)
--- NOTE | 2023-02-15 16:36 | PC.NURSE ---
This RN called and talked to Dr. Staley about this Patient reassessed pain of 8/10 after a 0.5mg Dilaudid. Dr. Staley said that he would place an order for pain medication along with orders for admission and for this RN to give pain medication as soon as the order is placed.
[2023-02-15 17:13] LABS: C-Reactive Protein Quant 4.3 mg/dL (<1.0)
[2023-02-15] MEDS: HYDROMORPHONE 1 MG INJ IV ×2 (17:14→20:19)
--- NOTE | 2023-02-15 17:19 | PM.HP.1 ---
History of Present Illness History of Present Illness Date Patient Seen: 02/15/23 Chief complaint: thinks bowel blockage Narrative: Jovany Blakely is a 72yo M with PMH of Crohn's on Skyrizi, COPD, tobacco use, HTN, HLD, AAA, hypothyroidism and chronic hyponatremia who presents with abd pain. Patient notes he hasn't had a BM for 3 days. Used to have several loose BM's per day before starting Skyrizi which he got his first dose on 01/28, about 2.5 weeks ago. He said after his BM's became very formed and only 2-3x per day. He was feeling quite good actually up until 3 days ago. He said he stopped passing gas as well. Currently his abd pain is well-controlled after dilaudid, but was a 01/01 in the ED. He denies any NV, CP, or fever/chills. [facility] Medical History (Updated 02/05/23 @ 12:44 by Haseeb Gonzalez MD) Hemorrhoids organ imaging abnormality Lower urinary tract symptoms Alcohol use disorder Mixed hyperlipidemia Hypothyroidism History of tobacco use disorder Long-term use of immunosuppressant medication Decreased cortisol level (07/2020) Hyponatremia with decreased serum osmolality Hyponatremia Long-term current use of steroids Abdominal aortic ectasia (01/2020) Iron deficiency anemia Hypertension Personal history of colonic polyps Pulmonary nodules Abdominal aortic aneurysm (AAA) Iatrogenic hypothyroidism COPD (chronic obstructive pulmonary disease) Crohns disease (~1968) Surgical History History of colonoscopy History of testicular surgery (~1956) History of mandibular surgery (~1987) Thyroid cancer (~06/2010) Tongue malignant neoplasm (~2015) Family History Father No problems noted. 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 [employer] Smoking Status: Current every day smoker alcohol intake: current substance use type: marijuana (on occasion) caffeine: Yes Meds Home Medications and Allergies Home Medications Medication Instructions Recorded Confirmed Type fluticasone propionate 50 1 spray intranasal BID #15.8 mL 02/02/19 02/15/23 Rx mcg/actuation nasal spray,suspension cetirizine 10 mg tablet (Zyrtec) 10 mg PO DAILY PRN ALLERGIES 10/11/21 02/15/23 History Vitamin D3 See Rx Instructions .Route .COMPLEX 11/02/21 02/15/23 History calcium See Rx Instructions .Route .COMPLEX 01/31/22 02/15/23 History ferrous sulfate 325 mg (65 mg 325 mg PO DAILY anemia 01/31/22 02/15/23 History iron) tablet vitamin B complex (B 1 tab PO DAILY 05/10/22 02/15/23 History Complex-Vitamin B12 tablet) levothyroxine 112 mcg tablet See Rx Instructions .Route 08/06/22 02/15/23 Rx .COMPLEX #90 tabs albuterol sulfate 90 mcg/actuation See Rx Instructions .Route 08/13/22 02/15/23 Rx aerosol inhaler .COMPLEX #8.5 grams lisinopril 10 mg tablet See Rx Instructions .Route 10/25/22 02/15/23 Rx .COMPLEX #90 tabs omeprazole 20 mg tablet,delayed 20 mg PO DAILY 11/22/22 02/15/23 History release montelukast 10 mg tablet See Rx Instructions .Route 01/30/23 02/15/23 Rx .COMPLEX #90 tabs levofloxacin 500 mg tablet 500 mg PO DAILY Prostate biopsy 02/05/23 02/15/23 Rx prophylaxis #3 tabs risankizumab-rzaa 180 mg/1.2 mL See Rx Instructions .Route .COMPLEX 02/15/23 02/15/23 History (150 mg/mL) subcut wearable injector (Skyrizi) Allergies Allergy/AdvReac Type Severity Reaction Status Date / Time No Known Drug Allergies Allergy Verified 02/15/23 12:15 Review of Systems Review of Systems Narrative: All other systems reviewed with the patient and are negative unless otherwise stated. Exam Vital Signs (past 8 hours): - 02/15/23 12:13 02/15/23 12:24 02/15/23 12:25 Temperature 98.4 F Pulse Rate 83 85 Respiratory Rate 17 Blood Pressure 153/86 H 169/93 H Pulse Oximetry 99 97 Oxygen Delivery Method Room Air 02/15/23 12:25 02/15/23 12:30 02/15/23 12:30 Temperature 97.7 F Pulse Rate 75 79 Respiratory Rate Blood Pressure 119/78 Pulse Oximetry 98 98 Oxygen Delivery Method 02/15/23 12:45 02/15/23 12:45 02/15/23 13:00 Temperature Pulse Rate 74 Respiratory Rate Blood Pressure 120/78 128/77 Pulse Oximetry 97 Oxygen Delivery Method 02/15/23 13:00 02/15/23 13:15 02/15/23 13:15 Temperature Pulse Rate 71 73 Respiratory Rate Blood Pressure 128/83 Pulse Oximetry 97 98 Oxygen Delivery Method 02/15/23 13:30 02/15/23 13:30 02/15/23 14:00 Temperature Pulse Rate 74 72 Respiratory Rate 23 Blood Pressure 153/83 H Pulse Oximetry 98 96 Oxygen Delivery Method 02/15/23 14:25 02/15/23 14:25 02/15/23 14:30 Temperature Pulse Rate 79 Respiratory Rate 19 Blood Pressure 115/58 L 130/72 Pulse Oximetry 98 Oxygen Delivery Method 02/15/23 14:30 02/15/23 14:45 02/15/23 14:45 Temperature Pulse Rate 75 76 Respiratory Rate 17 16 Blood Pressure 125/69 Pulse Oximetry 95 97 Oxygen Delivery Method 02/15/23 15:00 02/15/23 15:00 02/15/23 15:15 Temperature Pulse Rate 78 Respiratory Rate 20 Blood Pressure 131/79 145/83 H Pulse Oximetry 96 Oxygen Delivery Method 02/15/23 15:15 02/15/23 15:30 02/15/23 15:30 Temperature Pulse Rate 72 75 Respiratory Rate 20 14 Blood Pressure 137/82 Pulse Oximetry 97 95 Oxygen Delivery Method 02/15/23 15:45 02/15/23 15:45 02/15/23 16:00 Temperature Pulse Rate 79 Respiratory Rate 25 H Blood Pressure 146/83 H 114/65 Pulse Oximetry 96 Oxygen Delivery Method 02/15/23 16:00 02/15/23 16:15 02/15/23 16:15 Temperature Pulse Rate 82 78 Respiratory Rate 15 16 Blood Pressure 114/69 Pulse Oximetry 92 93 Oxygen Delivery Method 02/15/23 16:30 02/15/23 16:31 02/15/23 16:31 Temperature Pulse Rate 75 76 Respiratory Rate 25 H 19 Blood Pressure 134/63 Pulse Oximetry 95 96 Oxygen Delivery Method 02/15/23 16:45 02/15/23 16:45 02/15/23 17:00 Temperature Pulse Rate 73 Respiratory Rate 16 Blood Pressure 138/65 126/69 Pulse Oximetry 95 Oxygen Delivery Method 02/15/23 17:00 Temperature Pulse Rate 75 Respiratory Rate 15 Blood Pressure Pulse Oximetry 93 Oxygen Delivery Method Oxygen Delivery Method Room Air Narrative Exam Narrative: GEN: no acute distress HEENT: moist mucous membranes, PERRL NECK: trachea midline, no JVD CV: regular rate and rhythm, no murmurs PULM: clear bilaterally ABD: distended, tympanic, absent BT's EXT: warm and well perfused with no edema NEURO: awake, alert, oriented, no focal deficits Objective Labs 02/15/23 12:20 02/15/23 12:20 Labs: Laboratory Results - last 24 hr 02/15/23 02/15/23 02/15/23 11:57 12:20 14:29 WBC 10.3 RBC 4.45 L Hgb 13.0 L Hct 37.8 L MCV 85.0 MCH 29.3 MCHC 34.5 RDW 14.8 Plt Count 422 H Neut % (Auto) 70.0 Lymph % (Auto) 17.0 L [place] % (Auto) 9.3 Eos % (Auto) 2.7 Baso % (Auto) 1.0 Neut # (Auto) 7200 H Lymph # (Auto) 1800 [place] # (Auto) 1000 H Eos # (Auto) 300 Baso # (Auto) 100 Sodium 127 L Potassium 4.3 Chloride 96 L Carbon Dioxide 22 BUN 17 Creatinine 0.85 Estimated GFR > 60 BUN/Creatinine Ratio 20.0 Glucose 130 H Calcium 9.2 Total Bilirubin 0.8 AST 25 ALT 17 Alkaline Phosphatase 90 C-Reactive Protein 4.3 H Total Protein 7.3 Albumin 4.0 Globulin 3.3 Albumin/Globulin Ratio 1.2 Lipase 29 Urine Color Yellow Urine Appearance Clear Urine pH 5.0 Ur Specific [place] 1.020 Urine Protein Negative Urine Glucose (UA) Negative Urine Ketones 1+ H Urine Occult Blood 3+ H Urine Nitrate Positive H Urine Bilirubin Negative Urine Urobilinogen 1.0 Ur Leukocyte Esterase Negative Urine RBC 1-5/hpf Urine WBC 1-5/hpf Ur Squamous Epith Cells 1-5 /hpf Urine Bacteria Occasional (0-1) Ur Culture Indicated? Specimen cultured Assessment & Plan Assessment & Plan narrative: # SBO secondary to Crohn's flare -followed by Dr. Fraire at [facility] -on biologic Skyrizi and last got dose on 01/28 -CT abd with inflamm of distal colon/rectum from IBD, with focal stricture of mid-descending colon and significant upstream dilated colon, small perforation at stricture site -spoke with Dr. Marie gen surg, consulted and recommended non-surgical management for now, appreciate recs -NPO, ice chips ok. If vomits make strict NPO and place NG tube. -solumedrol 125mg q6h -mesalamine 1.2g BID -if SBO fails with steroids may need surgery and/or transfer for remicade -pain control -check GI panel to r/o C. diff if starts having diarrhea # HTN -continue lisinopril # hypothyroidism -continue synthroid # GERD -continue PPI but IV Code status is full code. DVT prophylaxis with heparin subQ. Proxy is spouse Janette. I have reviewed home meds and used all available resources to reconcile the home meds. Case discussed with ED physician/APC and patient will be admitted to the hospitalist service for further workup and management. This patient will be admitted as inpatient and will require greater than 2 midnights of hospital time to treat SBO from Crohn's flare.
[2023-02-15 17:27] LABS: Procalcitonin 0.05 ng/mL (<0.5)
[2023-02-15 17:41] LABS: Erythrocyte Sedimentation Rate 37 MM/HR (0-15)
[2023-02-15] MEDS: SODIUM CHLORIDE 0.9% 1,000 ML 100 ML IV (18:00)
--- NOTE | 2023-02-15 19:03 | PC.NURSE ---
Patient arrived A&OX4 this evening to Room 221.VSS, on RA.He is ambulatory, denies dizziness, n/v. He reports abdominal pain comes and goes and is severe in waves. IVF NS at 100ml/hr. He is allowed ice chips by MD Staley this evening. Oriented to room. Continuous monitoring. Pharmacy left this evening, and [facility] notified for mesalamine. Medication unavailable and MD notified.
[2023-02-15] MEDS: HEPARIN 5,000 UNIT/ML VIAL 5000 UNIT SUBCUT (20:19)
[2023-02-15] MEDS: OXYCODONE IR 10 MG TABLET PO (22:05)
[2023-02-16] MEDS: SODIUM CHLORIDE 0.9% 1,000 ML 100 ML IV (03:37)
[2023-02-16] MEDS: methylPREDNISolone 125 MG/2 ML VIAL IV ×2 (03:37→09:10)
[2023-02-16] MEDS: OXYCODONE IR 10 MG TABLET PO ×4 (03:38→22:46)
[2023-02-16 05:32] VITALS: BP 118/73; PULSE 66; RESP 16; TEMP 37.1; O2SAT 96
[2023-02-16 06:08] LABS: Add Manual Diff / Slide Review NO; Basophils Absolute Auto 0 /uL (0-100); Basophils Percent Auto 0.1 % (0-2); Eosinophils Absolute Auto 0 /uL (0-450); Eosinophils Percent Auto 0.1 % (2-4); Hematocrit 36.3 % (41-53); Hemoglobin 12.1 g/dL (13.5-17.5); Lymphocytes Absolute Auto 700 /uL (1100-4500); Lymphocytes Percent Auto 6.8 % (25-40); Mean Corpuscular HGB Conc 33.2 % (30-36); Mean Corpuscular Hemoglobin 28.4 PG (26-34); Mean Corpuscular Volume 85.5 fL (80-100); Monocytes Absolute Auto 100 /uL (0-900); Monocytes Percent Auto 1.1 % (3-14); Neutrophils Absolute Auto 9300 /uL (1500-7000); Neutrophils Percent Auto 91.9 % (50-75); Platelet Count 358 X10^3/uL (150-400); Red Blood Cell Count 4.24 X10^6/uL (4.5-5.9); Red Cell Distribution Width 14.7 % (11.6-14.8); White Blood Cell Count 10.1 X10^3/uL (4.5-11.0)
[2023-02-16] MEDS: PANTOPRAZOLE 40 MG VIAL IV (06:12)
[2023-02-16] MEDS: LEVOTHYROXINE 112 MCG TABLET PO (06:13)
[2023-02-16] MEDS: HYDROMORPHONE 1 MG INJ IV ×3 (06:13→20:48)
[2023-02-16 06:18] LABS: BUN Creatinine Ratio 22.7 (6-22); Blood Urea Nitrogen 17 mg/dL (9-20); Calcium 8.2 mg/dL (8.4-10.2); Carbon Dioxide 23 mmol/L (22-32); Chloride 100 mmol/L (98-107); Estimated Glomerular Filt Rate > 60 mL/min (>60); Glucose 130 mg/dL (80-110); HEMOLYSIS < 15 (0-50); Sodium 129 mmol/L (137-145)
[2023-02-16 06:19] LABS: Potassium 5.1 mmol/L (3.4-5.1)
[2023-02-16 06:22] LABS: C-Reactive Protein Quant 4.4 mg/dL (<1.0)
[2023-02-16] MEDS: MESALAMINE 400 MG CAP.DRTAB. 1200 MG PO ×2 (08:13→20:43)
[2023-02-16] MEDS: MONTELUKAST 10 MG TABLET PO (08:13)
[2023-02-16] MEDS: lisinopriL 10 MG TABLET PO (08:13)
[2023-02-16] MEDS: HEPARIN 5,000 UNIT/ML VIAL 5000 UNIT SUBCUT ×2 (08:13→20:42)
[2023-02-16 08:41] VITALS: BP 105/67; PULSE 64; RESP 18; TEMP 36.8; O2SAT 97
--- NOTE | 2023-02-16 10:20 | P.CONS_ITS ---
History of Present Illness Consult details Date Patient Seen: 02/16/23 Time Patient Seen: 10:20 Chief complaint: thinks bowel blockage Narrative: Jovany is a 72-year-old man with longstanding Crohn's disease who presents with a large bowel obstruction. He has had Crohn's disease since 1969 and has never needed surgery. He was originally on prednisone. A proximally 5 years ago he was started on Humira. He has been seen by Dr. Fraire at [facility] for management of Crohn's disease. Recently he was transitioned from Humira to Skyrizi. He had his first infusion earlier this month. The transition to scar Z initially cause his bowel movements to become less frequent and more solid. About 4 days ago he stopped having any bowel movements and was passing minimal flatus. He reports he had some abdominal discomfort and bloating. No nausea or vomiting. A CT scan was performed when he was in the emergency department which shows a focal stricture in the descending colon with upstream dilation. He has passed a small amount of flatus since being admitted to the hospital last night. He has been started on high-dose steroids. His last complete colonoscopy was in 2021 at [facility] with findings consistent with Crohn disease and polyps. Jovany lazo he had an attempted colonoscopy with Dr. Fraire in August of this year but it was aborted due to the degree of inflammation and this prompted the [facility]. The report is not available to me at this time. He was admitted with a small-bowel obstruction in 2018. According to the records the transition point was in the terminal ileum. This bowel obstruction resolved without needing surgery. The CT report from 2018 did also mentioned that thickening in the left colon although that was not a source of obstruction at that time. Meds Home Medications and Allergies Home Medications Medication Instructions Recorded Confirmed Type fluticasone propionate 50 1 spray intranasal BID #15.8 mL 02/02/19 02/15/23 Rx mcg/actuation nasal spray,suspension cetirizine 10 mg tablet (Zyrtec) 10 mg PO DAILY PRN ALLERGIES 10/11/21 02/15/23 History Vitamin D3 See Rx Instructions .Route .COMPLEX 11/02/21 02/15/23 History calcium See Rx Instructions .Route .COMPLEX 01/31/22 02/15/23 History ferrous sulfate 325 mg (65 mg 325 mg PO DAILY anemia 01/31/22 02/15/23 History iron) tablet vitamin B complex (B 1 tab PO DAILY 05/10/22 02/15/23 History Complex-Vitamin B12 tablet) levothyroxine 112 mcg tablet See Rx Instructions .Route 08/06/22 02/15/23 Rx .COMPLEX #90 tabs albuterol sulfate 90 mcg/actuation See Rx Instructions .Route 08/13/22 02/15/23 Rx aerosol inhaler .COMPLEX #8.5 grams lisinopril 10 mg tablet See Rx Instructions .Route 10/25/22 02/15/23 Rx .COMPLEX #90 tabs omeprazole 20 mg tablet,delayed 20 mg PO DAILY 11/22/22 02/15/23 History release montelukast 10 mg tablet See Rx Instructions .Route 01/30/23 02/15/23 Rx .COMPLEX #90 tabs levofloxacin 500 mg tablet 500 mg PO DAILY Prostate biopsy 02/05/23 02/15/23 Rx prophylaxis #3 tabs risankizumab-rzaa 180 mg/1.2 mL See Rx Instructions .Route .COMPLEX 02/15/23 02/15/23 History (150 mg/mL) subcut wearable injector (Zachyrizi) Allergies Allergy/AdvReac Type Severity Reaction Status Date / Time No Known Drug Allergies Allergy Verified 02/15/23 12:15 Exam Vital Signs (past 8 hours): - 02/16/23 05:32 02/16/23 08:41 Temperature 98.7 F 98.2 F Pulse Rate 66 64 Respiratory Rate 16 18 Blood Pressure 118/73 105/67 Pulse Oximetry 96 97 Oxygen Flow Rate 0 Oxygen Delivery Method Room Air Oxygen Flow Rate 0 Const General: No acute distress Resp Effort & Inspection: normal respiratory effort GI Other: Abdomen is soft moderately distended no peritoneal findings Objective Labs 02/16/23 05:15 02/16/23 05:15 Labs: Laboratory Results - last 24 hr 02/15/23 02/15/23 02/15/23 11:57 12:20 14:29 WBC 10.3 RBC 4.45 L Hgb 13.0 L Hct 37.8 L MCV 85.0 MCH 29.3 MCHC 34.5 RDW 14.8 Plt Count 422 H Neut % (Auto) 70.0 Lymph % (Auto) 17.0 L [place] % (Auto) 9.3 Eos % (Auto) 2.7 Baso % (Auto) 1.0 Neut # (Auto) 7200 H Lymph # (Auto) 1800 [place] # (Auto) 1000 H Eos # (Auto) 300 Baso # (Auto) 100 ESR 37 H Sodium 127 L Potassium 4.3 Chloride 96 L Carbon Dioxide 22 BUN 17 Creatinine 0.85 Estimated GFR > 60 BUN/Creatinine Ratio 20.0 Glucose 130 H Calcium 9.2 Total Bilirubin 0.8 AST 25 ALT 17 Alkaline Phosphatase 90 C-Reactive Protein 4.3 H Total Protein 7.3 Albumin 4.0 Globulin 3.3 Albumin/Globulin Ratio 1.2 Lipase 29 Procalcitonin 0.05 Urine Color Yellow Urine Appearance Clear Urine pH 5.0 Ur Specific [place] 1.020 Urine Protein Negative Urine Glucose (UA) Negative Urine Ketones 1+ H Urine Occult Blood 3+ H Urine Nitrate Positive H Urine Bilirubin Negative Urine Urobilinogen 1.0 Ur Leukocyte Esterase Negative Urine RBC 1-5/hpf Urine WBC 1-5/hpf Ur Squamous Epith Cells 1-5 /hpf Urine Bacteria Occasional (0-1) Ur Culture Indicated? Specimen cultured 02/16/23 05:15 WBC 10.1 RBC 4.24 L Hgb 12.1 L Hct 36.3 L MCV 85.5 MCH 28.4 MCHC 33.2 RDW 14.7 Plt Count 358 Neut % (Auto) 91.9 H D Lymph % (Auto) 6.8 L [place] % (Auto) 1.1 L Eos % (Auto) 0.1 L Baso % (Auto) 0.1 Neut # (Auto) 9300 H Lymph # (Auto) 700 L [place] # (Auto) 100 Eos # (Auto) 0 Baso # (Auto) 0 ESR Sodium 129 L Potassium 5.1 Chloride 100 Carbon Dioxide 23 BUN 17 Creatinine 0.75 Estimated GFR > 60 BUN/Creatinine Ratio 22.7 H Glucose 130 H Calcium 8.2 L Total Bilirubin AST ALT Alkaline Phosphatase C-Reactive Protein 4.4 H Total Protein Albumin Globulin Albumin/Globulin Ratio Lipase Procalcitonin Urine Color Urine Appearance Urine pH Ur Specific [place] Urine Protein Urine Glucose (UA) Urine Ketones Urine Occult Blood Urine Nitrate Urine Bilirubin Urine Urobilinogen Ur Leukocyte Esterase Urine RBC Urine WBC Ur Squamous Epith Cells Urine Bacteria Ur Culture Indicated? [facility] Medical History (Updated 02/16/23 @ 10:25 by Kaveh Chua MD) Hemorrhoids organ imaging abnormality Lower urinary tract symptoms Alcohol use disorder Mixed hyperlipidemia Hypothyroidism History of tobacco use disorder Long-term use of immunosuppressant medication Decreased cortisol level (07/2020) Hyponatremia with decreased serum osmolality Hyponatremia Long-term current use of steroids Abdominal aortic ectasia (01/2020) Iron deficiency anemia Hypertension Personal history of colonic polyps Pulmonary nodules Abdominal aortic aneurysm (AAA) Iatrogenic hypothyroidism COPD (chronic obstructive pulmonary disease) Crohns disease (~1968) Surgical History History of colonoscopy History of testicular surgery (~1956) History of mandibular surgery (~1987) Thyroid cancer (~06/2010) Tongue malignant neoplasm (~2015) Family History Father No problems noted. 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 He has no immediate surgical indications today. Since he has passed some flatus it is reasonable to wait and see if the steroids will open up his large bowel obstruction. If he does not open up within a few days or if he develops any worsening of his symptoms such as vital sign abnormalities, leukocytosis, worsening abdominal pain or worsening nausea and vomiting he we will need surgery. I explained that this will almost certainly require some sort of a bag, most likely a colostomy but possibly an ileostomy. He should of course remain NPO.
[2023-02-16] MEDS: CALCIUM CARBONATE 500 MG TAB PO (11:08)
--- NOTE | 2023-02-16 12:42 | CM.DANOTE ---
Patient is a 72 yo male who was admitted on 02/15/23 for SBO. Pt has [facility] for insurance and his PCP is Tete Zhang. EMR was reviewed. Per MD, pt admitted with large SBO and hx of Crohns disease and will consult Surgeon. Per Surgeon, attempting conservative tx and NPO but no NGT at this time and no plan for surgery yet. If surgical intervention needed, then high likelihood for need of new ostomy. SW met bedside with pt and explained role and he confirms he still lives in [place] with his and both are independent at baseline, pt still drives and does not use DME for ambulation and denies any past surgical intervention needed for Crohns. Pt denies any hx of SNF or HH and does not anticipate any d/c needs at this time. Pt now slowly advancing his diet and SW watched pt eat jello and liquids and pt is hopeful to have bm and be able to d/c home with spouse by tomorrow if he can tolerate advancing diet. Pt confirms that spouse can provide transport at discharge. Plan: SW to follow to determine if pt can tolerate advancing diet and have bm for plan of home with spouse when medically stable. SW to follow for any further identified discharge planning needs. JD Garcia Discharge Planning/Care Management CM Discharge Assessment Start: 02/16/23 12:39 Freq: Status: Active Protocol: Document 02/16/23 12:39 BF (Rec: 02/16/23 12:41 BF [id number]) Discharge Planning Assessment Assigned Carton Counter Feeder JD Crawford DPOA/Assigned Designee Name spouse Janette Contact Information [phone] Advance Directives? Yes Advance Directives on File No History Provided By Patient,Medical Record Has Patient been admitted in last 30 No days? Prior Living Arrangements House Household Members spouse Type of transporation used prior to Drives own vehicle admit Independent with ADL's Yes Is patient alert and oriented? Yes Caregiver for Another No DME Already Rented / Owned Cane Barriers to Discharge No Comment Anticipate that this patient will return home w/family uon DC, once medically stable Discharge Plan Home Transportation Arrangement Family Referrals Initiated None needed Additional Comment No referrals needed at this time, will follow closely Whiteboard Updated in Patient Room with Yes name and ext. # of Carton Counter Feeder Review Status In Process Please Provide Date Initial DC 02/16/23 Assessment Was Performed Next Review Type Continued Stay Review
--- NOTE | 2023-02-16 12:46 | PM.PN.1 ---
Subjective Subjective Interval history: 72 M admitted with colonic stricture leading to large bowel obstruction. Started on steroids yesterday, improved today, now passing a small amount of gas. No change as far as pain. Would like to try some liquids. Exam Vital Signs (past 8 hours): - 02/16/23 05:32 02/16/23 08:41 Temperature 98.7 F 98.2 F Pulse Rate 66 64 Respiratory Rate 16 18 Blood Pressure 118/73 105/67 Pulse Oximetry 96 97 Oxygen Flow Rate 0 Oxygen Delivery Method Room Air Oxygen Flow Rate 0 Narrative Exam Narrative: GEN: no acute distress HEENT: moist mucous membranes, PERRL NECK: trachea midline, no JVD CV: regular rate and rhythm, no murmurs PULM: clear bilaterally ABD: soft with mild distension, mild diffuse tenderness. EXT: warm and well perfused with no edema NEURO: awake, alert, oriented, no focal deficits Objective Labs 02/16/23 05:15 02/16/23 05:15 Labs: Laboratory Results - last 24 hr 02/15/23 02/15/23 02/15/23 11:57 12:20 14:29 WBC 10.3 RBC 4.45 L Hgb 13.0 L Hct 37.8 L MCV 85.0 MCH 29.3 MCHC 34.5 RDW 14.8 Plt Count 422 H Neut % (Auto) 70.0 Lymph % (Auto) 17.0 L [place] % (Auto) 9.3 Eos % (Auto) 2.7 Baso % (Auto) 1.0 Neut # (Auto) 7200 H Lymph # (Auto) 1800 [place] # (Auto) 1000 H Eos # (Auto) 300 Baso # (Auto) 100 ESR 37 H Sodium 127 L Potassium 4.3 Chloride 96 L Carbon Dioxide 22 BUN 17 Creatinine 0.85 Estimated GFR > 60 BUN/Creatinine Ratio 20.0 Glucose 130 H Calcium 9.2 Total Bilirubin 0.8 AST 25 ALT 17 Alkaline Phosphatase 90 C-Reactive Protein 4.3 H Total Protein 7.3 Albumin 4.0 Globulin 3.3 Albumin/Globulin Ratio 1.2 Lipase 29 Procalcitonin 0.05 Urine Color Yellow Urine Appearance Clear Urine pH 5.0 Ur Specific [place] 1.020 Urine Protein Negative Urine Glucose (UA) Negative Urine Ketones 1+ H Urine Occult Blood 3+ H Urine Nitrate Positive H Urine Bilirubin Negative Urine Urobilinogen 1.0 Ur Leukocyte Esterase Negative Urine RBC 1-5/hpf Urine WBC 1-5/hpf Ur Squamous Epith Cells 1-5 /hpf Urine Bacteria Occasional (0-1) Ur Culture Indicated? Specimen cultured 02/16/23 05:15 WBC 10.1 RBC 4.24 L Hgb 12.1 L Hct 36.3 L MCV 85.5 MCH 28.4 MCHC 33.2 RDW 14.7 Plt Count 358 Neut % (Auto) 91.9 H D Lymph % (Auto) 6.8 L [place] % (Auto) 1.1 L Eos % (Auto) 0.1 L Baso % (Auto) 0.1 Neut # (Auto) 9300 H Lymph # (Auto) 700 L [place] # (Auto) 100 Eos # (Auto) 0 Baso # (Auto) 0 ESR Sodium 129 L Potassium 5.1 Chloride 100 Carbon Dioxide 23 BUN 17 Creatinine 0.75 Estimated GFR > 60 BUN/Creatinine Ratio 22.7 H Glucose 130 H Calcium 8.2 L Total Bilirubin AST ALT Alkaline Phosphatase C-Reactive Protein 4.4 H Total Protein Albumin Globulin Albumin/Globulin Ratio Lipase Procalcitonin Urine Color Urine Appearance Urine pH Ur Specific [place] Urine Protein Urine Glucose (UA) Urine Ketones Urine Occult Blood Urine Nitrate Urine Bilirubin Urine Urobilinogen Ur Leukocyte Esterase Urine RBC Urine WBC Ur Squamous Epith Cells Urine Bacteria Ur Culture Indicated? [facility] Medical History (Updated 02/16/23 @ 10:25 by Kaveh Chua MD) Hemorrhoids organ imaging abnormality Lower urinary tract symptoms Alcohol use disorder Mixed hyperlipidemia Hypothyroidism History of tobacco use disorder Long-term use of immunosuppressant medication Decreased cortisol level (07/2020) Hyponatremia with decreased serum osmolality Hyponatremia Long-term current use of steroids Abdominal aortic ectasia (01/2020) Iron deficiency anemia Hypertension Personal history of colonic polyps Pulmonary nodules Abdominal aortic aneurysm (AAA) Iatrogenic hypothyroidism COPD (chronic obstructive pulmonary disease) Crohns disease (~1968) Surgical History History of colonoscopy History of testicular surgery (~1956) History of mandibular surgery (~1987) Thyroid cancer (~06/2010) Tongue malignant neoplasm (~2015) Family History Father No problems noted. 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 Fraire at [facility] -on biologic Skyrizi and last got dose on 01/28 -CT abd with inflamm of distal colon/rectum from IBD, with focal stricture of mid-descending colon and significant upstream dilated colon, small perforation at stricture site -spoke with Dr. Marie gen surg, consulted and recommended non-surgical management for now. Appreciate surgery consultation. -will advance to clears as abdomen appears soft, with improving symptoms to see how he tolerates this -solumedrol 125mg q6h, will decrease to 60 mg q6 this afternoon. -mesalamine 1.2g BID -if SBO fails with steroids may need surgery and/or transfer for remicade -pain control -GI panel to r/o C. diff if starts having diarrhea -low threshold for antibiotics with possible small perforation, but no WBC elevation and patient overall improving thus far with just steroids. # HTN -continue lisinopril for now, hold if looking like may need surgery. # hypothyroidism -continue synthroid when tolerating oral intake. # GERD -continue PPI but IV for now pending diet. Code status is full code. DVT prophylaxis with heparin subQ. Proxy is spouse Janette. I have reviewed home meds and used all available resources to reconcile the home meds. This patient will be admitted as inpatient and will require greater than 2 midnights of hospital time to treat SBO from Crohn's flare and need for intravenous steroids. Quality VTE Deep Vein Thrombosis/Pulmonary Embolism Present on Admission: No
[2023-02-16 13:00] VITALS: BP 98/63; PULSE 79; RESP 18; TEMP 36.7; O2SAT 96
[2023-02-16] MEDS: methylPREDNISolone 125 MG/2 ML VIAL 60 MG IV ×2 (14:12→18:26)
[2023-02-16 16:29] VITALS: BP 119/62; PULSE 69; RESP 16; TEMP 36.2; O2SAT 97
[2023-02-16 19:05] LABS: Bilirubin Urine UA NEGATIVE (NEGATIVE); Color Urine UA YELLOW; Glucose Urine UA NEGATIVE (Negative); Ketones Urine UA 1+ (NEGATIVE); Leukocyte Esterase Urine UA NEGATIVE (NEGATIVE); Nitrite Urine UA POSITIVE (Negative); Occult Blood Urine UA NEGATIVE (Negative); Protein Urine UA TRACE (Negative); Specific Gravity Urine UA >=1.030 (1.000-1.035); Urobilinogen Urine UA 0.2 E.U./dL (0.2)
[2023-02-16 19:12] LABS: Appearance Urine UA TURBID
[2023-02-16 19:14] LABS: Bacteria Urine Moderate (10-30); RBC Urine None Seen (0-5/HPF); Squamous Epithelial Cell Urine None Seen (0-5/HPF); WBC Urine None Seen (0-5/HPF)
[2023-02-16 19:15] LABS: Amorphous Sediment Urine 4+; Culture Indicated Urine Specimen Cultured
[2023-02-16 20:00] VITALS: BP 102/68; PULSE 63; RESP 16; TEMP 36.5; O2SAT 96
--- NOTE | 2023-02-16 20:31 | PC.NURSE ---
Patient stated that she took 2 sleeping pills an hour ago but it's not working. Asked patient what medication she was talking about, patient stated that her boyfriend brought her home medications and they were in her bag. Her bag was behind her on the shelf not in reach of the patient who was bedrest w/ bed alarm on. Clarified with MUSIC EDUCATION DIRECTOR who also stated that bag was not with the patient at that. Patient appears mildly confused & forgetful. Educated on not using home medications & locked bag of home meds in patient drawer with approval from patient. Coordinator notified.
[2023-02-16 23:16] LABS: Adenovirus F 40/41 Not Detected (Not Detect); Astrovirus Not Detected (Not Detect); Campylobacter Not Detected (Not Detect); Clostridium difficile toxin AB Not Detected (Not Detect); Cryptosporidium Not Detected (Not Detect); Cyclospora cayetanensis Not Detected (Not Detect); Entamoeba histolytica Not Detected (Not Detect); Enteroaggregative E.coli Not Detected (Not Detect); Enteropathogenic E.coli Not Detected (Not Detect); Enterotoxigenic E.coli It/st Not Detected (Not Detect); Giardia lamblia Not Detected (Not Detect); Norovirus GI/GII Not Detected (Not Detect); Plesiomonsa shigelloides Not Detected (Not Detect); Rotavirus A Not Detected (Not Detect); Salmonella Not Detected (Not Detect); Sapovirus Not Detected (Not Detect); Shiga-like toxin-prod E.coli Not Detected (Not Detect); Shigella/Enteroinvasive E.coli Not Detected (Not Detect); Vibrio Not Detected (Not Detect); Vibrio cholerae Not Detected (Not Detect); Yersinia enterocolitica Not Detected (Not Detect)
[2023-02-17] VITALS: BP 110/72; PULSE 76; RESP 16; TEMP 36.5; O2SAT 96
[2023-02-17] MEDS: methylPREDNISolone 125 MG/2 ML VIAL 60 MG IV ×4 (00:57→19:02)
[2023-02-17] MEDS: OXYCODONE IR 10 MG TABLET PO ×5 (03:19→23:19)
[2023-02-17 04:00] VITALS: BP 110/64; PULSE 78; RESP 16; TEMP 37.1; O2SAT 96
--- NOTE | 2023-02-17 05:30 | PC.NURSE ---
Patient is AxOx4, VSS, O2 sats 96% on RA. Patient ambulated to bathroom frequently throughout the night, denies dizziness. No episodes of nausea or vomiting. Abdomen is mildly distended w/ minimal tenderness upon palpation, bowel sounds present, patient had x3 small bowel movements overnight. Pain 7-8/10 although adequately controlled w/ ordered pain medications per patient (received x1 dose of IV Dilaudid before bedtime & 10mg PO Oxycodone Q4hrs). Educated patient on use of call-light, bed alarm is on.
[2023-02-17] MEDS: PANTOPRAZOLE 40 MG VIAL IV (06:00)
[2023-02-17] MEDS: ACETAMINOPHEN 325 MG TABLET 650 MG PO ×3 (06:00→19:02)
[2023-02-17] MEDS: LEVOTHYROXINE 112 MCG TABLET PO (06:00)
[2023-02-17 06:17] LABS: Add Manual Diff / Slide Review NO; Basophils Absolute Auto 0 /uL (0-100); Basophils Percent Auto 0.1 % (0-2); Eosinophils Absolute Auto 0 /uL (0-450); Hemoglobin 10.2 g/dL (13.5-17.5); Lymphocytes Absolute Auto 600 /uL (1100-4500); Lymphocytes Percent Auto 6.6 % (25-40); Mean Corpuscular HGB Conc 34.1 % (30-36); Mean Corpuscular Hemoglobin 29.1 PG (26-34); Mean Corpuscular Volume 85.5 fL (80-100); Monocytes Absolute Auto 300 /uL (0-900); Monocytes Percent Auto 3.8 % (3-14); Neutrophils Absolute Auto 8100 /uL (1500-7000); Neutrophils Percent Auto 89.5 % (50-75); Platelet Count 329 X10^3/uL (150-400); Red Blood Cell Count 3.51 X10^6/uL (4.5-5.9); Red Cell Distribution Width 14.5 % (11.6-14.8)
[2023-02-17 06:20] LABS: BUN Creatinine Ratio 21.4 (6-22); Blood Urea Nitrogen 15 mg/dL (9-20); Calcium 7.9 mg/dL (8.4-10.2); Carbon Dioxide 26 mmol/L (22-32); Chloride 97 mmol/L (98-107); Estimated Glomerular Filt Rate > 60 mL/min (>60); Glucose 120 mg/dL (80-110); HEMOLYSIS < 15 (0-50); Potassium 4.4 mmol/L (3.4-5.1); Sodium 128 mmol/L (137-145)
[2023-02-17 06:23] LABS: C-Reactive Protein Quant 2.5 mg/dL (<1.0)
[2023-02-17] MEDS: HYDROMORPHONE 1 MG INJ IV ×3 (06:37→15:03)
[2023-02-17 08:00] VITALS: BP 111/77; PULSE 73; RESP 16; O2SAT 96
[2023-02-17] MEDS: HEPARIN 5,000 UNIT/ML VIAL 5000 UNIT SUBCUT ×2 (08:01→20:54)
[2023-02-17] MEDS: MESALAMINE 400 MG CAP.DRTAB. 1200 MG PO ×2 (08:02→20:54)
[2023-02-17] MEDS: MONTELUKAST 10 MG TABLET PO (08:02)
[2023-02-17 08:03] VITALS: BP 111/72; PULSE 73
[2023-02-17] MEDS: lisinopriL 10 MG TABLET PO (08:03)
[2023-02-17] MEDS: OXYCODONE IR 5 MG TABLET PO ×2 (08:03→12:05)
--- NOTE | 2023-02-17 09:35 | P.PN_ITS ---
Subjective Subjective Date Patient Seen: 02/17/23 Time Patient Seen: 09:36 Interval history: Jovany has had several small bowel movements since last night. No nausea or vomiting. Exam Vital Signs (past 8 hours): - 02/17/23 04:00 02/17/23 08:00 02/17/23 08:03 Temperature 98.8 F Pulse Rate 78 73 73 Respiratory Rate 16 16 Blood Pressure 110/64 111/77 111/72 Pulse Oximetry 96 96 Oxygen Flow Rate 0 Oxygen Delivery Method Room Air Oxygen Flow Rate 0 Const General: No acute distress Resp Effort & Inspection: normal respiratory effort GI Palpation: soft Objective Labs 02/17/23 05:20 02/17/23 05:20 Labs: Laboratory Results - last 24 hr 02/16/23 02/16/23 02/17/23 14:50 21:58 05:20 WBC 9.0 RBC 3.51 L Hgb 10.2 L Hct 30.0 L MCV 85.5 MCH 29.1 MCHC 34.1 RDW 14.5 Plt Count 329 Neut % (Auto) 89.5 H Lymph % (Auto) 6.6 L [place] % (Auto) 3.8 Eos % (Auto) 0.0 L Baso % (Auto) 0.1 Neut # (Auto) 8100 H Lymph # (Auto) 600 L [place] # (Auto) 300 Eos # (Auto) 0 Baso # (Auto) 0 Sodium 128 L Potassium 4.4 Chloride 97 L Carbon Dioxide 26 BUN 15 Creatinine 0.70 Estimated GFR > 60 BUN/Creatinine Ratio 21.4 Glucose 120 H Calcium 7.9 L C-Reactive Protein 2.5 H Urine Color Yellow Urine Appearance Turbid Urine pH 5.0 Ur Specific [place] >=1.030 H Urine Protein Trace H Urine Glucose (UA) Negative Urine Ketones 1+ H Urine Occult Blood Negative Urine Nitrate Positive H Urine Bilirubin Negative Urine Urobilinogen 0.2 Ur Leukocyte Esterase Negative Urine RBC None seen Urine WBC None seen Ur Squamous Epith Cells None seen Amorphous Sediment 4+ Urine Bacteria Moderate (10-30) H Ur Culture Indicated? Specimen cultured Stl C. cayetanensis PCR Not detected Stool Rotavirus (PCR) Not detected Stool Adenovirus (PCR) Not detected Stool Astrovirus (PCR) Not detected Stool Cryptosporidium PCR Not detected Stl E.coli Shiga Tox PCR Not detected St Sh/Enteroin Ecoli PCR Not detected Stl Enterotoxigenic E PCR Not detected Stool EPEC (PCR) Not detected Stl E. histolytica PCR Not detected Stool Giardia Lamblia PCR Not detected Stool Sapovirus (PCR) Not detected Stl P. shigelloides PCR Not detected St Y.enterocolitica PCR Not detected Stool Vibrio (PCR) Not detected Stl Vibrio cholerae PCR Not detected Stl Enteroaggr Ecoli PCR Not detected Stl Norovirus GI/GII PCR Not detected Campylobacter (PCR) Not detected C. difficile Tox (PCR) Not detected Salmonella (PCR) Not detected [facility] Medical History (Updated 02/16/23 @ 10:25 by Kaveh Chua MD) Hemorrhoids organ imaging abnormality Lower urinary tract symptoms Alcohol use disorder Mixed hyperlipidemia Hypothyroidism History of tobacco use disorder Long-term use of immunosuppressant medication Decreased cortisol level (07/2020) Hyponatremia with decreased serum osmolality Hyponatremia Long-term current use of steroids Abdominal aortic ectasia (01/2020) Iron deficiency anemia Hypertension Personal history of colonic polyps Pulmonary nodules Abdominal aortic aneurysm (AAA) Iatrogenic hypothyroidism COPD (chronic obstructive pulmonary disease) Crohns disease (~1968) Surgical History History of colonoscopy History of testicular surgery (~1956) History of mandibular surgery (~1987) Thyroid cancer (~06/2010) Tongue malignant neoplasm (~2015) Family History Father No problems noted. 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 Hopefully the steroids are starting to decrease the inflammation at the point of the obstruction in the descending colon allowing passage of small amounts of stool. Still, given the large amount of feces seen on CT scan upstream from the obstruction I would not advance his diet too quickly. When he is opened up completely he should be having relatively copious stool output for a day or 2. Quality VTE Deep Vein Thrombosis/Pulmonary Embolism Present on Admission: No
--- NOTE | 2023-02-17 11:16 | P.PN_ITS ---
Subjective Subjective Interval history: 72 M admitted with crohn's flare causing large bowel obstruction. He had some initial large bowel movements, slowed down a bit today. Advanced his diet to general, but surgeon does not recommend so quick of advancement, reduced to full liquids. Exam Vital Signs (past 8 hours): - 02/17/23 04:00 02/17/23 08:00 02/17/23 08:03 Temperature 98.8 F Pulse Rate 78 73 73 Respiratory Rate 16 16 Blood Pressure 110/64 111/77 111/72 Pulse Oximetry 96 96 Oxygen Flow Rate 0 Oxygen Delivery Method Room Air Oxygen Flow Rate 0 Narrative Exam Narrative: GEN: no acute distress HEENT: moist mucous membranes, PERRL NECK: trachea midline, no JVD CV: regular rate and rhythm, no murmurs PULM: clear bilaterally ABD: soft with mild distension, mild diffuse tenderness. EXT: warm and well perfused with no edema NEURO: awake, alert, oriented, no focal deficits Objective Labs 02/17/23 05:20 02/17/23 05:20 Labs: Laboratory Results - last 24 hr 02/16/23 02/16/23 02/17/23 14:50 21:58 05:20 WBC 9.0 RBC 3.51 L Hgb 10.2 L Hct 30.0 L MCV 85.5 MCH 29.1 MCHC 34.1 RDW 14.5 Plt Count 329 Neut % (Auto) 89.5 H Lymph % (Auto) 6.6 L [place] % (Auto) 3.8 Eos % (Auto) 0.0 L Baso % (Auto) 0.1 Neut # (Auto) 8100 H Lymph # (Auto) 600 L [place] # (Auto) 300 Eos # (Auto) 0 Baso # (Auto) 0 Sodium 128 L Potassium 4.4 Chloride 97 L Carbon Dioxide 26 BUN 15 Creatinine 0.70 Estimated GFR > 60 BUN/Creatinine Ratio 21.4 Glucose 120 H Calcium 7.9 L C-Reactive Protein 2.5 H Urine Color Yellow Urine Appearance Turbid Urine pH 5.0 Ur Specific [place] >=1.030 H Urine Protein Trace H Urine Glucose (UA) Negative Urine Ketones 1+ H Urine Occult Blood Negative Urine Nitrate Positive H Urine Bilirubin Negative Urine Urobilinogen 0.2 Ur Leukocyte Esterase Negative Urine RBC None seen Urine WBC None seen Ur Squamous Epith Cells None seen Amorphous Sediment 4+ Urine Bacteria Moderate (10-30) H Ur Culture Indicated? Specimen cultured Stl C. cayetanensis PCR Not detected Stool Rotavirus (PCR) Not detected Stool Adenovirus (PCR) Not detected Stool Astrovirus (PCR) Not detected Stool Cryptosporidium PCR Not detected Stl E.coli Shiga Tox PCR Not detected St Sh/Enteroin Ecoli PCR Not detected Stl Enterotoxigenic E PCR Not detected Stool EPEC (PCR) Not detected Stl E. histolytica PCR Not detected Stool Giardia Lamblia PCR Not detected Stool Sapovirus (PCR) Not detected Stl P. shigelloides PCR Not detected St Y.enterocolitica PCR Not detected Stool Vibrio (PCR) Not detected Stl Vibrio cholerae PCR Not detected Stl Enteroaggr Ecoli PCR Not detected Stl Norovirus GI/GII PCR Not detected Campylobacter (PCR) Not detected C. difficile Tox (PCR) Not detected Salmonella (PCR) Not detected [facility] Medical History (Updated 02/16/23 @ 10:25 by Kaveh Chua MD) Hemorrhoids organ imaging abnormality Lower urinary tract symptoms Alcohol use disorder Mixed hyperlipidemia Hypothyroidism History of tobacco use disorder Long-term use of immunosuppressant medication Decreased cortisol level (07/2020) Hyponatremia with decreased serum osmolality Hyponatremia Long-term current use of steroids Abdominal aortic ectasia (01/2020) Iron deficiency anemia Hypertension Personal history of colonic polyps Pulmonary nodules Abdominal aortic aneurysm (AAA) Iatrogenic hypothyroidism COPD (chronic obstructive pulmonary disease) Crohns disease (~1968) Surgical History History of colonoscopy History of testicular surgery (~1956) History of mandibular surgery (~1987) Thyroid cancer (~06/2010) Tongue malignant neoplasm (~2015) Family History Father No problems noted. 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 Fraire at [facility] -on biologic Skyrizi and last got dose on 01/28 -CT abd with inflamm of distal colon/rectum from IBD, with focal stricture of mid-descending colon and significant upstream dilated colon, small perforation at stricture site -spoke with Dr. Marie gen surg, consulted and recommended non-surgical management for now. Appreciate surgery consultation. Does not recommend so quick of advancement of diet. He tolerated clears, advanced to general but will reduce back to full liquid instead after surgical recommendations. -solumedrol 125mg q6h, decreased to 60 mg q6. Will continue for now. If still tolerating diet reduce further to oral prednisone. -mesalamine 1.2g BID -if SBO fails with steroids may need surgery and/or transfer for remicade -pain control -GI panel to r/o C. diff was negative for infectious pathologies. -low threshold for antibiotics with possible small perforation, but no WBC elevation and patient overall improving thus far with just steroids. # HTN -continue lisinopril for now, hold if looking like may need surgery. # hypothyroidism -continue synthroid when tolerating oral intake. # GERD -continue PPI but IV for now pending diet. Code status is full code. DVT prophylaxis with heparin subQ. Proxy is spouse Janette. I have reviewed home meds and used all available resources to reconcile the home meds. This patient will be admitted as inpatient and will require greater than 2 midnights of hospital time to treat SBO from Crohn's flare and need for intravenous steroids. Quality VTE Deep Vein Thrombosis/Pulmonary Embolism Present on Admission: No
--- NOTE | 2023-02-17 11:22 | CM.DPC ---
DCP Cont: Per MD and Surgeon, pt seems to be tolerating advancing diet and had a couple small bm overnight and bowel tones but continues to have pain and started on steroids and will advance pt's diet to general today to confirm he can tolerate. Pt likely not ready for d/c until tomorrow Mon. Spouse in room and pt has been independent with mobility and getting to the bathroom and they continue to not anticipate any further needs at d/c. Both quite active and independent at baseline. Spouse confirms she will transport home at d/c. Plan: SW to follow for likely d/c home via spouse POV tomorrow if he can tolerate general diet and pain controlled. JD Garcia
[2023-02-17 16:40] VITALS: BP 103/72; PULSE 54; RESP 16; TEMP 36.7; O2SAT 95
[2023-02-17 19:58] VITALS: BP 113/68; PULSE 57; RESP 17; TEMP 36.4; O2SAT 97
[2023-02-18] VITALS: BP 125/84; PULSE 62; RESP 18; TEMP 36.4; O2SAT 96
[2023-02-18] MEDS: methylPREDNISolone 125 MG/2 ML VIAL 60 MG IV ×2 (01:30→06:17)
[2023-02-18] MEDS: ACETAMINOPHEN 325 MG TABLET 650 MG PO (03:52)
[2023-02-18] MEDS: OXYCODONE IR 10 MG TABLET PO (03:52)
[2023-02-18 04:00] VITALS: BP 110/70; PULSE 56; RESP 18; TEMP 36.6; O2SAT 96
[2023-02-18 05:49] LABS: Add Manual Diff / Slide Review NO; Basophils Absolute Auto 0 /uL (0-100); Eosinophils Absolute Auto 0 /uL (0-450); Hematocrit 28.2 % (41-53); Hemoglobin 9.6 g/dL (13.5-17.5); Lymphocytes Absolute Auto 500 /uL (1100-4500); Lymphocytes Percent Auto 8.7 % (25-40); Mean Corpuscular HGB Conc 33.9 % (30-36); Mean Corpuscular Hemoglobin 28.9 PG (26-34); Mean Corpuscular Volume 85.1 fL (80-100); Monocytes Absolute Auto 200 /uL (0-900); Monocytes Percent Auto 4.1 % (3-14); Neutrophils Absolute Auto 4500 /uL (1500-7000); Neutrophils Percent Auto 87.2 % (50-75); Platelet Count 314 X10^3/uL (150-400); Red Blood Cell Count 3.31 X10^6/uL (4.5-5.9); Red Cell Distribution Width 14.5 % (11.6-14.8); White Blood Cell Count 5.2 X10^3/uL (4.5-11.0)
[2023-02-18 05:56] LABS: Blood Urea Nitrogen 16 mg/dL (9-20); Calcium 8.2 mg/dL (8.4-10.2); Carbon Dioxide 28 mmol/L (22-32); Chloride 96 mmol/L (98-107); Glucose 110 mg/dL (80-110); HEMOLYSIS < 15 (0-50); Potassium 4.2 mmol/L (3.4-5.1); Sodium 127 mmol/L (137-145)
[2023-02-18 06:00] LABS: C-Reactive Protein Quant 1.8 mg/dL (<1.0)
[2023-02-18 06:01] LABS: BUN Creatinine Ratio 22.5 (6-22); Estimated Glomerular Filt Rate > 60 mL/min (>60)
[2023-02-18] MEDS: PANTOPRAZOLE 40 MG VIAL IV (06:17)
[2023-02-18] MEDS: LEVOTHYROXINE 112 MCG TABLET PO (06:17)
[2023-02-18 07:41] VITALS: BP 112/65; PULSE 58; RESP 16; TEMP 36.3; O2SAT 96
[2023-02-18] MEDS: HEPARIN 5,000 UNIT/ML VIAL 5000 UNIT SUBCUT (08:41)
[2023-02-18] MEDS: MONTELUKAST 10 MG TABLET PO (08:41)
[2023-02-18] MEDS: lisinopriL 10 MG TABLET PO (08:41)
[2023-02-18] MEDS: MESALAMINE 400 MG CAP.DRTAB. 1200 MG PO (08:41)
--- NOTE | 2023-02-18 10:02 | PM.PN.1 ---
Subjective Subjective Date Patient Seen: 02/18/23 Time Patient Seen: 10:02 Interval history: Jovany has had multiple bowel movements overnight. No nausea or vomiting. Exam Vital Signs (past 8 hours): - 02/18/23 04:00 02/18/23 07:41 Temperature 98 F 97.4 F L Pulse Rate 56 L 58 L Respiratory Rate 18 16 Blood Pressure 110/70 112/65 Pulse Oximetry 96 96 Oxygen Flow Rate 0 0 Oxygen Delivery Method Room Air Oxygen Flow Rate 0 Const General: healthy appearing Objective Labs 02/18/23 05:05 02/18/23 05:05 Labs: Laboratory Results - last 24 hr 02/18/23 05:05 WBC 5.2 RBC 3.31 L Hgb 9.6 L Hct 28.2 L MCV 85.1 MCH 28.9 MCHC 33.9 RDW 14.5 Plt Count 314 Neut % (Auto) 87.2 H Lymph % (Auto) 8.7 L [place] % (Auto) 4.1 Eos % (Auto) 0.0 L Baso % (Auto) 0.0 Neut # (Auto) 4500 Lymph # (Auto) 500 L [place] # (Auto) 200 Eos # (Auto) 0 Baso # (Auto) 0 Sodium 127 L Potassium 4.2 Chloride 96 L Carbon Dioxide 28 BUN 16 Creatinine 0.71 Estimated GFR > 60 BUN/Creatinine Ratio 22.5 H Glucose 110 Calcium 8.2 L C-Reactive Protein 1.8 H [facility] Medical History (Updated 02/16/23 @ 10:25 by Kaveh Chua MD) Hemorrhoids organ imaging abnormality Lower urinary tract symptoms Alcohol use disorder Mixed hyperlipidemia Hypothyroidism History of tobacco use disorder Long-term use of immunosuppressant medication Decreased cortisol level (07/2020) Hyponatremia with decreased serum osmolality Hyponatremia Long-term current use of steroids Abdominal aortic ectasia (01/2020) Iron deficiency anemia Hypertension Personal history of colonic polyps Pulmonary nodules Abdominal aortic aneurysm (AAA) Iatrogenic hypothyroidism COPD (chronic obstructive pulmonary disease) Crohns disease (~1968) Surgical History History of colonoscopy History of testicular surgery (~1956) History of mandibular surgery (~1987) Thyroid cancer (~06/2010) Tongue malignant neoplasm (~2015) Family History Father No problems noted. 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 He can have a regular diet and potentially go home later today. I did explain to him that he should definitely follow up with his director weights and measures in the short term to re-evaluate the area in the left colon where the stricture appears on CT. I explained to him that this needs to be visualized endoscopically and if that is impossible than it would be an indication for surgery especially now that he has no longer acutely obstructed. He understands the implications and will get in touch with his director weights and measures soon. Quality VTE Deep Vein Thrombosis/Pulmonary Embolism Present on Admission: No
--- NOTE | 2023-02-18 10:03 | PM.DS.1 ---
History of Present Illness History of Present Illness Date Patient Seen: 02/18/23 Time Patient Seen: 10:03 Chief complaint: thinks bowel blockage Narrative: Per admitting provider, Jovany Blakely is a 72yo M with PMH of Crohn's on Skyrizi, COPD, tobacco use, HTN, HLD, AAA, hypothyroidism and chronic hyponatremia who presents with abd pain. Patient notes he hasn't had a BM for 3 days. Used to have several loose BM's per day before starting Skyrizi which he got his first dose on 01/28, about 2.5 weeks ago. He said after his BM's became very formed and only 2-3x per day. He was feeling quite good actually up until 3 days ago. He said he stopped passing gas as well. Currently his abd pain is well-controlled after dilaudid, but was a 10/10 in the ED. He denies any NV, CP, or fever/chills. Discharge Providers Provider Date of admission: 02/15/23 16:18 Discharge Date: 02/18/23 Primary care physician: MARLENY Almaraz Consults: 02/15/23 17:27 Consult to General Surgery Routine Comment: Consulting Provider: Parviz Marie Reason for consultation: SBO, crohn's Has provider been notified: Yes Discharge provider: Garry Talavera DO Summary Hospital Course Discharge Diagnosis: # Large bowel obstruction secondary to Crohn's flare # HTN # hypothyroidism # GERD Hospital Course: This is a 72 year old male with PMH of crohn's disease admitted with a large bowel obstruction due to colonic stricture and crohn's flare. General surgery was consulted and recommended no acute surgical management but followed closely. He possibly had a small microperf on CT imaging, however he had improving symptoms and no leukocytosis so he was not given antibiotics initially. His symptoms began to slowly improve with methylprednisolone and this was then tapered. He had return of bowel movements with improved abdominal pain, and was tolerating a diet at the time of discharge. He was started on mesalamine as well this admission. He was discharged with 60 mg of prednisone daily for 1 week, and instructed to reduce to 40 mg after for another week, with further taper to be decided by his GI provider at that time as well as 1.2 g BID of mesalamine. Surgeon does seem to think he will likely need colectomy at some point due to the stricture, but this can be further evaluated as an outpatient. GI panel was negative for C. diff or infectious etiologies. Time Spent with Patient Time spent: Greater than 30 minutes Exam Vital Signs (past 8 hours): - 02/18/23 04:00 02/18/23 07:41 Temperature 98 F 97.4 F L Pulse Rate 56 L 58 L Respiratory Rate 18 16 Blood Pressure 110/70 112/65 Pulse Oximetry 96 96 Oxygen Flow Rate 0 0 Oxygen Delivery Method Room Air Oxygen Flow Rate 0 Narrative Exam Narrative: GEN: no acute distress HEENT: moist mucous membranes, PERRL NECK: trachea midline, no JVD CV: regular rate and rhythm, no murmurs PULM: clear bilaterally ABD: S NT ND EXT: warm and well perfused with no edema NEURO: awake, alert, oriented, no focal deficits Objective Labs 02/18/23 05:05 02/18/23 05:05 Labs: Laboratory Results - last 24 hr 02/18/23 05:05 WBC 5.2 RBC 3.31 L Hgb 9.6 L Hct 28.2 L MCV 85.1 MCH 28.9 MCHC 33.9 RDW 14.5 Plt Count 314 Neut % (Auto) 87.2 H Lymph % (Auto) 8.7 L [place] % (Auto) 4.1 Eos % (Auto) 0.0 L Baso % (Auto) 0.0 Neut # (Auto) 4500 Lymph # (Auto) 500 L [place] # (Auto) 200 Eos # (Auto) 0 Baso # (Auto) 0 Sodium 127 L Potassium 4.2 Chloride 96 L Carbon Dioxide 28 BUN 16 Creatinine 0.71 Estimated GFR > 60 BUN/Creatinine Ratio 22.5 H Glucose 110 Calcium 8.2 L C-Reactive Protein 1.8 H [facility] Medical History (Updated 02/16/23 @ 10:25 by Kaveh Chua MD) Hemorrhoids organ imaging abnormality Lower urinary tract symptoms Alcohol use disorder Mixed hyperlipidemia Hypothyroidism History of tobacco use disorder Long-term use of immunosuppressant medication Decreased cortisol level (07/2020) Hyponatremia with decreased serum osmolality Hyponatremia Long-term current use of steroids Abdominal aortic ectasia (01/2020) Iron deficiency anemia Hypertension Personal history of colonic polyps Pulmonary nodules Abdominal aortic aneurysm (AAA) Iatrogenic hypothyroidism COPD (chronic obstructive pulmonary disease) Crohns disease (~1968) Surgical History History of colonoscopy History of testicular surgery (~1956) History of mandibular surgery (~1987) Thyroid cancer (~06/2010) Tongue malignant neoplasm (~2015) Family History Father No problems noted. 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 This improved with steroids, but you still may need surgery. Please follow up with your GI physician as soon as possible after discharge to discuss ongoing steroid management after the 2 weeks prescribed and possible surgical referral. Discharge orders & Medications Prescriptions: New mesalamine [Lialda] 1.2 gram tablet,delayed release (DR/EC) 1.2 g PO BID 30 Days Qty: 60 0RF prednisone 20 mg tablet See Rx Instructions .ROUTE .COMPLEX Qty: 35 0RF Rx Instructions: take 60 mg daily for 7 days, followed by 40 mg daily for 7 days. Continued levothyroxine 112 mcg tablet See Rx Instructions .ROUTE .COMPLEX Qty: 90 3RF Dose Instruction: TAKE 1 TABLET BY MOUTH DAILY Rx Instructions: TAKE 1 TABLET BY MOUTH DAILY albuterol sulfate 90 mcg/actuation HFA aerosol inhaler See Rx Instructions .ROUTE .COMPLEX Qty: 8.5 5RF Dose Instruction: INHALE 1 PUFF INTO THE LUNGS EVERY 4 TO 6 HOURS NEEDED FOR SHORTNESS OF BREATH OR WHEEZING Rx Instructions: INHALE 1 PUFF INTO THE LUNGS EVERY 4 TO 6 HOURS NEEDED FOR SHORTNESS OF BREATH OR WHEEZING lisinopril 10 mg tablet See Rx Instructions .ROUTE .COMPLEX Qty: 90 3RF Dose Instruction: TAKE 1 TABLET BY MOUTH DAILY Rx Instructions: TAKE 1 TABLET BY MOUTH DAILY montelukast 10 mg tablet See Rx Instructions .ROUTE .COMPLEX Qty: 90 0RF Dose Instruction: TAKE 1 TABLET BY MOUTH DAILY Rx Instructions: TAKE 1 TABLET BY MOUTH DAILY ferrous sulfate 325 mg (65 mg iron) tablet 325 mg PO DAILY fluticasone propionate 50 mcg/actuation spray,suspension 1 spray NASAL BID Qty: 15.8 2RF Rx Instructions: administer into each nostril twice daily cetirizine [Zyrtec] 10 mg tablet 10 mg PO DAILY PRN (Reason: ALLERGIES) Vitamin D3 See Rx Instructions .ROUTE .COMPLEX Rx Instructions: 1000iu daily with calcium; calcium See Rx Instructions .ROUTE .COMPLEX Rx Instructions: Take 500mg daily; Skyrizi 180 mg/1.2 mL (150 mg/mL) Wearable Injector See Rx Instructions .ROUTE .COMPLEX Rx Instructions: 180 mg subcutaneously 1 of 3 doses levofloxacin 500 mg tablet 500 mg PO DAILY Qty: 3 0RF vitamin B complex [B Complex-Vitamin B12] Tablet 1 tab PO DAILY omeprazole 20 mg tablet,delayed release (DR/EC) 20 mg PO DAILY Follow up/Referrals: Tete Zhang ARNP [Primary Care Provider] - Diet/Activity/Treatments Diet: Diet as Tolerated and Regular Activity: As tolerated, no restrictions. Visit Report/Discharge Packet Stand Alone Forms: Patient Portal/API, Stroke Signs & Symptoms Discharge Data Primary Care Provider: Tete Zhang Quality VTE Deep Vein Thrombosis/Pulmonary Embolism Present on Admission: No
--- NOTE | 2023-02-18 11:13 | CM.DPC ---
DCP Cont. Reviewed EMR and team rounds for status updates. Pt continues to improve, will be d/c'd home today. Spouse will transport. No further d/c needs identified at this time.
--- NOTE | 2023-02-18 12:36 | PC.NURSE ---
Patient A&OX4, independent in his room. VSS on RA. He is tolerating a full liquid breakfast this morning and denies any n/v or abdominal pain. He reports many small loose BM's overnight. He is evaluated by MD Chua and the hospitalist and cleared for discharge this a.m. He verbalizes understanding of medication prescription as well as out patient follow up recommendations. He is escorted by RN with and all of his belongings outside of the hospital for discharge home in private vehicle with his at approximately 11:22 this a.m.
== END 2023-02-18 11:22 | disposition home or self-care (01) | DRG 386 ==
LOC: ED 13:02 → AC 16:19
PROVIDERS: Admitting Provider Student in an Organized Health Care Education/Training Program; Emergency Provider Emergency Medicine; PCP Nurse Practitioner; Referring Provider Emergency Medicine; Visit Provider Student in an Organized Health Care Education/Training Program
DX: K50.912 Crohn's disease, unspecified, with intestinal obstruction (principal); E87.1 Hypo-osmolality and hyponatremia; K56.699 Other intestinal obstruction unspecified as to partial versus complete obstruction; I10 Essential (primary) hypertension; E03.9 Hypothyroidism, unspecified; K21.9 Gastro-esophageal reflux disease without esophagitis; J44.9 Chronic obstructive pulmonary disease, unspecified; D50.9 Iron deficiency anemia, unspecified; F17.210 Nicotine dependence, cigarettes, uncomplicated
CPT/HCPCS: 36415; 74177; 80048; 80053; 81001; 83690; 84145; 85025; 85651; 86140; 87086; 87507; 93005; 93010; 96374; 96375; 96376; 99231; 99232; 99233; 99284; 99285; C9113; J1170; J1644; J2405; J2930

== ENCOUNTER 2023-02-28 13:29 | Inpatient (IN) | payer OTHER, SELFPAY ==
[2023-02-15 17:25] VITALS: BMI 22.4
[2023-02-28] VITALS (10 sets, daily range): BP systolic 121–166; BP diastolic 73–80; PULSE 58–70; RESP 15–20; TEMP 36.4; O2SAT 97–99; BMI 22.9; BMI 21.9
[2023-02-28 13:52] LABS: Add Manual Diff / Slide Review NO; Basophils Absolute Auto 100 /uL (0-100); Basophils Percent Auto 0.6 % (0-2); Eosinophils Absolute Auto 300 /uL (0-450); Eosinophils Percent Auto 2.1 % (2-4); Hematocrit 37.6 % (41-53); Hemoglobin 12.5 g/dL (13.5-17.5); Lymphocytes Absolute Auto 1500 /uL (1100-4500); Mean Corpuscular HGB Conc 33.2 % (30-36); Mean Corpuscular Hemoglobin 28.4 PG (26-34); Mean Corpuscular Volume 85.4 fL (80-100); Monocytes Absolute Auto 1100 /uL (0-900); Monocytes Percent Auto 8.5 % (3-14); Neutrophils Absolute Auto 10400 /uL (1500-7000); Neutrophils Percent Auto 77.8 % (50-75); Platelet Count 400 X10^3/uL (150-400); Red Blood Cell Count 4.41 X10^6/uL (4.5-5.9); Red Cell Distribution Width 15.1 % (11.6-14.8); White Blood Cell Count 13.3 X10^3/uL (4.5-11.0)
[2023-02-28 14:04] LABS: Alanine Aminotransferase 30 IU/L (<50); Albumin 3.9 g/dL (3.5-5.0); Albumin Globulin Ratio 1.2 (1.0-2.8); Alkaline Phosphatase 73 U/L (38-126); Aspartate Aminotransferase 28 IU/L (17-59); BUN Creatinine Ratio 22.5 (6-22); Bilirubin Total 0.6 mg/dL (0.2-1.3); Blood Urea Nitrogen 16 mg/dL (9-20); Calcium 9.2 mg/dL (8.4-10.2); Carbon Dioxide 27 mmol/L (22-32); Chloride 97 mmol/L (98-107); Estimated Glomerular Filt Rate > 60 mL/min (>60); Globulin 3.2 g/dL (1.7-4.1); Glucose 95 mg/dL (80-110); HEMOLYSIS 18 (0-50); Lipase 123 U/L (23-300); Potassium 4.3 mmol/L (3.4-5.1); Sodium 130 mmol/L (137-145); Total Protein 7.1 g/dL (6.3-8.2)
--- NOTE | 2023-02-28 14:48 | ED_ITS ---
HPI - Abdominal Pain General Chief Complaint: Abdominal Pain Stated Complaint: per pt. bowel blockage Time Seen by Provider: 02/28/23 14:48 Source: patient, family, RN notes reviewed and old records reviewed Mode of arrival: Ambulatory Limitations: no limitations History of Present Illness HPI narrative: 72-year-old male with history of prior bowel obstruction, Crohn's disease recently started on Skyrizi, hypertension hypothyroidism and chronic tobacco use. Patient states he was hospitalized the end of January discharged home after conservative management of bowel obstruction. Patient states he had fluids pain management and did not require an NG tube for surgical intervention. States since then he is had no bowel movements since 0 400 yesterday, he has passed flatus, he is had increasing pain and distention. He denies any nausea or vomiting. Denies any chest pain or shortness of breath. No fevers or chills. He states no if difficulties with urination or dysuria urgency or frequency. Patient states he is on 10 mg lisinopril, levothyroxine and is still finishing his prednisone taper he is in his 2nd week from his discharge from hospital. Was on Humira for 5 years until it stopped working and then transferred to [facility], he had 1 infusion then developed his most recent complications and had the 2nd canceled by his water resource project manager. He sees Dr. Fraire at [facility]. He states he is had thyroidectomy but no intra-abdominal surgeries in the past. Does use tobacco, drinks 2 or 3 alcoholic drinks weekly, occasional edible but no other recreational drugs. Primary care is [facility]. Current water resource project manager is Dr. Fraire. Related Data Home Medications Medication Instructions Recorded Confirmed cetirizine 10 mg tablet (Zyrtec) 10 mg PO DAILY PRN ALLERGIES 10/11/21 02/28/23 Vitamin D3 See Rx Instructions .Route .COMPLEX 11/02/21 02/28/23 calcium See Rx Instructions .Route .COMPLEX 01/31/22 02/28/23 ferrous sulfate 325 mg (65 mg 325 mg PO DAILY anemia 01/31/22 02/28/23 iron) tablet vitamin B complex (B 1 tab PO DAILY 05/10/22 02/28/23 Complex-Vitamin B12 tablet) omeprazole 20 mg tablet,delayed 20 mg PO DAILY 11/22/22 02/28/23 release risankizumab-rzaa 180 mg/1.2 mL See Rx Instructions .Route .COMPLEX 02/15/23 02/28/23 (150 mg/mL) subcut wearable injector (Skyrizi) Previous Rx's Medication Instructions Recorded fluticasone propionate 50 1 spray intranasal BID #15.8 mL 02/02/19 mcg/actuation nasal spray,suspension levothyroxine 112 mcg tablet See Rx Instructions .Route 08/06/22 .COMPLEX #90 tabs albuterol sulfate 90 mcg/actuation See Rx Instructions .Route 08/13/22 aerosol inhaler .COMPLEX #8.5 grams lisinopril 10 mg tablet See Rx Instructions .Route 10/25/22 .COMPLEX #90 tabs montelukast 10 mg tablet See Rx Instructions .Route 01/30/23 .COMPLEX #90 tabs mesalamine 1.2 gram tablet,delayed 1.2 g PO BID 30 days #60 tabs 02/18/23 release (Lialda) prednisone 20 mg tablet See Rx Instructions .Route 02/18/23 .COMPLEX #35 tabs Allergies Allergy/AdvReac Type Severity Reaction Status Date / Time No Known Drug Allergies Allergy Verified 02/28/23 13:37 Review of Systems Review of Systems ROS Unobtainable: All systems reviewed & are unremarkable except as noted in HPI and below Patient History Medical History Prostate cancer Hemorrhoids organ imaging abnormality Lower urinary tract symptoms Alcohol use disorder Mixed hyperlipidemia Hypothyroidism History of tobacco use disorder Long-term use of immunosuppressant medication Decreased cortisol level (07/2020) Hyponatremia with decreased serum osmolality Hyponatremia Long-term current use of steroids Abdominal aortic ectasia (01/2020) Iron deficiency anemia Hypertension Personal history of colonic polyps Pulmonary nodules Abdominal aortic aneurysm (AAA) Iatrogenic hypothyroidism COPD (chronic obstructive pulmonary disease) Crohns disease (~1968) Surgical History History of colonoscopy History of testicular surgery (~1956) History of mandibular surgery (~1987) Thyroid cancer (~06/2010) Tongue malignant neoplasm (~2015) Family History Father No problems noted. 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 Distress. HEENT: Head normocephalic, atraumatic, EOMI, pupils reactive, face symmetric, moist mucous membranes NECK: Supple, full range of motion CARDIOVASCULAR: Regular rate and rhythm without murmurs, rubs or gallops. RESPIRATORY: Breath sounds equal bilaterally, no wheezes rales or rhonchi. No tachypnea or accessory muscle use. ABDOMEN: Soft, generalized tenderness. Patient is distended and feels full. No fluid wave. Hyperactive sounds all 4 quadrants. No guarding or rebound, rigidity, no mass : No CVA tenderness EXTREMITIES: Normal range of motion, no clubbing or edema. Neurovascularly intact NEUROLOGICAL: Cranial nerves II through XII grossly intact. Moving all extremities SKIN: Warm, dry, no petechiae, no rashes or lesions. Initial Vital Signs Initial Vital Signs: Vital Signs Temperature 97.6 F 02/28/23 13:31 Pulse Rate 69 02/28/23 13:31 Respiratory Rate 15 02/28/23 13:31 Blood Pressure 166/80 H 02/28/23 13:31 Pulse Oximetry 99 02/28/23 13:31 Oxygen Delivery Method Room Air 02/28/23 13:31 Course Orders Ordered: ED Orders 02/28/23 13:38 Complete Blood Count AUTO DIFF Stat Comprehensive Metabolic Panel Stat Lipase Stat 02/28/23 13:47 EKG-12 Lead Stat 02/28/23 14:54 CT abdomen pelvis w con Stat 02/28/23 15:36 Consult to General Surgery Stat Hydromorphone HCl (Hydromorphone 1 Mg Inj) 1 mg IV Q4H PRN PRN Reason: Pain, Severe (7-10) Last Admin: 02/28/23 17:09 Dose: 1 mg Documented By: MED Sodium Chloride (Normal Saline 0.9%) 1,000 mls @ 100 mls/hr IV CONT SUSY Stop: 03/01/23 03:59 Last Admin: 02/28/23 17:09 Dose: 100 mls/hr Documented By: MED Levothyroxine Sodium (Levothyroxine 112 Mcg Tablet) 112 mcg PO DAILY@0600 [facility] Methylprednisolone (Methylprednisolone 125 Mg/2 Ml Vial) 125 mg IV Q6H [facility] Naloxone HCl (Naloxone 0.4 Mg/Ml Vial) 0.2 mg IV Q2MIN PRN PRN Reason: Opiate Reversal Ondansetron HCl (Ondansetron 4 Mg/2 Ml Inj) 4 mg IV NOW PRN PRN Reason: Nausea And Vomiting Ondansetron HCl (Ondansetron 4 Mg/2 Ml Inj) 4 mg IV Q4HR PRN PRN Reason: Nausea And Vomiting Pantoprazole Sodium (Pantoprazole 40 Mg Vial) 40 mg IV DAILY [facility] Discontinued Medications Sodium Chloride (Normal Saline 0.9%) 1,000 mls @ 1,000 mls/hr IV BOLUS ONE Stop: 02/28/23 15:53 Last Admin: 02/28/23 15:13 Dose: 1,000 mls/hr Documented By: DORINDA Ketorolac Tromethamine (Ketorolac 30 Mg/Ml Vial) 15 mg IV NOW ONE Stop: 02/28/23 14:55 Last Admin: 02/28/23 15:13 Dose: 15 mg Documented By: DORINDA Methylprednisolone (Methylprednisolone 125 Mg/2 Ml Vial) 60 mg IV Q12H [facility] Last Admin: 02/28/23 17:07 Dose: 60 mg Documented By: MED Methylprednisolone (Methylprednisolone 125 Mg/2 Ml Vial) 65 mg IV NOW ONE Stop: 02/28/23 17:23 Last Admin: 02/28/23 17:09 Dose: 65 mg Documented By: MED Vital Signs Vital signs: Vital Signs - 8 hr 02/28/23 13:31 02/28/23 13:32 02/28/23 13:33 Temperature 97.6 F Pulse Rate 69 67 Respiratory Rate 15 Blood Pressure 166/80 H Pulse Oximetry 99 98 98 Oxygen Delivery Method Room Air 02/28/23 13:33 02/28/23 14:00 02/28/23 14:30 Temperature Pulse Rate 63 64 Respiratory Rate Blood Pressure 166/80 H Pulse Oximetry 98 99 Oxygen Delivery Method Room Air 02/28/23 15:00 02/28/23 15:19 02/28/23 15:19 Temperature Pulse Rate 70 62 Respiratory Rate Blood Pressure 139/79 Pulse Oximetry 98 97 Oxygen Delivery Method 02/28/23 15:30 02/28/23 15:30 Temperature Pulse Rate 58 L Respiratory Rate Blood Pressure 121/74 Pulse Oximetry 98 Oxygen Delivery Method Room Air MDM - Abdominal Pain Lab Data 02/28/23 13:38 02/28/23 13:38 Labs: Lab Results 02/28/23 Range/Units 13:38 WBC 13.3 H (4.5-11.0) X10^3/uL RBC 4.41 L (4.5-5.9) X10^6/uL Hgb 12.5 L (13.5-17.5) g/dL Hct 37.6 L (41-53) % MCV 85.4 (80-100) fL MCH 28.4 (26-34) PG MCHC 33.2 (30-36) % RDW 15.1 H (11.6-14.8) % Plt Count 400 (150-400) X10^3/uL Neut % (Auto) 77.8 H (50-75) % Lymph % (Auto) 11.0 L (25-40) % [place] % (Auto) 8.5 (3-14) % Eos % (Auto) 2.1 (2-4) % Baso % (Auto) 0.6 (0-2) % Neut # (Auto) 01099 H (1316-8324) /uL Lymph # (Auto) 1500 (5119-2647) /uL [place] # (Auto) 1100 H (0-900) /uL Eos # (Auto) 300 (0-450) /uL Baso # (Auto) 100 (0-100) /uL Sodium 130 L (137-145) mmol/L Potassium 4.3 (3.4-5.1) mmol/L Chloride 97 L (98-107) mmol/L Carbon Dioxide 27 (22-32) mmol/L BUN 16 (9-20) mg/dL Creatinine 0.71 (0.66-1.25) mg/dL Estimated GFR > 60 (>60) mL/min BUN/Creatinine Ratio 22.5 H (6-22) Glucose 95 (80-110) mg/dL Calcium 9.2 (8.4-10.2) mg/dL Magnesium 2.2 (1.6-2.3) mg/dL Total Bilirubin 0.6 (0.2-1.3) mg/dL AST 28 (17-59) IU/L ALT 30 (<50) IU/L Alkaline Phosphatase 73 (38-126) U/L Total Protein 7.1 (6.3-8.2) g/dL Albumin 3.9 (3.5-5.0) g/dL Globulin 3.2 (1.7-4.1) g/dL Albumin/Globulin Ratio 1.2 (1.0-2.8) Lipase 123 (23-300) U/L Imaging Data CT scan - abdomen/pelvis: Radiologist's Impression: [address] [address] [address] Scan Report Signed Patient: Jovany Blakely MR#: [id number] : 1950 Acct:[id number] Age/Sex: 72 / M Date of Service: 02/28/23 Loc: ED Accession Number: [id number] Procedure: CT abdomen pelvis w con Ordering Provider: Janene Ashley D.O. PROCEDURE: CT ABDOMEN PELVIS W CON INDICATIONS: concern for SBO, hx crohns has had prior SBOs TECHNIQUE: After the administration of intravenous contrast, axial sections acquired from the lung bases to the pubic symphysis. Coronal and sagittal reformats were performed. For radiation dose reduction, the following was used: automated exposure control, adjustment of mA and/or kV according to patient size. COMPARISON: [facility], CT, CT ABDOMEN PELVIS W CON, 02/15/2023, 13:52. FINDINGS: Image quality: Excellent. Lung bases: Unremarkable. Heart: No significant findings. ABDOMEN: Liver: Unremarkable. Gallbladder: Unremarkable. Biliary ducts: Unremarkable. Pancreas: Unremarkable. Spleen: Multiple calcifications within the spleen. Adrenal Glands: Unremarkable. Kidneys and Ureters: Unremarkable. Stomach and Bowel: Stomach and small bowel are within normal limits. Appendix is not seen. Moderate dilatation of the right colon, transverse colon, and proximal descending colon, which is stool filled. There is moderate thickening of the mid and distal descending colon as well as the proximal and mid sigmoid colon. Contained perforation measuring roughly 24 mm adjacent to the mid descending colon with surrounding fat stranding is unchanged. Peritoneum: No abnormal intraperitoneal fluid. No free air. Ventral Wall: No hernias. Abdominal Nodes: No retroperitoneal or mesenteric adenopathy by size criteria. Vessels: Aorta and inferior vena cava are normal in size. PELVIS: Pelvic Organs: Unremarkable. Bladder: Unremarkable. Pelvic Nodes: No enlarged lymph nodes. Miscellaneous: No hernias are seen. Bones: Unremarkable. IMPRESSION: 1. Left colonic thickening associated with colonic obstruction. Differential considerations include ischemia, infection, inflammation, and malignancy. The adjacent focal perforation is unchanged. Dictated by: Berta Luna M.D. on 02/28/2023 at 15:15 Approved by: Berta Luna M.D. on 02/28/2023 at 15:19 ECG Data Attestation: I personally reviewed and interpreted this ECG as follows: Prior ECG tracings: available for review Interpretation: Sinus rhythm rate of 64 TX 172 QRS of [address]TC 439. 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 MDM Narrative Medical decision making narrative: This is a 72-year-old male who presents with concern of bowel obstruction he has been having flatus but has not had a bowel movement in approximately 24 hours, no nausea or vomiting but his abdomen is distended and feels full with the exam most consistent with bowel obstruction. Labs show slight leukocytosis at 13 hemoglobin is 12 with platelets of 400 glucose 95, normal renal function, patient has some mild hyponatremia but otherwise normal electrolytes. He does note he drinks alcohol regularly which might be contributing. LFTs are negative. Discussed with patient he is open to CT imaging as I suspect he has a partial bowel obstruction versus full bowel obstruction. CT imaging shows left colonic wall thickening with colonic obstruction, focal perforation unchanged from CT imaging on 02/15/2023. Patient received fluids, Toradol and on recheck Spoke with Dr. Villatoro, general surgery: Happy to follow along with patient asked for consult in the chart. Defers to General surgery. Spoke with Dr. Staley. Accepts for admission. Discussed steroids we will give initial dose. He will talk with General surgery about next steps. Discharge Plan Departure Patient Disposition: Admitted As Inpatient Clinical Impression: Small bowel obstruction Admit Date/Time: 02/28/23 15:43 Admit Provider: Anthony Staley
--- NOTE | 2023-02-28 14:54 | DI.CT.S_ITS ---
PROCEDURE: CT ABDOMEN PELVIS W CON INDICATIONS: concern for SBO, hx crohns has had prior SBOs TECHNIQUE: After the administration of intravenous contrast, axial sections acquired from the lung bases to the pubic symphysis. Coronal and sagittal reformats were performed. For radiation dose reduction, the following was used: automated exposure control, adjustment of mA and/or kV according to patient size. COMPARISON: [facility], CT, CT ABDOMEN PELVIS W CON, 02/15/2023, 13:52. FINDINGS: Image quality: Excellent. Lung bases: Unremarkable. Heart: No significant findings. ABDOMEN: Liver: Unremarkable. Gallbladder: Unremarkable. Biliary ducts: Unremarkable. Pancreas: Unremarkable. Spleen: Multiple calcifications within the spleen. Adrenal Glands: Unremarkable. Kidneys and Ureters: Unremarkable. Stomach and Bowel: Stomach and small bowel are within normal limits. Appendix is not seen. Moderate dilatation of the right colon, transverse colon, and proximal descending colon, which is stool filled. There is moderate thickening of the mid and distal descending colon as well as the proximal and mid sigmoid colon. Contained perforation measuring roughly 24 mm adjacent to the mid descending colon with surrounding fat stranding is unchanged. Peritoneum: No abnormal intraperitoneal fluid. No free air. Ventral Wall: No hernias. Abdominal Nodes: No retroperitoneal or mesenteric adenopathy by size criteria. Vessels: Aorta and inferior vena cava are normal in size. PELVIS: Pelvic Organs: Unremarkable. Bladder: Unremarkable. Pelvic Nodes: No enlarged lymph nodes. Miscellaneous: No hernias are seen. Bones: Unremarkable. IMPRESSION: 1. Left colonic thickening associated with colonic obstruction. Differential considerations include ischemia, infection, inflammation, and malignancy. The adjacent focal perforation is unchanged. Dictated by: Berta Luna M.D. on 02/28/2023 at 15:15 Approved by: Berta Luna M.D. on 02/28/2023 at 15:19
[2023-02-28] MEDS: SODIUM CHLORIDE 0.9% 1,000 ML 1000 ML IV (15:13)
[2023-02-28] MEDS: KETOROLAC 30 MG/ML VIAL 15 MG IV (15:13)
--- NOTE | 2023-02-28 15:41 | P.HP_ITS ---
History of Present Illness History of Present Illness Date Patient Seen: 02/28/23 Chief complaint: per pt. bowel blockage Narrative: Jovany Blakely is a 72yo M with PMH of Crohn's on Skyrizi, COPD, tobacco use, HTN, HLD, AAA, hypothyroidism and chronic hyponatremia who presents with repeat colonic obstruction. Recently admitted for obstructing due to Crohn's flare. Recieved IV steroids, NG tube and improved then discharged home on prednisone taper. Had lowered to 40mg daily 3 days ago. Was doing ok until yesterday he stopped having BM's and developed worsening abdominal pain and distention. He did not vomit, is passing some gas. In the ED found to have recurrent left-sided obstruction with bowel thickening and small unchanged perforation. Spoke with gen surg who recommended speaking with GI. Spoke with [facility] who recommended repeating high-dose IV steroids and will hopefully improve enough to get outpatient colonoscopy. Patient denies NV, CP, SOB, dizziness or syncope. [facility] Medical History Prostate cancer Hemorrhoids organ imaging abnormality Lower urinary tract symptoms Alcohol use disorder Mixed hyperlipidemia Hypothyroidism History of tobacco use disorder Long-term use of immunosuppressant medication Decreased cortisol level (07/2020) Hyponatremia with decreased serum osmolality Hyponatremia Long-term current use of steroids Abdominal aortic ectasia (01/2020) Iron deficiency anemia Hypertension Personal history of colonic polyps Pulmonary nodules Abdominal aortic aneurysm (AAA) Iatrogenic hypothyroidism COPD (chronic obstructive pulmonary disease) Crohns disease (~1968) Surgical History History of colonoscopy History of testicular surgery (~1956) History of mandibular surgery (~1987) Thyroid cancer (~06/2010) Tongue malignant neoplasm (~2015) Family History Father No problems noted. 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 Smoking Status: Current every day smoker alcohol intake: current substance use type: marijuana (on occasion) caffeine: Yes Meds Home Medications and Allergies Home Medications Medication Instructions Recorded Confirmed Type fluticasone propionate 50 1 spray intranasal BID #15.8 mL 02/02/19 02/28/23 Rx mcg/actuation nasal spray,suspension cetirizine 10 mg tablet (Zyrtec) 10 mg PO DAILY PRN ALLERGIES 10/11/21 02/28/23 History Vitamin D3 See Rx Instructions .Route .COMPLEX 11/02/21 02/28/23 History calcium See Rx Instructions .Route .COMPLEX 01/31/22 02/28/23 History ferrous sulfate 325 mg (65 mg 325 mg PO DAILY anemia 01/31/22 02/28/23 History iron) tablet vitamin B complex (B 1 tab PO DAILY 05/10/22 02/28/23 History Complex-Vitamin B12 tablet) levothyroxine 112 mcg tablet See Rx Instructions .Route 08/06/22 02/28/23 Rx .COMPLEX #90 tabs albuterol sulfate 90 mcg/actuation See Rx Instructions .Route 08/13/22 02/28/23 Rx aerosol inhaler .COMPLEX #8.5 grams lisinopril 10 mg tablet See Rx Instructions .Route 10/25/22 02/28/23 Rx .COMPLEX #90 tabs omeprazole 20 mg tablet,delayed 20 mg PO DAILY 11/22/22 02/28/23 History release montelukast 10 mg tablet See Rx Instructions .Route 01/30/23 02/28/23 Rx .COMPLEX #90 tabs risankizumab-rzaa 180 mg/1.2 mL See Rx Instructions .Route .COMPLEX 02/15/23 02/28/23 History (150 mg/mL) subcut wearable injector (Skyrizi) mesalamine 1.2 gram tablet,delayed 1.2 g PO BID 30 days #60 tabs 02/18/23 02/28/23 Rx release (Lialda) prednisone 20 mg tablet See Rx Instructions .Route 02/18/23 02/28/23 Rx .COMPLEX #35 tabs Allergies Allergy/AdvReac Type Severity Reaction Status Date / Time No Known Drug Allergies Allergy Verified 02/28/23 13:37 Review of Systems Review of Systems Narrative: All other systems reviewed with the patient and are negative unless otherwise stated. Exam Vital Signs (past 8 hours): - 02/28/23 13:31 02/28/23 13:32 02/28/23 13:33 Temperature 97.6 F Pulse Rate 69 67 Respiratory Rate 15 Blood Pressure 166/80 H Pulse Oximetry 99 98 98 Oxygen Delivery Method Room Air 02/28/23 13:33 02/28/23 14:00 02/28/23 14:30 Temperature Pulse Rate 63 64 Respiratory Rate Blood Pressure 166/80 H Pulse Oximetry 98 99 Oxygen Delivery Method Room Air Oxygen Delivery Method Room Air Narrative Exam Narrative: GEN: no acute distress HEENT: dry mucous membranes, PERRL NECK: trachea midline, no JVD CV: regular rate and rhythm, no murmurs PULM: clear bilaterally ABD: soft, distended, LLQ tenderness, some intermittent bowel tones EXT: warm and well perfused with no edema NEURO: awake, alert, oriented, no focal deficits Objective Labs 02/28/23 13:38 02/28/23 13:38 Labs: Laboratory Results - last 24 hr 02/28/23 13:38 WBC 13.3 H RBC 4.41 L Hgb 12.5 L Hct 37.6 L MCV 85.4 MCH 28.4 MCHC 33.2 RDW 15.1 H Plt Count 400 Neut % (Auto) 77.8 H Lymph % (Auto) 11.0 L [place] % (Auto) 8.5 Eos % (Auto) 2.1 Baso % (Auto) 0.6 Neut # (Auto) 20277 H Lymph # (Auto) 1500 [place] # (Auto) 1100 H Eos # (Auto) 300 Baso # (Auto) 100 Sodium 130 L Potassium 4.3 Chloride 97 L Carbon Dioxide 27 BUN 16 Creatinine 0.71 Estimated GFR > 60 BUN/Creatinine Ratio 22.5 H Glucose 95 Calcium 9.2 Total Bilirubin 0.6 AST 28 ALT 30 Alkaline Phosphatase 73 Total Protein 7.1 Albumin 3.9 Globulin 3.2 Albumin/Globulin Ratio 1.2 Lipase 123 Assessment & Plan Assessment & Plan narrative: # recurrent colonic obstruction, in the setting of Crohn's disease -Crohn's followed by Dr. Fraire at [facility], on biologic Skyrizi and last got dose on 01/28. Was due to second infusion on 02/[address] Fraire cancelled it -recently admitted for L-sided obstruction and discharged 1.5 weeks ago on prednisone taper -CT abd with left colonic thickening, with large colonic distention behind and focal unchanged perforation -Dr. Villatoro gen surg consulted by ED -spoke with GI at [facility] who recommended repeating IV steroids and if able to have BM's arrange urgent outpatient colonoscopy and put on 60mg daily prednisone without taper -solumedrol 125mg q6h # HTN -normotensive so holding lisinopril # hypothyroidism -continue synthroid # GERD -continue PPI but IV Code status is full code. DVT prophylaxis with SCDs. Proxy is spouse Janette. I have reviewed home meds and used all available resources to reconcile the home meds. Case discussed with ED physician/APC and patient will be admitted to the hospitalist service for further workup and management. This patient will be admitted as inpatient and will require greater than 2 midnights of hospital time to treat recurrent SBO.
[2023-02-28 16:42] LABS: Magnesium 2.2 mg/dL (1.6-2.3)
[2023-02-28] MEDS: methylPREDNISolone 125 MG/2 ML VIAL 60 MG IV (17:07)
[2023-02-28] MEDS: HYDROMORPHONE 1 MG INJ IV ×2 (17:09→20:39)
[2023-02-28] MEDS: methylPREDNISolone 125 MG/2 ML VIAL 65 MG IV (17:09)
[2023-02-28] MEDS: SODIUM CHLORIDE 0.9% 1,000 ML 100 ML IV (17:09)
--- NOTE | 2023-02-28 18:50 | PC.NURSE ---
Patient given dilaudid iv and helpful with discomfort. Tolerating NS and patient is resting now.
[2023-02-28] MEDS: methylPREDNISolone 125 MG/2 ML VIAL IV (23:14)
--- NOTE | 2023-02-28 23:52 | PM.CALLCOV.1 ---
Call Coverage Note Note Date of Patient Contact: 02/28/23 Narrative of Care Provided: Readmit for colonic obstruction. H/o Crohn's responded to steroids and discharged. Back with similar complaints while on steriod taper. CT scan I reveiw which is unchange from last. spoke with [facility] where he is followed and the recommendation was Steroids, C-scope if no improvement. Possible surgery if he fails to improve.
[2023-03-01] VITALS: BP 108/65; PULSE 61; RESP 16; TEMP 36; O2SAT 97
[2023-03-01] MEDS: HYDROMORPHONE 1 MG INJ IV ×4 (01:24→19:56)
[2023-03-01] MEDS: methylPREDNISolone 125 MG/2 ML VIAL IV ×4 (05:27→23:05)
[2023-03-01] MEDS: LEVOTHYROXINE 112 MCG TABLET PO (05:31)
[2023-03-01 06:00] VITALS: BP 100/71; PULSE 62; RESP 18; TEMP 36.2; O2SAT 96
[2023-03-01 06:34] LABS: Add Manual Diff / Slide Review NO; Basophils Absolute Auto 0 /uL (0-100); Basophils Percent Auto 0.1 % (0-2); Eosinophils Absolute Auto 0 /uL (0-450); Eosinophils Percent Auto 0.1 % (2-4); Hemoglobin 12.7 g/dL (13.5-17.5); Lymphocytes Absolute Auto 1100 /uL (1100-4500); Lymphocytes Percent Auto 7.1 % (25-40); Mean Corpuscular HGB Conc 33.3 % (30-36); Mean Corpuscular Hemoglobin 28.7 PG (26-34); Mean Corpuscular Volume 86.2 fL (80-100); Monocytes Absolute Auto 100 /uL (0-900); Monocytes Percent Auto 0.8 % (3-14); Neutrophils Absolute Auto 14500 /uL (1500-7000); Neutrophils Percent Auto 91.9 % (50-75); Platelet Count 395 X10^3/uL (150-400); Red Blood Cell Count 4.41 X10^6/uL (4.5-5.9); Red Cell Distribution Width 15.3 % (11.6-14.8); White Blood Cell Count 15.8 X10^3/uL (4.5-11.0)
[2023-03-01 06:48] LABS: BUN Creatinine Ratio 31.7 (6-22); Blood Urea Nitrogen 19 mg/dL (9-20); Calcium 8.6 mg/dL (8.4-10.2); Carbon Dioxide 21 mmol/L (22-32); Chloride 100 mmol/L (98-107); Estimated Glomerular Filt Rate > 60 mL/min (>60); Glucose 118 mg/dL (80-110); HEMOLYSIS < 15 (0-50); Potassium 4.8 mmol/L (3.4-5.1); Sodium 128 mmol/L (137-145)
[2023-03-01 08:19] VITALS: BP 123/75; PULSE 60; RESP 19; TEMP 36.4; O2SAT 99
[2023-03-01] MEDS: PANTOPRAZOLE 40 MG VIAL IV (08:29)
[2023-03-01 13:59] VITALS: BP 119/71; PULSE 61; RESP 19; TEMP 36.3; O2SAT 99
--- NOTE | 2023-03-01 14:59 | PM.PN.1 ---
Subjective Subjective Interval history: Patient passing more gas today. Belly less distended. He wants to try liquids. Exam Vital Signs (past 8 hours): - 03/01/23 07:30 03/01/23 08:19 03/01/23 13:59 Temperature 97.5 F L 97.4 F L Pulse Rate 60 61 Respiratory Rate 19 19 Blood Pressure 123/75 119/71 Pulse Oximetry 99 99 Oxygen Delivery Method Room Air Oxygen Flow Rate 0 0 Oxygen Delivery Method Room Air Oxygen Flow Rate 0 Narrative Exam Narrative: GEN: no acute distress HEENT: dry mucous membranes, PERRL NECK: trachea midline, no JVD CV: regular rate and rhythm, no murmurs PULM: clear bilaterally ABD: soft, less distended, increased bowel tones EXT: warm and well perfused with no edema NEURO: awake, alert, oriented, no focal deficits Objective Labs 03/01/23 05:50 03/01/23 05:50 Labs: Laboratory Results - last 24 hr 02/28/23 03/01/23 13:38 05:50 WBC 15.8 H RBC 4.41 L Hgb 12.7 L Hct 38.0 L MCV 86.2 MCH 28.7 MCHC 33.3 RDW 15.3 H Plt Count 395 Neut % (Auto) 91.9 H Lymph % (Auto) 7.1 L [place] % (Auto) 0.8 L Eos % (Auto) 0.1 L Baso % (Auto) 0.1 Neut # (Auto) 35023 H Lymph # (Auto) 1100 [place] # (Auto) 100 Eos # (Auto) 0 Baso # (Auto) 0 Sodium 128 L Potassium 4.8 Chloride 100 Carbon Dioxide 21 L BUN 19 Creatinine 0.60 L Estimated GFR > 60 BUN/Creatinine Ratio 31.7 H Glucose 118 H Calcium 8.6 Magnesium 2.2 PFSH Medical History Prostate cancer Hemorrhoids organ imaging abnormality Lower urinary tract symptoms Alcohol use disorder Mixed hyperlipidemia Hypothyroidism History of tobacco use disorder Long-term use of immunosuppressant medication Decreased cortisol level (07/2020) Hyponatremia with decreased serum osmolality Hyponatremia Long-term current use of steroids Abdominal aortic ectasia (01/2020) Iron deficiency anemia Hypertension Personal history of colonic polyps Pulmonary nodules Abdominal aortic aneurysm (AAA) Iatrogenic hypothyroidism COPD (chronic obstructive pulmonary disease) Crohns disease (~1968) Surgical History History of colonoscopy History of testicular surgery (~1956) History of mandibular surgery (~1987) Thyroid cancer (~06/2010) Tongue malignant neoplasm (~2015) Family History Father No problems noted. 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 Fraire at [facility], on biologic Skyrizi and last got dose on 01/28. Was due to second infusion on 02/[address] Fraire cancelled it -recently admitted for L-sided obstruction and discharged 1.5 weeks ago on prednisone taper -CT abd with left colonic thickening, with large colonic distention behind and focal unchanged perforation -Dr. Villatoro gen surg consulted by ED -[facility] and if able to have BM's arrange urgent outpatient colonoscopy and put on 60mg daily prednisone without taper until see's GI -solumedrol 125mg q6h -now passing gas, will advance to liquid diet -patient got outpatient GI appt at [facility] with Dr. Houser on 03/11 # HTN -normotensive so holding lisinopril # hypothyroidism -continue synthroid # GERD -continue PPI but IV Code status is full code. DVT prophylaxis with SCDs. Proxy is spouse Janette. I have reviewed home meds and used all available resources to reconcile the home meds. Dispo: Home in 1-2 days. Quality VTE Deep Vein Thrombosis/Pulmonary Embolism Present on Admission: No
--- NOTE | 2023-03-01 17:43 | CM.DANOTE ---
Brief DCP Assessment note Patient is a 72yo M here following bowel blockage. Was here 02-15-23 to 02-18-23 for similar medical concern. PCP Tete Mariee and self pay RAILROAD SIGNAL TECHNICIAN reviewed EMR. Per provider, likely d/c tomorrow on a higher dose of steroids, needs colonoscopy. Per provider note, passing gas. Pt wants to try liquids. Likely home in a day or two. RAILROAD SIGNAL TECHNICIAN unable to meet with patient today due to triaging needs. Per d/c assessment on 02.16.23, pt lives in [place] with his and both are independent at baseline, pt still drives and does not use DME for ambulation and denies any past surgical intervention needed for Crohns. Pt denies any hx of SNF or HH (CM DCP Assessment Note). Per last admission, pt was d/c home with family support, no needs. Plan: likely home with family support when medically stable. CM team will continue to follow as needed. JD Archuleta Discharge Planning/Care Management Discharge Assessment Start: 03/01/23 17:41 Freq: Status: Active Protocol: Document 03/01/23 17:42 (Rec: 03/01/23 17:43 [id number]) Discharge Planning Assessment Assigned Pouring Crane Operator JD Chanel DPOA/Assigned Designee Name Janette (spouse) Contact Information [phone] Advance Directives? Yes Advance Directives on File No History Provided By Medical Record Has Patient been admitted in last 30 Yes days? Comment 02-15-23 to 02-18-23 Prior Living Arrangements House Household Members spouse Type of transporation used prior to Drives own vehicle admit Independent with ADL's Yes Is patient alert and oriented? Yes DME Already Rented / Owned Cane Comment Anticipate that this patient will return home w/family uon [place], once medically stable Discharge Plan Home Transportation Arrangement Family Referrals Initiated None needed Additional Comment No referrals needed at this time, will follow closely Whiteboard Updated in Patient Room with No name and ext. # of Pouring Crane Operator Review Status In Process Next Review Type Continued Stay Review
[2023-03-01 20:13] VITALS: BP 106/65; PULSE 59; RESP 16; TEMP 36.3; O2SAT 96
[2023-03-02] MEDS: HYDROMORPHONE 1 MG INJ IV (00:19)
[2023-03-02] MEDS: LEVOTHYROXINE 112 MCG TABLET PO (05:49)
[2023-03-02] MEDS: methylPREDNISolone 125 MG/2 ML VIAL IV (05:49)
[2023-03-02 06:07] LABS: Add Manual Diff / Slide Review NO; Basophils Absolute Auto 0 /uL (0-100); Basophils Percent Auto 0.1 % (0-2); Eosinophils Absolute Auto 0 /uL (0-450); Hematocrit 34.5 % (41-53); Hemoglobin 11.6 g/dL (13.5-17.5); Lymphocytes Absolute Auto 600 /uL (1100-4500); Lymphocytes Percent Auto 4.8 % (25-40); Mean Corpuscular HGB Conc 33.5 % (30-36); Mean Corpuscular Hemoglobin 28.6 PG (26-34); Mean Corpuscular Volume 85.2 fL (80-100); Monocytes Absolute Auto 200 /uL (0-900); Monocytes Percent Auto 1.7 % (3-14); Neutrophils Absolute Auto 12100 /uL (1500-7000); Neutrophils Percent Auto 93.4 % (50-75); Platelet Count 378 X10^3/uL (150-400); Red Blood Cell Count 4.05 X10^6/uL (4.5-5.9); Red Cell Distribution Width 15.2 % (11.6-14.8); White Blood Cell Count 12.9 X10^3/uL (4.5-11.0)
[2023-03-02 06:16] LABS: BUN Creatinine Ratio 29.2 (6-22); Blood Urea Nitrogen 19 mg/dL (9-20); Calcium 8.9 mg/dL (8.4-10.2); Carbon Dioxide 28 mmol/L (22-32); Chloride 94 mmol/L (98-107); Estimated Glomerular Filt Rate > 60 mL/min (>60); Glucose 129 mg/dL (80-110); HEMOLYSIS < 15 (0-50); Potassium 4.3 mmol/L (3.4-5.1); Sodium 128 mmol/L (137-145)
--- NOTE | 2023-03-02 07:11 | PM.PN.1 ---
Subjective Subjective Interval history: 72 yo male w/Crohn's disease, COPD, tobacco dependence, HTN, HLD, AAA, chronic hypotension, and hypothyroidism who was admitted w/recurrent colon obstruction d/t Crohn's flare. Exam Vital Signs (past 8 hours): - 03/01/23 13:59 Temperature 97.4 F L Pulse Rate 61 Respiratory Rate 19 Blood Pressure 119/71 Pulse Oximetry 99 Oxygen Flow Rate 0 Oxygen Delivery Method Room Air Oxygen Flow Rate 0 Objective Labs 03/02/23 05:30 03/02/23 05:30 Labs: Laboratory Results - last 24 hr 03/01/23 05:50 WBC 15.8 H RBC 4.41 L Hgb 12.7 L Hct 38.0 L MCV 86.2 MCH 28.7 MCHC 33.3 RDW 15.3 H Plt Count 395 Neut % (Auto) 91.9 H Lymph % (Auto) 7.1 L [place] % (Auto) 0.8 L Eos % (Auto) 0.1 L Baso % (Auto) 0.1 Neut # (Auto) 96640 H Lymph # (Auto) 1100 [place] # (Auto) 100 Eos # (Auto) 0 Baso # (Auto) 0 Sodium 128 L Potassium 4.8 Chloride 100 Carbon Dioxide 21 L BUN 19 Creatinine 0.60 L Estimated GFR > 60 BUN/Creatinine Ratio 31.7 H Glucose 118 H Calcium 8.6 PFSH Medical History Prostate cancer Hemorrhoids organ imaging abnormality Lower urinary tract symptoms Alcohol use disorder Mixed hyperlipidemia Hypothyroidism History of tobacco use disorder Long-term use of immunosuppressant medication Decreased cortisol level (07/2020) Hyponatremia with decreased serum osmolality Hyponatremia Long-term current use of steroids Abdominal aortic ectasia (01/2020) Iron deficiency anemia Hypertension Personal history of colonic polyps Pulmonary nodules Abdominal aortic aneurysm (AAA) Iatrogenic hypothyroidism COPD (chronic obstructive pulmonary disease) Crohns disease (~1968) Surgical History History of colonoscopy History of testicular surgery (~1956) History of mandibular surgery (~1987) Thyroid cancer (~06/2010) Tongue malignant neoplasm (~2015) Family History Father No problems noted. 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 Recurrent colonic obstruction d/t Crohn's flare Continue IV steroids w/plan for prednisone 60 mg daily until his fu appt w/GI in 10 days. COPD HTN Chronic hyponatremia Tobacco dependence Code status Full Prophy Dispo Quality VTE Deep Vein Thrombosis/Pulmonary Embolism Present on Admission: No
[2023-03-02 09:12] VITALS: BP 117/73; PULSE 78; RESP 16; TEMP 36.3; O2SAT 99
--- NOTE | 2023-03-02 10:38 | P.DS_ITS ---
History of Present Illness History of Present Illness Chief complaint: per pt. bowel blockage Narrative: Per history and physical: Jovany Blakely is a 72yo M with PMH of Crohn's on Skyrizi, COPD, tobacco use, HTN, HLD, AAA, hypothyroidism and chronic hyponatremia who presents with repeat colonic obstruction. Recently admitted for obstructing due to Crohn's flare. Recieved IV steroids, NG tube and improved then discharged home on prednisone taper. Had lowered to 40mg daily 3 days ago. Was doing ok until yesterday he stopped having BM's and developed worsening abdominal pain and distention. He did not vomit, is passing some gas. In the ED found to have recurrent left-sided obstruction with bowel thickening and small unchanged perforation. Spoke with gen surg who recommended speaking with GI. Spoke with vicki CRAWFORD who recommended repeating high-dose IV steroids and will hopefully improve enough to get outpatient colonoscopy. Patient denies NV, CP, SOB, dizziness or syncope. Discharge Providers Provider Date of admission: 02/28/23 15:43 Discharge Date: 03/02/23 Primary care physician: MARLENY Almaraz Consults: 02/28/23 15:36 Consult to General Surgery Stat Comment: Consulting Provider: Shahana Villatoro Reason for consultation: bowel obstruction, crohns Has provider been notified: Yes 02/28/23 15:55 Consult to General Surgery Routine Comment: Consulting Provider: Shahana Villatoro Reason for consultation: recurrent SBO Has provider been notified: Yes Discharge provider: Angelita Yin MD Summary Hospital Course Discharge Diagnosis: 1. Recurrent colonic obstruction secondary to Crohn's disease flare, improved 2. COPD without exacerbation, chronic, stable 3. Hypertension, chronic, stable 4. Chronic hyponatremia, stable at 128 5. Tobacco dependence, stable Hospital Course: 72 yo male w/Crohn's disease, COPD, tobacco dependence, HTN, HLD, AAA, chronic hypotension, and hypothyroidism who was admitted w/recurrent colon obstruction d/t Crohn's flare. He was placed on high-dose IV steroids w/rapid improvement. He had 4 formed BM's in the 24 hours prior to d/c. At the time of d/c, he will continue Prednisone 60 mg daily. He will f/u w/Dr. Houser, GI, on 03/13/23. Dr. Houser will further recommend appropriate prednisone taper. Status at Discharge Cognitive/behavioral status at discharge: at baseline, oriented Functional status at discharge: independent ambulation Overall status at discharge: patient is back to baseline Time Spent with Patient Time spent: Less than 30 minutes Exam Vital Signs (past 8 hours): - 03/02/23 07:30 03/02/23 09:12 Temperature 97.3 F L Pulse Rate 78 Respiratory Rate 16 Blood Pressure 117/73 Pulse Oximetry 99 Oxygen Delivery Method Room Air Oxygen Delivery Method Room Air Oxygen Flow Rate 0 Narrative Exam Narrative: GEN: Very pleasant middle-aged male, fully dressed and walking around the hospital room, Alert and oriented x 3, NAD HEENT:NC, Face symmetric CHEST: Respiratory excursions symmetric, CTAB CV: RRR, no M/R/G ABD: Soft, NT/ND, BT present in all 4 quadrants, no organomegaly or masses EXTR: warm, well perfused, no C/C/E SKIN: warm and dry, no rash NEURO: Alert and oriented x 3, nonfocal Objective Labs 03/02/23 05:30 03/02/23 05:30 Labs: Laboratory Results - last 24 hr 03/02/23 05:30 WBC 12.9 H RBC 4.05 L Hgb 11.6 L Hct 34.5 L MCV 85.2 MCH 28.6 MCHC 33.5 RDW 15.2 H Plt Count 378 Neut % (Auto) 93.4 H Lymph % (Auto) 4.8 L [place] % (Auto) 1.7 L Eos % (Auto) 0.0 L Baso % (Auto) 0.1 Neut # (Auto) 34312 H Lymph # (Auto) 600 L [place] # (Auto) 200 Eos # (Auto) 0 Baso # (Auto) 0 Sodium 128 L Potassium 4.3 Chloride 94 L Carbon Dioxide 28 BUN 19 Creatinine 0.65 L Estimated GFR > 60 BUN/Creatinine Ratio 29.2 H Glucose 129 H Calcium 8.9 PFSH Medical History Prostate cancer Hemorrhoids organ imaging abnormality Lower urinary tract symptoms Alcohol use disorder Mixed hyperlipidemia Hypothyroidism History of tobacco use disorder Long-term use of immunosuppressant medication Decreased cortisol level (07/2020) Hyponatremia with decreased serum osmolality Hyponatremia Long-term current use of steroids Abdominal aortic ectasia (01/2020) Iron deficiency anemia Hypertension Personal history of colonic polyps Pulmonary nodules Abdominal aortic aneurysm (AAA) Iatrogenic hypothyroidism COPD (chronic obstructive pulmonary disease) Crohns disease (~1968) Surgical History History of colonoscopy History of testicular surgery (~1956) History of mandibular surgery (~1987) Thyroid cancer (~06/2010) Tongue malignant neoplasm (~2015) Family History Father No problems noted. 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 Houser on 03/13/23. He will advise you for further adjustments of the prednisone dosing. Eat a diet as tolerated, hold your iron for a few days to avoid constipation Return to the ED: inability to hold down food/fluids Not passing gas and no BMx24 hrs Discharge orders & Medications Prescriptions: New prednisone 20 mg tablet 60 mg PO DAILY Qty: 90 0RF Rx Instructions: Wean as instructed by Dr. Houser Continued levothyroxine 112 mcg tablet See Rx Instructions .ROUTE .COMPLEX Qty: 90 3RF Dose Instruction: TAKE 1 TABLET BY MOUTH DAILY Rx Instructions: TAKE 1 TABLET BY MOUTH DAILY albuterol sulfate 90 mcg/actuation HFA aerosol inhaler See Rx Instructions .ROUTE .COMPLEX Qty: 8.5 5RF Dose Instruction: INHALE 1 PUFF INTO THE LUNGS EVERY 4 TO 6 HOURS NEEDED FOR SHORTNESS OF BREATH OR WHEEZING Rx Instructions: INHALE 1 PUFF INTO THE LUNGS EVERY 4 TO 6 HOURS NEEDED FOR SHORTNESS OF BREATH OR WHEEZING lisinopril 10 mg tablet See Rx Instructions .ROUTE .COMPLEX Qty: 90 3RF Dose Instruction: TAKE 1 TABLET BY MOUTH DAILY Rx Instructions: TAKE 1 TABLET BY MOUTH DAILY montelukast 10 mg tablet See Rx Instructions .ROUTE .COMPLEX Qty: 90 0RF Dose Instruction: TAKE 1 TABLET BY MOUTH DAILY Rx Instructions: TAKE 1 TABLET BY MOUTH DAILY ferrous sulfate 325 mg (65 mg iron) tablet 325 mg PO DAILY fluticasone propionate 50 mcg/actuation spray,suspension 1 spray NASAL BID Qty: 15.8 2RF Rx Instructions: administer into each nostril twice daily cetirizine [Zyrtec] 10 mg tablet 10 mg PO DAILY PRN (Reason: ALLERGIES) Vitamin D3 See Rx Instructions .ROUTE .COMPLEX Rx Instructions: 1000iu daily with calcium; calcium See Rx Instructions .ROUTE .COMPLEX Rx Instructions: Take 500mg daily; Skyrizi 180 mg/1.2 mL (150 mg/mL) Wearable Injector See Rx Instructions .ROUTE .COMPLEX Rx Instructions: 180 mg subcutaneously 1 of 3 doses mesalamine [Lialda] 1.2 gram tablet,delayed release (DR/EC) 1.2 g PO BID 30 Days Qty: 60 0RF vitamin B complex [B Complex-Vitamin B12] Tablet 1 tab PO DAILY omeprazole 20 mg tablet,delayed release (DR/EC) 20 mg PO DAILY Discontinued prednisone 20 mg tablet See Rx Instructions .ROUTE .COMPLEX Qty: 35 0RF Rx Instructions: take 60 mg daily for 7 days, followed by 40 mg daily for 7 days. Follow up/Referrals: Tete Zhang ARNP [Primary Care Provider] - Jorge Houser MD [Non-Staff] - 03/13/23 Diet/Activity/Treatments Diet: Diet as Tolerated and Regular Activity: As tolerated Oxygen: N/A Skin/Wound/Dressing Care Skin care: N/A Visit Report/Discharge Packet Instructions: Intestinal Pseudo-obstruction Stand Alone Forms: Patient Portal/API, Stroke Signs & Symptoms Discharge Data Primary Care Provider: Tete Zhang Quality VTE Deep Vein Thrombosis/Pulmonary Embolism Present on Admission: No
--- NOTE | 2023-03-02 12:26 | PC.NURSE ---
Discharge: Pt feels ready for d/c. Tolerates diet w/out problems. Has been up and walking freq. Passing flatus, reports numerous bowel movements. Reviewed d/c packet, questions answered. Pt had no concerns when he discharged to home. Pt left w/spouse.
== END 2023-03-02 11:00 | disposition home or self-care (01) | DRG 386 ==
LOC: ED 15:36 → AC 15:45
PROVIDERS: Admitting Provider Student in an Organized Health Care Education/Training Program; Emergency Provider Emergency Medicine; PCP Nurse Practitioner; Referring Provider Emergency Medicine; Visit Provider Student in an Organized Health Care Education/Training Program
DX: K50.912 Crohn's disease, unspecified, with intestinal obstruction (principal); E87.1 Hypo-osmolality and hyponatremia; E03.9 Hypothyroidism, unspecified; I10 Essential (primary) hypertension; K21.9 Gastro-esophageal reflux disease without esophagitis; J44.9 Chronic obstructive pulmonary disease, unspecified; F17.210 Nicotine dependence, cigarettes, uncomplicated
CPT/HCPCS: 36415; 74177; 80048; 80053; 83690; 83735; 85025; 93005; 93010; 96374; 99284; 99285; C9113; J1170; J1885; J2930

== ENCOUNTER → 2023-03-15 09:13 | Outpatient (CLI) | payer OTHER, SELFPAY ==
[2023-02-28 16:16] VITALS: BMI 21.9
--- NOTE | 2023-03-15 09:14 | DI.CT.S_ITS ---
PROCEDURE: CT ABDOMEN PELVIS W CON INDICATIONS: New diagnosis prostate cancer TECHNIQUE: After the administration of oral and intravenous contrast, axial sections were acquired from the lung bases to the pubic symphysis. Coronal and sagittal reformats were performed. For radiation dose reduction, the following was used: automated exposure control, adjustment of mA and/or kV according to patient size. COMPARISON:[facility], CT, CT ABDOMEN PELVIS W CON, 02/28/2023, 15:04. FINDINGS: Image quality: Good Lower chest: No basal effusions. Lung bases are unremarkable. In the lower esophagus, possible small amount of reflux versus contrast stasis is seen. Solid organs: Unremarkable liver. No suspicious liver lesions. Gallbladder is unremarkable. No pathologic biliary ductal dilation or pancreatic ductal dilation. Small calcifications may represent granulomatous changes. No splenomegaly. No adrenal nodules. No solid-appearing renal mass. A stable right upper pole lesion is indeterminate by density measuring 1.8 cm, but was seen dating back to 2018 similar in size. Another smaller indeterminate lesion is seen in the mid region. No hydronephrosis. Vessels and lymph nodes: Atherosclerotic calcifications. The main portal vein is patent. There are no suspicious lymph nodes by size or morphologic characteristics in the pelvis or retroperitoneum. Bowel and peritoneum: No evidence of small bowel obstruction. No pathologic free fluid a focal area of wall thickening, narrowing, and inflammatory changes again seen in the descending colon, with a possible adjacent contained perforation measuring 3.9 by 2.9 cm. This is larger compared to 02/28/2023. Moderate to large fecal loading. Segmental wall thickening also seen at the rectosigmoid junction. Soft tissue irregularity at the anal verge, not well characterized on this exam. The Body wall: Unremarkable. Tiny fat containing left inguinal hernia. Pelvis: Primary prostate malignancy better assessed on MRI. Bones: Bone scan findings are separately dictated. No highly suspicious osseous lesion, although CT sensitivity is suboptimal. There are degenerative changes. IMPRESSION: History of prostate cancer. Primary disease is better assessed on MRI. No obvious metastases in the abdomen/pelvis. Consider PSMA PET for increased sensitivity if clinically needed. Suspected focal perforation along the left descending colon is increased in size. There is adjacent wall thickening, narrowing, and hyperemia of the descending colon, possibly also seen with segmental involvement of the rectosigmoid junction. Correlate with any symptoms and recommend GI follow-up if not already obtained. This was marked as an urgent result in PACS. Indeterminate renal lesions by imaging, though favored represent complex cysts due to stability seen dating back to 2018. Attention on follow-up. Other findings as above Dictated by: Francisco J Mitchell M.D. on 03/15/2023 at 11:48 Approved by: Francisco J Mitchell M.D. on 03/15/2023 at 11:58
--- NOTE | 2023-03-15 09:14 | DI.NM.S_ITS ---
PROCEDURE: NM BONE SCAN WHOLE BODY RADIOPHARMACEUTICAL: 19.8 mCi Tc-99m MDP IV. INDICATIONS: New diagnosis prostate cancer TECHNIQUE: Delayed whole-body scintigrams were obtained approximately 3-4 hours after intravenous injection of radiotracer. Anterior and posterior views were acquired from vertex to feet. Additional left and right oblique views of the pelvis were obtained. COMPARISON: [facility], CT, CT ABDOMEN PELVIS W CON, 03/15/2023, 10:59. FINDINGS: Radiotracer excretion is seen in the urinary system. Minimal to mild scattered degenerative changes. focal activity in the mid lumbar spine, also favored degenerative. IMPRESSION: No suspicious osteoblastic metastases. A focal region of uptake is seen in the mid lumbar spine, favored to be degenerative. Mild degenerative changes are seen elsewhere. Attention on follow-up. Dictated by: Francisco J Mitchell M.D. on 03/15/2023 at 13:35 Approved by: Francisco J Mitchell M.D. on 03/15/2023 at 13:37
== END ==
PROVIDERS: PCP Nurse Practitioner; Referring Provider Urology; Visit Provider Urology
DX: C61 Malignant neoplasm of prostate (principal); N28.9 Disorder of kidney and ureter, unspecified
CPT/HCPCS: 74177; 78306; A9503; Q9967

== ENCOUNTER → 2023-07-02 08:44 | Outpatient (CLI) | payer OTHER, SELFPAY ==
[2023-02-28 16:16] VITALS: BMI 21.9
--- NOTE | 2023-07-02 08:46 | DI.US.S_ITS ---
PROCEDURE: US RENAL COMPLETE INDICATIONS: RIGHT RENAL CYST ON CT OF 11-06-22 TECHNIQUE: Real-time scanning was performed of the kidneys and bladder, with image documentation. COMPARISON: [facility], CT, CT ABDOMEN PELVIS WITH CONTRAST, 03/28/2023, 13:20. FINDINGS: Kidneys: Kidneys are normal in size. Right kidney measures 11 cm long; left kidney measures 10.1 cm long. Right renal cortical thickness is 1.4 cm; left renal cortical thickness is 1.7 cm. Renal cortical echotexture is normal. No hydronephrosis or nephrolithiasis. No suspicious solid mass lesions. Anechoic, exophytic cyst off the superior and lateral margins of the right kidney measuring 1.6 cm and 1.4 cm. Bladder: Pre-void bladder volume is 119 mL. Post-void residual is 79 mL. Pre-void images demonstrate no intraluminal masses or stones. On pre-void images, neither ureteral jets are noted with color Doppler interrogation. (Of note, ureteral jets may not be detectable in up to 25% of cases due to insufficient differences in specific gravity between ureteral and bladder urine). Miscellaneous: No free pelvic fluid. IMPRESSION: Anechoic right-sided renal cysts, most consistent with hemorrhagic/proteinaceous cysts based on this exam and prior CTs. No further follow-up is indicated. Dictated by: Gage Li M.D. on 07/02/2023 at 12:56 Approved by: Gage Li M.D. on 07/02/2023 at 12:58
== END ==
LOC: US 08:45
PROVIDERS: PCP Nurse Practitioner; Referring Provider Nurse Practitioner; Visit Provider Nurse Practitioner
DX: N28.1 Cyst of kidney, acquired (principal)
CPT/HCPCS: 76770

== ENCOUNTER → 2023-08-06 13:57 | Outpatient (CLI) | payer OTHER, SELFPAY ==
[2023-02-28 16:16] VITALS: BMI 21.9
[2023-08-06 15:57] LABS: Prostate Specific Antigen 4.37 ng/mL (0.10-4.00)
== END ==
LOC: LAB 13:58
PROVIDERS: PCP Nurse Practitioner; Referring Provider Urology; Visit Provider Urology
DX: C61 Malignant neoplasm of prostate (principal)
CPT/HCPCS: 36415; 84153

== ENCOUNTER → 2023-09-05 11:48 | Outpatient (CLI) | payer OTHER, SELFPAY ==
[2023-02-28 16:16] VITALS: BMI 21.9
--- NOTE | 2023-09-05 11:50 | DI.CT.S_ITS ---
PROCEDURE: CT SINUS SCREEN WO CON INDICATIONS: Recurrent maxillary sinusitis TECHNIQUE: Noncontrast 3.0 mm axial images acquired from the frontal sinuses to the mid-sella, with coronal and sagittal reformats. For radiation dose reduction, the following was used: automated exposure control, adjustment of mA and/or kV according to patient size. COMPARISON: [facility], CT, CT SINUS SCREEN WO CON, 09/13/2021, 9:16. FINDINGS: Image quality: Excellent. Maxillary Sinuses: Minimal mucosal thickening can be seen within the inferior maxillary sinuses. The medial tinoco of the maxillary sinuses demonstrate mild demineralization. Ethmoid Air Cells: No bony remodeling or destruction. Xmzw-xk-idobefms mucosal thickening can be seen within the posterior ethmoid air cells. Sphenoid Sinuses: No bony remodeling or destruction. Sinuses are clear. Frontal Sinuses: No bony remodeling or destruction. Sinuses are clear. Ostiomeatal Complexes: The ostiomeatal complexes are patent, yet they are constitutionally narrowed, with bilateral Sharath cells. Miscellaneous: Visualized intra-orbital contents are normal. No sanna bullosa or paradoxical turbinate curvature. There is [id number]-[id number] rightward nasal septal deviation. Note is made of anterior nasal septal perforation, as seen on series 2, image 7. IMPRESSION: Scattered paranasal sinus disease can be seen, which is worst within the posterior ethmoid air cells. The ostiomeatal complexes are patent, yet they are constitutionally narrowed, with bilateral Sharath cells. [id number]-tv-[id number] rightward nasal septal deviation. Nasal septal perforation noted. Dictated by: Julián Davis M.D. on 09/05/2023 at 12:32 Approved by: Julián Davis M.D. on 09/05/2023 at 12:34
== END ==
PROVIDERS: PCP Nurse Practitioner; Referring Provider Nurse Practitioner; Visit Provider Nurse Practitioner
DX: J32.2 Chronic ethmoidal sinusitis; J34.2 Deviated nasal septum
CPT/HCPCS: 70486

== ENCOUNTER → 2023-10-01 09:04 | Outpatient (CLI) | payer OTHER, SELFPAY ==
[2023-02-28 16:16] VITALS: BMI 21.9
[2023-10-01 10:15] LABS: Add Manual Diff / Slide Review NO; Basophils Absolute Auto 100 /uL (0-100); Basophils Percent Auto 2.2 % (0-2); Eosinophils Absolute Auto 200 /uL (0-450); Eosinophils Percent Auto 2.3 % (2-4); Hematocrit 29.9 % (41-53); Hemoglobin 9.6 g/dL (13.5-17.5); Lymphocytes Absolute Auto 1500 /uL (1100-4500); Lymphocytes Percent Auto 22.2 % (25-40); Mean Corpuscular HGB Conc 31.9 % (30-36); Mean Corpuscular Hemoglobin 19.3 PG (26-34); Mean Corpuscular Volume 60.4 fL (80-100); Monocytes Absolute Auto 700 /uL (0-900); Monocytes Percent Auto 11.2 % (3-14); Neutrophils Absolute Auto 4100 /uL (1500-7000); Neutrophils Percent Auto 62.1 % (50-75); Platelet Count 317 X10^3/uL (150-400); Red Blood Cell Count 4.96 X10^6/uL (4.5-5.9); Red Cell Distribution Width 31.1 % (11.6-14.8); White Blood Cell Count 6.5 X10^3/uL (4.5-11.0)
[2023-10-01 10:27] LABS: Hemoglobin A1C% w Est Avg Glu 4.9 % (4.0-6.0)
[2023-10-01 10:30] LABS: Dimorphic RBC PRESENT
[2023-10-01 10:31] LABS: Alanine Aminotransferase 17 IU/L (<50); Albumin 4.4 g/dL (3.5-5.0); Albumin Globulin Ratio 1.5 (1.0-2.8); Alkaline Phosphatase 61 U/L (38-126); Aspartate Aminotransferase 24 IU/L (17-59); BUN Creatinine Ratio 14.3 (6-22); Bilirubin Total 0.5 mg/dL (0.2-1.3); Blood Urea Nitrogen 14 mg/dL (9-20); C-Reactive Protein Quant 0.6 mg/dL (<1.0); Calcium 8.9 mg/dL (8.4-10.2); Carbon Dioxide 26 mmol/L (22-32); Chloride 98 mmol/L (98-107); Cholesterol 181 mg/dL (140-199); Estimated Glomerular Filt Rate > 60 mL/min (>60); Globulin 2.9 g/dL (1.7-4.1); Glucose 98 mg/dL (80-110); HDL Cholesterol 62 mg/dL (40-60); HEMOLYSIS < 15 (0-50); LDL Cholesterol Calculated 92 mg/dL (<100); Potassium 4.9 mmol/L (3.4-5.1); Sodium 131 mmol/L (137-145); Total Protein 7.3 g/dL (6.3-8.2); Triglycerides 133 mg/dL (35-150)
[2023-10-01 10:33] LABS: Rheumatoid Factor 17.3 IU/mL (<12.0)
[2023-10-01 10:41] LABS: Erythrocyte Sedimentation Rate 22 MM/HR (0-15)
[2023-10-01 10:48] LABS: Free T3, Triiodothyronine Free 3.46 pg/mL (2.77-5.27)
[2023-10-01 10:49] LABS: Free T4, Direct Thyroxine 1.04 ng/dL (0.78-2.19)
[2023-10-01 11:02] LABS: Thyroid Stimulating Hormone 6.77 uIU/mL (0.47-4.68)
[2023-10-04 16:13] LABS: ANA Screen, IFA Negative (.)
== END ==
PROVIDERS: PCP Nurse Practitioner; Referring Provider Nurse Practitioner; Visit Provider Nurse Practitioner
DX: D50.9 Iron deficiency anemia, unspecified (principal); I10 Essential (primary) hypertension; C61 Malignant neoplasm of prostate; K50.90 Crohn's disease, unspecified, without complications; E78.2 Mixed hyperlipidemia; C18.9 Malignant neoplasm of colon, unspecified; E03.9 Hypothyroidism, unspecified; D89.89 Other specified disorders involving the immune mechanism, not elsewhere classified
CPT/HCPCS: 36415; 80053; 80061; 83036; 84439; 84443; 84481; 85025; 85651; 86038; 86140; 86430

== ENCOUNTER → 2024-02-12 06:52 | Outpatient (CLI) | payer OTHER, SELFPAY ==
[2023-10-01 11:38] VITALS: BMI 21.9
[2024-02-12 09:48] LABS: Prostate Specific Antigen 0.154 ng/mL (0.10-4.00)
== END ==
PROVIDERS: PCP Family Medicine; Referring Provider Urology; Visit Provider Urology
DX: C61 Malignant neoplasm of prostate (principal); R97.20 Elevated prostate specific antigen [PSA]
CPT/HCPCS: 36415; 84153

== ENCOUNTER 2024-04-12 16:44 | Emergency (ER) | payer OTHER, SELFPAY ==
[2023-10-01 11:38] VITALS: BMI 21.9
[2024-04-12 16:49] VITALS: BP 122/64; PULSE 81; RESP 20; O2SAT 96; BMI 19.3
--- NOTE | 2024-04-12 17:05 | ED_ITS ---
HPI - Epistaxis General Chief complaint: Nasal Problem Stated complaint: nose bleedx1 hr. Pancreatic CA/Oral CA Time Seen by Provider: 04/12/24 16:48 Source: EMS Mode of arrival: EMS History of Present Illness HPI Narrative: Patient 73-year-old male history of multiple cancers pancreatic cancer colon cancer throat cancer presenting today with significant epistaxis out the right side. Not on antiplatelet or anti anticoagulation medication. He has been bleeding pretty profusely for about an hours all over mouth. He just had chemotherapy a week or 2 ago it has been new chemotherapy. Blood pressure is within normal limits. Related Data Home Medications Medication Instructions Recorded Confirmed Vitamin D3 See Rx Instructions .Route .COMPLEX 11/02/21 04/06/24 vitamin B complex (B 1 tab PO DAILY 05/10/22 04/06/24 Complex-Vitamin B12 tablet) omeprazole 20 mg tablet,delayed 20 mg PO DAILY 11/22/22 04/06/24 release oxycodone 5 mg tablet 5 mg PO Q6H PRN 02/24/24 04/06/24 Previous Rx's Medication Instructions Recorded levothyroxine 112 mcg tablet See Rx Instructions .Route 07/31/23 .COMPLEX #90 tabs albuterol sulfate 90 mcg/actuation See Rx Instructions .Route 09/02/23 aerosol inhaler .COMPLEX #8.5 grams cyclobenzaprine 5 mg tablet 5 mg PO TID PRN muscle spasm #30 11/13/23 tabs Allergies Allergy/AdvReac Type Severity Reaction Status Date / Time No Known Drug Allergies Allergy Verified 04/06/24 09:03 Patient History Medical History Asymptomatic microscopic hematuria Androgen deprivation therapy Headache Nasal septal perforation Nasal septal deviation Chronic sinusitis Autoimmune disorder Small bowel obstruction Large bowel obstruction Chronic congestion of paranasal sinus Colon cancer Prostate cancer Hemorrhoids organ imaging abnormality Lower urinary tract symptoms Alcohol use disorder Mixed hyperlipidemia Hypothyroidism History of tobacco use disorder Long-term use of immunosuppressant medication Decreased cortisol level (07/2020) Hyponatremia with decreased serum osmolality Hyponatremia Long-term current use of steroids Abdominal aortic ectasia (01/2020) Iron deficiency anemia Hypertension Personal history of colonic polyps Pulmonary nodules Abdominal aortic aneurysm (AAA) Iatrogenic hypothyroidism COPD (chronic obstructive pulmonary disease) Crohns disease (~1969) Surgical History Status post partial colectomy History of colonoscopy History of testicular surgery (~1956) History of mandibular surgery (~1987) Thyroid cancer (~06/2010) Tongue malignant neoplasm (~2015) Family History Father No problems noted. 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 Nose: Active bleeding right naris, significant bleeding and blood in mouth CARDIOVASCULAR: peripheral pulses in tact, cap refill <2 sec RESPIRATORY: No respiratory distress, speaks in full sentences without difficulty EXTREMITIES: Normal range of motion, no clubbing or edema. Neurovascularly intact NEUROLOGICAL: Cranial nerves II through XII grossly intact. Normal gait and speech. SKIN: Warm, dry, no petechiae, no rashes or lesions. Course Orders Ordered: Discontinued Medications Tranexamic Acid (Tranexamic Acid 1,000 Mg Vial) 1,000 mg TOP NOW ONE Stop: 04/12/24 16:49 Last Admin: 04/12/24 17:07 Dose: 1,000 mg Documented By: MPO Vital Signs Vital signs: Vital Signs - 8 hr 04/12/24 16:49 Pulse Rate 81 Respiratory Rate 20 Blood Pressure 122/64 Pulse Oximetry 96 Oxygen Delivery Method Room Air MDM - Epistaxis Lab Data 04/12/24 17:52 04/12/24 17:52 Labs: Lab Results 04/12/24 Range/Units 17:52 WBC 14.1 H (4.5-11.0) X10^3/uL RBC 3.50 L (4.5-5.9) X10^6/uL Hgb 9.9 L (13.5-17.5) g/dL Hct 29.5 L (41-53) % MCV 84.3 (80-100) fL MCH 28.4 (26-34) PG MCHC 33.7 (30-36) % RDW 15.2 H (11.6-14.8) % Plt Count 433 H (150-400) X10^3/uL Neut % (Auto) Not Reportable Lymph % (Auto) Not Reportable [place] % (Auto) Not Reportable Eos % (Auto) Not Reportable Baso % (Auto) Not Reportable Lymph # (Auto) Not Reportable [place] # (Auto) Not Reportable Baso # (Auto) Not Reportable Total Counted 100 Seg Neutrophils % 74.0 H (38-70) % Band Neutrophils % 12.0 H (3-7) % Lymphocytes % (Manual) 11.0 L (25-45) % Monocytes % (Manual) 2.0 (2-11) % Basophils % (Manual) 1.0 (0-1) % Neutrophils # (Manual) 45851 H (7803-1765) /uL RBC Morphology Normal morphology PT 12.4 (9.4-12.5) SECONDS INR 1.1 (0.9-1.3) APTT 30 (25.1-36.5) SECONDS Sodium 125 L (137-145) mmol/L Potassium 3.3 L (3.4-5.1) mmol/L Chloride 83 L (98-107) mmol/L Carbon Dioxide 39 H (22-32) mmol/L BUN 33 H (9-20) mg/dL Creatinine 1.13 (0.66-1.25) mg/dL Estimated GFR > 60 (>60) mL/min BUN/Creatinine Ratio 29.2 H (6-22) Glucose 127 H (80-110) mg/dL Calcium 9.0 (8.4-10.2) mg/dL MDM Narrative Medical decision making narrative: 73-year-old male with significant right epistaxis. Rhino rocket placed with TXA. It was left in place which ultimately did control his bleeding. Blood work was drawn he has no significant anemia thrombocytopenia or elevated coag. Electrolytes are slightly off but baseline for him mild hyponatremia sodium 125 potassium 3.3 chloride 83 carbon dioxide 39 creatinine 1.1 Rhino rocket was pulled he had no active bleeding. No recurrence of bleeding patient and given discharge instructions all questions answered Discharge Plan Departure Patient Disposition: Home Clinical Impression: Epistaxis Instructions: DI for Nosebleed Activity Restrictions/Additional Instructions: *You have been diagnosed with epistaxis *What to do: At this time use nasal clip ice Afrin if needed for recurrent nosebleed. If still bleeding for more than 60 minutes return to ED *Continue to take medications as directed *Follow up with your primary care provider in 2-3 days or call [phone] *Return to ER if you should have persistent nosebleed or any new, worsening or concerning symptoms Prescriptions: No Action levothyroxine 112 mcg tablet See Rx Instructions .ROUTE .COMPLEX Qty: 90 3RF Dose Instruction: TAKE 1 TABLET BY MOUTH DAILY Rx Instructions: TAKE 1 TABLET BY MOUTH DAILY albuterol sulfate 90 mcg/actuation HFA aerosol inhaler See Rx Instructions .ROUTE .COMPLEX Qty: 8.5 5RF Dose Instruction: INHALE 1 PUFF INTO THE LUNGS EVERY 4 TO 6 HOURS NEEDED FOR SHORTNESS OF BREATH OR WHEEZING Rx Instructions: INHALE 1 PUFF INTO THE LUNGS EVERY 4 TO 6 HOURS NEEDED FOR SHORTNESS OF BREATH OR WHEEZING cyclobenzaprine 5 mg tablet 5 mg PO TID PRN (Reason: muscle spasm) Qty: 30 4RF oxycodone 5 mg tablet 5 mg PO Q6H PRN Vitamin D3 See Rx Instructions .ROUTE .COMPLEX Rx Instructions: 1000iu daily with calcium; vitamin B complex [B Complex-Vitamin B12] Tablet 1 tab PO DAILY omeprazole 20 mg tablet,delayed release (DR/EC) 20 mg PO DAILY Referrals: Rosanne Ferreira MD [Primary Care Provider] - Stand Alone Forms: Patient Portal/API/Survey
--- NOTE | 2024-04-12 17:05 | PC.NURSE ---
Pt states that nose bleed started appoximately 1 hour ago. Pt has hx of pancreatic CA & Oral CA. Last chemop tx last week. Right nostril bleeding and rhino rocket with TXA placed by dr murphy. Suction at bedside.
[2024-04-12] MEDS: TRANEXAMIC ACID 1,000 MG VIAL 1000 MG TOP (17:07)
[2024-04-12 18:07] LABS: INR 1.1 (0.9-1.3); Prothrombin Time 12.4 SECONDS (9.4-12.5)
[2024-04-12 18:09] LABS: Hematocrit 29.5 % (41-53); Hemoglobin 9.9 g/dL (13.5-17.5); Mean Corpuscular HGB Conc 33.7 % (30-36); Mean Corpuscular Hemoglobin 28.4 PG (26-34); Mean Corpuscular Volume 84.3 fL (80-100); Platelet Count 433 X10^3/uL (150-400); Red Cell Distribution Width 15.2 % (11.6-14.8); White Blood Cell Count 14.1 X10^3/uL (4.5-11.0)
[2024-04-12 18:10] LABS: Add Manual Diff / Slide Review YES; PTT Partial Thromboplastin Tim 30 SECONDS (25.1-36.5)
[2024-04-12 18:11] LABS: BUN Creatinine Ratio 29.2 (6-22); Blood Urea Nitrogen 33 mg/dL (9-20); Carbon Dioxide 39 mmol/L (22-32); Chloride 83 mmol/L (98-107); Estimated Glomerular Filt Rate > 60 mL/min (>60); Glucose 127 mg/dL (80-110); HEMOLYSIS < 15 (0-50); Potassium 3.3 mmol/L (3.4-5.1); Sodium 125 mmol/L (137-145)
[2024-04-12 18:32] LABS: Neutrophils Absolute Manual 12126 /uL (3000-5900); RBC Morphology Normal Morphology; Total Cells Counted 100
--- NOTE | 2024-04-12 18:36 | PC.NURSE ---
Rhino rocket removed. Epistaxis has resolved.
[2024-04-12 18:45] VITALS: BP 118/66; PULSE 78; RESP 20; O2SAT 96
== END 2024-04-12 18:46 | disposition home or self-care (01) ==
PROVIDERS: Emergency Provider Emergency Medicine; PCP Family Medicine
DX: R04.0 Epistaxis (principal); E87.1 Hypo-osmolality and hyponatremia; Z85.07 Personal history of malignant neoplasm of pancreas; Z85.038 Personal history of other malignant neoplasm of large intestine; Z85.850 Personal history of malignant neoplasm of thyroid
CPT/HCPCS: 30903; 36415; 80048; 85007; 85025; 85610; 85730; 99282

== ENCOUNTER 2024-04-14 11:38 | Inpatient (IN) | payer OTHER, SELFPAY ==
[2023-10-01 11:38] VITALS: BMI 21.9
[2024-04-14] VITALS (106 sets, daily range): BP systolic 72–135; BP diastolic 44–108; PULSE 59–108; RESP 14–53; TEMP 30.9–39.7; O2SAT 66–100; BMI 17.0
--- NOTE | 2024-04-14 11:48 | EKG_ITS ---
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
--- NOTE | 2024-04-14 11:54 | DI.RAD.S_ITS ---
PROCEDURE: XR CHEST 1V INDICATIONS: Dyspnea TECHNIQUE: One view of the chest was acquired. COMPARISON: [facility], CR, XR CHEST 1 VIEW, 03/20/2024, 16:41. [facility], CR, XR CHEST 1V, 09/28/2021, 22:38. [facility], CR, XR CHEST 2V, 02/02/2019, 12:02. FINDINGS: Surgical changes and devices: Right chest wall Port-A-Cath. Lungs and pleura: Patchy consolidative opacities bilaterally, most pronounced within the right lower lung field. No pleural effusions or pneumothorax. Mediastinum: Mediastinal contours appear normal. Heart size is normal. Bones and chest wall: No suspicious bony lesions. Overlying soft tissues appear unremarkable. IMPRESSION: Patchy consolidative opacities bilaterally, most pronounced within the right lower lung field, consistent with multifocal pneumonia. Recommend follow-up imaging after treatment to ensure resolution. Dictated by: Kendrick Lane M.D. on 04/14/2024 at 12:55 Approved by: Kendrick Lane M.D. on 04/14/2024 at 12:57
--- NOTE | 2024-04-14 11:57 | ED.SOB ---
HPI - SOB/Dyspnea General Chief Complaint: Altered Mental Status Stated Complaint: Weakness Time Seen by Provider: 04/14/24 11:45 History of Present Illness HPI Narrative: Patient brought in by ambulance for complaints of confusion shortness of breath. Rectal temp 103.1?. Patient needs redirecting but not combative. Patient has history esophageal cancer. Gets cancer care at [facility]. Has history of PEG tube and colostomy. Patient has had nausea and vomiting. Denies any pain at this time. Also has had cough that is dry. Related Data Home Medications Medication Instructions Recorded Confirmed omeprazole 20 mg tablet,delayed 20 mg PO DAILY 11/22/22 04/14/24 release oxycodone 5 mg tablet 15 mg PO Q3H PRN Pain (Scale Score 02/24/24 04/14/24 7-10) acetaminophen 325 mg tablet 975 mg PO Q6H PRN Pain (Scale 04/14/24 04/14/24 (Tylenol) Score 4-6) ondansetron 8 mg disintegrating 8 mg PO Q6H PRN Nausea And Vomiting 04/14/24 04/14/24 tablet Previous Rx's Medication Instructions Recorded levothyroxine 112 mcg tablet See Rx Instructions .Route 07/31/23 .COMPLEX #90 tabs Allergies Allergy/AdvReac Type Severity Reaction Status Date / Time No Known Drug Allergies Allergy Verified 04/06/24 09:03 Review of Systems Review of Systems Narrative: GENERAL: Negative chills, fatigue, malaise, fever, sweats. HEENT: Negative sinus pain, ear pain, sore throat RESPIRATORY: Positive dyspnea, cough CARDIOVASCULAR: Negative chest pain, palpitations GASTROINTESTINAL: Negative nausea, vomiting, abdominal pain : Negative dysuria, frequency, hematuria MUSCULOSKELETAL: Negative muscle or bony pain SKIN: Negative rash, skin lesions NEUROLOGIC: Negative weakness, numbness ROS Unobtainable: All systems reviewed & are unremarkable except as noted in HPI and below Patient History Medical History Asymptomatic microscopic hematuria Androgen deprivation therapy Headache Nasal septal perforation Nasal septal deviation Chronic sinusitis Autoimmune disorder Small bowel obstruction Large bowel obstruction Chronic congestion of paranasal sinus Colon cancer Prostate cancer Hemorrhoids organ imaging abnormality Lower urinary tract symptoms Alcohol use disorder Mixed hyperlipidemia Hypothyroidism History of tobacco use disorder Long-term use of immunosuppressant medication Decreased cortisol level (07/2020) Hyponatremia with decreased serum osmolality Hyponatremia Long-term current use of steroids Abdominal aortic ectasia (01/2020) Iron deficiency anemia Hypertension Personal history of colonic polyps Pulmonary nodules Abdominal aortic aneurysm (AAA) Iatrogenic hypothyroidism COPD (chronic obstructive pulmonary disease) Crohns disease (~1968) Surgical History Status post partial colectomy History of colonoscopy History of testicular surgery (~1956) History of mandibular surgery (~1987) Thyroid cancer (~06/2010) Tongue malignant neoplasm (~2015) Family History Father No problems noted. 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 EYES: Pupils equal round ENT: Mucous membranes dry NECK: Trachea midline. CARDIOVASCULAR: Regular rate and rhythm, tachycardia RESPIRATORY: Patient answering questions with short sentences, does have coarse bilateral lung sounds. GASTROINTESTINAL: Abdomen soft, non-tender EXTREMITIES: No gross deformities. BACK: No flank tenderness. NEURO: AOx4. SKIN: Warm and dry PSYCH: Not anxious, is cooperative Initial Vital Signs Initial Vital Signs: Vital Signs Pulse Rate 108 H 04/14/24 11:41 Pulse Oximetry 93 04/14/24 11:41 Course Orders Ordered: Acetaminophen (Acetaminophen 325 Mg Tablet) 975 mg PO Q6H PRN PRN Reason: Pain (Scale Score 4-6) Enoxaparin Sodium (Enoxaparin 40 Mg/0.4 Ml Syringe) 40 mg SUBCUT DAILY SUSY Heparin Sodium (Porcine) (Heparin 500 Unit/5 Ml Port Flush) 500 unit IV BID SUSY Sodium Chloride (Normal Saline 0.9%) 1,000 mls @ 175 mls/hr IV CONT SUSY Last Admin: 04/15/24 03:24 Dose: 175 mls/hr Documented By: Infusion: 04/15/24 03:21 Dose: Infused Documented By: Admin: 04/14/24 21:38 Dose: 175 mls/hr Documented By: Infusion: 04/14/24 21:23 Dose: Infused Documented By: Admin: 04/14/24 15:40 Dose: 175 mls/hr Documented By: CORY Piperacillin Sod/Tazobactam (Sod 3.375 gm/ Sodium Chloride) 100 mls @ 25 mls/hr IV Q8H [facility] Last Infusion: 04/15/24 07:44 Dose: Infused Documented By: Admin: 04/15/24 03:27 Dose: 25 mls/hr Documented By: Infusion: 04/15/24 00:30 Dose: Infused Documented By: Admin: 04/14/24 20:18 Dose: 25 mls/hr Documented By: NOREPINEPHRINE BITARTRATE/D5W (Levophed) 4 mg in 250 mls @ 20.813 mls/hr IV TITRATE [facility]; Protocol Last Admin: 04/15/24 06:11 Dose: 0.3 mcg/kg/min, 62.438 mls/hr Documented By: Titration: 04/15/24 05:31 Dose: Infused Documented By: Admin: 04/15/24 01:30 Dose: 0.3 mcg/kg/min, 62.438 mls/hr Documented By: Titration: 04/15/24 01:18 Dose: Infused Documented By: Titration: 04/14/24 23:45 Dose: 0.3 mcg/kg/min, 62.438 mls/hr Documented By: Titration: 04/14/24 23:06 Dose: 0.32 mcg/kg/min, 66.6 mls/hr Documented By: Admin: 04/14/24 21:20 Dose: 0.3 mcg/kg/min, 62.438 mls/hr Documented By: Titration: 04/14/24 21:20 Dose: Infused Documented By: Titration: 04/14/24 21:13 Dose: 0.3 mcg/kg/min, 62.438 mls/hr Documented By: Titration: 04/14/24 20:47 Dose: 0.4 mcg/kg/min, 83.25 mls/hr Documented By: Titration: 04/14/24 20:31 Dose: 0.32 mcg/kg/min, 66.6 mls/hr Documented By: Titration: 04/14/24 20:14 Dose: 0.3 mcg/kg/min, 62.438 mls/hr Documented By: Titration: 04/14/24 20:10 Dose: 0.25 mcg/kg/min, 52.031 mls/hr Documented By: Titration: 04/14/24 19:21 Dose: 0.2 mcg/kg/min, 41.625 mls/hr Documented By: Titration: 04/14/24 16:53 Dose: 0.15 mcg/kg/min, 31.219 mls/hr Documented By: Admin: 04/14/24 15:39 Dose: 0.1 mcg/kg/min, 20.813 mls/hr Documented By: CORY Influenza Virus Vaccine (Influenza Hd Vaccine 0.5 Ml Syringe) 0.5 ml IM .ONCE ONE Stop: 04/17/24 09:01 Levothyroxine Sodium (Levothyroxine 112 Mcg Tablet) 112 mcg PO 0600 [facility] Last Admin: 04/15/24 05:16 Dose: 112 mcg Documented By: Admin: 04/14/24 16:33 Dose: 112 mcg Documented By: CORY Naloxone HCl (Naloxone 0.4 Mg/Ml Vial) 0.2 mg IV Q2MIN PRN PRN Reason: Opiate Reversal Ondansetron HCl (Ondansetron 4 Mg Odt) 8 mg PO Q6H PRN PRN Reason: Nausea And Vomiting Oxycodone HCl (Oxycodone Ir 5 Mg Tablet) 15 mg PO Q3H PRN PRN Reason: Pain (Scale Score 7-10) Last Admin: 04/15/24 06:12 Dose: 15 mg Documented By: Admin: 04/15/24 03:05 Dose: 15 mg Documented By: Admin: 04/15/24 00:09 Dose: 15 mg Documented By: Admin: 04/14/24 21:05 Dose: 15 mg Documented By: Admin: 04/14/24 16:33 Dose: 15 mg Documented By: CORY Pantoprazole Sodium (Pantoprazole 40 Mg Vial) 40 mg IV DAILY SUSY Discontinued Medications Piperacillin Sod/Tazobactam (Sod 4.5 gm/ Sodium Chloride) 100 mls @ 200 mls/hr IV NOW ONE Stop: 04/14/24 11:55 Last Infusion: 04/14/24 13:12 Dose: Infused Documented By: Admin: 04/14/24 12:28 Dose: 200 mls/hr Documented By: KARLA Acetaminophen (Ofirmev) 1,000 mg in 100 mls @ 400 mls/hr IV NOW ONE Stop: 04/14/24 12:08 Last Infusion: 04/14/24 12:34 Dose: Infused Documented By: Admin: 04/14/24 12:05 Dose: 400 mls/hr Documented By: KARLA Sodium Chloride (Normal Saline 0.9%) 1,000 mls @ 1,000 mls/hr IV BOLUS ONE Stop: 04/14/24 13:00 Last Infusion: 04/14/24 13:12 Dose: Infused Documented By: Admin: 04/14/24 12:08 Dose: 1,000 mls/hr Documented By: KARLA Sodium Chloride (Normal Saline 0.9%) 1,000 mls @ 1,000 mls/hr IV BOLUS ONE Stop: 04/14/24 14:11 Last Infusion: 04/14/24 14:24 Dose: Infused Documented By: Admin: 04/14/24 13:15 Dose: 1,000 mls/hr Documented By: KARLA Sodium Chloride (Normal Saline 0.9%) 1,000 mls @ 1,000 mls/hr IV BOLUS ONE Stop: 04/14/24 16:17 Last Infusion: 04/14/24 18:25 Dose: Infused Documented By: Admin: 04/14/24 15:36 Dose: 1,000 mls/hr Documented By: CORY Ketorolac Tromethamine (Ketorolac 30 Mg/Ml Vial) 15 mg IV NOW ONE Stop: 04/14/24 13:26 Last Admin: 04/14/24 13:30 Dose: 15 mg Documented By: KARLA Non-Formulary Medication (Omeprazole) 20 mg PO DAILY SUSY Vital Signs Vital signs: Vital Signs - 8 hr 04/14/24 11:41 04/14/24 11:45 04/14/24 11:45 Temperature Pulse Rate 108 H 104 H Respiratory Rate 28 H Blood Pressure 117/68 Pulse Oximetry 93 92 Oxygen Delivery Method Oxygen Flow Rate 04/14/24 11:56 04/14/24 12:00 04/14/24 12:00 Temperature 103.1 F H Pulse Rate 104 H 107 H Respiratory Rate 30 H 30 H Blood Pressure 117/68 110/55 L Pulse Oximetry 85 L 97 Oxygen Delivery Method Room Air Nasal Cannula Oxygen Flow Rate 6 04/14/24 12:03 04/14/24 12:30 04/14/24 12:35 Temperature 103.3 F H 103.5 F H Pulse Rate 97 H 96 H Respiratory Rate 18 51 H 43 H Blood Pressure Pulse Oximetry 95 97 90 L Oxygen Delivery Method Nasal Cannula Oxygen Flow Rate 6 04/14/24 12:35 04/14/24 12:40 04/14/24 12:45 Temperature 103.3 F H 103.1 F H Pulse Rate 90 95 H Respiratory Rate 34 H 53 H Blood Pressure 131/108 H Pulse Oximetry 99 98 Oxygen Delivery Method Oxygen Flow Rate 04/14/24 12:50 04/14/24 12:55 04/14/24 13:00 Temperature 102.6 F H 102.7 F H 102.6 F H Pulse Rate 93 H 94 H 91 H Respiratory Rate 41 H 48 H 35 H Blood Pressure Pulse Oximetry 97 97 98 Oxygen Delivery Method Oxygen Flow Rate 04/14/24 13:00 04/14/24 13:02 04/14/24 13:02 Temperature 102.6 F H Pulse Rate 91 H Respiratory Rate 33 H Blood Pressure 87/55 L 86/51 L Pulse Oximetry 96 Oxygen Delivery Method Oxygen Flow Rate 04/14/24 13:05 04/14/24 13:09 04/14/24 13:09 Temperature 102.6 F H 102.4 F H Pulse Rate 90 93 H Respiratory Rate 31 H Blood Pressure 80/53 L Pulse Oximetry 97 98 Oxygen Delivery Method Oxygen Flow Rate 04/14/24 13:10 04/14/24 13:10 04/14/24 13:11 Temperature 102.4 F H 102.4 F H Pulse Rate 92 H 91 H Respiratory Rate 36 H 31 H Blood Pressure 81/51 L Pulse Oximetry 97 96 Oxygen Delivery Method Oxygen Flow Rate 04/14/24 13:11 Temperature Pulse Rate Respiratory Rate Blood Pressure 88/50 L Pulse Oximetry Oxygen Delivery Method Oxygen Flow Rate MDM - SOB/Dyspnea Lab Data 04/15/24 05:27 04/15/24 05:27 Labs: Lab Results 04/14/24 04/14/24 04/14/24 Range/Units 11:35 11:50 12:26 WBC 15.9 H (4.5-11.0) X10^3/uL RBC 3.02 L (4.5-5.9) X10^6/uL Hgb 8.6 L (13.5-17.5) g/dL Hct 25.8 L (41-53) % MCV 85.5 (80-100) fL MCH 28.5 (26-34) PG MCHC 33.3 (30-36) % RDW 14.8 (11.6-14.8) % Plt Count 412 H (150-400) X10^3/uL Neut % (Auto) 87.7 H (50-75) % Lymph % (Auto) 6.9 L (25-40) % Dubois % (Auto) 4.0 (3-14) % Eos % (Auto) 0.1 L (2-4) % Baso % (Auto) 1.3 (0-2) % Neut # (Auto) 32756 H (9303-7934) /uL Lymph # (Auto) 1100 (8770-8020) /uL [place]ois # (Auto) 600 (0-900) /uL Eos # (Auto) 0 (0-450) /uL Baso # (Auto) 200 H (0-100) /uL PT 11.5 (9.4-12.5) SECONDS INR 1.0 (0.9-1.3) APTT 29 (25.1-36.5) SECONDS Sodium 130 L (137-145) mmol/L Potassium 3.1 L (3.4-5.1) mmol/L Chloride 84 L (98-107) mmol/L Carbon Dioxide 40 H* (22-32) mmol/L BUN 45 H (9-20) mg/dL Creatinine 1.07 (0.66-1.25) mg/dL Estimated GFR > 60 (>60) mL/min BUN/Creatinine Ratio 42.1 H (6-22) Glucose 129 H (80-110) mg/dL Lactate 2.5 H (0.7-2.1) mmol/L Calcium 9.0 (8.4-10.2) mg/dL Total Bilirubin 0.2 (0.2-1.3) mg/dL AST 39 (17-59) IU/L ALT 26 (<50) IU/L Alkaline Phosphatase 235 H (38-126) U/L Total Protein 6.4 (6.3-8.2) g/dL Albumin 3.4 L (3.5-5.0) g/dL Globulin 3.0 (1.7-4.1) g/dL Albumin/Globulin Ratio 1.1 (1.0-2.8) Procalcitonin 6.73 H (<0.5) ng/mL Urine Color Yellow Urine Appearance Clear Urine pH 8.0 (4.5-8.0) Ur Specific [place] 1.010 (1.000-1.035) Urine Protein Trace H (Negative) Urine Glucose (UA) Negative (Negative) g/dL Urine Ketones Negative (NEGATIVE) Urine Occult Blood Negative (Negative) Urine Nitrate Negative (Negative) Urine Bilirubin Negative (NEGATIVE) Urine Urobilinogen 0.2 (0.2) E.U./dL Ur Leukocyte Esterase Negative (NEGATIVE) Urine RBC None seen (0-5/HPF) Urine WBC None seen (0-5/HPF) Ur Squamous Epith Cells 0-1 /hpf (0-5/HPF) Urine Bacteria None seen (None) Ur Culture Indicated? Cult not indicated Vol Urine Centrifuged 10ml (spun) Chlamy pneumoniae PCR Not detected (Not Detect) Adenovirus (PCR) Not detected (Not Detect) B. pertussis DNA (PCR) Not detected (Not Detect) B.parapertussis DNA PCR Not detected (Not Detecte) Coronavirus OC43 (PCR) Not detected (Not Detect) Coronavirus HKU1 (PCR) Not detected (Not Detect) Coronavirus 229E (PCR) Not detected (Not Detect) SARS-CoV-2 (PCR) Not detected (Not Detecte) Coronavirus NL63 (PCR) Not detected (Not Detect) Human Metapneumovir PCR Not detected (Not Detect) Influenza Type A (PCR) Not detected (Not Detect) Influenza Type B (PCR) Not detected (Not Detect) M. pneumoniae (PCR) Not detected (Not Detect) Parainfluenza 1 (PCR) Not detected (Not Detect) Parainfluenza 2 (PCR) Not detected (Not Detect) Parainfluenza 3 (PCR) Not detected (Not Detect) Parainfluenza 4 (PCR) Not detected (Not Detect) RSV (PCR) Not detected (Not Detect) Entero/Rhino (PCR) Not detected (Not Detect) Imaging Data Chest x-ray: Radiologist's Impression: [address] [address] XRay Report Signed Patient: Jovany Blakely MR#: [id number] : 1950 Acct:[id number] Age/Sex: 73 / M Date of Service: 04/14/24 Loc: ED Accession Number: [id number] Procedure: XR chest 1V Ordering Provider: Haseeb Turk MD PROCEDURE: XR CHEST 1V INDICATIONS: Dyspnea TECHNIQUE: One view of the chest was acquired. COMPARISON: [facility], CR, XR CHEST 1 VIEW, 03/20/2024, 16:41. [facility], CR, XR CHEST 1V, 09/28/2021, 22:38. [facility], CR, XR CHEST 2V, 02/02/2019, 12:02. FINDINGS: Surgical changes and devices: Right chest wall Port-A-Cath. Lungs and pleura: Patchy consolidative opacities bilaterally, most pronounced within the right lower lung field. No pleural effusions or pneumothorax. Mediastinum: Mediastinal contours appear normal. Heart size is normal. Bones and chest wall: No suspicious bony lesions. Overlying soft tissues appear unremarkable. IMPRESSION: Patchy consolidative opacities bilaterally, most pronounced within the right lower lung field, consistent with multifocal pneumonia. Recommend follow-up imaging after treatment to ensure resolution. Dictated by: Kendrick Lane M.D. on 04/14/2024 at 12:55 Approved by: Kendrick Lane M.D. on 04/14/2024 at 12:[address] [facility] Narrative Medical decision making narrative: Patient brought in by ambulance for complaints of confusion shortness of breath. Rectal temp 103.1?. Patient needs redirecting but not combative. Patient has history esophageal cancer. Gets cancer care at [facility]. Has history of PEG tube and colostomy. Patient has had nausea and vomiting. Denies any pain at this time. Also has had cough that is dry. 12:20 p.m.. at bedside. Patient has history of prostate cancer tongue cancer and colon cancer. Patient sees Dr. Cain oncology in [facility]. Patient is DNR DNI with selective treatments. Per patient and . After history and exam IV Tylenol, CBC CMP lactic acid procalcitonin blood culture chest x-ray EKG normal saline, respiratory therapist at bedside to assess. Right now patient is on 6 L nasal cannula. [facility] Medical records reviewed: No recent visit for this complaint Differential considered: Includes but not limited to pneumonia sepsis dehydration Lab Test results independently reviewed as above. Pertinent findings: WBC 15.9 hemoglobin 8.6 platelets 412 INR 1.0 sodium 130 potassium 3.1 bicarb 40 BUN 45 creatinine 1.07 GFR greater than 60 procalcitonin 6.73 respiratory panel negative lactic acid 2.5 Independently reviewed EKG sinus tachycardia rate 103 Imaging studies independently reviewed: Chest x-ray bilateral patchy infiltrates Consultations: 1:26 p.m. Spoke with hospitalist, Dr. Villalobos, he will see patient for admission. Does not want any other antibiotics at this time. Treatments: 2 L normal saline IV Tylenol Toradol Zosyn Re-evaluations: 1:30 p.m.. Updated patient and results. They do agree understand need for admission for pneumonia. Discussion: Appropriate for admission. Patient has IV antibiotics started for pneumonia. Patient is DNR DNI with selective treatment only. Diagnosis: Community-acquired pneumonia Discharge Plan Departure Patient Disposition: Admitted As Inpatient Clinical Impression: Community acquired pneumonia Qualifiers: Laterality: unspecified laterality Qualified Code(s): J18.9 - Pneumonia, unspecified organism Admit Date/Time: 04/14/24 13:25 Admit Provider: Saulo Villalobos
[2024-04-14] MEDS: ACETAMINOPHEN IV 1,000 MG/100 ML VIAL 400 MG IV (12:05)
[2024-04-14 12:08] LABS: Prothrombin Time 11.5 SECONDS (9.4-12.5)
[2024-04-14] MEDS: SODIUM CHLORIDE 0.9% 1,000 ML 1000 ML IV ×3 (12:08→15:36)
[2024-04-14 12:09] LABS: Add Manual Diff / Slide Review NO; Basophils Absolute Auto 200 /uL (0-100); Basophils Percent Auto 1.3 % (0-2); Eosinophils Absolute Auto 0 /uL (0-450); Eosinophils Percent Auto 0.1 % (2-4); Hematocrit 25.8 % (41-53); Hemoglobin 8.6 g/dL (13.5-17.5); Lymphocytes Absolute Auto 1100 /uL (1100-4500); Lymphocytes Percent Auto 6.9 % (25-40); Mean Corpuscular HGB Conc 33.3 % (30-36); Mean Corpuscular Hemoglobin 28.5 PG (26-34); Mean Corpuscular Volume 85.5 fL (80-100); Monocytes Absolute Auto 600 /uL (0-900); Neutrophils Absolute Auto 13900 /uL (1500-7000); Neutrophils Percent Auto 87.7 % (50-75); Platelet Count 412 X10^3/uL (150-400); Red Blood Cell Count 3.02 X10^6/uL (4.5-5.9); Red Cell Distribution Width 14.8 % (11.6-14.8); White Blood Cell Count 15.9 X10^3/uL (4.5-11.0)
[2024-04-14 12:13] LABS: Alanine Aminotransferase 26 IU/L (<50); Albumin 3.4 g/dL (3.5-5.0); Albumin Globulin Ratio 1.1 (1.0-2.8); Alkaline Phosphatase 235 U/L (38-126); Aspartate Aminotransferase 39 IU/L (17-59); BUN Creatinine Ratio 42.1 (6-22); Bilirubin Total 0.2 mg/dL (0.2-1.3); Blood Urea Nitrogen 45 mg/dL (9-20); Chloride 84 mmol/L (98-107); Estimated Glomerular Filt Rate > 60 mL/min (>60); Glucose 129 mg/dL (80-110); HEMOLYSIS < 15 (0-50); Lactate (Lactic Acid) 2.5 mmol/L (0.7-2.1); Potassium 3.1 mmol/L (3.4-5.1); Sodium 130 mmol/L (137-145); Total Protein 6.4 g/dL (6.3-8.2)
[2024-04-14 12:15] LABS: Carbon Dioxide 40 mmol/L (22-32); PTT Partial Thromboplastin Tim 29 SECONDS (25.1-36.5)
[2024-04-14] MEDS: PIPERACILLIN/TAZO 4.5 GM in SODIUM CHLORIDE 0.9% 100 ML IV (12:28)
[2024-04-14 12:29] LABS: Procalcitonin 6.73 ng/mL (<0.5)
[2024-04-14 12:39] LABS: Appearance Urine UA CLEAR; Bilirubin Urine UA NEGATIVE (NEGATIVE); Color Urine UA YELLOW; Glucose Urine UA NEGATIVE (Negative); Ketones Urine UA NEGATIVE (NEGATIVE); Leukocyte Esterase Urine UA NEGATIVE (NEGATIVE); Nitrite Urine UA NEGATIVE (Negative); Occult Blood Urine UA NEGATIVE (Negative); Protein Urine UA TRACE (Negative); Urobilinogen Urine UA 0.2 E.U./dL (0.2)
--- NOTE | 2024-04-14 12:52 | PC.NURSE ---
PEG tube site reddened with yellow drainage around site, Site cleansed with saline, dried and dressing replaced. Pts Colostomy bag in RLQ draining dark green liquid stool, area appears free of infection. Oral care provided for pt. Site under chin where biopsy was performed is draining dark sticking drainage. Pt mental status is improving with oxygen and medication interventions. Pt is answering questions appropriately and agitation is improving. Monitoring body temp with temp sensing stearns. Will continue to monitor pt for any changes.
[2024-04-14 12:54] LABS: Bacteria Urine None Seen; Culture Indicated Urine Cult Not Indicated; RBC Urine None Seen (0-5/HPF); Squamous Epithelial Cell Urine 0-1 /HPF (0-5/HPF); Urine Volume 10mL (spun); WBC Urine None Seen (0-5/HPF)
[2024-04-14 12:59] LABS: Adenovirus Not Detected (Not Detect); B. parapertussis Not Detected (Not Detecte); Bordetella pertussis Not Detected (Not Detect); Chlamydophila pneumoniae Not Detected (Not Detect); Coronavirus 229E Not Detected (Not Detect); Coronavirus HKU1 Not Detected (Not Detect); Coronavirus NL 63 Not Detected (Not Detect); Coronavirus OC43 Not Detected (Not Detect); Human Metapneumovirus Not Detected (Not Detect); Human Rhinovirus/Enterovirus Not Detected (Not Detect); Influenza A Not Detected (Not Detect); Influenza B Not Detected (Not Detect); Mycoplasma pneumoniae Not Detected (Not Detect); Parainfluenza Virus 1 Not Detected (Not Detect); Parainfluenza Virus 2 Not Detected (Not Detect); Parainfluenza Virus 3 Not Detected (Not Detect); Parainfluenza Virus 4 Not Detected (Not Detect); Respiratory Syncytial Virus Not Detected (Not Detect); SARS- CoV-2 Not Detected (Not Detecte)
--- NOTE | 2024-04-14 13:12 | PC.NURSE ---
Pt's BP starting to drop, <85 SBP, shortly after 1st NS liter bolus. Dr. Turk updated. Verbal for 2nd Liter NS bolus. Running as ordered. Continuing to monitor pts hemodynamic status.
[2024-04-14] MEDS: KETOROLAC 30 MG/ML VIAL 15 MG IV (13:30)
[2024-04-14 13:39] LABS: Reflexed Lactate in 2 Hours Y
[2024-04-14 14:17] LABS: Lactate 2HR (Lactic Acid Rflx) 0.8 mmol/L (0.7-2.1)
--- NOTE | 2024-04-14 15:17 | P.HP_ITS ---
History of Present Illness History of Present Illness Date Patient Seen: 04/14/24 Time Patient Seen: 15:17 Chief complaint: Weakness Narrative: This is a 73-year-old male with tongue cancer, history of colon cancer, history of prostate cancer history of thyroid cancer,, COPD, Crohn's disease and hypothyroidism who presents with presumed aspiration pneumonia and sepsis. He has been short of breath, coughing and febrile for 2 days. His temperature on arrival is 103.1 and his blood pressure is in the 80s systolic. He is currently undergoing chemotherapy in [place] for his tongue cancer. The most recent treatment was on April 01, followed a few days later by a nosebleed, which seemed to cause his stomach to over fill with blood and then vomiting, with the next symptom being the fever and apparent aspiration pneumonia. He has a colostomy secondary to a history of Crohn's disease/colon cancer. He has a feeding tube because of the difficulty swallowing caused by the tongue cancer. His feeding tube regimen is Nutren 2.0 3.5 boxes per day. The procalcitonin is 6.73. The lactic acid level is 2.5, dropping to 0.8 after 1 L IV normal saline bolus. The BUN is 45. The creatinine is normal at 1.07. His EKG shows sinus tachycardia with first-degree AV block, rare PVCs and right bundle branch block. The hemoglobin is 8.6 with a potassium of 3.1. The white blood count is 15.9. [facility] Medical History Asymptomatic microscopic hematuria Androgen deprivation therapy Headache Nasal septal perforation Nasal septal deviation Chronic sinusitis Autoimmune disorder Small bowel obstruction Large bowel obstruction Chronic congestion of paranasal sinus Colon cancer Prostate cancer Hemorrhoids organ imaging abnormality Lower urinary tract symptoms Alcohol use disorder Mixed hyperlipidemia Hypothyroidism History of tobacco use disorder Long-term use of immunosuppressant medication Decreased cortisol level (07/2020) Hyponatremia with decreased serum osmolality Hyponatremia Long-term current use of steroids Abdominal aortic ectasia (01/2020) Iron deficiency anemia Hypertension Personal history of colonic polyps Pulmonary nodules Abdominal aortic aneurysm (AAA) Iatrogenic hypothyroidism COPD (chronic obstructive pulmonary disease) Crohns disease (~1969) Surgical History Status post partial colectomy History of colonoscopy History of testicular surgery (~1957) History of mandibular surgery (~1987) Thyroid cancer (~06/2010) Tongue malignant neoplasm (~2015) Family History Father No problems noted. 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 [employer] Smoking Status: Current every day smoker alcohol intake: current substance use type: marijuana caffeine: Yes Meds Home Medications and Allergies Home Medications Medication Instructions Recorded Confirmed Type omeprazole 20 mg tablet,delayed 20 mg PO DAILY 11/22/22 04/14/24 History release levothyroxine 112 mcg tablet See Rx Instructions .Route 07/31/23 04/14/24 Rx .COMPLEX #90 tabs oxycodone 5 mg tablet 15 mg PO Q3H PRN Pain (Scale Score 02/24/24 04/14/24 History 7-10) acetaminophen 325 mg tablet 975 mg PO Q6H PRN Pain (Scale 04/14/24 04/14/24 History (Tylenol) Score 4-6) ondansetron 8 mg disintegrating 8 mg PO Q6H PRN Nausea And Vomiting 04/14/24 04/14/24 History tablet Allergies Allergy/AdvReac Type Severity Reaction Status Date / Time No Known Drug Allergies Allergy Verified 04/06/24 09:03 Review of Systems Review of Systems Narrative: Positive for difficulty swallowing, dysarthria, fever, aspiration, shortness of breath, coughing, fatigue and tongue cancer pain. Negative for chest pain, abdominal pain, diarrhea, bleeding, dysuria, joint pain, headaches. Exam Vital Signs (past 8 hours): - 04/14/24 11:41 04/14/24 11:45 04/14/24 11:45 Temperature Pulse Rate 108 H 104 H Respiratory Rate 28 H Blood Pressure 117/68 Pulse Oximetry 93 92 Oxygen Delivery Method Oxygen Flow Rate 04/14/24 11:56 04/14/24 12:00 04/14/24 12:00 Temperature 103.1 F H Pulse Rate 104 H 107 H Respiratory Rate 30 H 30 H Blood Pressure 117/68 110/55 L Pulse Oximetry 85 L 97 Oxygen Delivery Method Room Air Nasal Cannula Oxygen Flow Rate 6 04/14/24 12:03 04/14/24 12:30 04/14/24 12:35 Temperature 103.3 F H 103.5 F H Pulse Rate 97 H 96 H Respiratory Rate 18 51 H 43 H Blood Pressure Pulse Oximetry 95 97 90 L Oxygen Delivery Method Nasal Cannula Oxygen Flow Rate 6 04/14/24 12:35 04/14/24 12:40 04/14/24 12:45 Temperature 103.3 F H 103.1 F H Pulse Rate 90 95 H Respiratory Rate 34 H 53 H Blood Pressure 131/108 H Pulse Oximetry 99 98 Oxygen Delivery Method Oxygen Flow Rate 04/14/24 12:50 04/14/24 12:55 04/14/24 13:00 Temperature 102.6 F H 102.7 F H 102.6 F H Pulse Rate 93 H 94 H 91 H Respiratory Rate 41 H 48 H 35 H Blood Pressure Pulse Oximetry 97 97 98 Oxygen Delivery Method Oxygen Flow Rate 04/14/24 13:00 04/14/24 13:02 04/14/24 13:02 Temperature 102.6 F H Pulse Rate 91 H Respiratory Rate 33 H Blood Pressure 87/55 L 86/51 L Pulse Oximetry 96 Oxygen Delivery Method Oxygen Flow Rate 04/14/24 13:05 04/14/24 13:09 04/14/24 13:09 Temperature 102.6 F H 102.4 F H Pulse Rate 90 93 H Respiratory Rate 31 H Blood Pressure 80/53 L Pulse Oximetry 97 98 Oxygen Delivery Method Oxygen Flow Rate 04/14/24 13:10 04/14/24 13:10 04/14/24 13:11 Temperature 102.4 F H 102.4 F H Pulse Rate 92 H 91 H Respiratory Rate 36 H 31 H Blood Pressure 81/51 L Pulse Oximetry 97 96 Oxygen Delivery Method Oxygen Flow Rate 04/14/24 13:11 04/14/24 13:15 04/14/24 13:20 Temperature 102.4 F H 102.4 F H Pulse Rate 86 87 Respiratory Rate 37 H 34 H Blood Pressure 88/50 L Pulse Oximetry 97 98 Oxygen Delivery Method Oxygen Flow Rate 04/14/24 13:20 04/14/24 13:25 04/14/24 13:30 Temperature 102.2 F H 102.0 F H Pulse Rate 88 85 Respiratory Rate 30 H 41 H Blood Pressure 96/51 L Pulse Oximetry 98 97 Oxygen Delivery Method Oxygen Flow Rate 04/14/24 13:30 04/14/24 13:32 04/14/24 13:35 Temperature 101.8 F H Pulse Rate 88 Respiratory Rate 31 H Blood Pressure 88/52 L Pulse Oximetry 98 Oxygen Delivery Method Nasal Cannula Oxygen Flow Rate 04/14/24 13:36 04/14/24 13:36 04/14/24 13:40 Temperature 101.8 F H Pulse Rate 90 Respiratory Rate 33 H Blood Pressure 98/54 L 104/58 L Pulse Oximetry 97 Oxygen Delivery Method Oxygen Flow Rate 04/14/24 13:40 04/14/24 13:45 04/14/24 13:50 Temperature 101.8 F H 101.7 F H 101.7 F H Pulse Rate 91 H 87 90 Respiratory Rate 20 25 H 35 H Blood Pressure Pulse Oximetry 98 97 98 Oxygen Delivery Method Oxygen Flow Rate 04/14/24 13:50 04/14/24 13:55 04/14/24 14:00 Temperature 101.5 F H 101.5 F H Pulse Rate 87 89 Respiratory Rate 29 H 38 H Blood Pressure 100/58 L Pulse Oximetry 93 96 Oxygen Delivery Method Oxygen Flow Rate 04/14/24 14:00 04/14/24 14:05 04/14/24 14:18 Temperature 98.2 F Pulse Rate 87 Respiratory Rate 34 H Blood Pressure 87/46 L 97/54 L Pulse Oximetry 99 Oxygen Delivery Method Oxygen Flow Rate Oxygen Delivery Method Nasal Cannula Oxygen Flow Rate 6 Narrative Exam Narrative: Alert and oriented x3. Moderate distress from respiratory compromise and oral/tongue pain. Pupils are equally round and reactive to light and accommodation. Sclerae are pink and nonicteric. Extraocular muscles are intact Throat has thick yellow mucus caked in various locations with a defect in the right posterior tongue and chronic ulcerations. The lips have chronic ulcerations also. No lymph nodes are felt head, neck, supraclavicular area. No thyromegaly JVD is less than 6 cm No carotid bruits are heard Heart is regular rate and rhythm without murmur Lungs are clear to auscultation bilaterally Abdomen is soft, bowel sounds positive, nontender. Left upper abdominal area with intact feeding tube in place. Right upper abdominal colostomy present. There is no ankle edema Motor function is 3/5 throughout. There is no tremor Cranial nerves are compromised with decreased tongue movement. Speech is extremely dysarthric and voice is dysphonic. Skin has no rash or jaundice. In general he appears to have atrophic muscles and generalized cachexia. Objective Imaging PET: Radiologist's impression: IMPRESSION: Hypermetabolic mass centered in the floor of the mouth. There may be small satellite nodules and adjacent lymph nodes that appear contiguous with the primary lesion Right tonsillar separate area of uptake that is asymmetric to the contralateral side, correlate additionally with direct visualization. Labs 04/14/24 11:35 04/14/24 11:35 Labs: Laboratory Results - last 24 hr 04/14/24 04/14/24 04/14/24 11:35 11:50 12:26 WBC 15.9 H RBC 3.02 L Hgb 8.6 L Hct 25.8 L MCV 85.5 MCH 28.5 MCHC 33.3 RDW 14.8 Plt Count 412 H Neut % (Auto) 87.7 H Lymph % (Auto) 6.[address] [place] % (Auto) 4.0 Eos % (Auto) 0.1 L Baso % (Auto) 1.3 Neut # (Auto) 26849 H Lymph # (Auto) 1100 [place] # (Auto) 600 Eos # (Auto) 0 Baso # (Auto) 200 H PT 11.5 INR 1.0 APTT 29 Sodium 130 L Potassium 3.1 L Chloride 84 L Carbon Dioxide 40 H* BUN 45 H Creatinine 1.07 Estimated GFR > 60 BUN/Creatinine Ratio 42.1 H Glucose 129 H Lactate 2.5 H Calcium 9.0 Total Bilirubin 0.2 AST 39 ALT 26 Alkaline Phosphatase 235 H Total Protein 6.4 Albumin 3.4 L Globulin 3.0 Albumin/Globulin Ratio 1.1 Procalcitonin 6.73 H Urine Color Yellow Urine Appearance Clear Urine pH 8.0 Ur Specific [place] 1.010 Urine Protein Trace H Urine Glucose (UA) Negative Urine Ketones Negative Urine Occult Blood Negative Urine Nitrate Negative Urine Bilirubin Negative Urine Urobilinogen 0.2 Ur Leukocyte Esterase Negative Urine RBC None seen Urine WBC None seen Ur Squamous Epith Cells 0-1 /hpf Urine Bacteria None seen Ur Culture Indicated? Cult not indicated Vol Urine Centrifuged 10ml (spun) Chlamy pneumoniae PCR Not detected Adenovirus (PCR) Not detected B. pertussis DNA (PCR) Not detected B.parapertussis DNA PCR Not detected Coronavirus OC43 (PCR) Not detected Coronavirus HKU1 (PCR) Not detected Coronavirus 229E (PCR) Not detected SARS-CoV-2 (PCR) Not detected Coronavirus NL63 (PCR) Not detected Human Metapneumovir PCR Not detected Influenza Type A (PCR) Not detected Influenza Type B (PCR) Not detected M. pneumoniae (PCR) Not detected Parainfluenza 1 (PCR) Not detected Parainfluenza 2 (PCR) Not detected Parainfluenza 3 (PCR) Not detected Parainfluenza 4 (PCR) Not detected RSV (PCR) Not detected Entero/Rhino (PCR) Not detected 04/14/24 13:56 WBC RBC Hgb Hct MCV MCH MCHC RDW Plt Count Neut % (Auto) Lymph % (Auto) [place] % (Auto) Eos % (Auto) Baso % (Auto) Neut # (Auto) Lymph # (Auto) [place] # (Auto) Eos # (Auto) Baso # (Auto) PT INR APTT Sodium Potassium Chloride Carbon Dioxide BUN Creatinine Estimated GFR BUN/Creatinine Ratio Glucose Lactate 0.8 Calcium Total Bilirubin AST ALT Alkaline Phosphatase Total Protein Albumin Globulin Albumin/Globulin Ratio Procalcitonin Urine Color Urine Appearance Urine pH Ur Specific [place] Urine Protein Urine Glucose (UA) Urine Ketones Urine Occult Blood Urine Nitrate Urine Bilirubin Urine Urobilinogen Ur Leukocyte Esterase Urine RBC Urine WBC Ur Squamous Epith Cells Urine Bacteria Ur Culture Indicated? Vol Urine Centrifuged Chlamy pneumoniae PCR Adenovirus (PCR) B. pertussis DNA (PCR) B.parapertussis DNA PCR Coronavirus OC43 (PCR) Coronavirus HKU1 (PCR) Coronavirus 229E (PCR) SARS-CoV-2 (PCR) Coronavirus NL63 (PCR) Human Metapneumovir PCR Influenza Type A (PCR) Influenza Type B (PCR) M. pneumoniae (PCR) Parainfluenza 1 (PCR) Parainfluenza 2 (PCR) Parainfluenza 3 (PCR) Parainfluenza 4 (PCR) RSV (PCR) Entero/Rhino (PCR) Assessment & Plan Assessment & Plan narrative: This is a 73-year-old male with tongue cancer, history of colon cancer, history of prostate cancer history of thyroid cancer,, COPD, Crohn's disease and hypothyroidism who presents with presumed aspiration pneumonia and sepsis. He has been short of breath, coughing and febrile for 2 days. His temperature on arrival is 103.1 and his blood pressure is in the 80s systolic. Sepsis with bilateral aspiration pneumonia -organ dysfunction with acute kidney injury, fever, hypotension and lactic acidosis -chest x-ray shows right greater than left patchy infiltrates -lactic acid level 2.5, procalcitonin 6.73, white blood count 15.9 and fever of 103.1 -continue Zosyn for coverage of anaerobic and Gram-negative organisms likely causing this pneumonia. -viral panel including RSV, COVID and influenza is negative -give 3rd IV normal saline 1 L bolus and begin 175 mL/hr maintenance. -begin Levophed drip in the ICU. -the patient is DNR, confirmed today. Aspiration pneumonia/hypoxic respiratory failure -mechanism of vomiting after swallowing blood in the context of severe tongue and throat dysfunction -Zosyn IV -supplemental oxygen to maintain sat greater than 90%. Patient is DNR. Tube feeding -patient prefers plant based formula, initiate 70 mL/hr and consult dietitian. 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 Time-Based Coding :: [TOTAL MINUTES] spent with patient and on the chart (including review of chart, obtaining history, exam, reviewing outside data, placing orders, documenting exam and treatment plan, and counseling patient) on [DATE].
[2024-04-14] MEDS: NOREPINEPHRINE BITARTRATE/D5W 4 MG/250 ML PLAST..BAG 20.813 MG IV (15:39)
[2024-04-14] MEDS: SODIUM CHLORIDE 0.9% 1,000 ML 175 ML IV ×2 (15:40→21:38)
[2024-04-14] MEDS: OXYCODONE IR 5 MG TABLET 15 MG PO ×2 (16:33→21:05)
[2024-04-14] MEDS: LEVOTHYROXINE 112 MCG TABLET PO (16:33)
[2024-04-14 16:51] LABS: MRSA (Nasal) PCR DETECTED (Not Detect)
--- NOTE | 2024-04-14 18:41 | PC.NURSE ---
Admit Note Patient admitted to room 230 from ER at 1405. Transferred to bed via slider board. Patient is alert and oriented x3. Speech is slurred per baseline secondary to tongue cancer, able to make needs known, using white board for communication as needed. On 5L NC with SpO2 in the 94%-96% range. Temp sensing Culp in place and draining clear yellow urine, temp 100.4 at this time. Pt is NPO except for ice chips, water, and root beer per MD, pt does have cough at all times, clearing airway with independent use of yankauer. Band-aid in place to chin due to recent biopsy site, any fluids drip through site onto band-aid. PEG tube present to left side, site is erythemic, warm to touch with purulent drainage, dressing in place. Tube feeds administered per pt's home routine, using pt's own tube feeds: Nutren 2.0, 3.5 boxes per day, 1 box (250 ml) given over 1 hour. MD aware of tube feed regimen and has ordered for pt to continue home regimen. Tolerating well. Medicated with oxycodone for pain via PEG tube, pt reports effective. Colostomy output is dark and Guaiac positive, MD is aware. BP decreased shortly after arrival to [facility] to 70s/40s, pt asymptomatic, SR 70s (see VS). MD notified and 3rd liter of NS infused and NS started at 175 ml/hr. Levophed started at 0.1 mcg/kg/min and titrated to maintain MAP greater than 65, see emar. Pt oriented to room on arrival and to call light/bed/tv controls. Call light within reach and using appropriately to make needs known.
[2024-04-14] MEDS: PIPERACILLIN/TAZO 3.375 GM in SODIUM CHLORIDE 0.9% 100 ML IV (20:18)
[2024-04-14] MEDS: NOREPINEPHRINE BITARTRATE/D5W 4 MG/250 ML PLAST..BAG 62.438 MG IV (21:20)
[2024-04-15] VITALS (55 sets, daily range): BP systolic 95–158; BP diastolic 52–114; PULSE 56–85; RESP 13–35; TEMP 12.5–38.4; O2SAT 78–98
[2024-04-15] MEDS: OXYCODONE IR 5 MG TABLET 15 MG PO ×8 (00:09→22:06)
[2024-04-15] MEDS: NOREPINEPHRINE BITARTRATE/D5W 4 MG/250 ML PLAST..BAG 62.438 MG IV ×2 (01:30→06:11)
[2024-04-15] MEDS: SODIUM CHLORIDE 0.9% 1,000 ML 175 ML IV ×3 (03:24→18:06)
[2024-04-15] MEDS: PIPERACILLIN/TAZO 3.375 GM in SODIUM CHLORIDE 0.9% 100 ML IV ×3 (03:27→20:31)
[2024-04-15] MEDS: LEVOTHYROXINE 112 MCG TABLET PO (05:16)
[2024-04-15 05:38] LABS: Mean Corpuscular HGB Conc 33.7 % (30-36); Mean Corpuscular Hemoglobin 28.7 PG (26-34); Platelet Count 350 X10^3/uL (150-400); Red Blood Cell Count 2.37 X10^6/uL (4.5-5.9); Red Cell Distribution Width 15.4 % (11.6-14.8); White Blood Cell Count 19.5 X10^3/uL (4.5-11.0)
[2024-04-15 05:43] LABS: Hemoglobin 6.8 g/dL (13.5-17.5)
[2024-04-15 05:45] LABS: Add Manual Diff / Slide Review YES; Hematocrit 20.2 % (41-53)
[2024-04-15 05:53] LABS: Alanine Aminotransferase 16 IU/L (<50); Albumin 2.5 g/dL (3.5-5.0); Albumin Globulin Ratio 0.9 (1.0-2.8); Alkaline Phosphatase 191 U/L (38-126); Aspartate Aminotransferase 37 IU/L (17-59); BUN Creatinine Ratio 30.8 (6-22); Bilirubin Total 0.2 mg/dL (0.2-1.3); Blood Urea Nitrogen 24 mg/dL (9-20); Calcium 7.5 mg/dL (8.4-10.2); Carbon Dioxide 33 mmol/L (22-32); Chloride 97 mmol/L (98-107); Estimated Glomerular Filt Rate > 60 mL/min (>60); Globulin 2.7 g/dL (1.7-4.1); Glucose 111 mg/dL (80-110); HEMOLYSIS < 15 (0-50); Magnesium 1.6 mg/dL (1.6-2.3); Potassium 3.2 mmol/L (3.4-5.1); Sodium 129 mmol/L (137-145); Total Protein 5.2 g/dL (6.3-8.2)
[2024-04-15 06:16] LABS: Neutrophils Absolute Manual 15990 /uL (3000-5900); Total Cells Counted 100
[2024-04-15 06:17] LABS: Anisocytosis 1+; Dohle Bodies 1+
--- NOTE | 2024-04-15 08:06 | P.PN_ITS ---
Subjective Subjective Date Patient Seen: 04/15/24 Interval history: He is seen today to follow-up his tongue squamous cell carcinoma, dehydration, sepsis and aspiration pneumonia. He is doing better. He is off the Levophed. His T-max is 100.0?. He will need a blood transfusion as his hemoglobin has dropped to 6.8 from 8.6. The white blood count has risen to 19.5. The potassium is still low at 3.2 so that will be addressed with liquid potassium in his feeding tube. The creatinine is 0.78 and the sodium is 129. The alkaline phosphatase dropped from 235 down to 191. His oral and lip exam is much improved. Exam Vital Signs (past 8 hours): - 04/15/24 00:30 04/15/24 00:30 04/15/24 01:00 Temperature 100.9 F H Pulse Rate 83 Respiratory Rate 24 Blood Pressure 158/114 H 95/54 L Pulse Oximetry 96 Oxygen Flow Rate 4 04/15/24 01:00 04/15/24 01:30 04/15/24 01:30 Temperature 100.6 F H 100.4 F H Pulse Rate 73 72 Respiratory Rate 14 18 Blood Pressure 115/67 Pulse Oximetry 94 93 Oxygen Flow Rate 4 04/15/24 02:00 04/15/24 02:00 04/15/24 02:30 Temperature 54.5 F L Pulse Rate 71 Respiratory Rate 24 Blood Pressure 112/60 112/76 Pulse Oximetry 92 Oxygen Flow Rate 4 04/15/24 02:30 04/15/24 03:00 04/15/24 03:00 Temperature 101.1 F H 99.9 F H Pulse Rate 75 67 Respiratory Rate 23 18 Blood Pressure 98/54 L Pulse Oximetry 92 94 Oxygen Flow Rate 04/15/24 03:30 04/15/24 03:30 04/15/24 04:00 Temperature 99.7 F H 100.6 F H Pulse Rate 66 63 Respiratory Rate 17 17 Blood Pressure 101/59 L Pulse Oximetry 94 94 Oxygen Flow Rate 4 4 04/15/24 04:00 04/15/24 04:31 04/15/24 04:31 Temperature 100.4 F H Pulse Rate 83 Respiratory Rate 29 H Blood Pressure 106/59 L 136/65 Pulse Oximetry 78 L Oxygen Flow Rate 04/15/24 05:00 04/15/24 05:31 04/15/24 05:31 Temperature 100.6 F H 100.2 F H Pulse Rate 67 58 L Respiratory Rate 24 18 Blood Pressure 150/58 H 107/57 L Pulse Oximetry 91 94 Oxygen Flow Rate 4 04/15/24 06:00 04/15/24 06:00 Temperature 100.0 F H Pulse Rate 67 Respiratory Rate 20 Blood Pressure 127/65 Pulse Oximetry 94 Oxygen Flow Rate 4 Oxygen Delivery Method Nasal Cannula Oxygen Flow Rate 4 Narrative Exam Narrative: He is alert and oriented x3. No apparent distress. His voice is garbled, at baseline. He has using a pegboard to right his thoughts out. His mouth no longer has the caked material and the inflammation has gone down. The ulcers on the lips are improved. Heart is regular rate and rhythm without murmur Lungs are clear to auscultation bilaterally Extremities have no ankle edema Abdomen has a G-tube on the left side and a colostomy on the right side. There is no tenderness. Objective Labs 04/15/24 05:27 04/15/24 05:27 Labs: Laboratory Results - last 24 hr 04/14/24 04/14/24 04/14/24 11:35 11:50 12:26 WBC 15.9 H RBC 3.02 L Hgb 8.6 L Hct 25.8 L MCV 85.5 MCH 28.5 MCHC 33.3 RDW 14.8 Plt Count 412 H Neut % (Auto) 87.7 H Lymph % (Auto) 6.9 L [place] % (Auto) 4.0 Eos % (Auto) 0.1 L Baso % (Auto) 1.3 Neut # (Auto) 19927 H Lymph # (Auto) 1100 [place] # (Auto) 600 Eos # (Auto) 0 Baso # (Auto) 200 H Total Counted Seg Neutrophils % Band Neutrophils % Lymphocytes % (Manual) Monocytes % (Manual) Basophils % (Manual) Metamyelocytes % Neutrophils # (Manual) Dohle Bodies RBC Morphology Anisocytosis PT 11.5 INR 1.0 APTT 29 Sodium 130 L Potassium 3.1 L Chloride 84 L Carbon Dioxide 40 H* BUN 45 H Creatinine 1.07 Estimated GFR > 60 BUN/Creatinine Ratio 42.1 H Glucose 129 H Lactate 2.5 H Calcium 9.0 Magnesium Total Bilirubin 0.2 AST 39 ALT 26 Alkaline Phosphatase 235 H Total Protein 6.4 Albumin 3.4 L Globulin 3.0 Albumin/Globulin Ratio 1.1 Procalcitonin 6.73 H Urine Color Yellow Urine Appearance Clear Urine pH 8.0 Ur Specific [place] 1.010 Urine Protein Trace H Urine Glucose (UA) Negative Urine Ketones Negative Urine Occult Blood Negative Urine Nitrate Negative Urine Bilirubin Negative Urine Urobilinogen 0.2 Ur Leukocyte Esterase Negative Urine RBC None seen Urine WBC None seen Ur Squamous Epith Cells 0-1 /hpf Urine Bacteria None seen Ur Culture Indicated? Cult not indicated Vol Urine Centrifuged 10ml (spun) Nasal Screen MRSA (PCR) Chlamy pneumoniae PCR Not detected Adenovirus (PCR) Not detected B. pertussis DNA (PCR) Not detected B.parapertussis DNA PCR Not detected Coronavirus OC43 (PCR) Not detected Coronavirus HKU1 (PCR) Not detected Coronavirus 229E (PCR) Not detected SARS-CoV-2 (PCR) Not detected Coronavirus NL63 (PCR) Not detected Human Metapneumovir PCR Not detected Influenza Type A (PCR) Not detected Influenza Type B (PCR) Not detected M. pneumoniae (PCR) Not detected Parainfluenza 1 (PCR) Not detected Parainfluenza 2 (PCR) Not detected Parainfluenza 3 (PCR) Not detected Parainfluenza 4 (PCR) Not detected RSV (PCR) Not detected Entero/Rhino (PCR) Not detected 04/14/24 04/14/24 04/15/24 13:56 15:32 05:27 WBC 19.5 H RBC 2.37 L Hgb 6.8 L* Hct 20.2 L* MCV 85.0 MCH 28.7 MCHC 33.7 RDW 15.4 H Plt Count 350 Neut % (Auto) Not Reportable Lymph % (Auto) Not Reportable [place] % (Auto) Not Reportable Eos % (Auto) Not Reportable Baso % (Auto) Not Reportable Neut # (Auto) Lymph # (Auto) Not Reportable [place] # (Auto) Not Reportable Eos # (Auto) Baso # (Auto) Not Reportable Total Counted 100 Seg Neutrophils % 64.0 Band Neutrophils % 18.0 H Lymphocytes % (Manual) 11.0 L Monocytes % (Manual) 4.0 Basophils % (Manual) 1.0 Metamyelocytes % 2.0 H Neutrophils # (Manual) 95817 H Dohle Bodies 1+ H RBC Morphology See below Anisocytosis 1+ H PT INR APTT Sodium 129 L Potassium 3.2 L Chloride 97 L Carbon Dioxide 33 H BUN 24 H Creatinine 0.78 Estimated GFR > 60 BUN/Creatinine Ratio 30.8 H Glucose 111 H Lactate 0.8 Calcium 7.5 L Magnesium 1.6 Total Bilirubin 0.2 AST 37 ALT 16 Alkaline Phosphatase 191 H Total Protein 5.2 L Albumin 2.5 L Globulin 2.7 Albumin/Globulin Ratio 0.9 L Procalcitonin Urine Color Urine Appearance Urine pH Ur Specific [place] Urine Protein Urine Glucose (UA) Urine Ketones Urine Occult Blood Urine Nitrate Urine Bilirubin Urine Urobilinogen Ur Leukocyte Esterase Urine RBC Urine WBC Ur Squamous Epith Cells Urine Bacteria Ur Culture Indicated? Vol Urine Centrifuged Nasal Screen MRSA (PCR) Detected H Chlamy pneumoniae PCR Adenovirus (PCR) B. pertussis DNA (PCR) B.parapertussis DNA PCR Coronavirus OC43 (PCR) Coronavirus HKU1 (PCR) Coronavirus 229E (PCR) SARS-CoV-2 (PCR) Coronavirus NL63 (PCR) Human Metapneumovir PCR Influenza Type A (PCR) Influenza Type B (PCR) M. pneumoniae (PCR) Parainfluenza 1 (PCR) Parainfluenza 2 (PCR) Parainfluenza 3 (PCR) Parainfluenza 4 (PCR) RSV (PCR) Entero/Rhino (PCR) [facility] Medical History Asymptomatic microscopic hematuria Androgen deprivation therapy Headache Nasal septal perforation Nasal septal deviation Chronic sinusitis Autoimmune disorder Small bowel obstruction Large bowel obstruction Chronic congestion of paranasal sinus Colon cancer Prostate cancer Hemorrhoids organ imaging abnormality Lower urinary tract symptoms Alcohol use disorder Mixed hyperlipidemia Hypothyroidism History of tobacco use disorder Long-term use of immunosuppressant medication Decreased cortisol level (07/2020) Hyponatremia with decreased serum osmolality Hyponatremia Long-term current use of steroids Abdominal aortic ectasia (01/2020) Iron deficiency anemia Hypertension Personal history of colonic polyps Pulmonary nodules Abdominal aortic aneurysm (AAA) Iatrogenic hypothyroidism COPD (chronic obstructive pulmonary disease) Crohns disease (~1968) Surgical History Status post partial colectomy History of colonoscopy History of testicular surgery (~1956) History of mandibular surgery (~1987) Thyroid cancer (~06/2010) Tongue malignant neoplasm (~2015) Family History Father No problems noted. 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 He has been short of breath, coughing and febrile for 2 days. His temperature on arrival is 103.1 and his blood pressure is in the 80s systolic. Sepsis with bilateral aspiration pneumonia -organ dysfunction with acute kidney injury, fever, hypotension and lactic acidosis -chest x-ray shows right greater than left patchy infiltrates -lactic acid level 2.5, procalcitonin 6.73, white blood count 15.9 and fever of 103.1 -continue Zosyn for coverage of anaerobic or Gram-negative organisms likely causing this pneumonia. -viral panel including RSV, COVID and influenza is negative -gave 3rd IV normal saline 1 L bolus and continues on 175 mL/hr maintenance. -Levophed drip in the ICU. -the patient is DNR Aspiration pneumonia/hypoxic respiratory failure -mechanism was vomiting after swallowing blood in the context of severe tongue and throat/swallowing dysfunction -Zosyn IV -supplemental oxygen to maintain sat greater than 90%. Patient is DNR. Tube feeding -patient prefers plant based formula, initiate 70 mL/hr and consult dietitian. Hyponatremia/hypokalemia -presenting potassium 3.1 and sodium 130 -supplement and follow Anemia of chronic cancer and recent nosebleed -hemoglobin 8.6 on admission, follow and transfuse if drops below 7 -6.8 on 04/15, transfused 1 unit pRBC. 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 Time-Based Coding :: [TOTAL MINUTES] spent with patient and on the chart (including review of chart, obtaining history, exam, reviewing outside data, placing orders, documenting exam and treatment plan, and counseling patient) on [DATE]. Quality VTE Deep Vein Thrombosis/Pulmonary Embolism Present on Admission: No
[2024-04-15] MEDS: MAGNESIUM SULFATE 2 GM/50 ML PIGGYBACK IV (09:01)
[2024-04-15] MEDS: ENOXAPARIN 40 MG/0.4 ML SYRINGE SUBCUT (09:02)
[2024-04-15] MEDS: PANTOPRAZOLE 40 MG VIAL IV (09:02)
[2024-04-15] MEDS: ACETAMINOPHEN 325 MG TABLET 975 MG PO (09:02)
[2024-04-15] MEDS: POTASSIUM CHLORIDE 20 MEQ/15 ML UDC 40 MEQ PO (09:02)
[2024-04-15] MEDS: NOREPINEPHRINE BITARTRATE/D5W 4 MG/250 ML PLAST..BAG 52.031 MG IV ×2 (10:43→15:13)
[2024-04-15] MEDS: POTASSIUM CHLORIDE 20 MEQ/15 ML UDC 40 MEQ TUBE (13:48)
[2024-04-15] MEDS: ONDANSETRON 4 MG ODT 8 MG PO (14:57)
--- NOTE | 2024-04-15 15:41 | DIET.CONS ---
Dietary Consultation Note Admission Date: 04/14/2024 13:25 Assessment: 73 y M admitted for sepsis with aspiration pneumonia. RD consulted for tube feeds. Met with pt and family member at bedside who report pt got PEG Mar 20 2024 and started tube feeds. Had experienced significant weight loss between nov 2023 and Jan 2024. Formula has recently been changed to more nutrient dense formula within last 2 weeks. Tube feeds managed by [facility]. Called [facility] and spoke to dietitian confirming tube feed regimen and informing them of patient's hospitalization. Regimen is Nutren 2.0 3.5 250 mL cartons per day, bolus over 1 hour. Spoke to RN who confirms this is regimen pt has been receiving above regimen. Family states a few missed bolus feedings while in ER on Saturday, but besides that patient has been receiving feeds per [facility] rec. Attempted visit again this afternoon to discuss whether patient's insurance will cover use of home formula while in hospital and preferences, but family not present and patient sleeping soundly. Upon initial visit with family member and patient this morning, both were wanting to keep current home regimen going at hospital. Will f/u tomorrow. Ht: 180.34 cm Wt: 55.5 kg BMI: 17.0 UBW: 73.482 kg on 10/02/23 pt confirms this is UBW. 04/06/24 weight was 61.915 kg (-16% weight loss within 6 months, severe) Last BM: 04/14/24 (04/14/24 17:21) MNA: 5 Joe Score: 19 Diet: 04/14/24 15:19 NPO Diet Diet Modifications: Root beer ok NPO Type: NPO except for Ice Chips 04/14/24 Dinner Tube Feeding Diet Diet Modifications: Ok to use pt's own Nutren 2.0, 3.5 boxes/day TF Supplement type: Pivot 1.5 rosalina TF mode of delivery: Continuous Starting flow rate mL/hr: 45 Flow rate goal mL/hr: 75 Titration Schedule to reach Goal Rate: q 2 h Max total daily volume in mL: 1,800 Free fluid: 200 Free Water Frequency: Q12H Nutrition Type of Feeding Tube PEG 04/15/24 08:00 Type of Feeding Tube PEG 04/14/24 18:20 Labs: RBC 2.37 X10^6/uL (4.5-5.9) L 04/15/24 05:27 Hgb 6.8 g/dL (13.5-17.5) L* 04/15/24 05:27 Hct 20.2 % (41-53) L* 04/15/24 05:27 Creatinine 0.78 mg/dL (0.66-1.25) 04/15/24 05:27 Lactate 0.8 mmol/L (0.7-2.1) 04/14/24 13:56 Nutrition Diagnosis: : Severe acute protein calorie malnutrition r/t decreased ability to consume adequate oral intake and increase nutrient needs as evidenced by tongue squamous cell carcinoma with severe stomatitis, <50% estimated energy needs for 3 months prior to PEG placement (severe), receiving chemotherapy, 16% weight loss within 6 months (severe), BMI underweight for age (17.0) Interventions: Connected with RD at [facility] who reports recent change in formula to more nutrient dense formula. Will continue 3.5 cartons for 1750 kcals and 74 g protein EER: 6069-4365 kcals (30-35 kcals/kg per BMI), 84-95 g protein (1.5-1.7 per PCM and squamous cell carcinoma) Monitoring/Evaluations: bolus tolerance Electronically Signed by: Joan Zhang 04/15/24 15:41 Clinical Dietitian [address] [address]
--- NOTE | 2024-04-15 16:56 | CM.IDA ---
Initial DCP Assessment Note Patient is 73 y/o male who presents to via EMS due to concern for AMS and SOB. Martinez is admitted to ICU due to concern for sepsis and pneumonia. Patient has hx of tongue cancer, hx of colon, prostate and thyroid cancer. Patient has PEG feeding tube and colostomy bag. Patient has hx of COPD, Crohn's disease, and hypothyroidism. Patient's PCP is Dr. Gomes, patient has [facility] insurance. Patient receives cancer care from [facility], patient was most recently seen two weeks ago. Patient is DNR. JEWELRY DEPARTMENT SUPERVISOR reviews EMR, patient receives PEG feeding tube nutrition from [facility]. Per RN, patient's preference is to d/c to home with spouse. JEWELRY DEPARTMENT SUPERVISOR enters room to meet with patient, Patient presents as A/Ox4, difficult to understand with garbled speech. Patient resides at home with spouse Janette in [place]. Patient endorses that he can ambulate and manage ADLs at baseline and his assists with tube feeding and managing things around the house. Patient states that he typically takes care of the outside of the house. Patient denies any DME. Patient states his will be back to visit tomorrow. Patient endorses goal to d/c to home upon medical clearance. Patient denies any DCP needs at this time. Plan: DCP to f/u with POC, f/u with patient and spouse as needed, f/u with [facility] upon d/c. Plan to d/c to home upon medical clearance with spouse, no identified DCP needs at this time. CONY Cristobal Discharge Planning/Care Management Advanced directive,confirm from FACILITY Start: 04/14/24 17:37 Freq: Q24H Status: Complete Protocol: Document 04/14/24 18:19 CORY (Rec: 04/14/24 18:20 CORY [id number]) Advance Directive, confirm on record Time 18:19 Person contacted Janette Copy received Yes CM Discharge Assessment Start: 04/15/24 16:50 Freq: Status: Active Protocol: Document 04/15/24 16:50 LN (Rec: 04/15/24 16:56 LN [id number]) Discharge Planning Assessment Assigned Conduit Mechanic CONY Tobias DPOA/Assigned Designee Name Janette Blakely- Spouse Contact Information [phone] Advance Directives? Yes Advance Directives on File No History Provided By Patient,Medical Record Has Patient been admitted in last 30 No days? Prior Living Arrangements House Household Members spouse Type of transporation used prior to Relies on Others admit Independent with ADL's Yes Is patient alert and oriented? Yes Needs Assistance With Meal Prep,Managing Medications Comment Patient's assists with PEG tube feeding Caregiver for Another No Comment [facility] manages tube feeds with Nutren 2.0 3.5 250ml cartons a day Comment Patient preference to return to home Comment Anticipate that this patient will return home w/family uon DC, once medically stable Discharge Plan Home Transportation Arrangement Family Referrals Initiated None needed Additional Comment No referrals needed at this time, will follow closely Please Provide Date Initial DC 04/15/24 Assessment Was Performed
[2024-04-15] MEDS: NOREPINEPHRINE BITARTRATE/D5W 4 MG/250 ML PLAST..BAG 31.219 MG IV (22:45)
[2024-04-16] VITALS (57 sets, daily range): BP systolic 94–142; BP diastolic 54–89; PULSE 69–108; RESP 14–40; TEMP 35.5–39; O2SAT 80–100
[2024-04-16] MEDS: SODIUM CHLORIDE 0.9% 1,000 ML 175 ML IV ×3 (00:01→13:55)
[2024-04-16] MEDS: OXYCODONE IR 5 MG TABLET 15 MG PO ×4 (02:03→22:24)
[2024-04-16] MEDS: PIPERACILLIN/TAZO 3.375 GM in SODIUM CHLORIDE 0.9% 100 ML IV ×3 (03:53→20:19)
[2024-04-16 05:51] LABS: Hemoglobin 7.3 g/dL (13.5-17.5); Mean Corpuscular HGB Conc 33.3 % (30-36); Mean Corpuscular Hemoglobin 28.6 PG (26-34); Platelet Count 307 X10^3/uL (150-400); Red Blood Cell Count 2.55 X10^6/uL (4.5-5.9); Red Cell Distribution Width 15.1 % (11.6-14.8); White Blood Cell Count 17.4 X10^3/uL (4.5-11.0)
[2024-04-16 05:53] LABS: Add Manual Diff / Slide Review YES
[2024-04-16 06:01] LABS: BUN Creatinine Ratio 15.8 (6-22); Blood Urea Nitrogen 12 mg/dL (9-20); Calcium 7.6 mg/dL (8.4-10.2); Carbon Dioxide 30 mmol/L (22-32); Chloride 100 mmol/L (98-107); Estimated Glomerular Filt Rate > 60 mL/min (>60); Glucose 100 mg/dL (80-110); HEMOLYSIS < 15 (0-50); Magnesium 1.9 mg/dL (1.6-2.3); Sodium 131 mmol/L (137-145)
[2024-04-16] MEDS: LEVOTHYROXINE 112 MCG TABLET PO (06:33)
[2024-04-16] MEDS: NOREPINEPHRINE BITARTRATE/D5W 4 MG/250 ML PLAST..BAG 31.219 MG IV (06:33)
[2024-04-16 06:53] LABS: Anisocytosis 1+; Neutrophils Absolute Manual 12528 /uL (3000-5900); Nucleated Red Blood Cells 1 #/Diff; Smudge Cells 1+; Total Cells Counted 100
[2024-04-16] MEDS: PANTOPRAZOLE 40 MG VIAL IV (08:39)
[2024-04-16] MEDS: ENOXAPARIN 40 MG/0.4 ML SYRINGE SUBCUT (08:39)
--- NOTE | 2024-04-16 08:45 | P.PN_ITS ---
Subjective Subjective Interval history: Summary: He is seen today to follow-up his tongue squamous cell carcinoma, dehydration, sepsis and aspiration pneumonia. S: He was having a hard time communicating but is moderately distressed. He was riding down on a board that he does not think he will make it. I met with his at the bedside. I did encourage her to have their son come up from [place]. Exam Vital Signs (past 8 hours): - 04/16/24 01:00 04/16/24 01:00 04/16/24 01:30 Pulse Rate 70 69 Respiratory Rate 19 15 Blood Pressure 119/57 L Pulse Oximetry 93 92 Oxygen Flow Rate 5 04/16/24 01:30 04/16/24 02:00 04/16/24 02:00 Pulse Rate 79 Respiratory Rate 22 Blood Pressure 106/63 105/67 Pulse Oximetry 92 Oxygen Flow Rate 5 04/16/24 02:30 04/16/24 02:30 04/16/24 03:00 Pulse Rate 78 72 Respiratory Rate 19 16 Blood Pressure 104/66 Pulse Oximetry 94 92 Oxygen Flow Rate 5 04/16/24 03:00 04/16/24 03:30 04/16/24 03:30 Pulse Rate 75 Respiratory Rate 16 Blood Pressure 113/60 119/61 Pulse Oximetry 91 Oxygen Flow Rate 04/16/24 04:00 04/16/24 04:00 04/16/24 04:30 Pulse Rate 79 78 Respiratory Rate 18 19 Blood Pressure 115/60 Pulse Oximetry 95 95 Oxygen Flow Rate 5 04/16/24 04:30 04/16/24 05:00 04/16/24 05:00 Pulse Rate 78 Respiratory Rate 20 Blood Pressure 120/59 L 138/66 Pulse Oximetry 91 Oxygen Flow Rate 5 04/16/24 05:30 04/16/24 05:30 04/16/24 06:00 Pulse Rate 78 Respiratory Rate 20 Blood Pressure 142/67 H 128/66 Pulse Oximetry 93 Oxygen Flow Rate 04/16/24 06:00 Pulse Rate 76 Respiratory Rate 21 Blood Pressure Pulse Oximetry 90 L Oxygen Flow Rate 5 Oxygen Delivery Method Nasal Cannula Oxygen Flow Rate 5 Narrative Exam Narrative: Moderate distress, oxygen mask on. He appears cachectic, and chronically ill. Lungs are rhonchorous with increased rate and effort of breathing noted Heart is regular, no murmur gallop or rub. Abdomen is soft, non distended. Extremities are free of edema. Objective Labs 04/16/24 05:40 04/16/24 05:40 Labs: Laboratory Results - last 24 hr 04/15/24 04/16/24 09:16 05:40 WBC 17.4 H RBC 2.55 L Hgb 7.3 L Hct 22.0 L MCV 86.0 MCH 28.6 MCHC 33.3 RDW 15.1 H Plt Count 307 Neut % (Auto) Not Reportable Lymph % (Auto) Not Reportable [place] % (Auto) Not Reportable Eos % (Auto) Not Reportable Baso % (Auto) Not Reportable Lymph # (Auto) Not Reportable [place] # (Auto) Not Reportable Baso # (Auto) Not Reportable Total Counted 100 Seg Neutrophils % 57.0 Band Neutrophils % 15.0 H Lymphocytes % (Manual) 9.0 L Monocytes % (Manual) 5.0 Eosinophils % (Manual) 2.0 Basophils % (Manual) 2.0 H Metamyelocytes % 7.0 H Myelocytes % 3.0 H Neutrophils # (Manual) 84498 H Nucleated RBCs 1 H Smudge Cells 1+ H RBC Morphology See below Anisocytosis 1+ H Sodium 131 L Potassium 4.0 Chloride 100 Carbon Dioxide 30 BUN 12 Creatinine 0.76 Estimated GFR > 60 BUN/Creatinine Ratio 15.8 Glucose 100 Calcium 7.6 L Magnesium 1.9 Blood Type A Positive Antibody Screen Negative Crossmatch See Detail [facility] Medical History Asymptomatic microscopic hematuria Androgen deprivation therapy Headache Nasal septal perforation Nasal septal deviation Chronic sinusitis Autoimmune disorder Small bowel obstruction Large bowel obstruction Chronic congestion of paranasal sinus Colon cancer Prostate cancer Hemorrhoids organ imaging abnormality Lower urinary tract symptoms Alcohol use disorder Mixed hyperlipidemia Hypothyroidism History of tobacco use disorder Long-term use of immunosuppressant medication Decreased cortisol level (07/2020) Hyponatremia with decreased serum osmolality Hyponatremia Long-term current use of steroids Abdominal aortic ectasia (01/2020) Iron deficiency anemia Hypertension Personal history of colonic polyps Pulmonary nodules Abdominal aortic aneurysm (AAA) Iatrogenic hypothyroidism COPD (chronic obstructive pulmonary disease) Crohns disease (~1968) Surgical History Status post partial colectomy History of colonoscopy History of testicular surgery (~1956) History of mandibular surgery (~1987) Thyroid cancer (~06/2010) Tongue malignant neoplasm (~2015) Family History Father No problems noted. 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 Sepsis with bilateral aspiration pneumonia -organ dysfunction with acute kidney injury, fever, hypotension and lactic acidosis -chest x-ray shows right greater than left patchy infiltrates -lactic acid level 2.5, procalcitonin 6.73, white blood count 15.9 and fever of 103.1 -continue Zosyn for coverage of anaerobic or Gram-negative organisms likely causing this pneumonia. -viral panel including RSV, COVID and influenza is negative -gave 3rd IV normal saline 1 L bolus and continues on 175 mL/hr maintenance. -Levophed drip in the ICU. -the patient is DNR 2. Aspiration pneumonia/hypoxic respiratory failure -mechanism was vomiting after swallowing blood in the context of severe tongue and throat/swallowing dysfunction -Zosyn IV -supplemental oxygen to maintain sat greater than 90%. Patient is DNR. 3. Tube feeding -patient prefers plant based formula, initiate 70 mL/hr and consult dietitian. 4. Hyponatremia/hypokalemia -presenting potassium 3.1 and sodium 130 -supplement and follow 5. Anemia of chronic cancer and recent nosebleed -hemoglobin 8.6 on admission, follow and transfuse if drops below 7 -6.8 on 04/15, transfused 1 unit pRBC. 6. Acute kidney injury -continue IV fluid resuscitation 7. 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 -adding morphine for discomfort or air hunger -continue pressor support and IV antibiotics for another 24 hours. -son will come up from [place]. Enoxaparin for DVT prevention His is his backup decision maker. Time-Based Coding :: [TOTAL MINUTES] spent with patient and on the chart (including review of chart, obtaining history, exam, reviewing outside data, placing orders, documenting exam and treatment plan, and counseling patient) on [DATE]. Quality VTE Deep Vein Thrombosis/Pulmonary Embolism Present on Admission: No
[2024-04-16] MEDS: ACETAMINOPHEN 325 MG TABLET 975 MG PO (09:05)
[2024-04-16] MEDS: MORPHINE 2 MG/ML INJ IV ×5 (09:50→21:26)
--- NOTE | 2024-04-16 10:41 | PC.NURSE ---
Pt restless, oxygenation 92% on 3L oximask, pt mouth-breathing. Pt wrote down, I'm not going to make it today. Spouse and [id number] at bedside. Pt up to chair, family in room. Care ongoing.
[2024-04-16] MEDS: ALBUTEROL 2.5 MG/3 ML NEB (ADULT) INH ×2 (15:32→20:24)
[2024-04-16] MEDS: PHENOL LIQUID 100 SPRAYS/BOTTLE SPRAY MM (16:00)
[2024-04-16] MEDS: NOREPINEPHRINE BITARTRATE/D5W 4 MG/250 ML PLAST..BAG 16.65 MG IV (18:13)
[2024-04-16] MEDS: CODEINE/GUAIFENESIN LIQUID 5ML UDC 5 ML PO (20:20)
[2024-04-17] VITALS (53 sets, daily range): BP systolic 82–151; BP diastolic 51–85; PULSE 58–111; RESP 8–40; TEMP 37.2–38.2; O2SAT 84–100
[2024-04-17] MEDS: MORPHINE 2 MG/ML INJ IV ×9 (00:30→23:16)
[2024-04-17] MEDS: SODIUM CHLORIDE 0.9% 1,000 ML 75 ML IV ×2 (02:58→15:45)
[2024-04-17] MEDS: PIPERACILLIN/TAZO 3.375 GM in SODIUM CHLORIDE 0.9% 100 ML IV ×3 (03:49→20:41)
[2024-04-17] MEDS: ACETAMINOPHEN 325 MG TABLET 975 MG PO (04:47)
[2024-04-17] MEDS: OXYCODONE IR 5 MG TABLET 15 MG PO (04:47)
[2024-04-17] MEDS: NOREPINEPHRINE BITARTRATE/D5W 4 MG/250 ML PLAST..BAG 16.65 MG IV (05:05)
--- NOTE | 2024-04-17 06:23 | PC.NURSE ---
Partnership Marketing Manager Note-Patient was awake most of the night, restless with persistent loose cough. Using sx on own, small amount rust sputum. Oximask 5-7L, SpO2 >96%. Sat at side of bed 3 times. 2mg IV morphine given x6, 15mg oxycodone x2 crushed into Peg. Tylenol for fever 100.8. Levophed continues, currently at 0.1mcg/kg/min.
[2024-04-17] MEDS: LEVOTHYROXINE 112 MCG TABLET PO (06:36)
[2024-04-17] MEDS: PANTOPRAZOLE 40 MG VIAL IV (08:00)
[2024-04-17] MEDS: ENOXAPARIN 40 MG/0.4 ML SYRINGE SUBCUT (08:00)
--- NOTE | 2024-04-17 08:52 | P.PN_ITS ---
Subjective Subjective Interval history: Summary: The patient was doing poorly on April 16 and we discussed the possibility of comfort care versus ongoing antibiotics. Family did a simple and ultimately elected to continue vasopressor support and antibiotics. The patient kept saying he was going to yesterday. Today he was little more alert and engaged. He was still coughing up copious amounts of sputum. He was a persistent fever and remains dependent on vasopressors. S: Denies pain. Exam Vital Signs (past 8 hours): - 04/17/24 01:00 04/17/24 01:00 04/17/24 01:30 Temperature Pulse Rate 74 81 Respiratory Rate 19 28 H Blood Pressure 99/63 Pulse Oximetry 99 95 Oxygen Flow Rate 04/17/24 01:30 04/17/24 02:00 04/17/24 02:00 Temperature Pulse Rate 74 Respiratory Rate 21 Blood Pressure 121/67 91/59 L Pulse Oximetry 97 Oxygen Flow Rate 04/17/24 02:30 04/17/24 02:30 04/17/24 03:00 Temperature Pulse Rate 69 73 Respiratory Rate 17 23 Blood Pressure 130/61 Pulse Oximetry 99 100 Oxygen Flow Rate 04/17/24 03:00 04/17/24 03:30 04/17/24 03:30 Temperature Pulse Rate 72 Respiratory Rate 19 Blood Pressure 116/58 L 115/61 Pulse Oximetry 98 Oxygen Flow Rate 04/17/24 04:00 04/17/24 04:00 04/17/24 04:29 Temperature Pulse Rate 111 H 111 H Respiratory Rate 20 20 Blood Pressure 120/60 120/60 Pulse Oximetry 100 100 Oxygen Flow Rate 7 04/17/24 04:47 04/17/24 04:49 Temperature 100.8 F H 100.8 F H Pulse Rate Respiratory Rate Blood Pressure Pulse Oximetry Oxygen Flow Rate Oxygen Delivery Method Oximask Oxygen Flow Rate 7 Narrative Exam Narrative: Less respiratory distress, oxygen mask on. He appears cachectic, and chronically ill. Lungs are rhonchorous with increased rate and effort of breathing noted Heart is regular, no murmur gallop or rub. Abdomen is soft, non distended. Extremities are free of edema. Objective Labs 04/16/24 05:40 04/16/24 05:40 [facility] Medical History Asymptomatic microscopic hematuria Androgen deprivation therapy Headache Nasal septal perforation Nasal septal deviation Chronic sinusitis Autoimmune disorder Small bowel obstruction Large bowel obstruction Chronic congestion of paranasal sinus Colon cancer Prostate cancer Hemorrhoids organ imaging abnormality Lower urinary tract symptoms Alcohol use disorder Mixed hyperlipidemia Hypothyroidism History of tobacco use disorder Long-term use of immunosuppressant medication Decreased cortisol level (07/2020) Hyponatremia with decreased serum osmolality Hyponatremia Long-term current use of steroids Abdominal aortic ectasia (01/2020) Iron deficiency anemia Hypertension Personal history of colonic polyps Pulmonary nodules Abdominal aortic aneurysm (AAA) Iatrogenic hypothyroidism COPD (chronic obstructive pulmonary disease) Crohns disease (~1968) Surgical History Status post partial colectomy History of colonoscopy History of testicular surgery (~1956) History of mandibular surgery (~1987) Thyroid cancer (~06/2010) Tongue malignant neoplasm (~2015) Family History Father No problems noted. 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 Septic shock secondary to aspiration pneumonia, present on admission and active. -organ dysfunction with acute kidney injury, fever, hypotension and lactic acidosis -chest x-ray shows right greater than left patchy infiltrates -lactic acid level 2.5, procalcitonin 6.73, white blood count 15.9 and fever of 103.1 -continue Zosyn for coverage of anaerobic or Gram-negative organisms likely causing this pneumonia. -viral panel including RSV, COVID and influenza is negative -gave 3rd IV normal saline 1 L bolus and continues on 175 mL/hr maintenance. -Levophed drip in the ICU. -the patient is DNR 2. Aspiration pneumonia and acute hypoxic respiratory failure, present on admission and active. -mechanism was vomiting after swallowing blood in the context of severe tongue and throat/swallowing dysfunction -Zosyn IV -supplemental oxygen to maintain sat greater than 90%. Patient is DNR. 3. Tube feeding, active. -patient prefers plant based formula, initiate 70 mL/hr and consult dietitian. 4. Hyponatremia/hypokalemia, improved. -presenting potassium 3.1 and sodium 130 -supplement and follow 5. Anemia of chronic cancer and recent nosebleed, stable. -hemoglobin 8.6 on admission, follow and transfuse if drops below 7 -6.8 on 04/15, transfused 1 unit pRBC. 6. Acute kidney injury, active. -continue IV fluid resuscitation 7. 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 -Improved with IV hydration PLAN: -continue antibiotics -continue norepinephrine for pressure support. -add Ativan as needed for anxiety and scopolamine patch for secretions. -the patient continues to have a guarded prognosis. -Enoxaparin for DVT prevention Time-Based Coding :: [TOTAL MINUTES] spent with patient and on the chart (including review of chart, obtaining history, exam, reviewing outside data, placing orders, documenting exam and treatment plan, and counseling patient) on [DATE]. Quality VTE Deep Vein Thrombosis/Pulmonary Embolism Present on Admission: No
[2024-04-17] MEDS: SCOPOLAMINE 1 PATCH TOP (09:06)
[2024-04-17] MEDS: ALBUTEROL 2.5 MG/3 ML NEB (ADULT) INH (09:16)
[2024-04-17] MEDS: LORazepam 2 MG/ML INJ 1 MG IV ×2 (09:20→21:07)
[2024-04-17 09:47] LABS: Mean Corpuscular HGB Conc 33.3 % (30-36); Mean Corpuscular Hemoglobin 28.8 PG (26-34); Mean Corpuscular Volume 86.6 fL (80-100); Platelet Count 262 X10^3/uL (150-400); Red Blood Cell Count 2.33 X10^6/uL (4.5-5.9); Red Cell Distribution Width 15.4 % (11.6-14.8); White Blood Cell Count 14.8 X10^3/uL (4.5-11.0)
[2024-04-17 09:49] LABS: Hematocrit 20.1 % (41-53); Hemoglobin 6.7 g/dL (13.5-17.5)
[2024-04-17 09:58] LABS: Alanine Aminotransferase 18 IU/L (<50); Albumin 2.3 g/dL (3.5-5.0); Albumin Globulin Ratio 0.8 (1.0-2.8); Alkaline Phosphatase 157 U/L (38-126); Aspartate Aminotransferase 41 IU/L (17-59); BUN Creatinine Ratio 13.4 (6-22); Bilirubin Total 0.1 mg/dL (0.2-1.3); Blood Urea Nitrogen 9 mg/dL (9-20); Calcium 7.5 mg/dL (8.4-10.2); Carbon Dioxide 32 mmol/L (22-32); Chloride 99 mmol/L (98-107); Estimated Glomerular Filt Rate > 60 mL/min (>60); Globulin 2.8 g/dL (1.7-4.1); Glucose 83 mg/dL (80-110); HEMOLYSIS 29 (0-50); Potassium 3.9 mmol/L (3.4-5.1); Sodium 132 mmol/L (137-145); Total Protein 5.1 g/dL (6.3-8.2)
--- NOTE | 2024-04-17 14:08 | DIET.PN1 ---
Dietary Progress Note Assessment: RD f/u Pt may be going on comfort care, goals of care to be determined. Per RN, pt is still getting Nutren 2.0, 3.5 boxes in a continuous feed over 12 hours at the rate of 75 mL/hr for total of 900 mL. Ht: 180.34 cm Wt: 55.5 kg BMI: 17.0 Last BM: 04/14/24 (04/14/24 17:21) MNA: 5 Joe Score: 18 Diet: 04/14/24 15:19 NPO Diet Diet Modifications: Root beer ok NPO Type: NPO except for Ice Chips 04/14/24 Dinner Tube Feeding Diet Diet Modifications: Ok to use pt's own Nutren 2.0, 3.5 boxes/day TF Supplement type: Pivot 1.5 orsalina TF mode of delivery: Continuous Starting flow rate mL/hr: 45 Flow rate goal mL/hr: 75 Titration Schedule to reach Goal Rate: q 2 h Max total daily volume in mL: 900 Free fluid: 200 Free Water Frequency: Q12H Nutrition Type of Feeding Tube PEG 04/16/24 20:00 Labs: RBC 2.33 X10^6/uL (4.5-5.9) L 04/17/24 09:30 Hgb 6.7 g/dL (13.5-17.5) L* 04/17/24 09:30 Hct 20.1 % (41-53) L* 04/17/24 09:30 Creatinine 0.67 mg/dL (0.66-1.25) 04/17/24 09:30 Lactate 0.8 mmol/L (0.7-2.1) 04/14/24 13:56 Electronically Signed by: Joan Zhang 04/17/24 14:08 Clinical Dietitian [address] [id number]
--- NOTE | 2024-04-17 16:25 | CM.DPNOTE ---
DCP Cont Reviewed chart. Patient discussed in multidisciplinary rounds. According to Dr Maldonado, family is reporting they are not ready for comfort care. Patient is on pressors and abx. CM team following clinical course closely for coordination of discharge plan. Patient with feeding tube and colostomy at baseline. Unknown what outpatient agencies help maintain these interventions. VAL
[2024-04-17] MEDS: NOREPINEPHRINE BITARTRATE/D5W 4 MG/250 ML PLAST..BAG 10.406 MG IV (23:29)
[2024-04-18] VITALS (16 sets, daily range): BP systolic 109–149; BP diastolic 55–76; PULSE 67–86; RESP 17–24; TEMP 37.6; O2SAT 68–100
[2024-04-18] MEDS: LORazepam 2 MG/ML INJ 1 MG IV ×2 (00:41→08:52)
[2024-04-18] MEDS: OXYCODONE IR 5 MG TABLET 15 MG PO ×2 (01:26→08:52)
[2024-04-18] MEDS: PIPERACILLIN/TAZO 3.375 GM in SODIUM CHLORIDE 0.9% 100 ML IV (03:42)
[2024-04-18] MEDS: SODIUM CHLORIDE 0.9% 1,000 ML 75 ML IV (04:07)
[2024-04-18] MEDS: MORPHINE 2 MG/ML INJ IV (05:36)
[2024-04-18] MEDS: LEVOTHYROXINE 112 MCG TABLET PO (05:37)
[2024-04-18] MEDS: HYDROMORPHONE 0.5 MG INJ 1 MG IV (08:04)
[2024-04-18] MEDS: PANTOPRAZOLE 40 MG VIAL IV (08:52)
--- NOTE | 2024-04-18 09:18 | PC.NURSE ---
Addendum entered by Isael Sifuentes R.N. 04/18/24 10:32: Patient transitioned to comfort care. Resting comfortably after PRN medications administered and Dilaudid drip started. Patient remains on 2L Oxymask for comfort. Family at bedside. Original Note: 0915 - Patient restless and agitated throughout morning, pulling at medical equipment and clothing. Dr Yin at bedside with family discussing next steps. Patient only responding to some questions with single words and simple phrases, often does not reply. Unable to coherently express wants or needs. Per Annamaria, okay to DC continuous monitoring, one time dose Dilaudid ordered to address breakthrough pain needs. Ordered morphine not working well for pain control, new orders expected.
[2024-04-18 09:24] LABS: Mean Corpuscular HGB Conc 33.7 % (30-36); Mean Corpuscular Hemoglobin 28.8 PG (26-34); Mean Corpuscular Volume 85.5 fL (80-100); Platelet Count 267 X10^3/uL (150-400); Red Blood Cell Count 2.03 X10^6/uL (4.5-5.9); Red Cell Distribution Width 15.1 % (11.6-14.8); White Blood Cell Count 11.7 X10^3/uL (4.5-11.0)
[2024-04-18 09:26] LABS: BUN Creatinine Ratio 12.5 (6-22); Blood Urea Nitrogen 7 mg/dL (9-20); Calcium 7.2 mg/dL (8.4-10.2); Carbon Dioxide 35 mmol/L (22-32); Chloride 95 mmol/L (98-107); Estimated Glomerular Filt Rate > 60 mL/min (>60); Glucose 88 mg/dL (80-110); HEMOLYSIS < 15 (0-50); Potassium 3.2 mmol/L (3.4-5.1); Sodium 130 mmol/L (137-145)
[2024-04-18 09:33] LABS: Add Manual Diff / Slide Review YES
[2024-04-18 09:34] LABS: Hematocrit 17.3 % (41-53); Hemoglobin 5.8 g/dL (13.5-17.5)
[2024-04-18 09:49] LABS: Neutrophils Absolute Manual 9243 /uL (3000-5900); Total Cells Counted 100
[2024-04-18 09:51] LABS: Anisocytosis 1+
[2024-04-18] MEDS: HYDROMORPHONE PF 10 MG in SODIUM CHLORIDE 0.9% 100 ML 10.1 MG IV (10:15)
--- NOTE | 2024-04-18 14:29 | CM.DPNOTE ---
DISCUSSED IN ROUNDS- PATIENT CHANGED TO COMFORT CARE TODAY.
[2024-04-18] MEDS: SODIUM CHLORIDE 0.9% IV (15:36)
[2024-04-18] MEDS: HYDROMORPHONE IV (15:36)
--- NOTE | 2024-04-18 18:33 | PM.PN.1 ---
Subjective Subjective Interval history: 73-year-old male with tongue cancer, prior hx of colon ca, prostate ca and thyroid ca, COPD, Crohn's disease and hypothyroidism who was admitted w/presumed aspiration pna and sepsis.? He is s/p PEG tube d/t tongue CA and colostomy d/t partial colectomy for Crohn?s/colon CA.? On Zosyn and levophed.? Has been anemic( presumably from nosebleed).? Received 1 U prbcs 04/15.? Hgb yesterday 6.7. ? Today, patient is groaning and admits to being very uncomfortable. He has been receiving morphine 2 mg IV at a time as well as oxycodone 15 mg q.6, which he takes at home. His son is present at bedside and reports that he and his mom are leaning towards comfort care measures, as they do not think he will be able to resume treatment for his cancer. He has thus far completed induction chemotherapy 2 weeks ago and had a rapid decline thereafter. His son notes that he was doing poorly with decline even prior to that. He states that if he is not able to recover enough to get treatment for the cancer, that they are not really sure what they are accomplishing at this stage. Exam Vital Signs (past 8 hours): - 04/18/24 11:00 04/18/24 12:00 Pulse Rate 86 86 Pulse Oximetry 68 L 74 L Oxygen Delivery Method Oximask Oxygen Flow Rate 2 Narrative Exam Narrative: GEN: Awake but confused/disoriented, appears acutely and chronically ill, uncomfortable, cachectic HEENT:NC, Face symmetric CHEST: Respiratory excursions symmetric, expiratory wheezes bilaterally CV: RRR, no M/R/G ABD: Soft, diffusely tender to palpation, bowel tones are present, G-tube in place EXTR: warm, well perfused, no C/C/E SKIN: warm and dry, no rash NEURO: Confused, disoriented Objective Labs 04/18/24 Unknown 04/18/24 Unknown Labs: Laboratory Results - last 24 hr 04/18/24 04/18/24 07:17 Unknown WBC 11.7 H RBC 2.03 L Hgb 5.8 L* Hct 17.3 L* MCV 85.5 MCH 28.8 MCHC 33.7 RDW 15.1 H Plt Count 267 Neut % (Auto) Not Reportable Lymph % (Auto) Not Reportable [place] % (Auto) Not Reportable Eos % (Auto) Not Reportable Baso % (Auto) Not Reportable Lymph # (Auto) Not Reportable [place] # (Auto) Not Reportable Baso # (Auto) Not Reportable Total Counted 100 Seg Neutrophils % 64.0 Band Neutrophils % 15.0 H Lymphocytes % (Manual) 8.0 L Monocytes % (Manual) 5.0 Myelocytes % 8.0 H Neutrophils # (Manual) 9243 H RBC Morphology See below Anisocytosis 1+ H Sodium 130 L Potassium 3.2 L Chloride 95 L Carbon Dioxide 35 H BUN 7 L Creatinine 0.56 L Estimated GFR > 60 BUN/Creatinine Ratio 12.5 Glucose 88 Calcium 7.2 L Blood Type A Positive Antibody Screen Negative [facility] Medical History Asymptomatic microscopic hematuria Androgen deprivation therapy Headache Nasal septal perforation Nasal septal deviation Chronic sinusitis Autoimmune disorder Small bowel obstruction Large bowel obstruction Chronic congestion of paranasal sinus Colon cancer Prostate cancer Hemorrhoids organ imaging abnormality Lower urinary tract symptoms Alcohol use disorder Mixed hyperlipidemia Hypothyroidism History of tobacco use disorder Long-term use of immunosuppressant medication Decreased cortisol level (07/2020) Hyponatremia with decreased serum osmolality Hyponatremia Long-term current use of steroids Abdominal aortic ectasia (01/2020) Iron deficiency anemia Hypertension Personal history of colonic polyps Pulmonary nodules Abdominal aortic aneurysm (AAA) Iatrogenic hypothyroidism COPD (chronic obstructive pulmonary disease) Crohns disease (~1968) Surgical History Status post partial colectomy History of colonoscopy History of testicular surgery (~1956) History of mandibular surgery (~1987) Thyroid cancer (~06/2010) Tongue malignant neoplasm (~2015) Family History Father No problems noted. 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 Septic shock secondary to aspiration pneumonia 2. Aspiration pneumonia 3. Acute hypoxic respiratory failure 4. Acute blood loss anemia on chronic anemia secondary to induction chemotherapy 5. Recurrent squamous cell carcinoma the tongue with severe stomatitis I did have a conversation with the patient's and son to discuss options. We can continue present level of care, including antibiotics, transfusion, with a goal to get him recovered enough to continue with his cancer treatment. We can continue current level of care to treat his present pneumonia and anemia with a goal to return home with hospice care. We could transition towards comfort care with a plan to discharge home with hospice care if that is consistent with his goals, or we could transition to comfort measures only here in the hospital. I reviewed this would involve discontinuing feedings, antibiotics, fluids, blood products, and all other aggressive interventions. In this scenario, we would give him IV pain medications and antianxiety medications. We reviewed overall prognosis and expectations of what each option would require in terms of logistics and planning. After they time to talk as a family, they ultimately elected comfort care measures here in the hospital. Patient was transitioned off of all aggressive interventions. He was initiated on a hydromorphone infusion. Lorazepam was ordered for hourly dosing as needed. Haloperidol was also ordered as needed for any symptoms or signs of agitation. His prognosis is anticipated to be 24 hours or less. Time-Based Coding :: [TOTAL MINUTES] spent with patient and on the chart (including review of chart, obtaining history, exam, reviewing outside data, placing orders, documenting exam and treatment plan, and counseling patient) on [DATE]. Quality VTE Deep Vein Thrombosis/Pulmonary Embolism Present on Admission: No
--- NOTE | 2024-04-18 19:56 | PC.NURSE ---
RN note Family came out of room at shift change 0710 stating pt no longer breathing, RN assessed pt and he no longer had a heart beat or respirations, dilaudid gtt stopped, family at bedside, state they want him to go to 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 Culp catheter and periph IV site removed
--- NOTE | 2024-04-18 20:04 | PM.DDS.1 ---
Discharge Summary History of Illness Narrative: Per HPI: This is a 73-year-old male with tongue cancer, history of colon cancer, history of prostate cancer history of thyroid cancer,, COPD, Crohn's disease and hypothyroidism who presents with presumed aspiration pneumonia and sepsis. He has been short of breath, coughing and febrile for 2 days. His temperature on arrival is 103.1 and his blood pressure is in the 80s systolic. He is currently undergoing chemotherapy in [place] for his tongue cancer. The most recent treatment was on April 01, followed a few days later by a nosebleed, which seemed to cause his stomach to over fill with blood and then vomiting, with the next symptom being the fever and apparent aspiration pneumonia. He has a colostomy secondary to a history of Crohn's disease/colon cancer. He has a feeding tube because of the difficulty swallowing caused by the tongue cancer. His feeding tube regimen is Nutren 2.0 3.5 boxes per day. The procalcitonin is 6.73. The lactic acid level is 2.5, dropping to 0.8 after 1 L IV normal saline bolus. The BUN is 45. The creatinine is normal at 1.07. His EKG shows sinus tachycardia with first-degree AV block, rare PVCs and right bundle branch block. The hemoglobin is 8.6 with a potassium of 3.1. The white blood count is 15.9. Hospital Course Date of Admission: 04/14/24 13:25 Date of : 04/18/24 Primary care provider: Rosanne Ferreira MD Consults: 04/14/24 15:25 Consult to Dietitian, Adult Routine Comment: Reason For Exam: Feeding tube 04/14/24 17:37 Consult to Dietitian, Adult Routine Comment: Reason For Exam: weight loss, on tube feed diet Discharge provider: 1. Septic shock secondary to aspiration pneumonia 2. Aspiration pneumonia 3. Acute hypoxic respiratory failure 4. Acute blood loss anemia on chronic anemia secondary to induction chemotherapy 5. Recurrent squamous cell carcinoma the tongue with severe stomatitis Discharge Diagnosis: 1. Septic shock secondary to aspiration pneumonia 2. Aspiration pneumonia 3. Acute hypoxic respiratory failure 4. Acute blood loss anemia on chronic anemia secondary to induction chemotherapy 5. Recurrent squamous cell carcinoma the tongue with severe stomatitis Hospital Course: 73-year-old male with tongue cancer, prior hx of colon ca, prostate ca and thyroid ca, COPD, Crohn's disease and hypothyroidism who was admitted w/presumed aspiration pna and sepsis.? He is s/p PEG tube d/t tongue CA and colostomy d/t partial colectomy for Crohn?s/colon CA.? On Zosyn and levophed.? Has been anemic( presumably from nosebleed).? Received 1 U prbcs 04/15.? Hgb yesterday 6.7 on 04/17 and down to 5.8 on 04/18. On 04/18/24 in the morning, I had a conversation with the patient's and son to discuss options. We discussed continuing the current level of care, including antibiotics, transfusion, with a goal to get him recovered enough to continue with his cancer treatment. We discussed continuing the current level of care to treat his present pneumonia and anemia with a goal to return home with hospice care. We discussed transitioning to comfort care with a plan to discharge home with hospice care if that was consistent with his goals, or we could transition to comfort measures only here in the hospital. We reviewed overall prognosis and expectations of what each option would require in terms of logistics and planning. After they had time to talk as a family, they elected comfort care measures here in the hospital. Patient was transitioned off of all aggressive interventions. He was initiated on a hydromorphone infusion. Lorazepam was ordered for hourly dosing as needed. Haloperidol was also ordered as needed for any symptoms or signs of agitation. He passed comfortably on 04/18/24 at 1910. Objective Labs 04/18/24 Unknown 04/18/24 Unknown Labs: Laboratory Results - last 24 hr 04/18/24 04/18/24 07:17 Unknown WBC 11.7 H RBC 2.03 L Hgb 5.8 L* Hct 17.3 L* MCV 85.5 MCH 28.8 MCHC 33.7 RDW 15.1 H Plt Count 267 Neut % (Auto) Not Reportable Lymph % (Auto) Not Reportable [place] % (Auto) Not Reportable Eos % (Auto) Not Reportable Baso % (Auto) Not Reportable Lymph # (Auto) Not Reportable [place] # (Auto) Not Reportable Baso # (Auto) Not Reportable Total Counted 100 Seg Neutrophils % 64.0 Band Neutrophils % 15.0 H Lymphocytes % (Manual) 8.0 L Monocytes % (Manual) 5.0 Myelocytes % 8.0 H Neutrophils # (Manual) 9243 H RBC Morphology See below Anisocytosis 1+ H Sodium 130 L Potassium 3.2 L Chloride 95 L Carbon Dioxide 35 H BUN 7 L Creatinine 0.56 L Estimated GFR > 60 BUN/Creatinine Ratio 12.5 Glucose 88 Calcium 7.2 L Blood Type A Positive Antibody Screen Negative
--- NOTE | 2024-04-19 07:57 | CM.DPNOTE ---
DCP Per MD and RN, pt last night after SW shift around 1900 04/18/24 with family bedside and home notified and they collected the body. JD Garcia
== END 2024-04-18 19:10 | disposition expired | DRG 871 ==
LOC: ED 13:22 → AC 13:26 → ICU 14:01
PROVIDERS: Family Medicine; Hospitalist; Admitting Provider Family Medicine; Emergency Provider Emergency Medicine; PCP Family Medicine; Referring Provider Emergency Medicine; Visit Provider Family Medicine
DX: A41.9 Sepsis, unspecified organism (principal); J18.9 Pneumonia, unspecified organism; J69.0 Pneumonitis due to inhalation of food and vomit; R65.21 Severe sepsis with septic shock; J96.01 Acute respiratory failure with hypoxia; E87.1 Hypo-osmolality and hyponatremia; K50.90 Crohn's disease, unspecified, without complications; N17.9 Acute kidney failure, unspecified; D62 Acute posthemorrhagic anemia; R04.0 Epistaxis; C02.9 Malignant neoplasm of tongue, unspecified; R00.0 Tachycardia, unspecified; I44.0 Atrioventricular block, first degree; I49.3 Ventricular premature depolarization; I45.10 Unspecified right bundle-branch block; F17.200 Nicotine dependence, unspecified, uncomplicated; E87.6 Hypokalemia; R79.89 Other specified abnormal findings of blood chemistry; E86.0 Dehydration; K12.1 Other forms of stomatitis; D64.81 Anemia due to antineoplastic chemotherapy; T45.1X5A Adverse effect of antineoplastic and immunosuppressive drugs, initial encounter; Z85.850 Personal history of malignant neoplasm of thyroid; Z93.3 Colostomy status; Z90.49 Acquired absence of other specified parts of digestive tract; Z85.46 Personal history of malignant neoplasm of prostate; Z66 Do not resuscitate; Z51.5 Encounter for palliative care; Z93.1 Gastrostomy status; Z95.828 Presence of other vascular implants and grafts
CPT/HCPCS: 30901; 30903; 36415; 36430; 36591; 71045; 80048; 80053; 81001; 82962; 83605; 83735; 84145; 85007; 85025; 85027; 85610; 85730; 86850; 86900; 86901; 87040; 87633; 87797; 93005; 94640; 94762; 96361; 96365; 96367; 96375; 99282; 99283; 99285; P9016; J0131; J1171; J1642; J1650; J1885; J2060; J2270; J2470; J2543; J3475; J7613